=== PATIENT | female | born 1935 | race Caucasian/White ===

== ENCOUNTER → 2016-08-16 | Outpatient (CLI) | payer BC ==
[~2016-08-16] MED LIST: ACT/45 PO; ACT15 PO; ALBUAER2 INH; ALEN70TA2 PO; ASPI1TAB83 PO; CALC-354 PO; CEFD300C3 PO; CLC100X PO; CYAN100073 OR; FEXO1TAB45 PO; FLVHFA110 INH; FRRG PO; FSM70 PO; GLC5 PO; GLC500 PO; LACTCHW3 PO; LCTXP OR; METF-384 PO; MOME100A INH; MOME50SP5 NAE; PANT40TA PO; POLYSOL4 OPB; SIMV20TA5 PO; SITA100T3 PO; TELM40TA11 PO; TELM5TAB2 PO; VNTHFA/IN INH
[2016-08-16 17:29] LABS: BASO % 0.2 %; BASO ABS # 0.01 K/uL (0-0.2); COMPLETE YES; EOS % 1.4 %; HEMATOCRIT 39.4 % (37-47); IG% 0.2 %; LYMPH % 20.1 %; LYMPH ABS # 1.02 K/uL (1.2-3.4); MEAN CELL VOLUME 89.7 fL (80-100); MEAN CORPUSCULAR HGB CONC 34.5 g/dl (32-36); MEAN PLATELET VOLUME 10.2 fL (7.4-10.4); MONO % 12.2 %; NEUT % 65.9 %; PLATELET COUNT 204 K/uL (130-400); RED BLOOD COUNT 4.39 M/uL (4.2-5.4); WHITE BLOOD COUNT 5.08 K/uL (4.8-10.8)
[2016-08-16 18:10] LABS: URINE APPEARANCE CLEAR (CLEAR); URINE BILIRUBIN NEG (NEG); URINE COLOR YELLOW; URINE NITRITE POS (NEG); UROBILINOGEN NEG (NEG); ZZUR CULT IF INDIC CLEAN CATCH YES
[2016-08-16 18:15] LABS: MANUAL MICROSCOPIC REQUIRED? NO; REVIEW REQ? NO
[2016-08-16 18:42] LABS: ALT/SGPT 19 U/L (12-78); AST/SGOT 19 U/L (15-37); BLOOD UREA NITROGEN 11 mg/dl (7-18); BUN/CREATININE RATIO 10.3 (10-20); CARBON DIOXIDE 25 mmol/L (21-32); CHLORIDE 94 mmol/L (98-107); GLUCOSE 181 mg/dl (70-99); POTASSIUM 3.7 mmol/L (3.5-5.1); SODIUM 131 mmol/L (136-145)
[2016-08-16 18:56] LABS: ALB/GLOB RATIO 1.1 (0.9-2); ALKALINE PHOSPHATASE 71 U/L (45-117); THYROID STIMULATING HORMONE 0.794 uIu/ml (0.300-4.500)
[2016-08-17 06:17] LABS: ESTIMATED AVERAGE GLUCOSE 108 mg/dl; HA1C FLAG Normal (Normal)
--- NOTE | 2016-08-31 14:11 | CODING QUERY MEDICAL NECESSITY ---
SUPPORTING DIAGNOSIS NEEDED A supporting diagnosis is required for the test/procedure performed on this patient in order for us to be reimbursed by the patient's insurance. Please provide a supporting diagnosis for the following test/procedure listed below next to the test name along with your signature. *If there is no additional diagnosis for this patient that would support the following test/procedure please document that below next to the test/procedure. Test(s)/Procedure(s) that require a supporting diagnosis: * VITAMIN B-12 LEVEL DIAGNOSIS: * DOS: 08/16/16 Provider Signature: Date: Thank you Madeline Braga Health Information Management Once completed, please kindly fax back to [phone] For questions please call [phone]
== END | disposition home or self-care (01) ==
LOC: C.LABBFT 15:38
PROVIDERS: ATTEND Internal Medicine
DX: R53.83 Other fatigue (principal); E11.9 Type 2 diabetes mellitus without complications; M81.0 Age-related osteoporosis without current pathological fracture; D64.9 Anemia, unspecified

== ENCOUNTER → 2016-09-18 | Outpatient (CLI) | payer BC ==
[2016-09-18 17:49] LABS: BLOOD UREA NITROGEN 20 mg/dl (7-18); BUN/CREATININE RATIO 15.2 (10-20); CALCIUM 9.1 mg/dl (8.5-10.1); CARBON DIOXIDE 27 mmol/L (21-32); CHLORIDE 90 mmol/L (98-107); GLUCOSE 138 mg/dl (70-99); POTASSIUM 4.2 mmol/L (3.5-5.1); SODIUM 127 mmol/L (136-145)
== END | disposition home or self-care (01) ==
LOC: C.LABBFT 14:04
PROVIDERS: ATTEND Physician Assistant Medical
DX: I10 Essential (primary) hypertension (principal)

== ENCOUNTER 2016-09-20 17:48 | Inpatient (IN) | payer BC, OTHER ==
[~2016-09-20] VITALS: Ht 144.8 cm; Wt 50.2 kg
[~2016-09-20 17:48] MED LIST changes: -ACT/45 PO; -ALEN70TA2 PO; -CEFD300C3 PO; -CYAN100073 OR; -FLVHFA110 INH; -LCTXP OR; -METF-384 PO; -TELM40TA11 PO; -VNTHFA/IN INH
[2016-09-20] MEDS ORDERED: SODIUM CHLORIDE 0.9% 1000ML 500 ML IV STA (18:31)
--- NOTE | 2016-09-20 18:41 | EMERGENCY ROOM VISIT NOTE ---
History Report prepared by Joaquim: Saad Obrien Under the Supervision of: Dr. Michael Daigle M.D. First contact with patient: 18:25 Chief Complaint: ABNORMAL LABS Stated Complaint: LOW SODIUM History of Present Illness The patient is a 81 year old female who presents to the Emergency Room by EMS with complaints of an episode of abnormal labs 5 days ago. She notes she had blood work ordered by Dr. Hobbs 5 days ago, and was told to come to the ER as her sodium levels were low. She notes this has happened once before many years ago. The patient indicates that she had the blood work done because her blood pressure has been high, and that she has been weak recently. The patient has also had a productive cough, and ongoing shortness of breath. She notes she has been drinking plenty of fluids. The patient states having a history of pulmonary fibrosis. The patient recently broke her left shoulder, and still has some pain which radiates up to her neck. Source of History: patient Onset: 5 days ago Position: other (blood) Quality: other (abnormal sodium levels) Timing: other (episode) Associated Symptoms: + SOB, + cough, + neck pain, + weakness Note: The patient notes having shoulder pain. Review of Systems See HPI for pertinent positives & negatives. A total of 10 systems reviewed and were otherwise negative. Past Medical & Surgical Medical Problems: (1) Diab Karen Wo Compl, Type Ii Or Unspec Type, Not Uncntrld (2) Diverticulosis Colon (W/O Ment Of Hemorrhage) (3) Esophageal Reflux (4) Hypertension Nos (5) Postinflam Pulm Fibrosis (6) Pure Hypercholesterolem Family History No pertinent family history stated. Social History Smoking Status: Never Smoker Marital Status: single Occupation Status: retired Current/Historical Medications Scheduled Alendronate Sodium (Fosamax), 70 MG PO WK Fluticasone Propionate (Flovent Hfa), 2 PUFFS INH BID Glipizide (Glipizide), 5 MG PO BIDM Metformin Hcl (Glucophage), 1,000 MG PO BIDM Pantoprazole (Protonix), 40 MG PO DAILY Pioglitazone Hcl (Actos), 45 MG PO QAM Simvastatin (Zocor), 20 MG PO QPM Sitagliptin Phosphate (Januvia), 100 MG PO DAILY Telmisartan (Micardis), 40 MG PO HS Scheduled PRN Albuterol Hfa (Ventolin Hfa), 2-4 PUFFS INH Q6H PRN for SOB/Wheezing Allergies Coded Allergies: Risedronate (Verified Allergy, Unknown, SICK, 09/20/16) Vitamin E (Verified Allergy, Unknown, HIVES, 09/20/16) Prednisone (Verified Adverse Reaction, Unknown, Makes her feel very ill., 09/20/16) Physical Exam Vital Signs Date Time Temp Pulse Resp B/P Pulse Ox O2 Delivery O2 Flow Rate FiO2 09/20/16 20:44 88 20 164/70 93 Room Air 09/20/16 18:02 90 09/20/16 17:56 37.1 95 18 188/86 97 Room Air Physical Exam GENERAL: Patient is in no acute distress. HEENT: No acute trauma, normocephalic atraumatic, mucous membranes moist, no nasal congestion, no scleral icterus. NECK: No stridor, no adenopathy, no meningismus, trachea is midline. LUNGS: Clear to auscultation bilaterally, no wheeze, no rhonchi, breath sounds equal. HEART: Without murmurs gallops or rubs, regular rate and rhythm. ABDOMEN: Soft, nontender, bowel sounds positive, no hernias, no peritonitis. EXTREMITIES: No cyanosis or edema, full range of motion of all the joints without pain or difficulty, no signs for acute trauma. NEUROLOGIC: Oriented x 3, no acute motor or sensory deficits, no focal weakness. No cerebellar deficits. SKIN: No rash, no jaundice, no diaphoresis. Medical Decision & Procedures ER Provider Diagnostic Interpretation: Radiology results and stated below per my review and radiologist interpretation: CHEST ONE VIEW PORTABLE FINDINGS: Mild cardiomegaly. Findings of early congestive heart failure. This is superimposed upon chronic interstitial and fibrotic change. IMPRESSION: Mild congestive heart failure superimposed upon chronic interstitial change bilaterally Electronically signed by: Blas Carey M.D. 09/20/2016 7:07 PM Dictated Date/Time: 09/20/2016 7:06 PM Laboratory Results 09/20/16 18:00 Red Blood Count 4.09, Mean Corpuscular Volume 88.3, Mean Corpuscular Hemoglobin 31.3, Mean Corpuscular Hemoglobin Concent 35.5, Mean Platelet Volume 9.4, Neutrophils (%) (Auto) 64.7, Lymphocytes (%) (Auto) 18.9, Monocytes (%) (Auto) 14.4, Eosinophils (%) (Auto) 1.1, Basophils (%) (Auto) 0.5, Neutrophils # (Auto ) 3.69, Lymphocytes # (Auto) 1.08, Monocytes # (Auto) 0.82, Eosinophils # (Auto ) 0.06, Basophils # (Auto) 0.03 09/20/16 18:00 Test 09/20/16 18:00 09/20/16 18:58 White Blood Count 5.70 K/uL (4.8-10.8) Red Blood Count 4.09 M/uL (4.2-5.4) Hemoglobin 12.8 g/dL (12.0-16.0) Hematocrit 36.1 % (37-47) Mean Corpuscular Volume 88.3 fL (80-100) Mean Corpuscular Hemoglobin 31.3 pg (25-34) Mean Corpuscular Hemoglobin Concent 35.5 g/dl (32-36) Platelet Count 224 K/uL (130-400) Mean Platelet Volume 9.4 fL (7.4-10.4) Neutrophils (%) (Auto) 64.7 % Lymphocytes (%) (Auto) 18.9 % Monocytes (%) (Auto) 14.4 % Eosinophils (%) (Auto) 1.1 % Basophils (%) (Auto) 0.5 % Neutrophils # (Auto) 3.69 K/uL (1.4-6.5) Lymphocytes # (Auto) 1.08 K/uL (1.2-3.4) Monocytes # (Auto) 0.82 K/uL (0.11-0.59) Eosinophils # (Auto) 0.06 K/uL (0-0.5) Basophils # (Auto) 0.03 K/uL (0-0.2) RDW Standard Deviation 48.9 fL (36.4-46.3) RDW Coefficient of Variation 15.2 % (11.5-14.5) Immature Granulocyte % (Auto) 0.4 % Immature Granulocyte # (Auto) 0.02 K/uL (0.00-0.02) Anion Gap 12.0 mmol/L (3-11) Est Creatinine Clear Calc Drug Dose 27.5 ml/min Estimated GFR () 54.5 Estimated GFR (Non- 47.0 BUN/Creatinine Ratio 17.3 (10-20) Calcium Level 9.1 mg/dl (8.5-10.1) Magnesium Level 1.4 mg/dl (1.8-2.4) Total Bilirubin 1.0 mg/dl (0.2-1) Aspartate Amino Transf (AST/SGOT) 19 U/L (15-37) Alanine Aminotransferase (ALT/SGPT) 18 U/L (12-78) Alkaline Phosphatase 46 U/L (45-117) Troponin I < 0.015 ng/ml (0-0.045) Pro-B-Type Natriuretic Peptide 1141 pg/ml (0-1800) Total Protein 7.6 gm/dl (6.4-8.2) Albumin 4.0 gm/dl (3.4-5.0) Globulin 3.6 gm/dl (2.5-4.0) Albumin/Globulin Ratio 1.1 (0.9-2) Thyroid Stimulating Hormone (TSH) 0.715 uIu/ml (0.300-4.500) Urine Color YELLOW Urine Appearance CLEAR (CLEAR) Urine pH 5.0 (4.5-7.5) Urine Specific [place] 1.004 (1.000-1.030) Urine Protein NEG (NEG) Urine Glucose (UA) NEG (NEG) Urine Ketones NEG (NEG) Urine Occult Blood TRACE (NEG) Urine Nitrite NEG (NEG) Urine Bilirubin NEG (NEG) Urine Urobilinogen NEG (NEG) Urine Leukocyte Esterase LARGE (NEG) Urine WBC (Auto) >30 /hpf (0-5) Urine RBC (Auto) 0-4 /hpf (0-4) Urine Hyaline Casts (Auto) 0 /lpf (0-5) Urine Epithelial Cells (Auto) 5-10 /lpf (0-5) Urine Bacteria (Auto) 2+ (NEG) Laboratory results reviewed by me. Medications Administered Medications (Trade) Dose Ordered Sig/Lazara Route Start Time Stop Time Status Last Admin Dose Admin Sodium Chloride (Nss 1000ml) 500 ml @ 999 mls/hr Q31M STAT IV 09/20/16 18:31 09/20/16 19:01 DC 09/20/16 18:31 999 MLS/HR Magnesium Sulfate (Magnesium Sulfate) 2 gm NOW STAT IV 09/20/16 19:13 09/20/16 19:14 DC 09/20/16 19:13 2 GM Ceftriaxone Sodium (Rocephin Inj) 1 gm NOW STAT IV 09/20/16 19:52 09/20/16 19:53 DC 09/20/16 21:44 1 GM ECG Indication: other (abnormal labs) Rate (beats per minute): 82 Rhythm: sinus rhythm Findings: PAC, no acute ischemic change, other (no septal infarct) ED Course 1827: The patient was evaluated in room C1A. A complete history and physical exam was performed. 1830: Ordered NSS 500 ml @ 999 mls/hr IV. 1912: Ordered Magnesium Sulfate 2 gm IV. 1951: Ordered Rocephin Inj 1 gm IV. 1956: I updated the patient. 2024: Discussed the patient's case with Dr. Kevin. The patient will be evaluated for further management. Medical Decision Differentials include electrolyte imbalance, renal failure, anemia, UTI, cardiac ischemia, thyroid disorder, and low sodium. There is no leukocytosis or concerning anemia. Renal panel testing shows a low magnesium, her sodium was also slightly low. No kidney failure. There was no hepatitis. The patient appeared to be in a euthyroid state. Chest film showed some chronic change, the radiologist questioned CHF although the BNP by testing was not elevated. I think CHF is unlikely. Urinalysis is suggestive of infection. EKG shows a sinus rhythm, no acute ischemia. Cardiac enzyme testing times one is not suggestive of acute cardiac injury. The patient presents with weakness. She has a mildly low sodium, she is hypomagnesemic, she has an acute UTI. Given her findings, admission/ observation is warranted. The patient was given IV saline, IV magnesium and IV ceftriaxone. I spoke with her and case management. The on-call hospitalist was consulted. Consults Time Called: 2004 Consulting Physician: Dr. Kevin, [facility] Returned Call: 2024 Discussed the patient's case with Dr. Kevin. The patient will be evaluated for further management. Impression Primary Impression: Weakness Additional Impressions: UTI (urinary tract infection) Hypomagnesemia Hyponatremia Scribe Attestation The scribe's documentation has been prepared under my direction and personally reviewed by me in its entirety. I confirm that the note above accurately reflects all work, treatment, procedures, and medical decision making performed by me. Departure Information Dispostion Being Evaluated By Hospitalist Referrals Jay Hobbs M.D. (PCP) Patient Instructions My [facility] Problem Qualifiers
[2016-09-20 18:57] LABS: BASO % 0.5 %; BASO ABS # 0.03 K/uL (0-0.2); COMPLETE YES; EOS % 1.1 %; HEMATOCRIT 36.1 % (37-47); IG% 0.4 %; LYMPH % 18.9 %; LYMPH ABS # 1.08 K/uL (1.2-3.4); MEAN CELL VOLUME 88.3 fL (80-100); MEAN CORPUSCULAR HEMOGLOBIN 31.3 pg (25-34); MEAN CORPUSCULAR HGB CONC 35.5 g/dl (32-36); MEAN PLATELET VOLUME 9.4 fL (7.4-10.4); MONO % 14.4 %; NEUT % 64.7 %; PLATELET COUNT 224 K/uL (130-400); RED BLOOD COUNT 4.09 M/uL (4.2-5.4)
--- NOTE | 2016-09-20 19:08 | DIAGNOSTIC IMAGING REPORT ---
CHEST ONE VIEW PORTABLE CLINICAL HISTORY: sob dyspnea COMPARISON STUDY: 05/11/2016 FINDINGS: Mild cardiomegaly. Findings of early congestive heart failure. This is superimposed upon chronic interstitial and fibrotic change. IMPRESSION: Mild congestive heart failure superimposed upon chronic interstitial change bilaterally Electronically signed by: Blas Carey M.D. 09/20/2016 7:07 PM Dictated Date/Time: 09/20/2016 7:06 PM
[2016-09-20 19:11] LABS: ALT/SGPT 18 U/L (12-78); BLOOD UREA NITROGEN 19 mg/dl (7-18); BUN/CREATININE RATIO 17.3 (10-20); CALCIUM 9.1 mg/dl (8.5-10.1); CARBON DIOXIDE 26 mmol/L (21-32); CHLORIDE 90 mmol/L (98-107); GLUCOSE 138 mg/dl (70-99); MAGNESIUM 1.4 mg/dl (1.8-2.4); POTASSIUM 3.8 mmol/L (3.5-5.1); SODIUM 128 mmol/L (136-145)
[2016-09-20] MEDS ORDERED: MAGNESIUM SULFATE 1GM / D5W 1 GM BAG IV STA (19:13)
[2016-09-20] MEDS ORDERED: ACT/45 PO (19:16)
[2016-09-20] MEDS ORDERED: FLVHFA110 INH (19:16)
[2016-09-20] MEDS ORDERED: METF-384 PO (19:16)
[2016-09-20] MEDS ORDERED: VNTHFA/IN INH (19:16)
[2016-09-20] MEDS ORDERED: ALEN70TA2 PO (19:16)
[2016-09-20] MEDS ORDERED: TELM40TA11 PO (19:18)
[2016-09-20 19:21] LABS: ALB/GLOB RATIO 1.1 (0.9-2); ALKALINE PHOSPHATASE 46 U/L (45-117); AST/SGOT 19 U/L (15-37); THYROID STIMULATING HORMONE 0.715 uIu/ml (0.300-4.500)
[2016-09-20 19:34] LABS: URINE APPEARANCE CLEAR (CLEAR); URINE BILIRUBIN NEG (NEG); URINE COLOR YELLOW; URINE NITRITE NEG (NEG); URINE SPECIFIC GRAVITY 1.004 (1.000-1.030); UROBILINOGEN NEG (NEG); ZZUR CULT IF INDIC CLEAN CATCH YES
[2016-09-20 19:37] LABS: MANUAL MICROSCOPIC REQUIRED? NO; REVIEW REQ? NO
[2016-09-20] MEDS ORDERED: CEFTRIAXONE SOD INJ 1 GM ADDVIAL IV STA (19:52)
[2016-09-20] MEDS ORDERED: NITROGLYCERIN 0.4 MG SL PER TAB CHARGE SL PRN (21:45)
[2016-09-20] MEDS ORDERED: ZOLPIDEM TARTRATE 5 MG TAB PO PRN (21:45)
[2016-09-20] MEDS ORDERED: ALBUTEROL HFA 8 GM INHALER INH PRN (21:45)
[2016-09-20] MEDS ORDERED: ONDANSETRON INJ 2 MG/ML 2 ML VIAL IV PRN (21:45)
[2016-09-20] MEDS ORDERED: ACETAMINOPHEN 325 MG TAB PO PRN (21:45)
[2016-09-20] MEDS ORDERED: MAGNESIUM SULFATE 1GM / D5W 1 GM IV STA (21:56)
[2016-09-20] MEDS ORDERED: LEVALBUTEROL/IPRATROPIUM NEB INH PRN (22:00)
[2016-09-20] MEDS ORDERED: IV FLUIDS COMPLETED PRN (22:15)
--- NOTE | 2016-09-20 22:26 | History and Physical ---
History & Physical Date & Time of Service: Sep 20, 2016 at 22:27 Chief Complaint: Low Sodium Primary Care Physician: Jay Hobbs M.D. History of Present Illness Source: patient, family The patient is an 81-year-old female who presents to the emergency department via EMS after she was told by her PCP to come to the ER because her sodium levels were low on outpatient labs. She reports that her blood pressure has been high, that she has been weak recently, has had a productive cough and persistent shortness of breath. She has a known history of pulmonary fibrosis and a broken left shoulder. She's had no recent travel, and no sick exposures. Past Medical/Surgical History Medical Problems: (1) Diab Karen Wo Compl, Type Ii Or Unspec Type, Not Uncntrld Status: Chronic (2) Diverticulosis Colon (W/O Ment Of Hemorrhage) Status: Chronic (3) Esophageal Reflux Status: Chronic (4) Hypertension Nos Status: Chronic (5) Postinflam Pulm Fibrosis Status: Chronic (6) Pure Hypercholesterolem Status: Chronic Social History Smoking Status: Never Smoker Smokeless Tobacco Use: No Alcohol Use: none Drug Use: none Marital Status: single Housing status: lives alone Occupational Status: retired Immunizations History of Influenza Vaccine: N/A History of Tetanus Vaccine?: Yes History of Pneumococcal: Yes History of Hepatitis B Vaccine: No Multi-Drug Resistant Organisms History of MDRO: No Allergies Coded Allergies: Risedronate (Verified Allergy, Unknown, SICK, 09/20/16) Vitamin E (Verified Allergy, Unknown, HIVES, 09/20/16) Prednisone (Verified Adverse Reaction, Unknown, Makes her feel very ill., 09/20/16) Home Medications Scheduled Alendronate Sodium (Fosamax), 70 MG PO WK Fluticasone Propionate (Flovent Hfa), 2 PUFFS INH BID Glipizide (Glipizide), 5 MG PO BIDM Metformin Hcl (Glucophage), 1,000 MG PO BIDM Pantoprazole (Protonix), 40 MG PO DAILY Pioglitazone Hcl (Actos), 45 MG PO QAM Simvastatin (Zocor), 20 MG PO QPM Sitagliptin Phosphate (Januvia), 100 MG PO DAILY Telmisartan (Micardis), 40 MG PO HS Scheduled PRN Albuterol Hfa (Ventolin Hfa), 2-4 PUFFS INH Q6H PRN for SOB/Wheezing Review of Systems The patient denies chest pain, palpitations, lower extremity swelling, vision change, hearing change, sore throat, fevers, chills, sweats, weight change, nausea, vomiting, abdominal pain, pelvic pain, blood in urine or stool, dysuria , urinary frequency or urgency, headache, memory loss, rash, abnormal bruising or bleeding, imbalance, focal weakness, numbness or tingling in arms or legs, night sweats, or allergy symptoms. The review of systems is otherwise negative other than for that already noted above, and at least 10 systems have been reviewed. Physical Exam Vital Signs Date Time Temp Pulse Resp B/P Pulse Ox O2 Delivery O2 Flow Rate FiO2 09/20/16 20:44 88 20 164/70 93 Room Air 09/20/16 18:02 90 09/20/16 17:56 37.1 95 18 188/86 97 Room Air The patient is awake, well-developed and adequately nourished, alert and oriented 3, normocephalic and atraumatic, lying in bed and in no acute distress. HEENT--PERRL, EOMI, mucous membranes and oropharynx dry. Neck--supple, no JVD or bruits, thyroid normal, trachea midline, no adenopathy. Heart--normal S1 and S2, no extra beats, no murmurs, rubs or gallops. Lungs--clear bilaterally with good air movement, no respiratory distress, no accessory muscle use. Abdomen--normal bowel sounds and soft, nontender and nondistended, no hernias or masses, no organomegaly. Extremities--no cyanosis, clubbing or edema. There are good distal pulses b/l. Dermatologic--normal skin turgor, normal color, warm and dry, no abnormal lymph nodes, no rash. Neurologic--cranial nerves II through XII grossly intact, motor and sensory examination normal. Rheumatologic--decreased range of motion left shoulder. Psychiatric--normal affect. Diagnostics Laboratory Results Results Past 24 Hours Test 09/20/16 18:00 09/20/16 18:58 Range/Units White Blood Count 5.70 4.8-10.8 K/uL Red Blood Count 4.09 4.2-5.4 M/uL Hemoglobin 12.8 12.0-16.0 g/dL Hematocrit 36.1 37-47 % Mean Corpuscular Volume 88.3 80-100 fL Mean Corpuscular Hemoglobin 31.3 25-34 pg Mean Corpuscular Hemoglobin Concent 35.5 32-36 g/dl Platelet Count 224 130-400 K/uL Mean Platelet Volume 9.4 7.4-10.4 fL Neutrophils (%) (Auto) 64.7 % Lymphocytes (%) (Auto) 18.9 % Monocytes (%) (Auto) 14.4 % Eosinophils (%) (Auto) 1.1 % Basophils (%) (Auto) 0.5 % Neutrophils # (Auto) 3.69 1.4-6.5 K/uL Lymphocytes # (Auto) 1.08 1.2-3.4 K/uL Monocytes # (Auto) 0.82 0.11-0.59 K/uL Eosinophils # (Auto) 0.06 0-0.5 K/uL Basophils # (Auto) 0.03 0-0.2 K/uL RDW Standard Deviation 48.9 36.4-46.3 fL RDW Coefficient of Variation 15.2 11.5-14.5 % Immature Granulocyte % (Auto) 0.4 % Immature Granulocyte # (Auto) 0.02 0.00-0.02 K/uL Sodium Level 128 136-145 mmol/L Potassium Level 3.8 3.5-5.1 mmol/L Chloride Level 90 98-107 mmol/L Carbon Dioxide Level 26 21-32 mmol/L Anion Gap 12.0 3-11 mmol/L Blood Urea Nitrogen 19 7-18 mg/dl Creatinine 1.10 0.60-1.20 mg/dl Est Creatinine Clear Calc Drug Dose 27.5 ml/min Estimated GFR () 54.5 Estimated GFR (Non- 47.0 BUN/Creatinine Ratio 17.3 10-20 Random Glucose 138 70-99 mg/dl Calcium Level 9.1 8.5-10.1 mg/dl Magnesium Level 1.4 1.8-2.4 mg/dl Total Bilirubin 1.0 0.2-1 mg/dl Aspartate Amino Transf (AST/SGOT) 19 15-37 U/L Alanine Aminotransferase (ALT/SGPT) 18 12-78 U/L Alkaline Phosphatase 46 45-117 U/L Troponin I < 0.015 0-0.045 ng/ml Pro-B-Type Natriuretic Peptide 1141 0-1800 pg/ml Total Protein 7.6 6.4-8.2 gm/dl Albumin 4.0 3.4-5.0 gm/dl Globulin 3.6 2.5-4.0 gm/dl Albumin/Globulin Ratio 1.1 0.9-2 Thyroid Stimulating Hormone (TSH) 0.715 0.300-4.500 uIu/ml Urine Color YELLOW Urine Appearance CLEAR CLEAR Urine pH 5.0 4.5-7.5 Urine Specific [place] 1.004 1.000-1.030 Urine Protein NEG NEG Urine Glucose (UA) NEG NEG Urine Ketones NEG NEG Urine Occult Blood TRACE NEG Urine Nitrite NEG NEG Urine Bilirubin NEG NEG Urine Urobilinogen NEG NEG Urine Leukocyte Esterase LARGE NEG Urine WBC (Auto) >30 0-5 /hpf Urine RBC (Auto) 0-4 0-4 /hpf Urine Hyaline Casts (Auto) 0 0-5 /lpf Urine Epithelial Cells (Auto) 5-10 0-5 /lpf Urine Bacteria (Auto) 2+ NEG Microbiology Results 09/20/16 Urine Culture, Received Pending Diagnostic Radiology Patient Name: DAYTON CORADO Unit Number: [id number] Dictated: 09/20/161905 Transcribed: 09/20/161905 MS Printed Date/Time: [~ rep prt dt]/[~ rep prt tm] [~ rep ct labl] - [~ rep ct ivnm] [facility] [place] [address] Dictated: 09/20/161905 Transcribed: 09/20/161905 MS Printed Date/Time: [~ rep prt dt]/[~ rep prt tm] [~ rep ct labl] - [~ rep ct ivnm] CHEST ONE VIEW PORTABLE CLINICAL HISTORY: sob dyspnea COMPARISON STUDY: 05/11/2016 FINDINGS: Mild cardiomegaly. Findings of early congestive heart failure. This is superimposed upon chronic interstitial and fibrotic change. IMPRESSION: Mild congestive heart failure superimposed upon chronic interstitial change bilaterally Electronically signed by: Blas Carey M.D. 09/20/2016 7:07 PM Dictated Date/Time: 09/20/2016 7:06 PM The status of this report is Signed. Draft = Not yet reviewed or approved by Radiologist. Signed = Reviewed and approved by Radiologist. <AttendingPhy></AttendingPhy> <FamilyPhy>Jay Hobbs M.D.</FamilyPhy > <PrimaryPhy>Jay Hobbs M.D.</PrimaryPhy> <UnitNumber>[id number]</ UnitNumber> <VisitNumber>[id number]</VisitNumber> <PatientName>DAYTON CORADO </PatientName> <DateOfBirth>1935</DateOfBirth> <Location>[facility]</Location> <ServiceDate>09/20/16</ServiceDate> <MNE>ESINDI</MNE> <OrderingPhy>Michael Daigle M.D.</OrderingPhy> <OrderingPhyMNE>f rep ord dr salas</OrderingPhyMNE> < DictatingPhyMNE>f rep dict dr salas</DictatingPhyMNE> <CCListMNE>f rep ct mne</ CCListMNE> <AdmittingPhyMNE>f pt admit dr salas</AdmittingPhyMNE> <AttendingPhyMNE >f pt attend dr salas</AttendingPhyMNE> <ConsultingPhyMNE>f pt consult dr salas</ConsultingPhyMNE> <FamilyPhyMNE>f pt fam dr salas</FamilyPhyMNE> <OtherPhyMNE>f pt other dr salas</OtherPhyMNE> < PrimaryPhyMNE>f pt prim care dr salas</PrimaryPhyMNE> <ReferringPhyMNE>f pt referring dr salas</ReferringPhyMNE> EKG EKG shows normal sinus rhythm with sinus arrhythmia, first-degree heart block, septal RI, minimally elevated ST segment in V2. Impression Assessment and Plan Hypomagnesemia/hyponatremia/abnormal EKG--the patient will be admitted to the telemetry unit for serial cardiac enzymes, cardiac rhythm monitoring and a 2-D echocardiogram with Dopplers. She'll be given a total of 3 g of magnesium IV, and placed on IV fluids for rehydration. We'll check a BMP and magnesium level in the a.m. Urinary tract infection--continue the ceftriaxone started in the ED at 1 g IV daily. Follow urine culture and sensitivity. Pulmonary fibrosis--continue Flovent HFA 2 puffs twice a day, and have Xopenex with Atrovent nebulizer to use every 2 hours when necessary. Diabetes mellitus--hold metformin 1000 mg by mouth twice a day and pioglitazone 45 mg by mouth every morning. Continue glipizide 5 mg by mouth twice a day with meals and Januvia 100 mg by mouth daily. Place on Accu-Cheks before meals and at bedtime with NovoLog coverage. Hypertension--continue telmisartan 40 mg by mouth at bedtime. Hypercholesterolemia--continue simvastatin 20 mg by mouth every afternoon. GERD--continue pantoprazole 40 mg by mouth daily. Next Osteoporosis--we'll resume Fosamax 70 mg by mouth weekly in the outpatient setting. Level of Care Telemetry Advanced Directives Existing Advance Directive: No Existing Living Will: No Existing Power of Distribution Supervisor: No Resuscitation Status FULL RESUSCITATION VTE Prophylaxis VTE Risk Assessment Done? Y/N: Yes Risk Level: Moderate Given or contraindicated: SCD's
[2016-09-20] MEDS ORDERED: LEVALBUTEROL 1.25MG/0.5ML NEB INH PRN (23:00)
[2016-09-20] MEDS ORDERED: IPRATROPIUM BROMIDE NEB SOLN 0.02% 2.5 ML VIAL INH PRN (23:00)
[2016-09-20 23:13] VITALS: BP 179/83; PULSE 90; TEMP 36.4; Ht 144.8 cm; Wt 50.2 kg
[2016-09-21] VITALS (12 sets, daily range): BP systolic 114–183; BP diastolic 54–77; PULSE 79–89; TEMP 36.5–36.9; O2SAT 94–97
[2016-09-21] MEDS ORDERED: NSS + 20MEQ KCL 1000ML 1,000 ML IV SCH
[2016-09-21] MEDS ORDERED: GLUCOSE 40% GEL 15 GM TUBE PO PRN (04:45)
[2016-09-21] MEDS ORDERED: GLUCAGON FOR INJ 1 MG VIAL SQ PRN (04:45)
[2016-09-21] MEDS ORDERED: GLUCOSE 10 TABS/TUBE PO PRN (04:45)
[2016-09-21] MEDS ORDERED: DEXTROSE 50% 50 ML SYR IV PRN (04:45)
[2016-09-21 06:12] LABS: BASO % 0.5 %; BASO ABS # 0.02 K/uL (0-0.2); COMPLETE YES; EOS % 1.2 %; HEMATOCRIT 37.9 % (37-47); IG% 0.2 %; LYMPH % 15.1 %; LYMPH ABS # 0.62 K/uL (1.2-3.4); MEAN CORPUSCULAR HEMOGLOBIN 30.8 pg (25-34); MEAN CORPUSCULAR HGB CONC 34.6 g/dl (32-36); MEAN PLATELET VOLUME 9.6 fL (7.4-10.4); MONO % 14.8 %; NEUT % 68.2 %; PLATELET COUNT 217 K/uL (130-400); RED BLOOD COUNT 4.26 M/uL (4.2-5.4); WHITE BLOOD COUNT 4.11 K/uL (4.8-10.8)
[2016-09-21 06:43] LABS: BLOOD UREA NITROGEN 14 mg/dl (7-18); BUN/CREATININE RATIO 16.1 (10-20); CALCIUM 8.6 mg/dl (8.5-10.1); CARBON DIOXIDE 29 mmol/L (21-32); CHLORIDE 100 mmol/L (98-107); CREATININE 0.84 mg/dl (0.60-1.20); GLUCOSE 135 mg/dl (70-99); MAGNESIUM 2.4 mg/dl (1.8-2.4); POTASSIUM 4.3 mmol/L (3.5-5.1); SODIUM 136 mmol/L (136-145)
[2016-09-21 06:46] LABS: CKMB/CK RATIO 3.4 (0-3.0)
[2016-09-21] MEDS: SITAGLIPTIN 100 MG TAB PO SCH (07:25)
[2016-09-21] MEDS: PANTOprazole SOD 40 MG TAB PO SCH (07:25)
[2016-09-21] MEDS: FLUTICASONE HFA 110MCG INHALER INH SCH ×2 (07:26→21:12)
[2016-09-21] MEDS: INSULIN ASPART 100 UNITS/ML 3 ML PEN SC SCH ×2 (08:06→11:55)
[2016-09-21] MEDS ORDERED: NURSING VERBAL MED ORDER ONE ×2 (11:30→13:15)
--- NOTE | 2016-09-21 12:03 | Progress Note ---
Subjective Date of Service: Sep 21, 2016. Subjective Pt evaluation today including: conversation w/ patient, physical exam, chart review, lab review, review of inpatient medication list Problem List Medical Problems: (1) Hypomagnesemia Status: Acute (2) Hyponatremia Status: Acute (3) UTI (urinary tract infection) Status: Acute (4) Weakness Status: Acute Review of Systems Constitutional: No chills, No fatigue, No fever, No problem reported, No see HPI, No sweats, No weakness, No weight loss Eyes: No diplopia, No discharge, No eye pain, No problem reported, No redness, No see HPI, No worsening of vision ENT: No dental problems, No hearing loss, No nasal symptoms, No problem reported, No see HPI, No sore throat, No tinnitus, No trouble swallowing, No unusual epistaxis Respiratory: No cough, No dyspnea at rest, No dyspnea on exertion, No hemoptysis, No problem reported, No see HPI, No shortness of breath, No sputum, No wheezing Cardiac: No PND, No chest pain, No claudication, No edema, No orthopnea, No palpitations, No problem reported, No see HPI Breast: No breast lump, No breast pain, No change in shape, No nipple discharge , No problem reported, No see HPI Abdomen: No GI bleeding, No constipation, No diarrhea, No nausea, No pain, No problem reported, No see HPI, No vomiting Musculoskeletal: No calf pain, No joint pain, No muscle pain, No problem reported, No see HPI, No swelling Female : No abnormal vaginal bleeding, No dysuria, No hematuria, No incontinence, No problem reported, No see HPI, No urinary frequency, No vaginal discharge Neurologic: No balance problems, No memory loss, No numbness/tingling, No paralysis, No problem reported, No see HPI, No vertigo, No weakness Psychiatric: No anhedonism, No anxiety, No depression symptoms, No insomnia, No problem reported, No see HPI, No substance abuse Heme: No abnormal bleeding/bruising, No clotting problems, No night sweats, No problem reported, No see HPI, No swollen lymph nodes Endo: No excessive thirst, No excessive urination, No fatigue, No problem reported, No see HPI Skin: No bleeding, No color change, No itch, No new/changing skin lesions, No problem reported, No rash, No see HPI Medications Current Inpatient Medications Medications (Trade) Dose Ordered Sig/Lazara Route Start Time Stop Time Status Last Admin Dose Admin Acetaminophen (Tylenol Tab) 650 mg Q4H PRN PO 09/20/16 21:45 10/20/16 21:44 Zolpidem Tartrate (Ambien Tab) 5 mg HSZ PRN PO 09/20/16 21:45 10/20/16 21:44 Nitroglycerin (Nitrostat Tab) 0.4 mg UD PRN SL 09/20/16 21:45 10/20/16 21:44 Albuterol (Ventolin Hfa Inhaler) 2 puffs Q6H PRN INH 09/20/16 21:45 10/20/16 21:44 Fluticasone Propionate (Flovent Hfa 110MCG Inhaler) 2 puffs BID INH 09/21/16 09:00 10/21/16 08:59 09/21/16 07:26 2 PUFFS Glipizide (Glucotrol Tab) 5 mg BIDM PO 09/21/16 07:30 10/21/16 07:59 09/21/16 07:25 5 MG Pantoprazole Sodium (Protonix Tab) 40 mg DAILY PO 09/21/16 09:00 10/21/16 08:59 09/21/16 07:25 40 MG Simvastatin (Zocor Tab) 20 mg QPM PO 09/21/16 21:00 10/21/16 20:59 Sitagliptin Phosphate (Januvia Tab) 100 mg DAILY PO 09/21/16 09:00 10/21/16 08:59 09/21/16 07:25 100 MG Telmisartan (Micardis Tab) 40 mg HS PO 09/21/16 21:00 10/21/16 20:59 Ondansetron HCl 4 mg 4 mg Q6H PRN IV 09/20/16 21:45 10/20/16 21:44 Ceftriaxone Sodium/Dextrose (Rocephin Inj/ Dextrose Add-Meridian 50ML) 50 ml @ 100 mls/hr Q24H IV 09/21/16 22:00 09/25/16 21:59 Miscellaneous (Iv Fluids Completed) 1 ea PRN PRN N/A 09/20/16 22:15 09/20/17 22:14 Ipratropium Douglass (Atrovent 0.02% 0.5MG/2.5ML Neb) 0.5 mg Q2H PRN INH 09/20/16 23:00 10/20/16 22:59 Levalbuterol (Xopenex 1.25MG/ 0.5ML Neb) 1.25 mg Q2H PRN INH 09/20/16 23:00 10/20/16 22:59 Insulin Aspart (novoLOG ASPART) SLIDING SCALE If C... ACHS SC 09/21/16 07:00 10/21/16 06:59 09/21/16 08:06 3 UNITS Glucose (Glucose 40% Gel) UD PRN PO 09/21/16 04:45 10/21/16 04:44 Glucose (Glucose Chew Tab) 1 tabs UD PRN PO 09/21/16 04:45 10/21/16 04:44 Dextrose (Dextrose 50% 50ML Syringe) 50 ml UD PRN IV 09/21/16 04:45 10/21/16 04:44 Glucagon (Glucagon Inj) 1 mg UD PRN SQ 09/21/16 04:45 10/21/16 04:44 Objective Vital Signs Date Time Temp Pulse Resp B/P Pulse Ox O2 Delivery O2 Flow Rate FiO2 09/21/16 09:04 79 20 114/54 97 Room Air 09/21/16 08:00 Room Air 09/21/16 07:05 36.8 84 20 172/77 94 Room Air 09/21/16 05:22 94 Room Air 09/21/16 04:21 36.9 80 18 147/63 94 Room Air 09/21/16 00:50 81 09/21/16 00:14 94 Room Air 09/20/16 23:13 36.4 90 16 179/83 Room Air 09/20/16 22:33 94 20 172/83 94 09/20/16 20:44 88 20 164/70 93 Room Air 09/20/16 18:02 90 09/20/16 17:56 37.1 95 18 188/86 97 Room Air Physical Exam General Appearance: no apparent distress Eyes: normal inspection, EOMI ENT: normal ENT inspection, hearing grossly normal Neck: supple Respiratory/Chest: chest non-tender, lungs clear, normal breath sounds, no respiratory distress Cardiovascular: regular rate, rhythm, no edema, no gallop, no JVD, no murmur Abdomen: normal bowel sounds, non tender, soft, no organomegaly Extremities: normal range of motion, non-tender, normal inspection, no pedal edema Neurologic/Psychiatric: rigger third II-XII nml as tested, no motor/sensory deficits, alert, normal mood/affect, oriented x 3 Skin: normal color, warm/dry, no rash Laboratory Results Last 24 Hours Test 09/20/16 18:00 09/20/16 18:58 09/21/16 05:52 09/21/16 05:55 White Blood Count 5.70 K/uL 4.11 K/uL Red Blood Count 4.09 M/uL 4.26 M/uL Hemoglobin 12.8 g/dL 13.1 g/dL Hematocrit 36.1 % 37.9 % Mean Corpuscular Volume 88.3 fL 89.0 fL Mean Corpuscular Hemoglobin 31.3 pg 30.8 pg Mean Corpuscular Hemoglobin Concent 35.5 g/dl 34.6 g/dl Platelet Count 224 K/uL 217 K/uL Mean Platelet Volume 9.4 fL 9.6 fL Neutrophils (%) (Auto) 64.7 % 68.2 % Lymphocytes (%) (Auto) 18.9 % 15.1 % Monocytes (%) (Auto) 14.4 % 14.8 % Eosinophils (%) (Auto) 1.1 % 1.2 % Basophils (%) (Auto) 0.5 % 0.5 % Neutrophils # (Auto) 3.69 K/uL 2.80 K/uL Lymphocytes # (Auto) 1.08 K/uL 0.62 K/uL Monocytes # (Auto) 0.82 K/uL 0.61 K/uL Eosinophils # (Auto) 0.06 K/uL 0.05 K/uL Basophils # (Auto) 0.03 K/uL 0.02 K/uL RDW Standard Deviation 48.9 fL 49.7 fL RDW Coefficient of Variation 15.2 % 15.4 % Immature Granulocyte % (Auto) 0.4 % 0.2 % Immature Granulocyte # (Auto) 0.02 K/uL 0.01 K/uL Sodium Level 128 mmol/L 136 mmol/L Potassium Level 3.8 mmol/L 4.3 mmol/L Chloride Level 90 mmol/L 100 mmol/L Carbon Dioxide Level 26 mmol/L 29 mmol/L Anion Gap 12.0 mmol/L 7.0 mmol/L Blood Urea Nitrogen 19 mg/dl 14 mg/dl Creatinine 1.10 mg/dl 0.84 mg/dl Est Creatinine Clear Calc Drug Dose 27.5 ml/min 35.9 ml/min Estimated GFR () 54.5 75.5 Estimated GFR (Non- 47.0 65.2 BUN/Creatinine Ratio 17.3 16.1 Random Glucose 138 mg/dl 135 mg/dl Calcium Level 9.1 mg/dl 8.6 mg/dl Magnesium Level 1.4 mg/dl 2.4 mg/dl Total Bilirubin 1.0 mg/dl Aspartate Amino Transf (AST/SGOT) 19 U/L Alanine Aminotransferase (ALT/SGPT) 18 U/L Alkaline Phosphatase 46 U/L Troponin I < 0.015 ng/ml < 0.015 ng/ml Pro-B-Type Natriuretic Peptide 1141 pg/ml Total Protein 7.6 gm/dl Albumin 4.0 gm/dl Globulin 3.6 gm/dl Albumin/Globulin Ratio 1.1 Thyroid Stimulating Hormone (TSH) 0.715 uIu/ml Urine Color YELLOW Urine Appearance CLEAR Urine pH 5.0 Urine Specific Watkins 1.004 Urine Protein NEG Urine Glucose (UA) NEG Urine Ketones NEG Urine Occult Blood TRACE Urine Nitrite NEG Urine Bilirubin NEG Urine Urobilinogen NEG Urine Leukocyte Esterase LARGE Urine WBC (Auto) >30 /hpf Urine RBC (Auto) 0-4 /hpf Urine Hyaline Casts (Auto) 0 /lpf Urine Epithelial Cells (Auto) 5-10 /lpf Urine Bacteria (Auto) 2+ Total Creatine Kinase 32 U/L Creatine Kinase MB 1.1 ng/ml Creatine Kinase MB Ratio 3.4 Test 09/21/16 11:37 Bedside Glucose 52 mg/dl Assessment and Plan HYPONATREMIA WITH A LOW SERUM OSMOLALITY most importantly she is asymptomatic but differential diagnosis is broad; serum osmolality was 276, unfortunately urine osmolarity was not checked, can not R/O primary polydipsia but giving her pump in creatinine it appeared to be associated with hypovolemia received more that 2 Liters of IVF , no SOB, does not clinically appear to have CHF, but echo is ordered no stigmata of liver or adrenal disease TSH is 0.7 currently sodium level is 138, I stopped the IVF monitor electrolytes tomorrow UTI POA check urine Cx continue CTXN 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
[2016-09-21 14:49] LABS: CKMB/CK RATIO 4.5 (0-3.0)
[2016-09-21] MEDS ORDERED: SIMVASTATIN 20 MG TAB PO SCH (21:00)
[2016-09-21] MEDS ORDERED: TELMISARTAN 40 MG TAB PO SCH (21:00)
[2016-09-21] MEDS ORDERED: CEFTRIAXONE SOD INJ 1 GM in DEXTROSE 5% ADD-VANTAGE 50ML 50 ML IV SCH (22:00)
[2016-09-22] VITALS (7 sets, daily range): BP systolic 150–180; BP diastolic 68–74; PULSE 73–78; TEMP 36.8–36.9; O2SAT 93–96
[2016-09-22 06:10] LABS: BASO ABS # 0.04 K/uL (0-0.2); COMPLETE YES; EOS % 3.4 %; HEMATOCRIT 36.2 % (37-47); LYMPH % 13.2 %; LYMPH ABS # 0.54 K/uL (1.2-3.4); MEAN CELL VOLUME 91.6 fL (80-100); MEAN CORPUSCULAR HEMOGLOBIN 32.2 pg (25-34); MEAN CORPUSCULAR HGB CONC 35.1 g/dl (32-36); MEAN PLATELET VOLUME 9.8 fL (7.4-10.4); MONO % 19.8 %; NEUT % 62.6 %; PLATELET COUNT 197 K/uL (130-400); RED BLOOD COUNT 3.95 M/uL (4.2-5.4); WHITE BLOOD COUNT 4.09 K/uL (4.8-10.8)
[2016-09-22 06:26] LABS: ESTIMATED AVERAGE GLUCOSE 108 mg/dl; HA1C FLAG Normal (Normal)
[2016-09-22 06:45] LABS: BUN/CREATININE RATIO 17.3 (10-20); CALCIUM 8.6 mg/dl (8.5-10.1); CREATININE 0.82 mg/dl (0.60-1.20); MAGNESIUM 2.1 mg/dl (1.8-2.4); POTASSIUM 4.5 mmol/L (3.5-5.1)
[2016-09-22 06:48] LABS: ALB/GLOB RATIO 1.1 (0.9-2); PHOSPHORUS 3.5 mg/dl (2.5-4.9)
[2016-09-22] MEDS: PANTOprazole SOD 40 MG TAB PO SCH (07:53)
[2016-09-22] MEDS: FLUTICASONE HFA 110MCG INHALER INH SCH (07:53)
[2016-09-22] MEDS: SITAGLIPTIN 100 MG TAB PO SCH (07:53)
[2016-09-22] MEDS ORDERED: CEFD300C3 PO ×2 (10:05→10:06)
[2016-09-22] MEDS ORDERED: METF-384 PO (10:09)
--- NOTE | 2016-09-22 10:20 | Discharge Instructions ---
Discharge Instructions Date of Service Sep 22, 2016. Admission Reason for Admission: Hypomagnesemia, Uti Discharge Discharge Diagnosis / Problem: Hyponatremia and Hypomagnesemia with Urinary Tract Infection Discharge Goals Goal(s): Decrease discomfort, Improve function, Increase independence Activity Recommendations Activity Limitations: resume your previous activity . Instructions / Follow-Up Instructions / Follow-Up Hyponatremia (Low Salt Level): - This has improved and should be continued to be monitored with your family doctor - You report frequent urination and this may be from your urinary tract infection Urinary Tract Infection: - You will be provided a prescription for Cefdinir 300 mg twice a day for 5 more days and you can start the medication today 09/22 Diabetes: Low Blood Sugars - You HbA1c (what your average sugars are in a 3 month time frame) is 5.4 - You also had multiple hypoglycemic readings (low sugar readings) - you may actually not need continuing medication but you need to discuss this with your family doctor. - At this time STOP GLIPIZIDE AND PIOGLITAZONE as these medications are more likely to cause low blood sugars - YOUR METFORMIN WAS DECREASED TO 500 MG TWICE A DAY - You may resume your Januvia as previously prescribed. - Please discuss with your family doctor about your low sugars and these medication adjustments - your family doctor may want to make further adjustments Follow-Up: - Please see your family doctor in 7-10 days for continuing follow-up - A prescription for repeat blood work will be given to obtain in 1-2 days and forward to your family doctor - you can get this done where you normally get blood work or at this hospital Current Hospital Diet Patient's current hospital diet: AHA Diet (Heart Healthy) Discharge Diet Recommended Diet: AHA Diet (Heart Healthy) Pending Studies Studies pending at discharge: no Laboratory Results Hemoglobin A1c Test 09/22/16 05:15 Range/Units Estimated Average Glucose 108 mg/dl Hemoglobin A1c 5.4 4.5-5.6 % Medical Emergencies . Who to Call and When: Medical Emergencies: If at any time you feel your situation is an emergency, please call 911 immediately. . Non-Emergent Contact Non-Emergency issues call your: Primary Care Provider Call Non-Emergent contact if: you have any medication questions . . "Provider Documentation" section prepared by Mariam Padilla. VTE Core Measure Inpt VTE Proph given/why not?: SCD's
[2016-09-22] MEDS ORDERED: LCTXP OR (10:24)
--- NOTE | 2016-09-22 16:51 | Discharge Summary ---
Discharge Summary Date of Service Sep 22, 2016. Discharge Summary Admission Date: Sep 20, 2016 at 21:56 Discharge Date: Sep 22, 2016 Discharge Disposition: Home Principal Diagnosis: Hyponatremia Immunizations: Have You Had Influenza Vaccine: N/A History of Tetanus Vaccine?: Yes History of Pneumococcal: Yes History of Hepatitis B Vaccine: No Medication Reconciliation New Medications: Cefdinir (Cefdinir) 300 Mg Cap 300 MG PO BID for 5 Days Start today (09/22) Lactobacillus Acidophilus (Lactinex Granules) 1 Gm Pack 1 PKT OR TID for 10 Days, #30 PKT Changed Medications: Metformin Hcl (Glucophage) 1,000 Mg Tab 500 MG PO BIDM for 30 Days, TAB (Changed from: 1000 MG) Continued Medications: Albuterol Hfa (Ventolin Hfa) 200 Puffs/93896 Mcg Aers 2-4 PUFFS INH Q6H PRN for SOB/Wheezing, #1 INHALER Alendronate Sodium (Fosamax) 70 Mg Tab 70 MG PO WK, TAB TAKES ON FRIDAYS Fluticasone Propionate (Flovent Hfa) 120 Puffs/67532 Mcg Aero 2 PUFFS INH BID for 30 Days, #1 INHALER 3 Refills Pantoprazole (Protonix) 40 Mg Tab 40 MG PO DAILY, #30 TAB Simvastatin (Zocor) 20 Mg Tab 20 MG PO QPM, TAB Sitagliptin Phosphate (Januvia) 100 Mg Tab 100 MG PO DAILY, 0 Refills Telmisartan (Micardis) 40 Mg Tab 40 MG PO HS, TAB Discontinued Medications: Glipizide (Glipizide) 5 Mg Tab 5 MG PO BIDM Pioglitazone Hcl (Actos) 45 Mg Tab 45 MG PO QAM, TAB Discharge Exam Review of Systems: Constitutional: No chills, No fatigue, No fever, No problem reported, No sweats, No weakness, No weight loss Eyes: No diplopia, No discharge, No eye pain, No problem reported, No redness, No worsening of vision ENT: No dental problems, No hearing loss, No nasal symptoms, No problem reported, No sore throat, No tinnitus, No trouble swallowing, No unusual epistaxis Respiratory: No cough, No dyspnea at rest, No dyspnea on exertion, No hemoptysis, No problem reported, No shortness of breath, No sputum, No wheezing Cardiovascular: No PND, No chest pain, No claudication, No edema, No orthopnea, No palpitations, No problem reported Abdomen: No GI bleeding, No constipation, No diarrhea, No nausea, No pain, No problem reported, No vomiting Musculoskeletal: No calf pain, No joint pain, No muscle pain, No problem reported, No swelling Genitourinary - Female: No dysmenorrhea, No dysuria, No hematuria, No menorrhagia, No metrorrhagia, No , No problem reported, No rash, No urinary frequency, No urinary incontinence, No urinary retention, No urinary urgency, No vaginal bleeding, No vaginal discharge, No vaginal itching, No vulvodynia Psychiatric: No anhedonism, No anxiety, No depression symptoms, No insomnia , No problem reported, No substance abuse Endocrine: No excessive thirst, No excessive urination, No fatigue, No problem reported Hematologic / Lymphatic: No abnormal bleeding/bruising, No clotting problems , No night sweats, No problem reported, No swollen lymph nodes Integumentary: No bleeding, No color change, No itch, No new/changing skin lesions, No problem reported, No rash Hospital Course The patient is an 81-year-old female who presents to the emergency department via EMS after she was told by her PCP to come to the ER because her sodium levels were low on outpatient labs. she only admitted to fatigue and SOB, known history of pulmonary fibrosis and a broken left shoulder. she was found to have hyponatremia of 128, TSH was normal serum osmolality was 276, unfortunately urine osmolarity was not checked, can not R/O primary polydipsia but giving her pump in creatinine it appeared to be associated with hypovolemia received more that 2 Liters of IVF normal saline. , no SOB, does not clinically appear to have CHF, but echo is ordered no stigmata of liver or adrenal disease TSH is 0.7 currently sodium level is 138,off IVF she was also found to have UTI POA, started on CTXN checked urine Cx grew E coli, Abx switched to cefdinir upon discharge she had couple of episodes of hypoglycemia HgbA1C was 5.4 her antidiabetic regimen was concise to metformin 500mg bid and januvia 100mg daily glipizide and actos were stopped. Vit B12 relative deficiency (215 in 07/2016) instructed to start oral replacement stable today for discharge and follow up with labs as an out patient Total Time Spent: Greater than 30 minutes This includes examination of the patient, discharge planning, medication reconciliation, and communication with other providers. Discharge Instructions Please refer to the electronic Patient Visit Report (Discharge Instructions) for additional information.
[2016-09-22] MEDS ORDERED: CYAN100073 OR (17:09)
== END 2016-09-22 11:38 | disposition home or self-care (01) | DRG 641 ==
LOC: ENRESERVDT → ENRESERVTM → EDBD 17:48 → C.EDC 17:49 → EDBEDREQ 21:48 → C.2T 21:56 → EDBEDREQ 22:11
PROVIDERS: ADMIT Hospitalist; ATTEND Internal Medicine
DX: E87.1 Hypo-osmolality and hyponatremia (principal); N39.0 Urinary tract infection, site not specified; K21.9 Gastro-esophageal reflux disease without esophagitis; J84.10 Pulmonary fibrosis, unspecified; I50.9 Heart failure, unspecified; E83.42 Hypomagnesemia; E78.00 Pure hypercholesterolemia, unspecified; I11.0 Hypertensive heart disease with heart failure; E53.8 Deficiency of other specified B group vitamins; E11.9 Type 2 diabetes mellitus without complications; R94.31 Abnormal electrocardiogram [ECG] [EKG]; K57.90 Diverticulosis of intestine, part unspecified, without perforation or abscess without bleeding; M81.0 Age-related osteoporosis without current pathological fracture; R53.1 Weakness; Z79.899 Other long term (current) drug therapy; Z79.83 Long term (current) use of bisphosphonates; Z79.84 Long term (current) use of oral hypoglycemic drugs

== ENCOUNTER → 2016-09-25 | Outpatient (CLI) | payer BC, OTHER ==
[~2016-09-25] MED LIST changes: -ACT15 PO; -ALBUAER2 INH; +ALEN70TA2 PO; -ASPI1TAB83 PO; -CALC-354 PO; +CEFD300C3 PO; -CLC100X PO; +CYAN100073 OR; -FEXO1TAB45 PO; +FLVHFA110 INH; -FRRG PO; -FSM70 PO; -GLC5 PO; -GLC500 PO; -LACTCHW3 PO; +LCTXP OR; +METF-384 PO; -MOME100A INH; -MOME50SP5 NAE; -POLYSOL4 OPB; +TELM40TA11 PO; -TELM5TAB2 PO; +VNTHFA/IN INH
[2016-09-25 17:41] LABS: BLOOD UREA NITROGEN 20 mg/dl (7-18); BUN/CREATININE RATIO 18.4 (10-20); CALCIUM 9.4 mg/dl (8.5-10.1); CARBON DIOXIDE 27 mmol/L (21-32); CHLORIDE 94 mmol/L (98-107); GLUCOSE 234 mg/dl (70-99); MAGNESIUM 1.7 mg/dl (1.8-2.4); POTASSIUM 4.4 mmol/L (3.5-5.1); SODIUM 131 mmol/L (136-145)
== END | disposition home or self-care (01) ==
LOC: C.LABBFT 13:38
PROVIDERS: ATTEND Physician Assistant Medical
DX: E87.1 Hypo-osmolality and hyponatremia (principal)

== ENCOUNTER → 2016-10-02 | Outpatient (CLI) | payer BC ==
[2016-10-02 12:18] LABS: BLOOD UREA NITROGEN 23 mg/dl (7-18); BUN/CREATININE RATIO 20.7 (10-20); CALCIUM 8.7 mg/dl (8.5-10.1); CARBON DIOXIDE 27 mmol/L (21-32); CHLORIDE 93 mmol/L (98-107); GLUCOSE 195 mg/dl (70-99); MAGNESIUM 1.5 mg/dl (1.8-2.4); POTASSIUM 4.1 mmol/L (3.5-5.1); SODIUM 129 mmol/L (136-145)
== END | disposition home or self-care (01) ==
LOC: C.LABBFT 10:04
PROVIDERS: ATTEND Physician Assistant Medical
DX: I10 Essential (primary) hypertension (principal)

== ENCOUNTER → 2016-10-04 | Outpatient (CLI) | payer BC ==
[2016-10-04 13:38] LABS: BLOOD UREA NITROGEN 17 mg/dl (7-18); BUN/CREATININE RATIO 15.8 (10-20); CARBON DIOXIDE 25 mmol/L (21-32); CHLORIDE 93 mmol/L (98-107); GLUCOSE 188 mg/dl (70-99); POTASSIUM 4.2 mmol/L (3.5-5.1); SODIUM 129 mmol/L (136-145)
[2016-10-04 13:52] LABS: CALCIUM 9.2 mg/dl (8.5-10.1)
== END | disposition home or self-care (01) ==
LOC: C.LABBFT 08:20
PROVIDERS: ATTEND Physician Assistant Medical
DX: I10 Essential (primary) hypertension (principal)

== ENCOUNTER → 2016-10-06 | Outpatient (CLI) | payer BC ==
[2016-10-06 12:34] LABS: BLOOD UREA NITROGEN 14 mg/dl (7-18); BUN/CREATININE RATIO 13.5 (10-20); CALCIUM 9.4 mg/dl (8.5-10.1); CARBON DIOXIDE 26 mmol/L (21-32); CHLORIDE 96 mmol/L (98-107); GLUCOSE 191 mg/dl (70-99); MAGNESIUM 1.8 mg/dl (1.8-2.4); POTASSIUM 4.5 mmol/L (3.5-5.1); SODIUM 130 mmol/L (136-145)
== END | disposition home or self-care (01) ==
LOC: C.LABBFT 09:03
PROVIDERS: ATTEND Physician Assistant Medical
DX: I10 Essential (primary) hypertension (principal)

== ENCOUNTER → 2016-10-09 | Outpatient (CLI) | payer BC ==
[2016-10-09 17:56] LABS: BLOOD UREA NITROGEN 14 mg/dl (7-18); BUN/CREATININE RATIO 12.9 (10-20); CALCIUM 9.3 mg/dl (8.5-10.1); CARBON DIOXIDE 29 mmol/L (21-32); CHLORIDE 95 mmol/L (98-107); GLUCOSE 169 mg/dl (70-99); POTASSIUM 4.4 mmol/L (3.5-5.1); SODIUM 133 mmol/L (136-145)
== END | disposition home or self-care (01) ==
LOC: C.LABBFT 11:57
PROVIDERS: ATTEND Physician Assistant Medical
DX: E87.1 Hypo-osmolality and hyponatremia (principal)

== ENCOUNTER → 2016-11-08 | Outpatient (CLI) | payer BC ==
[2016-11-08 10:41] LABS: BLOOD UREA NITROGEN 8 mg/dl (7-18); BUN/CREATININE RATIO 7.7 (10-20); CARBON DIOXIDE 26 mmol/L (21-32); CHLORIDE 95 mmol/L (98-107); GLUCOSE 146 mg/dl (70-99); POTASSIUM 4.2 mmol/L (3.5-5.1); SODIUM 132 mmol/L (136-145)
== END | disposition home or self-care (01) ==
LOC: C.LAB1850 09:15
PROVIDERS: ATTEND Internal Medicine Pulmonary Disease
DX: R79.9 Abnormal finding of blood chemistry, unspecified (principal); J84.9 Interstitial pulmonary disease, unspecified

== ENCOUNTER → 2016-12-01 | Outpatient (CLI) | payer BC ==
[2016-12-01 12:31] LABS: ALT/SGPT 27 U/L (12-78); AST/SGOT 24 U/L (15-37); BLOOD UREA NITROGEN 13 mg/dl (7-18); BUN/CREATININE RATIO 12.8 (10-20); CARBON DIOXIDE 23 mmol/L (21-32); CHLORIDE 99 mmol/L (98-107); GLUCOSE 171 mg/dl (70-99); MAGNESIUM 1.9 mg/dl (1.8-2.4); POTASSIUM 4.3 mmol/L (3.5-5.1); SODIUM 136 mmol/L (136-145)
[2016-12-01 12:34] LABS: ALKALINE PHOSPHATASE 53 U/L (45-117)
== END | disposition home or self-care (01) ==
LOC: C.LABBFT 07:33
PROVIDERS: ATTEND Physician Assistant Medical
DX: E87.1 Hypo-osmolality and hyponatremia (principal)

== ENCOUNTER → 2016-12-18 | Outpatient (CLI) | payer BC ==
[2016-12-18 13:23] LABS: ESTIMATED AVERAGE GLUCOSE 146 mg/dl; HA1C FLAG Normal (Normal)
== END | disposition home or self-care (01) ==
LOC: C.LABBFT 07:34
PROVIDERS: ATTEND Internal Medicine
DX: R73.01 Impaired fasting glucose (principal)

== ENCOUNTER → 2017-05-11 | Outpatient (CLI) | payer BC ==
--- NOTE | 2017-05-11 09:30 | DIAGNOSTIC IMAGING REPORT ---
CHEST 2 VIEWS ROUTINE CLINICAL HISTORY: J84.9 Interstitial lung [id number] Chronic obstructive asthmaR COPD COMPARISON STUDY: Region and into thousand 17 FINDINGS: Baseline chronic interstitial change. No evidence for prominence of pulmonary vasculature. Diaphragms smooth but slightly flattened. Calcifications are sharp. IMPRESSION: Baseline chronic interstitial change. No acute or superimposed inflammatory process. The above report was generated using voice recognition software. It may contain grammatical, syntax or spelling errors. Electronically signed by: Blas Carey M.D. 05/11/2017 9:28 AM Dictated Date/Time: 05/11/2017 9:25 AM
== END | disposition home or self-care (01) ==
LOC: C.RAD1850 09:05
PROVIDERS: ATTEND Internal Medicine Pulmonary Disease
DX: J44.9 Chronic obstructive pulmonary disease, unspecified (principal); J84.9 Interstitial pulmonary disease, unspecified

== ENCOUNTER → 2017-05-28 | Outpatient (CLI) | payer BC ==
--- NOTE | 2017-05-28 15:20 | MAMMOGRAPHY REPORT ---
BILATERAL DIGITAL SCREENING MAMMOGRAM WITH CAD: 05/28/2017 CLINICAL HISTORY: Routine screening. Patient has no complaints. TECHNIQUE: Bilateral CC, MLO and XCCL views were obtained. Current study was also evaluated with a C [employer] Aided Detection (CAD) system. COMPARISON: Comparison is made to exams dated: 05/26/2016 mammogram, 05/24/2015 mammogram, 05/20/2014 mammogram, 04/23/2013 mammogram, 04/22/2012 mammogram, and 04/26/2011 mammogram - [facility]. BREAST COMPOSITION: The tissue of both breasts is heterogeneously dense, which may obscure small mas ses. FINDINGS: There are numerous groupings of coarse heterogeneous calcifications scattered in both breas ts. The glandular pattern is nodular but generally similar to prior mammograms. There are mild vasc ular calcifications in the breasts and a stable portillo-shaped biopsy marker clip in the left upper outer quadrant. No suspicious spiculated or irregular mass, architectural distortion or new, suspicious m icrocalcifications are seen. IMPRESSION: ACR BI-RADS CATEGORY 1: NEGATIVE There is no mammographic evidence of malignancy. A 1 year screening mammogram is recommended. The pa tient will receive written notification of the results. Approximately 10% of breast cancers are not detected with mammography. A negative mammographic report should not delay biopsy if a clinically suggestive mass is present. Farrah Honeycutt M.D. ay/:05/28/2017 13:55:43 Berry Picker Machine Operator: Fany Abdalla RT(R)(Belkys)(BD), [facility] letter sent: Normal 1/2 BI-RADS Code: ACR BI-RADS Category 1: Negative
== END | disposition home or self-care (01) ==
LOC: C.MAMM 09:49
PROVIDERS: ATTEND Internal Medicine
DX: Z12.31 Encounter for screening mammogram for malignant neoplasm of breast (principal)

== ENCOUNTER → 2017-07-10 | Outpatient (CLI) | payer BC ==
[2017-07-10 16:47] LABS: BASO % 0.3 %; BASO ABS # 0.02 K/uL (0-0.2); HEMATOCRIT 40.5 % (37-47); HEMOGLOBIN 13.7 g/dL (12.0-16.0); IG# 0.02 K/uL (0.00-0.02); LYMPH % 9.7 %; LYMPH ABS # 0.69 K/uL (1.2-3.4); MEAN CELL VOLUME 91.6 fL (80-100); MEAN CORPUSCULAR HGB CONC 33.8 g/dl (32-36); MEAN PLATELET VOLUME 10.6 fL (7.4-10.4); MONO % 9.5 %; MONO ABS # 0.67 K/uL (0.11-0.59); NEUT % 80.2 %; NEUT ABS # 5.68 K/uL (1.4-6.5); PLATELET COUNT 222 K/uL (130-400); RED CELL DISTRIBUTION WIDTH CV 15.2 % (11.5-14.5); WHITE BLOOD COUNT 7.08 K/uL (4.8-10.8)
[2017-07-10 17:12] LABS: ALBUMIN 3.9 gm/dl (3.4-5.0); ALT/SGPT 13 U/L (12-78); AST/SGOT 12 U/L (15-37); BLOOD UREA NITROGEN 11 mg/dl (7-18); CALCIUM 8.5 mg/dl (8.5-10.1); CARBON DIOXIDE 25 mmol/L (21-32); CHOLESTEROL 137 mg/dl (0-200); CREATININE 1.06 mg/dl (0.60-1.20); GLUCOSE 216 mg/dl (70-99); POTASSIUM 3.5 mmol/L (3.5-5.1); SODIUM 129 mmol/L (136-145)
[2017-07-10 17:17] LABS: CREATININE RANDOM URINE 93.6 mg/dl
[2017-07-10 17:23] LABS: ALKALINE PHOSPHATASE 53 U/L (45-117); LDL CHOLESTEROL CALCULATED 45 mg/dl; TOTAL PROTEIN 7.8 gm/dl (6.4-8.2)
[2017-07-11 05:54] LABS: HEMOGLOBIN A1C 6.2 % (4.5-5.6)
== END | disposition home or self-care (01) ==
LOC: C.LABBFT 12:22
PROVIDERS: ATTEND Internal Medicine
DX: R63.4 Abnormal weight loss (principal); E11.9 Type 2 diabetes mellitus without complications; E78.00 Pure hypercholesterolemia, unspecified; M81.0 Age-related osteoporosis without current pathological fracture

== ENCOUNTER → 2017-07-11 | Outpatient (CLI) | payer BC | END | disposition home or self-care (01) | LOC: C.LABBFT 10:32 | PROVIDERS: ATTEND Internal Medicine | DX: E87.1 Hypo-osmolality and hyponatremia (principal) ==

== ENCOUNTER → 2017-10-29 | Outpatient (CLI) | payer BC ==
[2017-10-29 12:28] LABS: BLOOD UREA NITROGEN 15 mg/dl (7-18); CALCIUM 9.3 mg/dl (8.5-10.1); CARBON DIOXIDE 29 mmol/L (21-32); CREATININE 0.83 mg/dl (0.60-1.20); GLUCOSE 127 mg/dl (70-99); SODIUM 132 mmol/L (136-145)
== END | disposition home or self-care (01) ==
LOC: C.LABBFT 09:07
PROVIDERS: ATTEND Physician Assistant Medical
DX: E87.1 Hypo-osmolality and hyponatremia (principal)

== ENCOUNTER → 2018-01-15 | Outpatient (CLI) | payer BC ==
--- NOTE | 2018-01-15 10:01 | DIAGNOSTIC IMAGING REPORT ---
L-SPINE MIN 4 VIEWS ROUTINE CLINICAL HISTORY: Pain status post trauma COMPARISON STUDY: CT scan performed February 2013 FINDINGS: There is no pathologic bowel dilatation. There are surgical clips within the right upper quadrant consistent with a prior cholecystectomy. There are vascular calcifications present. There are advanced arthritic changes within the right hip. There is a subcapital right hip fracture. There is a lumbar dextroscoliosis. There are advanced multilevel degenerative changes present within the lumbar spine. There is a superior endplate L1 compression fracture. This likely is old. IMPRESSION: 1. Subcapital right hip fracture 2. Advanced degenerative changes in the lumbar spine 3. Superior endplate L1 vertebral body compression fracture likely old Electronically signed by: Torrey Mariano M.D. 01/15/2018 10:00 AM Dictated Date/Time: 01/15/2018 9:58 AM
--- NOTE | 2018-01-15 10:04 | DIAGNOSTIC IMAGING REPORT ---
PELVIS/BILATERAL HIP 2 VIEWS CLINICAL HISTORY: Fall. COMPARISON STUDY: CT of the abdomen and pelvis February 27, 2013. FINDINGS: Sacroiliac joints and symphysis pubis are intact. No acute fracture is identified within the pelvis or the hips. Extensive vascular calcification is present. Severe right hip joint space narrowing is noted with osteophytosis. There is mild osteoarthritis of the left hip. There is no evidence for avascular necrosis. Lumbar spine radiographs will be reported separately. IMPRESSION: 1. No acute fracture within the pelvis or hips. 2. Severe osteoarthritis of the right hip. Electronically signed by: Isreal Schmitz M.D. 01/15/2018 10:03 AM Dictated Date/Time: 01/15/2018 10:00 AM
== END | disposition home or self-care (01) ==
LOC: C.RAD 09:22
PROVIDERS: ATTEND Physician Assistant Medical
DX: S72.011A Unspecified intracapsular fracture of right femur, initial encounter for closed fracture (principal); M16.0 Bilateral primary osteoarthritis of hip; M54.9 Dorsalgia, unspecified; W19.XXXA Unspecified fall, initial encounter

== ENCOUNTER → 2018-01-15 | Outpatient (CLI) | payer BC ==
--- NOTE | 2018-01-15 13:15 | DIAGNOSTIC IMAGING REPORT ---
PELVIS CT CT DOSE: 297.18 mGy.cm HISTORY: Abnormal chest x-ray. Right hip pain. W19.XXXA FallM19.90 [id number] Subcapital fracture o TECHNIQUE: Multiaxial CT images of the pelvis were performed and reformatted in the sagittal and coronal plane without the use of contrast. A dose lowering technique was utilized adhering to the principles of ALARA. COMPARISON: Pelvis 01/15/2018. Abdomen and pelvis CT 02/27/2013. FINDINGS: Severe osteoarthritis within the right hip with [id number] articulation and large osteophytes. There are also osteophytes at the femoral neck. Partially detached osteophyte at the posterior lip of the right acetabulum. These findings likely correspond to the x-ray abnormality. There is no acute fracture within the right or left hip. There is mild left hip osteoarthritis. Nondisplaced fracture within the left sacral ala at the S2 level best seen on image 285. Questionable nondisplaced fracture within the right sacral ala at the S1 level best seen on image 246. No additional fractures identified within the pelvic bones. Mild presacral edema. Questionable thickening of the rectum is likely due to underdistention. Colonic diverticulosis. The bladder is unremarkable. The uterus is surgically absent. IMPRESSION: 1. Nondisplaced left sacral ala fracture at the S2 level. 2. Possible nondisplaced right sacral fracture ala at the S1 level. 3. No fracture or dislocation within the right or left hip. Electronically signed by: Rafy Topete M.D. 01/15/2018 1:13 PM Dictated Date/Time: 01/15/2018 1:02 PM
== END | disposition home or self-care (01) ==
LOC: C.CTS 12:38
PROVIDERS: ATTEND Physician Assistant Medical
DX: S72.019A Unspecified intracapsular fracture of unspecified femur, initial encounter for closed fracture (principal); S32.10XA Unspecified fracture of sacrum, initial encounter for closed fracture; M19.90 Unspecified osteoarthritis, unspecified site; W19.XXXA Unspecified fall, initial encounter

== ENCOUNTER 2019-01-06 15:44 | Inpatient (IN) ==
[2019-01-06] MEDS ORDERED: ALBUT/IPRATROP 3MG/0.5MG NEB 3 ML VIAL NEB STA (17:22)
[2019-01-06] MEDS ORDERED: SODIUM CHLORIDE 0.9% 500 ML IV SCH (17:30)
[2019-01-06 18:02] LABS: Eosinophils # (auto) 0.02 K/uL (0-0.5); Eosinophils % (auto) 0.3 %; Hematocrit (blood only) 36.8 % (37-47); Hemoglobin 11.8 g/dL (12.0-16.0); Immature Granulocytes # (auto) 0.06 K/uL (0.00-0.02); Immature Granulocytes % (auto) 0.9 %; Lymphocytes # (auto) 0.64 K/uL (1.2-3.4); Lymphocytes % (auto) 9.6 %; Mean Corpuscular Hgb Conc 32.1 g/dL (32-36); Mean Corpuscular Volume 79.1 fL (80-100); Mean Platelet Volume 9.8 fL (7.4-10.4); Monocytes # (auto) 0.91 K/uL (0.11-0.59); Monocytes % (auto) 13.7 %; Neutrophils # (auto) 5.03 K/uL (1.4-6.5); Neutrophils % (auto) 75.5 %; Nucleated RBC # (auto) 0.22 K/uL (0-0); Nucleated RBC % (auto) 3.3 %; Platelet Count 183 K/uL (130-400); RDW Coefficient of Variation 17.3 % (11.5-14.5); RDW Standard Deviation 48.8 fL (36.4-46.3); Red Blood Count 4.65 M/uL (4.2-5.4); White Blood Count 6.66 K/uL (4.8-10.8)
[2019-01-06 18:17] LABS: INR 1.3 (0.9-1.1); Partial Thromboplastin Ratio 0.9; Partial Thromboplastin Time 24.2 Seconds (21.0-31.0)
[2019-01-06 18:33] LABS: Echinocytes 1+; Hypochromasia Present; Polychromasia 1+
[2019-01-06 18:45] LABS: Alanine Aminotransferase 287 U/L (12-78); Albumin Level 3.6 gm/dl (3.4-5.0); Alkaline Phosphatase 104 U/L (45-117); Aspartate Aminotransferase 38 U/L (15-37); Bilirubin,Total 1.2 mg/dl (0.2-1); Blood Urea Nitrogen 36 mg/dl (7-18); Calcium 8.8 mg/dl (8.5-10.1); Carbon Dioxide 21 mmol/L (21-32); Chloride 95 mmol/L (98-107); Est GFR (Non-African American) 36.2; Globulin 3.5 gm/dl (2.5-4.0); Glucose 182 mg/dl (70-99); Potassium 4.7 mmol/L (3.5-5.1); Sodium 126 mmol/L (136-145); Total Protein 7.1 gm/dl (6.4-8.2); Troponin I 0.052 ng/ml (0-0.045)
[2019-01-06 18:58] LABS: Base Excess ABG -3.9 mEq/L (-9-1.8); HCO3 ABG 20 mmol/L (19-24); Oxygen Saturation ABG 93.9 % (90-95); PCO2 ABG 32 mmHg (35-46); PO2 ABG 72 mm/Hg (80-95); pH ABG 7.42 (7.35-7.45)
--- NOTE | 2019-01-06 19:08 | XRay Report ---
XR chest 1V portable CLINICAL HISTORY: Dyspnea COMPARISON STUDY: Chest radiograph September 20, 2016. Chest radiograph May 11, 2017. FINDINGS: Note is made of mild cardiomegaly. There is bilateral lower lung interstitial thickening an d opacities. No pneumothorax or pleural effusion is noted. No evidence for pulmonary edema. IMPRESSION: Lower lung interstitial thickening and bilateral opacities. Left basilar opacity appears unchanged from prior exam and suggests interstitial lung disease. Right basilar opacity appears incre ased from prior exam. Mild superimposed consolidation cannot be excluded. Electronically signed by: Isreal Schmitz M.D. 01/06/2019 7:06 PM
[2019-01-06 19:25] LABS: Allen Test Pos (Pos)
[2019-01-06] MEDS ORDERED: ASPIRIN CHEW 324 MG PO STA (20:03)
--- NOTE | 2019-01-06 21:47 | Emergency Department Note ---
Entered by Sofya Tiwari acting as a scribe for Asim Davey MD History of Present Illness General Chief complaint: Shortness of Breath/Dyspnea Stated complaint: BREATHING, O2 LEVEL, NOT FEELING WELL Time Seen by Provider: 01/06/19 17:06 Source: patient History of Present Illness Onset (ago): day(s) (several) Location: chest Pain Consistency: + other (persistent) Maximum Pain Intensity: 0 Quality: + other (shortness of breath ) Relieved By: not by medication (inhalers) Exacerbated By: + other (exertion) Associated symptoms: + chest pain (tightness) and + cough (intermittent productive with white phlegm ); no nausea/vomiting Treatments prior to arrival: other (inhalers) The patient is a 83 year old white female w/ PMHx of hypertension, diabetes, pulmonary fibrosis, and GERD who presents to the ED w/ CC of persistent shortness of breath beginning several days prior to arrival. The patient states that she has had intermittent coughing with white phlegm. She reports having chest tightness from this cough. The patient reports that her inhalers have not been relieving her symptoms. She denies being on oxygen. The patient states that her shortness of breath is exacerbated with exertion. The patient denies vomiting. Per the patient's family, the patient saw a Nurse Practitioner today and her O2 saturation was in the high 70s at this time. Per the patient's family, the patient recently stopped taking her medication because she felt as though no one was helping her. The patient's family states that they are now making sure the patient gets all of her medication. Home Medications Home Medications Medication Instructions Recorded Confirmed Type aspirin 81 mg tablet 81 mg PO DAILY tab 11/14/18 01/06/19 History atorvastatin 20 mg tablet 20 mg PO HS #30 tab 11/14/18 01/06/19 History docusate sodium 100 mg capsule 100 mg PO BID PRN cap 11/14/18 01/06/19 History pioglitazone 45 mg tablet 45 mg PO DAILY #30 tab 11/14/18 01/06/19 History calcium carbonate 600 mg calcium 600 mg PO BID tab 11/15/18 01/06/19 History (1,500 mg) tablet pantoprazole 40 mg tablet,delayed 40 mg PO DAILY #30 tab 11/15/18 01/06/19 History release acetaminophen [Tylenol Arthritis 650 mg PO Q12H PRN 01/06/19 01/06/19 History Pain] albuterol sulfate [Ventolin HFA] 2 puff INHALATION Q6H PRN 01/06/19 01/06/19 History cyanocobalamin (vitamin B-12) 1,000 mcg PO DAILY 01/06/19 01/06/19 History metformin 1,000 mg PO BIDM 01/06/19 01/06/19 History peg 400-propylene glycol [Systane 1 drp OPHTHALMIC (EYE) BID PRN 01/06/19 01/06/19 History (propylene glycol)] sitagliptin [Januvia] 100 mg PO DAILY 01/06/19 01/06/19 History Allergies Allergy/AdvReac Type Severity Reaction Status Date / Time risedronate sodium Allergy Unknown SICK Verified 01/06/19 14:03 vitamin E (d-alpha Allergy Unknown HIVES Verified 01/06/19 14:03 tocopherol) prednisone AdvReac Unknown Makes her Verified 01/06/19 14:03 feel very ill. Past Med/Surg History Medical History Tubular adenoma of colon Subcapital fracture of hip Sciatica Osteoporosis Low back pain Interstitial lung disease Hyponatremia Hypertension Hypercholesterolemia Gastroesophageal reflux disease Diverticulosis Difficulty walking Diabetes mellitus Compression fracture of L1 lumbar vertebra Chronic obstructive asthma Carotid artery stenosis, asymptomatic Anemia Allergic rhinitis Social History Feels Safe at Home: Yes Smoking Status: Never smoker Review of Systems See HPI for pertinent positives & negatives. and A total of 10 systems reviewed and were otherwise negative Physical Exam Vital Signs Vital Signs - 24 hr 01/06/19 15:51 01/06/19 17:22 01/06/19 17:35 Temperature 36.4 C L Temperature Source Oral Sepsis Recent Fever Within 48 Hours No Sepsis Action Taken by Nursing No Action Required Oxygen Flow Rate - Titration 2 Pulse Oximetry Post Tiitration 91 Pulse Rate 96 H Pulse Rate from SpO2 Sensor Respiratory Rate 20 20 Respiratory Effort / Characteristics Non-Labored Spontaneous Blood Pressure 110/62 Blood Pressure Mean 78 Pulse Oximetry 98 88 L 94 Oxygen Delivery Method Room Air Nasal Cannula Nasal Cannula Oxygen Flow Rate 0 3 01/06/19 18:10 01/06/19 18:44 01/06/19 19:01 Temperature Temperature Source Sepsis Recent Fever Within 48 Hours Sepsis Action Taken by Nursing Oxygen Flow Rate - Titration Pulse Oximetry Post Tiitration Pulse Rate 107 H 113 H 110 H Pulse Rate from SpO2 Sensor 103 H 112 H 109 H Respiratory Rate 29 H 22 24 Respiratory Effort / Characteristics Blood Pressure 152/114 H 134/94 114/98 Blood Pressure Mean 126 107 103 Pulse Oximetry 94 94 97 Oxygen Delivery Method Nasal Cannula Nasal Cannula Oxygen Flow Rate 2 2 01/06/19 20:00 Temperature Temperature Source Sepsis Recent Fever Within 48 Hours Sepsis Action Taken by Nursing Oxygen Flow Rate - Titration Pulse Oximetry Post Tiitration Pulse Rate 124 H Pulse Rate from SpO2 Sensor 123 H Respiratory Rate 24 Respiratory Effort / Characteristics Blood Pressure Blood Pressure Mean Pulse Oximetry 95 Oxygen Delivery Method Oxygen Flow Rate 2 GENERAL: Hard of hearing. Non-toxic. EYE EXAM: Normal conjunctiva. PERRL, no anisocoria and EOM's grossly intact w/o pain. OROPHARYNX: Moist mucus membranes. Grossly normal dentition. NECK: Supple, no nuchal rigidity, no adenopathy, non-tender. no signs of meningismus. CHEST: Mild chest wall pain without overlying skin changes. LUNGS: Crackles at the bases. Mild tachypnea noted. Shallow breath sounds. HEART: NSR, no MRG. ABDOMEN: Abdomen soft, non-tender, normo-active bowel sounds, no masses, no rebound or guarding. BACK: No CVA TTP. SKIN: No rashes and no bruising. UPPER EXTREMITIES: Upper extremities are grossly normal. LOWER EXTREMITIES: No pitting edema. No calf pain. NEURO EXAM: A&O x3, cranial nerves II-XII grossly intact, normal speech, moves all 4 extremities on command w/o issue. Course 1711: Past medical records reviewed. The patient was evaluated in room A2. A complete history and physical exam was performed. 1942: I updated the patient and her family on all results. 2104: Dr. Larkin-[facility] Hospitalist service was made aware of the patient. Administered Medications Discontinued Medications Albuterol (Duoneb) 6 ml NEB NOW STA Stop: 01/06/19 17:23 Last Admin: 01/06/19 17:35 Dose: 6 ml Documented by: [id number] Aspirin (Aspirin) 324 mg PO NOW STA Stop: 01/06/19 20:04 Last Admin: 01/06/19 20:21 Dose: 324 mg Documented by: [id number] Sodium Chloride (Nss) 500 mls @ 999 mls/hr IV .Q31M SONIDO Stop: 01/06/19 18:00 Last Infusion: 01/06/19 19:05 Dose: 0 mls/hr Documented by: [id number] Admin: 01/06/19 18:37 Dose: 999 mls/hr Documented by: [id number] Medical Decision Making Medical Records Attestation: I reviewed the patient's medical records. Home Medications Current Medication List: was personally reviewed by me Laboratory Data Attestation: I reviewed the patient's lab results. Result diagrams: 01/06/19 17:45 01/06/19 17:45 Lab Results 01/06/19 01/06/19 01/06/19 Range/Units 17:45 17:45 17:45 WBC 6.66 (4.8-10.8) K/uL RBC 4.65 (4.2-5.4) M/uL Hgb 11.8 L (12.0-16.0) g/dL Hct 36.8 L (37-47) % MCV 79.1 L (80-100) fL MCH 25.4 (25-34) pg MCHC 32.1 (32-36) g/dL RDW Std Deviation 48.8 H (36.4-46.3) fL RDW Coeff of Alexa 17.3 H (11.5-14.5) % Plt Count 183 (130-400) K/uL MPV 9.8 (7.4-10.4) fL Immature Gran % (Auto) 0.9 % Neut % (Auto) 75.5 % Lymph % (Auto) 9.6 % [place] % (Auto) 13.7 % Eos % (Auto) 0.3 % Baso % (Auto) 0.0 % Immature Gran # (Auto) 0.06 H (0.00-0.02) K/uL Neut # (Auto) 5.03 (1.4-6.5) K/uL Lymph # (Auto) 0.64 L (1.2-3.4) K/uL [place] # (Auto) 0.91 H (0.11-0.59) K/uL Eos # (Auto) 0.02 (0-0.5) K/uL Baso # (Auto) 0.00 (0-0.2) K/uL Absolute Nucleated RBC 0.22 H (0-0) K/uL Nucleated RBC % (auto) 3.3 % Polychromasia 1+ Hypochromasia Present Echinocytes 1+ PT 13.0 H (9.0-12.0) Seconds INR 1.3 H (0.9-1.1) APTT 24.2 (21.0-31.0) Seconds PTT Ratio 0.9 ABG pH (7.35-7.45) ABG pCO2 (35-46) mmHg ABG pO2 (80-95) mm/Hg ABG HCO3 (19-24) mmol/L ABG O2 Saturation (90-95) % ABG Base Excess (-9-1.8) mEq/L Ward Test (Pos) Barometric Pressure mm/Hg Oxygen Given Sodium 126 L (136-145) mmol/L Potassium 4.7 (3.5-5.1) mmol/L Chloride 95 L (98-107) mmol/L Carbon Dioxide 21 (21-32) mmol/L Anion Gap 10.0 (3-11) BUN 36 H (7-18) mg/dl Creatinine 1.35 H (0.6-1.2) mg/dl Est Cr Clr Drug Dosing Not Reportable Est GFR ( Amer) 42.0 Est GFR (Non-Af Amer) 36.2 BUN/Creatinine Ratio 27.0 H (10-20) Glucose 182 H (70-99) mg/dl Calcium 8.8 (8.5-10.1) mg/dl Total Bilirubin 1.2 H (0.2-1) mg/dl AST 38 H (15-37) U/L ALT 287 H (12-78) U/L Alkaline Phosphatase 104 (45-117) U/L Troponin I 0.052 H* (0-0.045) ng/ml Total Protein 7.1 (6.4-8.2) gm/dl Albumin 3.6 (3.4-5.0) gm/dl Globulin 3.5 (2.5-4.0) gm/dl Albumin/Globulin Ratio 1.0 (0.9-2) Specimen Hemolysis 01/06/19 Range/Units 18:31 WBC (4.8-10.8) K/uL RBC (4.2-5.4) M/uL Hgb (12.0-16.0) g/dL Hct (37-47) % MCV (80-100) fL MCH (25-34) pg MCHC (32-36) g/dL RDW Std Deviation (36.4-46.3) fL RDW Coeff of Alexa (11.5-14.5) % Plt Count (130-400) K/uL MPV (7.4-10.4) fL Immature Gran % (Auto) % Neut % (Auto) % Lymph % (Auto) % [place] % (Auto) % Eos % (Auto) % Baso % (Auto) % Immature Gran # (Auto) (0.00-0.02) K/uL Neut # (Auto) (1.4-6.5) K/uL Lymph # (Auto) (1.2-3.4) K/uL [place] # (Auto) (0.11-0.59) K/uL Eos # (Auto) (0-0.5) K/uL Baso # (Auto) (0-0.2) K/uL Absolute Nucleated RBC (0-0) K/uL Nucleated RBC % (auto) % Polychromasia Hypochromasia Echinocytes PT (9.0-12.0) Seconds INR (0.9-1.1) APTT (21.0-31.0) Seconds PTT Ratio ABG pH 7.42 (7.35-7.45) ABG pCO2 32 L (35-46) mmHg ABG pO2 72 L (80-95) mm/Hg ABG HCO3 20 (19-24) mmol/L ABG O2 Saturation 93.9 (90-95) % ABG Base Excess -3.9 (-9-1.8) mEq/L Ward Test Pos (Pos) Barometric Pressure 733.4 mm/Hg Oxygen Given 3L Sodium (136-145) mmol/L Potassium (3.5-5.1) mmol/L Chloride (98-107) mmol/L Carbon Dioxide (21-32) mmol/L Anion Gap (3-11) BUN (7-18) mg/dl Creatinine (0.6-1.2) mg/dl Est Cr Clr Drug Dosing Est GFR ( Amer) Est GFR (Non-Af Amer) BUN/Creatinine Ratio (10-20) Glucose (70-99) mg/dl Calcium (8.5-10.1) mg/dl Total Bilirubin (0.2-1) mg/dl AST (15-37) U/L ALT (12-78) U/L Alkaline Phosphatase (45-117) U/L Troponin I (0-0.045) ng/ml Total Protein (6.4-8.2) gm/dl Albumin (3.4-5.0) gm/dl Globulin (2.5-4.0) gm/dl Albumin/Globulin Ratio (0.9-2) Specimen Hemolysis Imaging Data Radiologist's Impression: Radiology results as stated below per my review and the radiologist's interpretation: XR chest 1V portable CLINICAL HISTORY: Dyspnea COMPARISON STUDY: Chest radiograph September 20, 2016. Chest radiograph May 11, 2017. FINDINGS: Note is made of mild cardiomegaly. There is bilateral lower lung interstitial thickening and opacities. No pneumothorax or pleural effusion is noted. No evidence for pulmonary edema. IMPRESSION: Lower lung interstitial thickening and bilateral opacities. Left basilar opacity appears unchanged from prior exam and suggests interstitial lung disease. Right basilar opacity appears increased from prior exam. Mild superimposed consolidation cannot be excluded. Electronically signed by: Isreal Schmitz M.D. 01/06/2019 7:06 PM ECG Data Attestation: I personally reviewed and interpreted this ECG as follows: Indication: SOB/dyspnea Rate (beats per minute): 102 Rhythm: sinus tachycardia Findings: + other (normal intervals; normal axis), + Q waves (inferiorly) and + T-wave inversion (inferiorly ) Comparison ECG Date: from (09/22/16) Change: the following changes noted (TWI new) Blood Pressure Blood Pressure Findings: Normal blood pressure MDM Narrative The patient is a 83 year old white female w/ PMHx of hypertension, diabetes, pulmonary fibrosis, and GERD who presents to the ED w/ CC of persistent shortness of breath beginning several days prior to arrival. Differential diagnosis: Etiologies such as infections, reactive airway disease, pneumonia, pneumothorax, COPD, CHF, cardiac ischemia, pulmonary embolism, musculoskeletal, gastr ointestinal, as well as others were entertained. Patient was seen and evaluated the bedside. The patient was presenting with chief complaint of some worsening shortness of breath. Patient does have a known history of pulmonary fibrosis. The patient states that she has been seeing a construction management instructor has been using neb treatments but without improvement of her symptoms. The patient did have blood work completed. Patient does have some trace anemia. The patient does have some mild kidney dysfunction associated hyponatremia. Patient is not on any diuretics. The patient's LFTs are mildly elevated however the patient does take a statin. Patient has been taking approximate 3 g of Tylenol daily 1 g every 8 hours. Patient does not have abdominal pain. Troponin is slightly detectable and given EKG changes given an aspirin. I believe this is most likely related to hypoxic demand ischemia from her pulmonary fibrosis and lack of her ability to appropriately oxygenate. Patient's ABG does show a low PO2 even with oxygen supplementation. I did speak the on-call hospitalist agreed to further evaluate treat the patient. Patient was admitted to the medicine service. Impression & Plan Respiratory failure with hypoxia, Hyponatremia, Elevated troponin, Elevated liver enzymes Critical Care Time Critical Care Time: Yes Total Critical Care Time: 35 I have personally spent greater than 35 minutes of critical care time in direct management of this patient. This includes bedside care, interpretation of diagnostic studies, and testing, discussion with consultants, patient, and family members, and other require inpatient management activities. This 35 minutes is in excess of all separately billable procedures. Discharge Plan Visit Data Chief Complaint: Shortness of Breath/Dyspnea Stated Complaint: BREATHING, O2 LEVEL, NOT FEELING WELL ED Provider: Asim Davey Discharge Problem: Respiratory failure with hypoxia, Hyponatremia, Elevated troponin, Elevated liver enzymes Patient Disposition: Being Evaluated by Hospitalist Forms Stand Alone Forms: My [facility] [place] [employer] Prescriptions Prescriptions: No Action docusate sodium 100 mg capsule 100 mg PO BID PRN (Reason: Constipation) RF: 0 atorvastatin 20 mg tablet 20 mg PO HS Qty: 30 RF: 0 pioglitazone 45 mg tablet 45 mg PO DAILY Qty: 30 RF: 0 aspirin 81 mg tablet 81 mg PO DAILY RF: 0 calcium carbonate [Calcium 600] 600 mg calcium (1,500 mg) tablet 600 mg PO BID RF: 0 pantoprazole 40 mg tablet,delayed release (DR/EC) 40 mg PO DAILY Qty: 30 RF: 0 metformin 1,000 mg tablet 1,000 mg PO BIDM RF: 0 albuterol sulfate [Ventolin HFA] 90 mcg/actuation Hfa Aerosol Inhaler 2 puff INHALATION Q6H PRN (Reason: Shortness Of Breath) RF: 0 Januvia 100 mg tablet 100 mg PO DAILY RF: 0 cyanocobalamin (vitamin B-12) 1,000 mcg Tablet 1,000 mcg PO DAILY RF: 0 acetaminophen [Tylenol Arthritis Pain] 650 mg Tablet Extended Release 650 mg PO Q12H PRN (Reason: Pain) RF: 0 Systane (propylene glycol) 0.4-0.3 % Drops 1 drp OPHTHALMIC (EYE) BID PRN (Reason: Dry Eye(S)) RF: 0 Referrals Referrals: Gregory Hobbs MD [Primary Care Provider] - Discharge Problem: Respiratory failure with hypoxia Qualifiers: Chronicity: acute Qualified Code(s): J96.01 - Acute respiratory failure with hypoxia The scribe's documentation has been prepared under my direction and personally reviewed by me in its entirety. I confirm that the note above accurately reflects all work, treatment, procedures, and medical decision making performed by me.
--- NOTE | 2019-01-06 22:14 | History & Physical Report ---
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 Follows with Dr. Dobbs -lengthy discussion with delbert at bedside, apparently pt admits to being noncompliant with inhalers for 3 weeks. Delbert Ruiz insisted that she take her meds, and has done so for the past week -Differential: certainly PE could be on the differential given her pulmonary fibrosis along with tachycardia and detectable troponin. Should she clinically not continue to improve, a d-dimer or chest CT could be considered. -Recommend continue with oxygen support, pt will need a 2 step and may likely be eligible for at least temporary o2. -continue home flovent, duonebs scheuduled. Albuterol prn. -apparently pt is intolerant of prednisone (stomach upset) -did discuss palliative consult seeing as her pulm fibrosis is not curable and likely will continue to progress. Delbert enthusiastic about "any help" she can get. Order placed. Detectable troponins -EKG without ST abnormalities, no chest pain -continue to trend -- likely 2/2 pulmonary htn in setting of IPF exac -cont home ASA Hyponatremia -with h/o the same. acute on chronic -according to PCP charts, this is known issue, however appears to be asymptomatic at this time. Diffl includes SIADH, primary polydipsia although given her decreased PO intake in the last few days due to somnolence this is unlikely -recommend NSS at gentle maintenance, follow bmp Elev sheep herder -likely prerenal given decreased PO intake from somnolence -gentle fluids as above, follow bmp FEN/GI: heart healthy/t2dm diet, NSS at 80 (weight appears to be 97 lbs according to recent PCP visit) DVT ppx: lovenox 30mg q24h CODE STATUS: FULL as d/w pt DISPO: med/tele other ongoing medical problems: Anemia -microcytic -history of the same -does not appear to be hemorrhagic, not on blood thinners only ASA -cont B12, would likely benefit from iron supplementation in outpatient setting T2DM -hold home PO meds, catrina given elev sheep herder -ISS, BSG ACHS GERD -continue pantoprazole, especially in someone with IPF given aspiration risks (2) Hyponatremia: (3) Elevated troponin: (4) Elevated liver enzymes: (5) Interstitial lung disease: (6) Anemia: History of Present Illness Chief Complaint: SOB, hypoxia, noncompliance with medication Primary Care Provider: Jay Hobbs MD 83F here with sister and niece who is her POA here with dyspnea on exertion, weakness and fatigue since about 1 week ago. Pt is very hard of hearing and so most of history is obtained from pt's niece Sara Srivastava. Delbert was staying with pt in November, but then returned to her home in [place] at the beginning of November. She states at that time pt was at her baseline, which means she is not very active given her lung disease but is able to ambulate with her walker in and around her home. When delbert returned to pt's home 3 weeks later, she says she was "much worse" and not at her baseline, meaning she was very short of breath even when walking just a few feet, was sleeping most of the day everyday. 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 Since then, delbert has been making sure she was getting all her meds, but due to persistent difficulty breathing, brought her in to her PCP's office. There her sats were in the 70s, so she was sent here. Per report, 80s on room air here. She is not normally O2 dependent although delbert wonders if she shouldn't be on oxygen daily. Of note, delbert states she thinks pt is much improved since receiving oxygen and is significantly improved over all since duonebs and oxygen administered. PMH 1. IPF 2. HTN 3. anemia 4. T2DM 5. GERD PSH 1. hysterectomy 2. nasal endoscopy polypectomy 3. cholecystectomy SH lives alone, although delbert says she is coming to live with her locally. Never smoker, no etoh or drug use. Allergies Allergy/AdvReac Type Severity Reaction Status Date / Time risedronate sodium Allergy Unknown SICK Verified 01/06/19 14:03 vitamin E (d-alpha Allergy Unknown HIVES Verified 01/06/19 14:03 tocopherol) prednisone AdvReac Unknown Makes her Verified 01/06/19 14:03 feel very ill. Home Medications Home Medications Medication Instructions Recorded Confirmed Type aspirin 81 mg tablet 81 mg PO DAILY tab 11/14/18 01/06/19 History atorvastatin 20 mg tablet 20 mg PO HS #30 tab 11/14/18 01/06/19 History docusate sodium 100 mg capsule 100 mg PO BID PRN cap 11/14/18 01/06/19 History pioglitazone 45 mg tablet 45 mg PO DAILY #30 tab 11/14/18 01/06/19 History calcium carbonate 600 mg calcium 600 mg PO BID tab 11/15/18 01/06/19 History (1,500 mg) tablet pantoprazole 40 mg tablet,delayed 40 mg PO DAILY #30 tab 11/15/18 01/06/19 History release acetaminophen [Tylenol Arthritis 650 mg PO Q12H PRN 01/06/19 01/06/19 History Pain] albuterol sulfate [Ventolin HFA] 2 puff INHALATION Q6H PRN 01/06/19 01/06/19 History cyanocobalamin (vitamin B-12) 1,000 mcg PO DAILY 01/06/19 01/06/19 History metformin 1,000 mg PO BIDM 01/06/19 01/06/19 History peg 400-propylene glycol [Systane 1 drp OPHTHALMIC (EYE) BID PRN 01/06/19 01/06/19 History (propylene glycol)] sitagliptin [Januvia] 100 mg PO DAILY 01/06/19 01/06/19 History Past Med/Surg History Medical History Tubular adenoma of colon Subcapital fracture of hip Sciatica Osteoporosis Low back pain Interstitial lung disease Hyponatremia Hypertension Hypercholesterolemia Gastroesophageal reflux disease Diverticulosis Difficulty walking Diabetes mellitus Compression fracture of L1 lumbar vertebra Chronic obstructive asthma Carotid artery stenosis, asymptomatic Anemia Allergic rhinitis Social History Preferred Language: Frisian 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 Beliefs That Will Affect Care: None Current Living Situation: Alone Current Living Situation Comment: alone in apartment, family helps out when in town Other Information That Helps Us Care for You: No Feels Safe at Home: Yes Safety Concerns: Feels Safe At This Time Smoking Status: Never smoker Do You Dip or Chew Tobacco: No Second Hand Exposure: Yes Tobacco Cessation Education Requested by Patient: No Hx Alcohol Use: No Hx Substance Use: No Review of Systems Review of Systems: All systems reviewed & are unremarkable except as noted in HPI & below (denies chest pain, cough, leg swelling, abdominal pain) Physical Exam Physical Exam: Vitals noted and within normal limits with the exception of hypoxia, tachypnea, tachycardia GENERAL: Awake, alert to person, place, and time, nontoxic-appearing, in no distress. Very hard of hearing. HENT: Normocephalic, atraumatic. Nasal cannula in place. Mucus membranes appear dry. EYES: Normal conjunctiva. Sclera non-icteric. EOMI. NECK: Supple. Full range of motion. No JVD. RESPIRATORY: crackles bilaterally. Normal work of breathing. CARDIAC: Regular rate, normal rhythm. Extremities warm and well perfused, 2+ radial pulses bilaterally; 2+ posterior tibialis pulses bilaterally. ABDOMEN: Soft, non-distended. No tenderness to palpation in all four quadrants. No rebound or guarding. No masses. Bowel sounds are normal. LOWER EXTREMITIES: Inspection of calves reveal equal size bilaterally. They are non-tender. No edema. No discoloration. NEURO: No gross focal motor deficits noted. Sensation in tact. CN II-XII grossly in tact. . SKIN: Rash not present. No jaundice noted. Significant lesions not present. PSYCH: Appropriate mood and affect. Cooperative. Exam as done by Kathrine Valentine MD, Radiology Technologist. Results & Data Vital Signs (Past 12 Hours) Vital Signs Temp Pulse Resp BP Pulse Ox 01/06/19 20:00 124 H 24 95 01/06/19 19:01 110 H 24 114/98 97 01/06/19 18:44 113 H 22 134/94 94 01/06/19 18:10 107 H 29 H 152/114 H 94 01/06/19 17:35 20 94 01/06/19 17:22 88 L 01/06/19 15:51 36.4 C L 96 H 20 110/62 98 Laboratory Results 01/06/19 01/06/19 01/06/19 Range/Units 18:31 17:45 17:45 WBC (4.8-10.8) K/uL RBC (4.2-5.4) M/uL Hgb (12.0-16.0) g/dL Hct (37-47) % MCV (80-100) fL MCH (25-34) pg MCHC (32-36) g/dL RDW Std Deviation (36.4-46.3) fL RDW Coeff of Alexa (11.5-14.5) % Plt Count (130-400) K/uL MPV (7.4-10.4) fL Immature Gran % (Auto) % Neut % (Auto) % Lymph % (Auto) % Williams % (Auto) % Eos % (Auto) % Baso % (Auto) % Immature Gran # (Auto) (0.00-0.02) K/uL Neut # (Auto) (1.4-6.5) K/uL Lymph # (Auto) (1.2-3.4) K/uL Williams # (Auto) (0.11-0.59) K/uL Eos # (Auto) (0-0.5) K/uL Baso # (Auto) (0-0.2) K/uL Absolute Nucleated RBC (0-0) K/uL Nucleated RBC % (auto) % Polychromasia Hypochromasia Echinocytes PT 13.0 H (9.0-12.0) Seconds INR 1.3 H (0.9-1.1) APTT 24.2 (21.0-31.0) Seconds PTT Ratio 0.9 ABG pH 7.42 (7.35-7.45) ABG pCO2 32 L (35-46) mmHg ABG pO2 72 L (80-95) mm/Hg ABG HCO3 20 (19-24) mmol/L ABG O2 Saturation 93.9 (90-95) % ABG Base Excess -3.9 (-9-1.8) mEq/L Ward Test Pos (Pos) Barometric Pressure 733.4 mm/Hg Oxygen Given 3L Sodium 126 L (136-145) mmol/L Potassium 4.7 (3.5-5.1) mmol/L Chloride 95 L (98-107) mmol/L Carbon Dioxide 21 (21-32) mmol/L Anion Gap 10.0 (3-11) BUN 36 H (7-18) mg/dl Creatinine 1.35 H (0.6-1.2) mg/dl Est Cr Clr Drug Dosing Not Reportable Est GFR ( Amer) 42.0 Est GFR (Non-Af Amer) 36.2 BUN/Creatinine Ratio 27.0 H (10-20) Glucose 182 H (70-99) mg/dl Calcium 8.8 (8.5-10.1) mg/dl Total Bilirubin 1.2 H (0.2-1) mg/dl AST 38 H (15-37) U/L ALT 287 H (12-78) U/L Alkaline Phosphatase 104 (45-117) U/L Troponin I 0.052 H* (0-0.045) ng/ml Total Protein 7.1 (6.4-8.2) gm/dl Albumin 3.6 (3.4-5.0) gm/dl Globulin 3.5 (2.5-4.0) gm/dl Albumin/Globulin Ratio 1.0 (0.9-2) Specimen Hemolysis 01/06/19 Range/Units 17:45 WBC 6.66 (4.8-10.8) K/uL RBC 4.65 (4.2-5.4) M/uL Hgb 11.8 L (12.0-16.0) g/dL Hct 36.8 L (37-47) % MCV 79.1 L (80-100) fL MCH 25.4 (25-34) pg MCHC 32.1 (32-36) g/dL RDW Std Deviation 48.8 H (36.4-46.3) fL RDW Coeff of Alexa 17.3 H (11.5-14.5) % Plt Count 183 (130-400) K/uL MPV 9.8 (7.4-10.4) fL Immature Gran % (Auto) 0.9 % Neut % (Auto) 75.5 % Lymph % (Auto) 9.6 % Williams % (Auto) 13.7 % Eos % (Auto) 0.3 % Baso % (Auto) 0.0 % Immature Gran # (Auto) 0.06 H (0.00-0.02) K/uL Neut # (Auto) 5.03 (1.4-6.5) K/uL Lymph # (Auto) 0.64 L (1.2-3.4) K/uL Williams # (Auto) 0.91 H (0.11-0.59) K/uL Eos # (Auto) 0.02 (0-0.5) K/uL Baso # (Auto) 0.00 (0-0.2) K/uL Absolute Nucleated RBC 0.22 H (0-0) K/uL Nucleated RBC % (auto) 3.3 % Polychromasia 1+ Hypochromasia Present Echinocytes 1+ PT (9.0-12.0) Seconds INR (0.9-1.1) APTT (21.0-31.0) Seconds PTT Ratio ABG pH (7.35-7.45) ABG pCO2 (35-46) mmHg ABG pO2 (80-95) mm/Hg ABG HCO3 (19-24) mmol/L ABG O2 Saturation (90-95) % ABG Base Excess (-9-1.8) mEq/L Ward Test (Pos) Barometric Pressure mm/Hg Oxygen Given Sodium (136-145) mmol/L Potassium (3.5-5.1) mmol/L Chloride (98-107) mmol/L Carbon Dioxide (21-32) mmol/L Anion Gap (3-11) BUN (7-18) mg/dl Creatinine (0.6-1.2) mg/dl Est Cr Clr Drug Dosing Est GFR ( Amer) Est GFR (Non-Af Amer) BUN/Creatinine Ratio (10-20) Glucose (70-99) mg/dl Calcium (8.5-10.1) mg/dl Total Bilirubin (0.2-1) mg/dl AST (15-37) U/L ALT (12-78) U/L Alkaline Phosphatase (45-117) U/L Troponin I (0-0.045) ng/ml Total Protein (6.4-8.2) gm/dl Albumin (3.4-5.0) gm/dl Globulin (2.5-4.0) gm/dl Albumin/Globulin Ratio (0.9-2) Specimen Hemolysis Diagnostic Findings XR chest 1V portable CLINICAL HISTORY: Dyspnea COMPARISON STUDY: Chest radiograph September 20, 2016. Chest radiograph May 11, 2017. FINDINGS: Note is made of mild cardiomegaly. There is bilateral lower lung interstitial thickening and opacities. No pneumothorax or pleural effusion is noted. No evidence for pulmonary edema. IMPRESSION: Lower lung interstitial thickening and bilateral opacities. Left basilar opacity appears unchanged from prior exam and suggests interstitial lung disease. Right basilar opacity appears increased from prior exam. Mild superimposed consolidation cannot be excluded. Electronically signed by: Isreal Schmitz M.D. 01/06/2019 7:06 PM Medications Administered duoneb, ASA, 500 ml NSS Supervising Physician Co-Signing Physician Notes Pt seen/examined in conjunction with resident MD Sidney Valentine - orders and plan of admission formulated with resident. 83 y/o F HLD, DM II, GERD, IPF - recent noncompliance with medications. Presents with progressive SOB possibly due to medical noncompliance over the past two months. She was hypoxic on arrival to the ER. OE: AAO x 3 S1,2 R Very poor BL air movement and BL crackles NT, ND No CCE P: 1) IPF exacerbation - scheduled nebs and steroids provided - cont 02 protocol 2) DM II - placed on a SS 3) HLD - cont Lipitor PG Care Time/CCT Total # of Minutes Spent Total Time Spent with Patient: Total time spent is greater than 50% in coordination of care (as documented) at patient's floor/unit and/or counseling patient: Resident Activity Tracking Resident Involvement: Resident Care Provided Care Provided: Adult Hospital Medicine
[2019-01-07] MEDS ORDERED: MAGNESIUM HYDROXIDE SUSP 30 ML UDC PO PRN (00:05)
[2019-01-07] MEDS ORDERED: ACETAMINOPHEN 325 MG TAB PO PRN (00:05)
[2019-01-07] MEDS ORDERED: CARBOHYDRATES FOR HYPOGLYCEMIA PO PRN (00:05)
[2019-01-07] MEDS ORDERED: GLUCOSE 10 TABS/TUBE PO PRN (00:05)
[2019-01-07] MEDS ORDERED: ALUMINUM/MAGNESIUM SUSP 30 ML UDC PO PRN (00:05)
[2019-01-07] MEDS ORDERED: GLUCAGON FOR INJ 1 MG VIAL SQ PRN (00:05)
[2019-01-07] MEDS ORDERED: GLUCOSE 40% GEL 15 GM TUBE PO PRN (00:05)
[2019-01-07] MEDS ORDERED: DOCUSATE SODIUM 100 MG CAP PO PRN (00:05)
[2019-01-07] MEDS ORDERED: DEXTROSE 50% 50 ML SYRINGE IV PRN (00:05)
[2019-01-07] MEDS ORDERED: POLYETHYLENE (MIRALAX) 17 GM PACK PO PRN (00:05)
[2019-01-07] MEDS ORDERED: ALBUTEROL HFA 8 GM INHALER INH PRN (00:05)
[2019-01-07] MEDS ORDERED: ONDANSETRON INJ 2 MG/ML 2 ML VIAL IV PRN (00:05)
[2019-01-07] MEDS ORDERED: ARTIFICIAL TEARS OP PRN (00:45)
[2019-01-07] MEDS: SODIUM CHLORIDE 0.9% 1000ML 1,000 ML IV SCH ×2 (00:48→14:36)
[2019-01-07] MEDS: INSULIN ASPART 100 UNITS/ML 3 ML PEN SC SCH ×5 (01:13→20:19)
[2019-01-07] MEDS: methylPREDNISolone 40 MG in SYRINGE 0 ML IV SCH ×3 (04:23→20:14)
[2019-01-07 06:25] LABS: BUN Creatinine Ratio 25.8 (10-20); Calcium 8.1 mg/dl (8.5-10.1); Creatinine Clr Calc Pharmacy 25.7 ml/min; Est GFR (African American) 52.1; Est GFR (Non-African American) 44.9; Potassium 4.2 mmol/L (3.5-5.1)
[2019-01-07 06:48] LABS: Albumin Level 3.5 gm/dl (3.4-5.0); Bilirubin Direct 0.4 mg/dl (0-0.2); Bilirubin,Total 1.1 mg/dl (0.2-1); Total Protein 6.8 gm/dl (6.4-8.2); Troponin I 0.066 ng/ml (0-0.045)
[2019-01-07] MEDS: ALBUT/IPRATROP 3MG/0.5MG NEB 3 ML VIAL NEB SCH ×4 (07:35→19:21)
[2019-01-07] MEDS: PANTOprazole 40 MG TAB PO SCH (08:14)
[2019-01-07] MEDS: ASPIRIN 81 MG ECTAB PO SCH (08:14)
[2019-01-07] MEDS: CYANOCOBALAMIN 500 MCG TABLET (VITAMIN B-12) PO SCH (08:15)
[2019-01-07] MEDS: CALCIUM 600MG + VIT D 400 IU TAB PO SCH ×2 (08:15→20:15)
--- NOTE | 2019-01-07 08:42 | Family Medicine Progress Note ---
Date of Service January 07, 2019 Assessment & Plan (1) Acute and chronic respiratory failure ([id number]): 83F with known h/o IPF here with worsening dyspnea x 2 weeks after being off her medications Idiopathic pulmonary fibrosis, acute exacerbation h/o known pulmonary fibrosis, last PFT October 2017 showed normal spirometry with severely reduced DLCO (43% expected). Follows with Dr. Dobbs. Admitting resident had lengthy discussion with nimilagro at bedside, apparently pt admits to being noncompliant with inhalers for 3 weeks. hypoxic in PCP office [employer]ITION[facility] to 70s, 80s on room air in ED, improved with nasal cannula Niece Sara insisted that she take her meds, and has done so for the past week.did discuss palliative consult seeing as her pulm fibrosis is not curable and likely will continue to progress. Niece enthusiastic about "any help" she can get. Order placed. -Continue with oxygen support, pt will need a 2 step and may likely be eligible for at least temporary o2. -Continue home flovent, duonebs scheuduled. Albuterol prn. -Patient currently tolerating intravenous methylprednisolone 40 mg every 8 hours although she has reported allergy to this -Palliative care was consulted see associated documentation -Niece will be her power of tobacco shaker, patient wants to be full code however no prolonged intubation, patient is aware of her current prognosis Detectable troponins likely 2/2 pulmonary htn in setting of IPF exac/ demand ischemia. -Repeat troponin 0.066 and repeat EKG without ST abnormalities, no chest pain, will repeat again this evening -cont home ASA Elevated LFTs Patient's CMP is remarkable for elevated LFTs specifically ALT to 247 with AST at 25. Serology was performed to look for hepatitis C which was negative hepatitis B antigen negative hepatitis B core and hepatitis A IgM are still pending. Patient did go for a liver ultrasound today demonstrating normal in size and echotexture she is currently status post cholecystectomy some evidence of intra-and extrahepatic biliary ductal dilatation similar to that in 2013 and likely related to remote cystectomy. Otherwise the patient is asymptomatic for any symptoms of the liver pathology. -Continue to follow clinically -Follow-up lab tests -Repeat CMP -Consider outpatient GI referral Hyponatremia according to PCP charts, this is known issue, however appears to be asymptomatic at this time. Diffl includes SIADH, primary polydipsia although given her decreased PO intake in the last few days due to somnolence this is unlikely -NSS at gentle maintenance, follow bmp -with h/o the same. acute on chronic Elev cat driver -likely prerenal given decreased PO intake from somnolence -gentle fluids as above, follow bmp T2DM -hold home PO meds, catrina given elev cat driver -ISS, BSG ACHS -glycemic consult placed FEN/GI: heart healthy/t2dm diet, NSS at 80 (weight appears to be 97 lbs according to recent PCP visit) DVT ppx: lovenox 30mg q24h CODE STATUS: FULL as d/w pt DISPO: med/tele other ongoing medical problems: Anemia -microcytic -history of the same -does not appear to be hemorrhagic, not on blood thinners only ASA -cont B12, would likely benefit from iron supplementation in outpatient setting GERD -continue pantoprazole, especially in someone with IPF given aspiration risks Supervising Physician Co-Signing Physician Notes Patient seen and examined at the bedside with Dr. Bradshaw. Agree with history, exam findings, assessment and plan of care as outlined. In brief, 83 year old female with hx of idiopathic pulmonary fibrosis, DM, chronic hyponatremia admitted with hypoxia due to medication nonadherence Breathing comfortably on 2L. No accessory muscle use. Bibasilar crackles. 1. hypoxia secondary to idiopathic pulmonary fibrosis - continue supportive O2, wean as able - will likely need 2 step to determine O2 requirements at discharge - continue methylpred, consider switching to PO tomorrow if she continues to do well - continue flovent, duonebs. While xoponex does decrease tachycardia, there is really only a difference of several beats per minute difference when compared with albuterol. Not sure that this is really going to be beneficial. -palliative care consult, appreciate recommendations 2. Abnormal troponin. Trop 0.066, EKG without ischemic changes 3. Hyponatremia, chronic (Na 131) - near baseline Na. This is likely secondary to her chronic pulmonary processes. 4. Transaminitis. - AST 25, ALT 147, Alk P 97 - Checking hepatitis panel - RUQ ultrasound unremaarkable for any acute process or new texture changes. -INR 1.3 (not on AC) 5. DM2 - expect that her sugars will get quite high with the methylpred, may require insulin gtt if unable to get adequat control with slidng scale. Dispo: pending clinical improvement. Subjective Patient sitting up in bed this morning in no acute distress. We reviewed her interval history with her family, they report that her niece live with her however had to take the patient's sister to [place] for a doctor's appointment for 3 weeks. When she returned back she found that her mom had not taken any of her medication and become profoundly depressed and given up on her will to live. Prior to presenting to the hospital they were away on a camping trip during which her mother essentially did nothing besides sleep. Upon receiving oxygen the patient improved dramatically. She is continued this improvement and is now able to move around in bed and sit up. Patient reports tolerating her diet, eating, voiding, stooling with no issue. Patient definitely should qualify for oxygen as an outpt will need case management's instructional assistant and obtaining answered all questions no acute concerns. Physical Exam Physical Exam: General: Thin elderly female in no acute distress HEENT: Normocephalic atraumatic Neck: Normal to visual inspection, did not appreciate JVD Cardiac: Regular rate and rhythm no murmurs rubs or gallops, normal S1, normal S2 negative pedal edema negative calf tenderness Respiratory: Coarse breath sounds bilaterally, with associated wheezing, and other features of restrictive lung disease MSK: Moves all extremities Neuro: Alert and oriented Psych: Calm cooperative Results & Data Vital Signs (Past 12 Hours) Vital Signs Temp Pulse Pulse Resp BP BP Pulse Ox 01/07/19 07:40 76 16 98 01/07/19 07:28 36.7 C 105 H 16 180/97 H 98 01/07/19 05:06 36.2 C L 100 H 20 133/69 93 01/07/19 00:52 137/78 01/07/19 00:27 101 H 01/06/19 23:40 36.3 C L 111 H 20 151/81 H 90 01/06/19 22:35 102 H 24 125/74 98 Laboratory Results 01/07/19 01/07/19 01/07/19 Range/Units 07:45 06:29 06:29 WBC (4.8-10.8) K/uL RBC (4.2-5.4) M/uL Hgb (12.0-16.0) g/dL Hct (37-47) % MCV (80-100) fL MCH (25-34) pg MCHC (32-36) g/dL RDW Std Deviation (36.4-46.3) fL RDW Coeff of Alexa (11.5-14.5) % Plt Count (130-400) K/uL MPV (7.4-10.4) fL Immature Gran % (Auto) % Neut % (Auto) % Lymph % (Auto) % Floyd % (Auto) % Eos % (Auto) % Baso % (Auto) % Immature Gran # (Auto) (0.00-0.02) K/uL Neut # (Auto) (1.4-6.5) K/uL Lymph # (Auto) (1.2-3.4) K/uL Floyd # (Auto) (0.11-0.59) K/uL Eos # (Auto) (0-0.5) K/uL Baso # (Auto) (0-0.2) K/uL Absolute Nucleated RBC (0-0) K/uL Nucleated RBC % (auto) % Polychromasia Hypochromasia Echinocytes PT (9.0-12.0) Seconds INR (0.9-1.1) APTT (21.0-31.0) Seconds PTT Ratio ABG pH (7.35-7.45) ABG pCO2 (35-46) mmHg ABG pO2 (80-95) mm/Hg ABG HCO3 (19-24) mmol/L ABG O2 Saturation (90-95) % ABG Base Excess (-9-1.8) mEq/L Ward Test (Pos) Barometric Pressure mm/Hg Oxygen Given Sodium (136-145) mmol/L Potassium (3.5-5.1) mmol/L Chloride (98-107) mmol/L Carbon Dioxide (21-32) mmol/L Anion Gap (3-11) BUN (7-18) mg/dl Creatinine (0.6-1.2) mg/dl Est Cr Clr Drug Dosing Est GFR ( Amer) Est GFR (Non-Af Amer) BUN/Creatinine Ratio (10-20) Glucose (70-99) mg/dl POC Glucose 166 H (70-99) Calcium (8.5-10.1) mg/dl Total Bilirubin (0.2-1) mg/dl Direct Bilirubin (0-0.2) mg/dl AST (15-37) U/L ALT (12-78) U/L Alkaline Phosphatase (45-117) U/L Troponin I (0-0.045) ng/ml Total Protein (6.4-8.2) gm/dl Albumin (3.4-5.0) gm/dl Globulin (2.5-4.0) gm/dl Albumin/Globulin Ratio (0.9-2) Procalcitonin (0-0.5) ng/ml Specimen Hemolysis Acetaminophen < 2 L (10-30) ug/ml Hepatitis A IgM Ab Pending Hep Bs Antigen Hep B Core IgM Ab Pending Hepatitis C Antibody Influenza Type A Ag (Neg) Influenza Type B Ag (Neg) 01/07/19 01/07/19 01/07/19 Range/Units 06:29 05:24 05:24 WBC (4.8-10.8) K/uL RBC (4.2-5.4) M/uL Hgb (12.0-16.0) g/dL Hct (37-47) % MCV (80-100) fL MCH (25-34) pg MCHC (32-36) g/dL RDW Std Deviation (36.4-46.3) fL RDW Coeff of Alexa (11.5-14.5) % Plt Count (130-400) K/uL MPV (7.4-10.4) fL Immature Gran % (Auto) % Neut % (Auto) % Lymph % (Auto) % Floyd % (Auto) % Eos % (Auto) % Baso % (Auto) % Immature Gran # (Auto) (0.00-0.02) K/uL Neut # (Auto) (1.4-6.5) K/uL Lymph # (Auto) (1.2-3.4) K/uL Floyd # (Auto) (0.11-0.59) K/uL Eos # (Auto) (0-0.5) K/uL Baso # (Auto) (0-0.2) K/uL Absolute Nucleated RBC (0-0) K/uL Nucleated RBC % (auto) % Polychromasia Hypochromasia Echinocytes PT (9.0-12.0) Seconds INR (0.9-1.1) APTT (21.0-31.0) Seconds PTT Ratio ABG pH (7.35-7.45) ABG pCO2 (35-46) mmHg ABG pO2 (80-95) mm/Hg ABG HCO3 (19-24) mmol/L ABG O2 Saturation (90-95) % ABG Base Excess (-9-1.8) mEq/L Ward Test (Pos) Barometric Pressure mm/Hg Oxygen Given Sodium (136-145) mmol/L Potassium (3.5-5.1) mmol/L Chloride (98-107) mmol/L Carbon Dioxide (21-32) mmol/L Anion Gap (3-11) BUN (7-18) mg/dl Creatinine (0.6-1.2) mg/dl Est Cr Clr Drug Dosing Est GFR ( Amer) Est GFR (Non-Af Amer) BUN/Creatinine Ratio (10-20) Glucose (70-99) mg/dl POC Glucose (70-99) Calcium (8.5-10.1) mg/dl Total Bilirubin 1.1 H (0.2-1) mg/dl Direct Bilirubin Cancelled 0.4 H (0-0.2) mg/dl AST 25 (15-37) U/L ALT 247 H (12-78) U/L Alkaline Phosphatase 97 (45-117) U/L Troponin I 0.066 H* (0-0.045) ng/ml Total Protein 6.8 (6.4-8.2) gm/dl Albumin 3.5 (3.4-5.0) gm/dl Globulin (2.5-4.0) gm/dl Albumin/Globulin Ratio (0.9-2) Procalcitonin (0-0.5) ng/ml Specimen Hemolysis Acetaminophen (10-30) ug/ml Hepatitis A IgM Ab Hep Bs Antigen Pending Hep B Core IgM Ab Hepatitis C Antibody Pending Influenza Type A Ag (Neg) Influenza Type B Ag (Neg) 01/07/19 01/07/19 01/07/19 Range/Units 05:24 05:24 00:55 WBC (4.8-10.8) K/uL RBC (4.2-5.4) M/uL Hgb (12.0-16.0) g/dL Hct (37-47) % MCV (80-100) fL MCH (25-34) pg MCHC (32-36) g/dL RDW Std Deviation (36.4-46.3) fL RDW Coeff of Alexa (11.5-14.5) % Plt Count (130-400) K/uL MPV (7.4-10.4) fL Immature Gran % (Auto) % Neut % (Auto) % Lymph % (Auto) % Floyd % (Auto) % Eos % (Auto) % Baso % (Auto) % Immature Gran # (Auto) (0.00-0.02) K/uL Neut # (Auto) (1.4-6.5) K/uL Lymph # (Auto) (1.2-3.4) K/uL Floyd # (Auto) (0.11-0.59) K/uL Eos # (Auto) (0-0.5) K/uL Baso # (Auto) (0-0.2) K/uL Absolute Nucleated RBC (0-0) K/uL Nucleated RBC % (auto) % Polychromasia Hypochromasia Echinocytes PT (9.0-12.0) Seconds INR (0.9-1.1) APTT (21.0-31.0) Seconds PTT Ratio ABG pH (7.35-7.45) ABG pCO2 (35-46) mmHg ABG pO2 (80-95) mm/Hg ABG HCO3 (19-24) mmol/L ABG O2 Saturation (90-95) % ABG Base Excess (-9-1.8) mEq/L Ward Test (Pos) Barometric Pressure mm/Hg Oxygen Given Sodium 131 L (136-145) mmol/L Potassium 4.2 (3.5-5.1) mmol/L Chloride 99 (98-107) mmol/L Carbon Dioxide 24 (21-32) mmol/L Anion Gap 8.0 (3-11) BUN 29 H (7-18) mg/dl Creatinine 1.13 (0.6-1.2) mg/dl Est Cr Clr Drug Dosing 25.7 Est GFR ( Amer) 52.1 Est GFR (Non-Af Amer) 44.9 BUN/Creatinine Ratio 25.8 H (10-20) Glucose 163 H (70-99) mg/dl POC Glucose (70-99) Calcium 8.1 L (8.5-10.1) mg/dl Total Bilirubin (0.2-1) mg/dl Direct Bilirubin (0-0.2) mg/dl AST (15-37) U/L ALT (12-78) U/L Alkaline Phosphatase (45-117) U/L Troponin I (0-0.045) ng/ml Total Protein (6.4-8.2) gm/dl Albumin (3.4-5.0) gm/dl Globulin (2.5-4.0) gm/dl Albumin/Globulin Ratio (0.9-2) Procalcitonin 0.13 (0-0.5) ng/ml Specimen Hemolysis Acetaminophen (10-30) ug/ml Hepatitis A IgM Ab Hep Bs Antigen Hep B Core IgM Ab Hepatitis C Antibody Influenza Type A Ag Neg for Influ A (Neg) Influenza Type B Ag Neg for Influ B (Neg) 01/07/19 01/06/19 01/06/19 Range/Units 00:45 18:31 17:45 WBC (4.8-10.8) K/uL RBC (4.2-5.4) M/uL Hgb (12.0-16.0) g/dL Hct (37-47) % MCV (80-100) fL MCH (25-34) pg MCHC (32-36) g/dL RDW Std Deviation (36.4-46.3) fL RDW Coeff of Alexa (11.5-14.5) % Plt Count (130-400) K/uL MPV (7.4-10.4) fL Immature Gran % (Auto) % Neut % (Auto) % Lymph % (Auto) % Floyd % (Auto) % Eos % (Auto) % Baso % (Auto) % Immature Gran # (Auto) (0.00-0.02) K/uL Neut # (Auto) (1.4-6.5) K/uL Lymph # (Auto) (1.2-3.4) K/uL Floyd # (Auto) (0.11-0.59) K/uL Eos # (Auto) (0-0.5) K/uL Baso # (Auto) (0-0.2) K/uL Absolute Nucleated RBC (0-0) K/uL Nucleated RBC % (auto) % Polychromasia Hypochromasia Echinocytes PT (9.0-12.0) Seconds INR (0.9-1.1) APTT (21.0-31.0) Seconds PTT Ratio ABG pH 7.42 (7.35-7.45) ABG pCO2 32 L (35-46) mmHg ABG pO2 72 L (80-95) mm/Hg ABG HCO3 20 (19-24) mmol/L ABG O2 Saturation 93.9 (90-95) % ABG Base Excess -3.9 (-9-1.8) mEq/L Ward Test Pos (Pos) Barometric Pressure 733.4 mm/Hg Oxygen Given 3L Sodium 126 L (136-145) mmol/L Potassium 4.7 (3.5-5.1) mmol/L Chloride 95 L (98-107) mmol/L Carbon Dioxide 21 (21-32) mmol/L Anion Gap 10.0 (3-11) BUN 36 H (7-18) mg/dl Creatinine 1.35 H (0.6-1.2) mg/dl Est Cr Clr Drug Dosing Not Reportable Est GFR ( Amer) 42.0 Est GFR (Non-Af Amer) 36.2 BUN/Creatinine Ratio 27.0 H (10-20) Glucose 182 H (70-99) mg/dl POC Glucose 208 H (70-99) Calcium 8.8 (8.5-10.1) mg/dl Total Bilirubin 1.2 H (0.2-1) mg/dl Direct Bilirubin (0-0.2) mg/dl AST 38 H (15-37) U/L ALT 287 H (12-78) U/L Alkaline Phosphatase 104 (45-117) U/L Troponin I 0.052 H* (0-0.045) ng/ml Total Protein 7.1 (6.4-8.2) gm/dl Albumin 3.6 (3.4-5.0) gm/dl Globulin 3.5 (2.5-4.0) gm/dl Albumin/Globulin Ratio 1.0 (0.9-2) Procalcitonin (0-0.5) ng/ml Specimen Hemolysis Acetaminophen (10-30) ug/ml Hepatitis A IgM Ab Hep Bs Antigen Hep B Core IgM Ab Hepatitis C Antibody Influenza Type A Ag (Neg) Influenza Type B Ag (Neg) 01/06/19 01/06/19 Range/Units 17:45 17:45 WBC 6.66 (4.8-10.8) K/uL RBC 4.65 (4.2-5.4) M/uL Hgb 11.8 L (12.0-16.0) g/dL Hct 36.8 L (37-47) % MCV 79.1 L (80-100) fL MCH 25.4 (25-34) pg MCHC 32.1 (32-36) g/dL RDW Std Deviation 48.8 H (36.4-46.3) fL RDW Coeff of Alexa 17.3 H (11.5-14.5) % Plt Count 183 (130-400) K/uL MPV 9.8 (7.4-10.4) fL Immature Gran % (Auto) 0.9 % Neut % (Auto) 75.5 % Lymph % (Auto) 9.6 % Floyd % (Auto) 13.7 % Eos % (Auto) 0.3 % Baso % (Auto) 0.0 % Immature Gran # (Auto) 0.06 H (0.00-0.02) K/uL Neut # (Auto) 5.03 (1.4-6.5) K/uL Lymph # (Auto) 0.64 L (1.2-3.4) K/uL Floyd # (Auto) 0.91 H (0.11-0.59) K/uL Eos # (Auto) 0.02 (0-0.5) K/uL Baso # (Auto) 0.00 (0-0.2) K/uL Absolute Nucleated RBC 0.22 H (0-0) K/uL Nucleated RBC % (auto) 3.3 % Polychromasia 1+ Hypochromasia Present Echinocytes 1+ PT 13.0 H (9.0-12.0) Seconds INR 1.3 H (0.9-1.1) APTT 24.2 (21.0-31.0) Seconds PTT Ratio 0.9 ABG pH (7.35-7.45) ABG pCO2 (35-46) mmHg ABG pO2 (80-95) mm/Hg ABG HCO3 (19-24) mmol/L ABG O2 Saturation (90-95) % ABG Base Excess (-9-1.8) mEq/L Ward Test (Pos) Barometric Pressure mm/Hg Oxygen Given Sodium (136-145) mmol/L Potassium (3.5-5.1) mmol/L Chloride (98-107) mmol/L Carbon Dioxide (21-32) mmol/L Anion Gap (3-11) BUN (7-18) mg/dl Creatinine (0.6-1.2) mg/dl Est Cr Clr Drug Dosing Est GFR ( Amer) Est GFR (Non-Af Amer) BUN/Creatinine Ratio (10-20) Glucose (70-99) mg/dl POC Glucose (70-99) Calcium (8.5-10.1) mg/dl Total Bilirubin (0.2-1) mg/dl Direct Bilirubin (0-0.2) mg/dl AST (15-37) U/L ALT (12-78) U/L Alkaline Phosphatase (45-117) U/L Troponin I (0-0.045) ng/ml Total Protein (6.4-8.2) gm/dl Albumin (3.4-5.0) gm/dl Globulin (2.5-4.0) gm/dl Albumin/Globulin Ratio (0.9-2) Procalcitonin (0-0.5) ng/ml Specimen Hemolysis Acetaminophen (10-30) ug/ml Hepatitis A IgM Ab Hep Bs Antigen Hep B Core IgM Ab Hepatitis C Antibody Influenza Type A Ag (Neg) Influenza Type B Ag (Neg) Medications Administered Current Inpatient Medications Al Hydrox/Mg Hydrox/Simethicone (Maalox) 15 ml PO Q4H PRN PRN Reason: Dyspepsia Stop: 02/06/19 00:04 Albuterol (Ventolin Hfa) 2 puffs INH Q6H PRN PRN Reason: Shortness Of Breath Stop: 02/06/19 00:04 Albuterol (Duoneb) 3 ml NEB QIDR [facility] Stop: 02/06/19 07:59 Last Admin: 01/07/19 07:35 Dose: 3 ml Documented by: Artificial Tears (Artificial Tears) 1 drops OP BID PRN PRN Reason: dry eyes Stop: 02/06/19 00:44 Aspirin (Ecotrin Ectab) 81 mg PO DAILY [facility] Stop: 02/06/19 08:59 Last Admin: 07/16/19 08:14 Dose: 81 mg Documented by: Atorvastatin Calcium (Lipitor) 20 mg PO HS [facility] Stop: 02/06/19 20:59 Cyanocobalamin (Vitamin B-12) 1,000 mcg PO DAILY SONIDO Stop: 02/06/19 08:59 Last Admin: 01/07/19 08:15 Dose: 1,000 mcg Documented by: Dextrose (Dextrose 50%) 25 - 50 ml IV UD PRN; Protocol PRN Reason: Hypoglycemia Protocol Stop: 02/06/19 00:04 Docusate Sodium (Colace) 100 mg PO BID PRN PRN Reason: Constipation Stop: 02/06/19 00:04 Enoxaparin Sodium (Lovenox) 30 mg SQ Q24H SONIDO Stop: 02/06/19 07:59 Fluticasone Propionate (Flovent Hfa 110mch) 2 puffs INH BID SONIDO Stop: 02/06/19 08:59 Glucagon (Glucagen) 1 mg SQ UD PRN; Protocol PRN Reason: Hypoglycemia Protocol Stop: 02/06/19 00:04 Glucose (Dex4 Glucose) 4 - 8 tabs PO UD PRN; Protocol PRN Reason: Hypoglycemia Protocol Stop: 02/06/19 00:04 Glucose (Glucose 40%) 15 - 30 gm PO UD PRN; Protocol PRN Reason: Hypoglycemia Protocol Stop: 02/06/19 00:04 Sodium Chloride (Nss 1000ml) 1,000 mls @ 80 mls/hr IV .[id number] SONIDO Stop: 02/06/19 00:04 Last Admin: 01/07/19 00:48 Dose: 80 mls/hr Documented by: Methylprednisolone 40 mg/ (Syringe) 0.64 mls @ 1.5 mls/min IV Q8H SONIDO Stop: 02/06/19 03:59 Last Admin: 01/07/19 04:23 Dose: 1.5 mls/min Documented by: Insulin Aspart (Novolog Flexpen) 0 units SC ACHS SONIDO Stop: 02/06/19 00:29 Last Admin: 01/07/19 08:19 Dose: 2 units Documented by: Magnesium Hydroxide (Milk Of Magnesia) 30 ml PO Q12H PRN PRN Reason: Constipation Stop: 02/06/19 00:04 Miscellaneous (Carbohydrates For Hypoglycemia) 15 - 30 gm PO UD PRN PRN Reason: Hypoglycemia Treatment Stop: 02/06/19 00:04 Multivitamins/Minerals (Caltrate Plus) 1 tab PO BID SONIDO Stop: 02/06/19 08:59 Last Admin: 01/07/19 08:15 Dose: 1 tab Documented by: Ondansetron HCl (Zofran) 4 mg IV Q6H PRN PRN Reason: Nausea Stop: 02/06/19 00:04 Pantoprazole Sodium (Protonix) 40 mg PO DAILY SONIDO Stop: 02/06/19 08:59 Last Admin: 01/07/19 08:14 Dose: 40 mg Documented by: Polyethylene Glycol (Miralax Powder Packet) 17 gm PO DAILY PRN PRN Reason: Constipation Stop: 02/06/19 00:04 PG Care Time/CCT Total # of Minutes Spent Total Time Spent with Patient: Total time spent is greater than 50% in coordination of care (as documented) at patient's floor/unit and/or counseling patient: Resident Activity Tracking Resident Involvement: Resident Care Provided Care Provided: Adult Hospital Medicine
[2019-01-07 08:48] LABS: Hepatitis B Surface Antigen Neg (Neg)
[2019-01-07 09:16] LABS: Hepatitis C IgG 13Yrs+Old_Rflx Neg (Neg)
[2019-01-07] MEDS: ENOXAPARIN INJ 30 MG/0.3 ML SYR SQ SCH (10:00)
[2019-01-07] MEDS: FLUTICASONE HFA 110MCG INHALER INH SCH ×2 (10:05→20:15)
--- NOTE | 2019-01-07 14:30 | Ultrasound Report ---
ULTRASOUND RIGHT UPPER QUADRANT ABDOMEN CLINICAL HISTORY: Elevated hepatic transaminases. COMPARISON STUDY: Abdominal CT dated 02/27/2013. TECHNIQUE: Real-time, grayscale, and color flow sonography of the right upper quadrant of the abdomen was performed. Images are reviewed in the transverse and longitudinal planes. FINDINGS: Liver: The liver is normal in size and echotexture. There is central intrahepatic biliary ductal dila tation. The main portal vein is patent. Gallbladder: The gallbladder is surgically absent. The common bile duct measures up to 1.5 cm in diam eter. Pancreas: Not well visualized due to overlying bowel gas. Right kidney: Survey images of the right kidney demonstrate mild cortical atrophy. There is no hydron ephrosis. Ascites: None. IMPRESSION: 1. The liver is normal in size and echotexture. 2. Status post cholecystectomy. 3. Intra and extrahepatic biliary ductal dilatation are similar to 2013 and likely related to remote cholecystectomy. Electronically signed by: Michael Macedo M.D. 01/07/2019 2:29 PM
--- NOTE | 2019-01-07 16:17 | Palliative Care Consultation ---
Date of Consultation January 07, 2019 Assessment & Plan (1) Palliative care encounter: Patient is an 83-year-old female with a history of pulmonary fibrosis- followed by Dr. Dobbs, Hypertension, diabetes, and GERD Who presented to the emergency room on 01/06 with increased shortness of breath for several days. Patient states she had not been feeling well-she called her doctor for an appointment and was not able to be seen for a while so she stopped all her medications. Patient lives alone, was never and has no children-her sister and niece check on her every few weeks. With restarting her medications patient has nearly returned to her baseline. Patient names her niece, Sara Mack [phone] as her medical POA. In discussing CODE STATUS patient states she would want to be intubated if it was short-term and could return her to her prior level of function. Needs and sister at bedside-they are aware of patient's wishes.Patient had used inhalers at home-patient would likely benefit from nebulized treatments due to difficulty with coordination of inhalers.Patient reports That Dr. Dobbs As discussed her prognosis. Discussed with both patient and family how and when to refer patient to hospice as disease progresses. - Patient's niece, who is her POA is aware of patient's wishes And is comfortable being patient's healthcare surrogate - CODE STATUS-patient wishes to remain a full code at this time, no prolonged intubation - Pulmonary fibrosis-followed by Dr. Dobbs, Patient aware of her prognosis - Will continue to follow and assist patient family with medical decision making. Family given information on outpatient follow-up in palliative care clinic if desired. (2) Acute and chronic respiratory failure ([id number]): Improved on O2 and reinstitution of inhalers as well as Solu-Medrol - Would recommend discharging patient on nebulized Xopenex due to tachycardia as well as budesonide-patient having more difficulty coordinating inhalers (3) Interstitial lung disease: Follows with Dr. Dobbs, Aware of her prognosis Patient will require 2 step to see if she qualifies for home O2 Discussed timing regarding hospice referral (4) Diabetes mellitus: Patient had stopped all her medications including her metformin, Actos and Januvia-we will defer to attending team on restarting home meds-Patient's hemoglobin A1c goal would be less than 8 given her age History of Present Illness Reason for Consultation: Address goals of care as well as CODE STATUS Requesting Physician: Dr. Kathrine Valentine Attending Physician: Taylor Ambriz DO History of Present Illness Patient is an 83-year-old female with a history of pulmonary fibrosis-followed by Dr. Dobbs, Hypertension, diabetes, and GERD Who presented to the emergency room on 01/06 with increased shortness of breath for several days. Patient states she had not been feeling well-she called her doctor for an appointment and was not able to be seen for a while so she stopped all her medications. Patient lives alone, was never and has no children-her sister and niece check on her every few weeks. With restarting her medications patient has nearly returned to her baseline. Patient names her niece, Sara [phone] as her medical POA. In discussing CODE STATUS patient states she would want to be intubated if it was short-term and could return her to her prior level of function. Needs and sister at bedside-they are aware of patient's wishes.Patient had used inhalers at home-patient would likely benefit from nebulized treatments due to difficulty with coordination of inhalers.Patient reports That Dr. Dobbs As discussed her prognosis. Discussed with both patient and family how and when to refer patient to hospice as disease progresses. Allergies Allergy/AdvReac Type Severity Reaction Status Date / Time risedronate sodium Allergy Unknown SICK Verified 01/06/19 14:03 vitamin E (d-alpha Allergy Unknown HIVES Verified 01/06/19 14:03 tocopherol) prednisone AdvReac Unknown Makes her Verified 01/06/19 14:03 feel very ill. Home Medications Home Medications Medication Instructions Recorded Confirmed Type aspirin 81 mg tablet 81 mg PO DAILY tab 11/14/18 01/06/19 History atorvastatin 20 mg tablet 20 mg PO HS #30 tab 11/14/18 01/06/19 History docusate sodium 100 mg capsule 100 mg PO BID PRN cap 11/14/18 01/06/19 History pioglitazone 45 mg tablet 45 mg PO DAILY #30 tab 11/14/18 01/06/19 History calcium carbonate 600 mg calcium 600 mg PO BID tab 11/15/18 01/06/19 History (1,500 mg) tablet pantoprazole 40 mg tablet,delayed 40 mg PO DAILY #30 tab 11/15/18 01/06/19 History release acetaminophen [Tylenol Arthritis 650 mg PO Q12H PRN 01/06/19 01/06/19 History Pain] albuterol sulfate [Ventolin HFA] 2 puff INHALATION Q6H PRN 01/06/19 01/06/19 History cyanocobalamin (vitamin B-12) 1,000 mcg PO DAILY 01/06/19 01/06/19 History metformin 1,000 mg PO BIDM 01/06/19 01/06/19 History peg 400-propylene glycol [Systane 1 drp OPHTHALMIC (EYE) BID PRN 01/06/19 01/06/19 History (propylene glycol)] sitagliptin [Januvia] 100 mg PO DAILY 01/06/19 01/06/19 History fluticasone propionate [Flovent 2 puff BID 01/07/19 01/07/19 History HFA] Patient History Medical History Tubular adenoma of colon Subcapital fracture of hip Sciatica Osteoporosis Low back pain Interstitial lung disease Hyponatremia Hypertension Hypercholesterolemia Gastroesophageal reflux disease Diverticulosis Difficulty walking Diabetes mellitus Compression fracture of L1 lumbar vertebra Chronic obstructive asthma Carotid artery stenosis, asymptomatic Anemia Allergic rhinitis Social History Preferred Language: Hungarian 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 Ability: Effective [employer]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 Patient states her breathing is markedly improved. Physical Exam Physical Exam: PE:Patient awake alert, appears comfortable on 2 L O2 HEENT: NUL[place], EOMI Respirations: Increased shortness of breath with speech, diminished breath sounds bilaterally CV: Tachycardic, no edema Abdomen: Soft, nontender Neuro: Alert and oriented x4 Results & Data Vital Signs (Past 12 Hours) Vital Signs Temp Pulse Resp BP Pulse Ox 01/07/19 15:26 106 H 18 92 01/07/19 11:23 97.9 F 107 H 16 153/88 H 94 01/07/19 11:19 70 16 98 01/07/19 07:40 76 16 98 01/07/19 07:28 98.1 F 105 H 16 180/97 H 98 01/07/19 05:06 97.2 F L 100 H 20 133/69 93 PG Care Time/CCT Total # of Minutes Spent Total Time Spent with Patient: Total time spent is greater than 50% in coordination of care (as documented) at patient's floor/unit and/or counseling patient: Time Spent Attending Total time spent 55 minutes with greater than 50% of time spent at bedside discussing patient's current condition, prognosis, goals of care as well as CODE STATUS
[2019-01-07] MEDS ORDERED: PHARMACY GLYCEMIC MGMT CONSULT PRN (18:14)
[2019-01-07] MEDS ORDERED: INSULIN GLARGINE SOLOSTAR 100 UNITS/ML 3 ML PEN SC ONE (18:15)
--- NOTE | 2019-01-07 19:12 | Pharmacy Report ---
Glycemic Control Consultation - Date of Service January 07, 2019 - Scope Scope: Glycemic Pharmacist consulted by Dr Jimi Bradshaw on 01/07/19 for glycemic control and to write orders per [facility] inpatient glycemic control protocol - Objective Weight: 50.1 kg Accuchecks BSG (last 24hrs): 01/07/19 01/07/19 01/07/19 00:45 05:24 07:45 Glucose 163 H POC Glucose 208 H 166 H 01/07/19 01/07/19 01/07/19 11:39 14:37 16:52 Glucose POC Glucose 225 H 227 H 299 H Laboratory Data (last 24hrs): 01/07/19 05:24 Potassium 4.2 Carbon Dioxide 24 Anion Gap 8.0 Creatinine 1.13 Est Cr Clr Drug Dosing 25.7 HbA1c: Ordered for 01/08/19 AM - Recent Pertinent Medications Outpatient Anti-diabetic Regimen: * Metformin 1,000mg PO BIDM * Actos 45mg PO Daily * Januvia 100mg PO Daily The patient is currently receiving: * Basal insulin: None * Correctional Insulin: Novolog Correction per scale ACHS Goal Range: Low 100 mg/dL - High 140 mg/dL Correction Factor: 40 mg/dL/unit * Prandial insulin: Per carb ratio of 1 unit per 20 grams CHO consumed * Oral Agents: On hold for admission Risk Factors for Insulin Resistance: * Steroids * Diet - Assessment & Plan Assessment & Plan: ASSESSMENT: * 83yo T2DM female with unknown degree of outpatient control. Last A1c reported is outdated. Goal A1c likely ~8-8.5% based on age/co-morbidities. * Pt is maintained on oral antidiabetic agents as an outpatient * Oral agents are not recommended for inpatient use d/t drug interactions, changing PO intake, and difficulty titrating for acute hyper/hypoglycemia. ADA recommends re-initiating outpatient oral agents 1-2 days prior to discharge if/when appropriate if they were held on admission. * Will hold oral agents for admission and utilize SQ basal bolus insulin regimen which is the recommended regimen for inpatient glycemic control. * Will initiate weight based insulin dosing for insulin yosef patient and titrate based on BSG trends. * Pt receiving high dose RTC steroids with Solumedrol 40mg IV Q8hrs. Will utilize weight/st=2-3 dosing and titrate based on BSG trends * No basal insulin ordered- will start for severe hyperglycemia and RTC steroid dosing. Will keep regimen distributed ~40% basal to ~60% prandial which is the preferred regimen for steroid induced hyperglycemia (steroids have their most profound effect on post-prandial hyperglycemia) PLAN FOR INPATIENT GLYCEMIC CONTROL: * Continue to hold outpatient oral diabetes medications * Basal insulin * Lantus 20 units SQ now, further dosing based on BSG trends and steroid dosing * Bolus insulin * NovoLog per scale ACHS or Q6hrs while NPO * Goal Range: Low 100 mg/dL - High 140 mg/dL * Correction Factor: 30 mg/dL/unit * Nutritional / Prandial insulin per carb ratio of 1 unit per 11 grams CHO consumed * Please note that the plan above was derived based on current level of insulin resistance and hospital stress. These recommendations are appropriate for inpatient admission only. Plan of care upon discharge will need to be reassessed to avoid potential outpatient hypo/hyperglycemia. Thank you.
[2019-01-07] MEDS: ATORVASTATIN 20 MG TAB PO SCH (20:14)
[2019-01-08] MEDS: INSULIN ASPART 100 UNITS/ML 3 ML PEN SC SCH ×6 (00:19→20:49)
[2019-01-08] MEDS: SODIUM CHLORIDE 0.9% 1000ML 1,000 ML IV SCH ×3 (04:06→20:45)
[2019-01-08] MEDS: methylPREDNISolone 40 MG in SYRINGE 0 ML IV SCH (04:09)
[2019-01-08] MEDS: ALBUT/IPRATROP 3MG/0.5MG NEB 3 ML VIAL NEB SCH ×4 (06:54→19:25)
--- NOTE | 2019-01-08 07:11 | Family Medicine Progress Note ---
Date of Service January 08, 2019 Assessment & Plan (1) Acute and chronic respiratory failure ([id number]): 83F with known h/o IPF here with worsening dyspnea x 2 weeks after being off her medications Idiopathic pulmonary fibrosis, acute exacerbation h/o known pulmonary fibrosis, last PFT October 2017 showed normal spirometry with severely reduced DLCO (43% expected). Follows with Dr. Dobbs. Admitting resident had lengthy discussion with delbert at bedside, apparently pt admits to being noncompliant with inhalers for 3 weeks. hypoxic in the PCP office [employer] to 70s, 80s on room air in ED, improved with nasal cannula Niece Sara insisted that she take her meds, and has done so for the past week.did discuss palliative consult seeing as her pulm fibrosis is not curable and likely will continue to progress. Niece enthusiastic about "any help" she can get. Order placed. -Continue with oxygen support, pt will need a 2 step and may likely be eligible for at least temporary o2. -Continue home flovent, duonebs scheuduled. Albuterol prn. Patient requesting nebulizer, as she is unable to coordinate timing of inhaler administration and nebulizer. Appreciate case management's assistance -Will attempt spacer -Patient currently tolerating intravenous methylprednisolone 40 mg twice daily -Palliative care was consulted see associated documentation -Niece will be her power of attorney general, patient wants to be full code however no prolonged intubation, patient is aware of her current prognosis Detectable troponins likely 2/2 pulmonary htn in setting of IPF exac/ demand ischemia. -Troponin peaked at 0.066 and is now downtrending, last troponin 0 0.05 -cont home ASA -Started patient on verapamil 40 mg twice daily in attempt to gain better control of her heart rate and blood pressure, we suspect this may be the cause of her elevated troponins Transaminitis Patient's CMP is remarkable for elevated LFTs specifically ALT to 247 with AST at 25. Serology was performed to look for hepatitis C which was negative hepatitis B antigen negative hepatitis B core and hepatitis A IgM are still pending. Patient did go for a liver ultrasound today demonstrating normal in size and echotexture she is currently status post cholecystectomy some evidence of intra-and extrahepatic biliary ductal dilatation similar to that in 2013 and likely related to remote cystectomy. Otherwise the patient is asymptomatic for any symptoms of the liver pathology. -Continue to follow clinically nothing on clinical examination -Follow-up lab tests ALT still elevated today 203 -Trend CMP -Consider outpatient GI referral Hyponatremia according to PCP charts, this is known issue, however appears to be asymptomatic at this time. Diffl includes SIADH, primary polydipsia although given her decreased PO intake in the last few days due to somnolence this is unlikely -NSS at gentle maintenance, follow bmp -with h/o the same. acute on chronic Elev cue selector Resolved likely was prerenal given decreased PO intake from somnolence T2DM -hold home PO meds, catrina given elev cue selector -ISS, BSG ACHS -glycemic consult placed FEN/GI: heart healthy/t2dm diet, NSS at 80 (weight appears to be 97 lbs according to recent PCP visit) DVT ppx: lovenox 30mg q24h CODE STATUS: FULL however does not want prolonged intubation DISPO: med/tele other ongoing medical problems: Anemia -microcytic -history of the same -does not appear to be hemorrhagic, not on blood thinners only ASA -cont B12, would likely benefit from iron supplementation in outpatient setting GERD -continue pantoprazole, especially in someone with IPF given aspiration risks Supervising Physician Co-Signing Physician Notes Patient seen and examined at the bedside with Dr. Bradshaw. Agree with history, exam findings, assessment and plan of care as outlined. In brief, 83 year old female with hx of idiopathic pulmonary fibrosis, DM, chronic hyponatremia admitted with hypoxia due to recent medication non- adherence Breathing comfortably on 2L. No accessory muscle use. Bibasilar crackles. 1. hypoxia secondary to idiopathic pulmonary fibrosis - continue supportive O2, wean as able - will likely need 2 step to determine O2 requirements at discharge - de-escalate methylpred - continue flovent, duonebs. Consider spacer hereif she has difficulty with that, we can do Rx for neb machine for home. While xoponex does decrease tachycardia, there is really only a difference of several beats per minute difference when compared with albuterol. Not sure that this is really going to be beneficial. -palliative care consult, appreciate recommendations 2. Hyponatremia, chronic (Na 131) - near baseline Na. This is likely secondary to her chronic pulmonary processes. 3. Transaminitis. - AST 25, ALT 147, Alk P 97 - Hepatitis panel non-reactive - RUQ ultrasound unremarkable for any acute process or new texture changes. -INR 1.3 (not on AC) - can be further worked up by her PCP 4. Tachycardia - ?secondary to beta-agonists vs respiratory compensation 5. Steroid induced hyperglycemia in the setting of DM2. - sliding scale coverage Dispo: pending clinical improvement. Subjective Patient sitting up in bed this morning in no acute distress, reports doing well overnight no significant interval history, symptoms improving. Patient is tolerating her diet, voiding, stooling, and sleeping. No acute concerns, all questions answered. Physical Exam Physical Exam: General: Thin elderly female in no acute distress HEENT: Normocephalic atraumatic Neck: Normal to visual inspection, did not appreciate JVD Cardiac: Regular rate and rhythm no murmurs rubs or gallops, normal S1, normal S2 negative pedal edema negative calf tenderness Respiratory: Coarse breath sounds bilaterally, with associated wheezing, and other features of restrictive lung disease MSK: Moves all extremities Neuro: Alert and oriented Psych: Calm cooperative Results & Data Vital Signs (Past 12 Hours) Vital Signs Temp Pulse Resp BP Pulse Ox 01/08/19 06:56 110 H 18 90 01/08/19 04:00 36.4 C L 96 H 18 148/79 H 95 01/08/19 00:00 36.6 C 108 H 18 138/78 94 01/07/19 20:06 36.8 C 109 H 18 157/88 H 100 01/07/19 19:21 108 H 16 96 Laboratory Results 01/08/19 01/08/19 01/08/19 Range/Units 16:48 11:39 07:29 PT (9.0-12.0) Seconds INR (0.9-1.1) Sodium (136-145) mmol/L Potassium (3.5-5.1) mmol/L Chloride (98-107) mmol/L Carbon Dioxide (21-32) mmol/L Anion Gap (3-11) BUN (7-18) mg/dl Creatinine (0.6-1.2) mg/dl Est Cr Clr Drug Dosing ml/min Est GFR ( Amer) Est GFR (Non-Af Amer) BUN/Creatinine Ratio (10-20) Glucose (70-99) mg/dl POC Glucose 204 H 229 H 134 H (70-99) Estimat Average Glucose mg/dl Hemoglobin A1c (4.5-5.6) % Calcium (8.5-10.1) mg/dl Magnesium (1.8-2.4) mg/dl Total Bilirubin (0.2-1) mg/dl Direct Bilirubin (0-0.2) mg/dl AST (15-37) U/L ALT (12-78) U/L Alkaline Phosphatase (45-117) U/L Troponin I (0-0.045) ng/ml Total Protein (6.4-8.2) gm/dl Albumin (3.4-5.0) gm/dl Hepatitis A IgM Ab (NON-REACTIVE) Hep B Core IgM Ab (NON-REACTIVE) 01/08/19 01/08/19 01/08/19 Range/Units 06:42 06:42 06:42 PT (9.0-12.0) Seconds INR (0.9-1.1) Sodium (136-145) mmol/L Potassium (3.5-5.1) mmol/L Chloride (98-107) mmol/L Carbon Dioxide (21-32) mmol/L Anion Gap (3-11) BUN (7-18) mg/dl Creatinine (0.6-1.2) mg/dl Est Cr Clr Drug Dosing ml/min Est GFR ( Amer) Est GFR (Non-Af Amer) BUN/Creatinine Ratio (10-20) Glucose (70-99) mg/dl POC Glucose (70-99) Estimat Average Glucose 186 mg/dl Hemoglobin A1c 8.1 H (4.5-5.6) % Calcium (8.5-10.1) mg/dl Magnesium 1.5 L (1.8-2.4) mg/dl Total Bilirubin 1.0 (0.2-1) mg/dl Direct Bilirubin 0.4 H (0-0.2) mg/dl AST 16 (15-37) U/L ALT 203 H (12-78) U/L Alkaline Phosphatase 88 (45-117) U/L Troponin I (0-0.045) ng/ml Total Protein 6.8 (6.4-8.2) gm/dl Albumin 3.5 (3.4-5.0) gm/dl Hepatitis A IgM Ab (NON-REACTIVE) Hep B Core IgM Ab (NON-REACTIVE) 01/08/19 01/08/19 01/08/19 Range/Units 06:42 06:42 04:08 PT 13.0 H (9.0-12.0) Seconds INR 1.3 H (0.9-1.1) Sodium 136 (136-145) mmol/L Potassium 4.8 (3.5-5.1) mmol/L Chloride 104 (98-107) mmol/L Carbon Dioxide 25 (21-32) mmol/L Anion Gap 7.0 (3-11) BUN 22 H (7-18) mg/dl Creatinine 1.02 (0.6-1.2) mg/dl Est Cr Clr Drug Dosing 28.5 ml/min Est GFR ( Amer) 58.9 Est GFR (Non-Af Amer) 50.8 BUN/Creatinine Ratio 21.8 H (10-20) Glucose 119 H (70-99) mg/dl POC Glucose 123 H (70-99) Estimat Average Glucose mg/dl Hemoglobin A1c (4.5-5.6) % Calcium 8.7 (8.5-10.1) mg/dl Magnesium (1.8-2.4) mg/dl Total Bilirubin (0.2-1) mg/dl Direct Bilirubin (0-0.2) mg/dl AST (15-37) U/L ALT (12-78) U/L Alkaline Phosphatase (45-117) U/L Troponin I (0-0.045) ng/ml Total Protein (6.4-8.2) gm/dl Albumin (3.4-5.0) gm/dl Hepatitis A IgM Ab (NON-REACTIVE) Hep B Core IgM Ab (NON-REACTIVE) 01/08/19 01/07/19 01/07/19 Range/Units 00:15 20:13 18:44 PT (9.0-12.0) Seconds INR (0.9-1.1) Sodium (136-145) mmol/L Potassium (3.5-5.1) mmol/L Chloride (98-107) mmol/L Carbon Dioxide (21-32) mmol/L Anion Gap (3-11) BUN (7-18) mg/dl Creatinine (0.6-1.2) mg/dl Est Cr Clr Drug Dosing ml/min Est GFR ( Amer) Est GFR (Non-Af Amer) BUN/Creatinine Ratio (10-20) Glucose (70-99) mg/dl POC Glucose 217 H 396 H* (70-99) Estimat Average Glucose mg/dl Hemoglobin A1c (4.5-5.6) % Calcium (8.5-10.1) mg/dl Magnesium (1.8-2.4) mg/dl Total Bilirubin (0.2-1) mg/dl Direct Bilirubin (0-0.2) mg/dl AST (15-37) U/L ALT (12-78) U/L Alkaline Phosphatase (45-117) U/L Troponin I 0.053 H* (0-0.045) ng/ml Total Protein (6.4-8.2) gm/dl Albumin (3.4-5.0) gm/dl Hepatitis A IgM Ab (NON-REACTIVE) Hep B Core IgM Ab (NON-REACTIVE) 01/07/19 Range/Units 06:29 PT (9.0-12.0) Seconds INR (0.9-1.1) Sodium (136-145) mmol/L Potassium (3.5-5.1) mmol/L Chloride (98-107) mmol/L Carbon Dioxide (21-32) mmol/L Anion Gap (3-11) BUN (7-18) mg/dl Creatinine (0.6-1.2) mg/dl Est Cr Clr Drug Dosing ml/min Est GFR ( Amer) Est GFR (Non-Af Amer) BUN/Creatinine Ratio (10-20) Glucose (70-99) mg/dl POC Glucose (70-99) Estimat Average Glucose mg/dl Hemoglobin A1c (4.5-5.6) % Calcium (8.5-10.1) mg/dl Magnesium (1.8-2.4) mg/dl Total Bilirubin (0.2-1) mg/dl Direct Bilirubin (0-0.2) mg/dl AST (15-37) U/L ALT (12-78) U/L Alkaline Phosphatase (45-117) U/L Troponin I (0-0.045) ng/ml Total Protein (6.4-8.2) gm/dl Albumin (3.4-5.0) gm/dl Hepatitis A IgM Ab NON-REACTIVE (NON-REACTIVE) Hep B Core IgM Ab NON-REACTIVE (NON-REACTIVE) Medications Administered Current Inpatient Medications Al Hydrox/Mg Hydrox/Simethicone (Maalox) 15 ml PO Q4H PRN PRN Reason: Dyspepsia Stop: 02/06/19 00:04 Albuterol (Ventolin Hfa) 2 puffs INH Q6H PRN PRN Reason: Shortness Of Breath Stop: 02/06/19 00:04 Albuterol (Duoneb) 3 ml NEB QIDR SONIDO Stop: 02/06/19 07:59 Last Admin: 01/08/19 15:02 Dose: 3 ml Documented by: Artificial Tears (Artificial Tears) 1 drops OP BID PRN PRN Reason: dry eyes Stop: 02/06/19 00:44 Aspirin (Ecotrin Ectab) 81 mg PO DAILY SONIDO Stop: 02/06/19 08:59 Last Admin: 01/08/19 07:55 Dose: 81 mg Documented by: Atorvastatin Calcium (Lipitor) 20 mg PO HS SONIDO Stop: 02/06/19 20:59 Last Admin: 01/07/19 20:14 Dose: 20 mg Documented by: Cyanocobalamin (Vitamin B-12) 1,000 mcg PO DAILY SONIDO Stop: 02/06/19 08:59 Last Admin: 01/08/19 07:55 Dose: 1,000 mcg Documented by: Dextrose (Dextrose 50%) 25 - 50 ml IV UD PRN; Protocol PRN Reason: Hypoglycemia Protocol Stop: 02/06/19 00:04 Docusate Sodium (Colace) 100 mg PO BID PRN PRN Reason: Constipation Stop: 02/06/19 00:04 Enoxaparin Sodium (Lovenox) 30 mg SQ Q24H SONIDO Stop: 02/06/19 07:59 Last Admin: 01/08/19 07:55 Dose: Not Given Documented by: Fluticasone Propionate (Flovent Hfa 110mch) 2 puffs INH BID SONIDO Stop: 02/06/19 08:59 Last Admin: 01/08/19 07:56 Dose: 2 puffs Documented by: Glucagon (Glucagen) 1 mg SQ UD PRN; Protocol PRN Reason: Hypoglycemia Protocol Stop: 02/06/19 00:04 Glucose (Dex4 Glucose) 4 - 8 tabs PO UD PRN; Protocol PRN Reason: Hypoglycemia Protocol Stop: 02/06/19 00:04 Glucose (Glucose 40%) 15 - 30 gm PO UD PRN; Protocol PRN Reason: Hypoglycemia Protocol Stop: 02/06/19 00:04 Sodium Chloride (Nss 1000ml) 1,000 mls @ 80 mls/hr IV .[id number] SONIDO Stop: 02/06/19 00:04 Last Admin: 01/08/19 14:47 Dose: 80 mls/hr Documented by: Methylprednisolone 40 mg/ (Syringe) 0.64 mls @ 1.5 mls/min IV Q8H [facility] Stop: 02/07/19 11:59 Last Admin: 01/08/19 12:41 Dose: 1.5 mls/min Documented by: Insulin Aspart (Novolog Flexpen) 0 units SC ACHS [facility] Stop: 02/06/19 00:29 Last Admin: 01/08/19 17:39 Dose: 7 units Documented by: Insulin Glargine (Lantus Solostar Pen) 0 units SC BID [facility]; Protocol Stop: 02/07/19 08:59 Magnesium Hydroxide (Milk Of Magnesia) 30 ml PO Q12H PRN PRN Reason: Constipation Stop: 02/06/19 00:04 Miscellaneous (Carbohydrates For Hypoglycemia) 15 - 30 gm PO UD PRN PRN Reason: Hypoglycemia Treatment Stop: 02/06/19 00:04 Miscellaneous Information (Consult Glycemic Management Pharmacy) 1 ea N/A UD PRN PRN Reason: Consult Stop: 02/06/19 18:13 Multivitamins/Minerals (Caltrate Plus) 1 tab PO BID [facility] Stop: 02/06/19 08:59 Last Admin: 01/08/19 07:55 Dose: 1 tab Documented by: Ondansetron HCl (Zofran) 4 mg IV Q6H PRN PRN Reason: Nausea Stop: 02/06/19 00:04 Pantoprazole Sodium (Protonix) 40 mg PO DAILY [facility] Stop: 02/06/19 08:59 Last Admin: 01/08/19 07:55 Dose: 40 mg Documented by: Polyethylene Glycol (Miralax Powder Packet) 17 gm PO DAILY PRN PRN Reason: Constipation Stop: 02/06/19 00:04 Verapamil HCl (Calan) 40 mg PO BID [facility] Stop: 02/07/19 11:44 Last Admin: 01/08/19 13:22 Dose: 40 mg Documented by: PG Care Time/CCT Total # of Minutes Spent Total Time Spent with Patient: Total time spent is greater than 50% in coordination of care (as documented) at patient's floor/unit and/or counseling patient: Resident Activity Tracking Resident Involvement: Resident Care Provided Care Provided: Adult Hospital Medicine
[2019-01-08 07:21] LABS: INR 1.3 (0.9-1.1)
[2019-01-08 07:44] LABS: BUN Creatinine Ratio 21.8 (10-20); Calcium 8.7 mg/dl (8.5-10.1); Creatinine Clr Calc Pharmacy 28.5 ml/min; Est GFR (African American) 58.9; Est GFR (Non-African American) 50.8; Potassium 4.8 mmol/L (3.5-5.1)
[2019-01-08] MEDS: CALCIUM 600MG + VIT D 400 IU TAB PO SCH ×2 (07:55→20:46)
[2019-01-08] MEDS: PANTOprazole 40 MG TAB PO SCH (07:55)
[2019-01-08] MEDS: CYANOCOBALAMIN 500 MCG TABLET (VITAMIN B-12) PO SCH (07:55)
[2019-01-08] MEDS: ASPIRIN 81 MG ECTAB PO SCH (07:55)
[2019-01-08] MEDS: ENOXAPARIN INJ 30 MG/0.3 ML SYR SQ SCH (07:55)
[2019-01-08] MEDS: FLUTICASONE HFA 110MCG INHALER INH SCH ×2 (07:56→20:47)
[2019-01-08 08:04] LABS: Albumin Level 3.5 gm/dl (3.4-5.0); Bilirubin Direct 0.4 mg/dl (0-0.2); Total Protein 6.8 gm/dl (6.4-8.2)
[2019-01-08 08:43] LABS: Estimated Average Glucose 186 mg/dl; Hemoglobin A1C 8.1 % (4.5-5.6)
[2019-01-08] MEDS ORDERED: INSULIN GLARGINE SOLOSTAR 100 UNITS/ML 3 ML PEN SC SCH (09:00)
[2019-01-08] MEDS: MAGNESIUM SULFATE / D5W 1 GM/100 ML BAG IV SCH ×2 (10:25→11:52)
[2019-01-08] MEDS ORDERED: methylPREDNISolone 40 MG in SYRINGE 0 ML IV SCH ×2 (12:00→21:00)
[2019-01-08] MEDS: VERAPAMIL HCL 40 MG TAB PO SCH ×2 (13:22→20:47)
--- NOTE | 2019-01-08 14:47 | Pharmacy Report ---
Pharmacy Glycemic Short Note 2 - Date of Service January 08, 2019 - Glycemic Short BSG Results (Last 24 hours): 01/07/19 01/07/19 01/07/19 11:39 14:37 16:52 Glucose POC Glucose 225 H 227 H 299 H 01/07/19 01/08/19 01/08/19 20:13 00:15 04:08 Glucose POC Glucose 396 H* 217 H 123 H 01/08/19 01/08/19 01/08/19 06:42 07:29 11:39 Glucose 119 H POC Glucose 134 H 229 H OUTPATIENT ANTIDIABETIC REGIMEN: * Metformin 1g BIDM * Actos 46 mg QD ASSESSMENT: * T2 diabetic admitted for hypoxia, likely experiencing steroid induced hyperglycemia. BSGs improved greatly after 20 units lantus dose last evening (in between a weight based stress of 2-3). I continued with ~stress of 2-3 dosing for basal insulin today. Lunchtime BSG was elevated and I tightened carb ratio accordingly. PLAN FOR INPATIENT GLYCEMIC CONTROL: * patient receiving solumedro 140mg IV q8 * T2DM ordered * Basal insulin * Lantus 10 units SQ this morning * Lantus scale for this evening (5, 9, or 12 units based on BSG-see MAR for details) * Bolus insulin * NovoLog per scale ACHS or Q6hrs while NPO * Goal Range: Low 100 mg/dL - High 140 mg/dL * Correction Factor: 30 mg/dL/unit * Nutritional / Prandial insulin per carb ratio of 1 unit per 10 grams CHO consumed
[2019-01-08] MEDS: ATORVASTATIN 20 MG TAB PO SCH (20:46)
[2019-01-08] MEDS: INSULIN GLARGINE SOLOSTAR 100 UNITS/ML 3 ML PEN SC SCH (20:49)
--- NOTE | 2019-01-09 07:10 | Family Medicine Progress Note ---
Date of Service January 09, 2019 Assessment & Plan (1) Acute and chronic respiratory failure ([id number]-[id number]): 83F with known h/o IPF here with worsening dyspnea x 2 weeks after being off her medications Idiopathic pulmonary fibrosis, acute exacerbation h/o known pulmonary fibrosis, last PFT October 2017 showed normal spirometry with severely reduced DLCO (43% expected). Follows with Dr. Dobbs. Admitting resident had lengthy discussion with delbert at bedside, apparently pt admits to being noncompliant with inhalers for 3 weeks. hypoxic in the PCP office [employer] to 70s, 80s on room air in ED, improved with nasal cannula Niece Sara insisted that she take her meds, and has done so for the past week.did discuss palliative consult seeing as her pulm fibrosis is not curable and likely will continue to progress. Niece enthusiastic about "any help" she can get. Order placed. -Continue with oxygen support -Failed to step will require oxygen at home -Continue home flovent, Albuterol prn. -DC'd duo nebs in favor of Combivent this inhaler is designed for patients who have trouble coordinating traditional inhalers -Transitioned to oral prednisone 40 mg twice daily -Palliative care was consulted see associated documentation -Niece will be her power of director of psychiatry, patient wants to be full code however no prolonged intubation, patient is aware of her current prognosis #Multifocal atrial tachycardia EKG demonstrating multifocal atrial tachycardia, this consistent with her clinical picture especially given her pulmonary status. I suspect this is also the cause of her detectable troponins, elevated heart rate and blood pressure. Beta-blockers and verapamil recommended for treatment and prophylaxis. Given her pulmonary fibrosis we elected to avoid beta-blockers to avoid of pulmonary side effects. Patient was started on verapamil 40 mg twice daily and tolerated it well. However she did not demonstrate an adequate response with blood pressure pulse. -Increase verapamil to 40 mg 4 times daily -Blood pressures are more normal most recent at 12 noon 111/70 with a heart rate of 85 -Monitor the patient's for signs and symptoms of hypertension -Patient has not had an echo since 2011 and given her response to two-step, I think would be prudent to assess her cardiac function -F/u echo #Detectable troponins likely 2/2 pulmonary htn in setting of IPF exac/ demand ischemia. Troponin peaked at 0.066 and is now downtrending, last troponin 0.05. I suspect this is secondary to demand ischemia from multifocal atrial tachycardia. -cont home ASA Transaminitis Patient's CMP on admission is remarkable for elevated LFTs specifically ALT to 247 with AST at 25. Hepatitis serologies were performed and are all negative. Patient did go for a liver ultrasound 01/07 demonstrating normal in size and echotexture she is currently status post cholecystectomy some evidence of intra-and extrahepatic biliary ductal dilatation similar to that in 2013 and likely related to remote cystectomy. Otherwise the patient is asymptomatic for any symptoms of the liver pathology. -Continue to follow clinically nothing on clinical examination -Elevation ALT appears to be resolving a.m. labs today demonstrated 155 -Trend CMP -Consider outpatient GI referral Hyponatremia according to PCP charts, this is acute on chronic exacerbation of a known issue, however appears to be asymptomatic at this time. Diffl includes SIADH, primary polydipsia although given her decreased PO intake in the last few days due to somnolence this is unlikely. Patient was maintained on maintenance IV fluids, upon resuming adequate p.o. intake, maintenance fluids were discontinued. -Patient having adequate p.o. intake, DC normal saline maintenance fluids Elev bird trapper Resolved likely was prerenal given decreased PO intake from somnolence T2DM (hyperglycemia secondary to steroids) -hold home PO meds, catrina given elev bird trapper -ISS, BSG ACHS -glycemic consult placed FEN/GI: heart healthy/t2dm diet, DVT ppx: lovenox 30mg q24h CODE STATUS: FULL however does not want prolonged intubation DISPO: med/tele other ongoing medical problems: Anemia -microcytic -history of the same -does not appear to be hemorrhagic, not on blood thinners only ASA -cont B12, would likely benefit from iron supplementation in outpatient setting GERD -continue pantoprazole, especially in someone with IPF given aspiration risks Supervising Physician Co-Signing Physician Notes Patient seen and examined independently of Dr. Bradshaw. Agree with history, exam findings, assessment and plan of care as outlined. In brief, 83 year old female with hx of idiopathic pulmonary fibrosis, DM, chronic hyponatremia admitted with hypoxia due to recent medication non- adherence Today, while attempting the 2-step to qualify for home O2, required an increase in 2L requirement just moving from supine to standing position, then another 2 L for a total of 6L with just a few steps of walking. Breathing comfortably on 2L. No accessory muscle use. Bibasilar crackles. 1. hypoxia secondary to idiopathic pulmonary fibrosis - continue supportive O2, methylpred taper, continue flovent, duonebs. May need neb machine for home if it is too difficult for her to do inhaler with spacer. - TTE today with mild pulmonary HTN -palliative care consult, appreciate recommendations 2. Hyponatremia, chronic (Na 131) - near baseline Na. This is likely secondary to her chronic pulmonary processes. 3. Transaminitis. - Hepatitis panel non-reactive, RUQ US unremarkable for acute process or texture change. - Can be further worked up by PCP 4. Tachycardia - likely secondary to pulmonary process - trial of low dose verapamil to decreased cardiac work. 5. Steroid induced hyperglycemia in the setting of DM2. - sliding scale coverage Dispo: pending clinical improvement. Will need SNF at dischargepatient willing. Subjective Patient doing well this morning lying in bed in no acute distress. Patient just completed her two-step prior to me examining her. Per conversation with the respiratory therapist on room air the patient satting 97%, upon standing desatted to 80s required 2 L of oxygen, when attempting to walk was only able to take a few steps before further desaturation increase oxygen to 4 L, patient was unable to tolerate in the two-step presented. Otherwise patient is tolerating her diet, voiding, no bowel movement in a few days will start MiraLAX, sleeping well. Patient reports no significant interval history overnight, tolerating verapamil well. Patient's family requesting PT OT evaluation for rehab on discharge. overall continued to improve all questions answered no acute concerns. Physical Exam Physical Exam: eneral: Thin elderly female in no acute distress HEENT: Normocephalic atraumatic Neck: Normal to visual inspection, did not appreciate JVD Cardiac: Regular rate and rhythm no murmurs rubs or gallops, normal S1, normal S2 negative pedal edema negative calf tenderness Respiratory: Coarse breath sounds bilaterally, with associated wheezing, and other features of restrictive lung disease MSK: Moves all extremities Neuro: Alert and oriented Psych: Calm cooperative Results & Data Vital Signs (Past 12 Hours) Vital Signs Temp Pulse Resp BP Pulse Ox 01/09/19 04:18 36.3 C L 93 H 20 150/81 H 94 01/09/19 04:16 36.3 C L 86 20 95/64 L 95 01/08/19 23:07 36.6 C 99 H 18 146/83 H 92 01/08/19 20:53 98 H 01/08/19 19:25 97 H 16 98 01/08/19 19:15 36.5 C 97 H 17 133/79 95 Laboratory Results 01/08/19 01/08/19 01/08/19 Range/Units 20:43 16:48 11:39 PT (9.0-12.0) Seconds INR (0.9-1.1) Sodium (136-145) mmol/L Potassium (3.5-5.1) mmol/L Chloride (98-107) mmol/L Carbon Dioxide (21-32) mmol/L Anion Gap (3-11) BUN (7-18) mg/dl Creatinine (0.6-1.2) mg/dl Est Cr Clr Drug Dosing ml/min Est GFR ( Amer) Est GFR (Non-Af Amer) BUN/Creatinine Ratio (10-20) Glucose (70-99) mg/dl POC Glucose 183 H 204 H 229 H (70-99) Estimat Average Glucose mg/dl Hemoglobin A1c (4.5-5.6) % Calcium (8.5-10.1) mg/dl Magnesium (1.8-2.4) mg/dl Total Bilirubin (0.2-1) mg/dl Direct Bilirubin (0-0.2) mg/dl AST (15-37) U/L ALT (12-78) U/L Alkaline Phosphatase (45-117) U/L Total Protein (6.4-8.2) gm/dl Albumin (3.4-5.0) gm/dl 01/08/19 01/08/19 01/08/19 Range/Units 07:29 06:42 06:42 PT (9.0-12.0) Seconds INR (0.9-1.1) Sodium (136-145) mmol/L Potassium (3.5-5.1) mmol/L Chloride (98-107) mmol/L Carbon Dioxide (21-32) mmol/L Anion Gap (3-11) BUN (7-18) mg/dl Creatinine (0.6-1.2) mg/dl Est Cr Clr Drug Dosing ml/min Est GFR ( Amer) Est GFR (Non-Af Amer) BUN/Creatinine Ratio (10-20) Glucose (70-99) mg/dl POC Glucose 134 H (70-99) Estimat Average Glucose mg/dl Hemoglobin A1c (4.5-5.6) % Calcium (8.5-10.1) mg/dl Magnesium 1.5 L (1.8-2.4) mg/dl Total Bilirubin 1.0 (0.2-1) mg/dl Direct Bilirubin 0.4 H (0-0.2) mg/dl AST 16 (15-37) U/L ALT 203 H (12-78) U/L Alkaline Phosphatase 88 (45-117) U/L Total Protein 6.8 (6.4-8.2) gm/dl Albumin 3.5 (3.4-5.0) gm/dl 01/08/19 01/08/19 01/08/19 Range/Units 06:42 06:42 06:42 PT 13.0 H (9.0-12.0) Seconds INR 1.3 H (0.9-1.1) Sodium 136 (136-145) mmol/L Potassium 4.8 (3.5-5.1) mmol/L Chloride 104 (98-107) mmol/L Carbon Dioxide 25 (21-32) mmol/L Anion Gap 7.0 (3-11) BUN 22 H (7-18) mg/dl Creatinine 1.02 (0.6-1.2) mg/dl Est Cr Clr Drug Dosing 28.5 ml/min Est GFR ( Amer) 58.9 Est GFR (Non-Af Amer) 50.8 BUN/Creatinine Ratio 21.8 H (10-20) Glucose 119 H (70-99) mg/dl POC Glucose (70-99) Estimat Average Glucose 186 mg/dl Hemoglobin A1c 8.1 H (4.5-5.6) % Calcium 8.7 (8.5-10.1) mg/dl Magnesium (1.8-2.4) mg/dl Total Bilirubin (0.2-1) mg/dl Direct Bilirubin (0-0.2) mg/dl AST (15-37) U/L ALT (12-78) U/L Alkaline Phosphatase (45-117) U/L Total Protein (6.4-8.2) gm/dl Albumin (3.4-5.0) gm/dl Medications Administered Current Inpatient Medications Al Hydrox/Mg Hydrox/Simethicone (Maalox) 15 ml PO Q4H PRN PRN Reason: Dyspepsia Stop: 02/06/19 00:04 Albuterol (Ventolin Hfa) 2 puffs INH Q6H PRN PRN Reason: Shortness Of Breath Stop: 02/06/19 00:04 Albuterol (Duoneb) 3 ml NEB QIDR SONIDO Stop: 02/06/19 07:59 Last Admin: 01/08/19 19:25 Dose: 3 ml Documented by: Artificial Tears (Artificial Tears) 1 drops OP BID PRN PRN Reason: dry eyes Stop: 02/06/19 00:44 Aspirin (Ecotrin Ectab) 81 mg PO DAILY SONIDO Stop: 02/06/19 08:59 Last Admin: 01/08/19 07:55 Dose: 81 mg Documented by: Atorvastatin Calcium (Lipitor) 20 mg PO HS SONIDO Stop: 02/06/19 20:59 Last Admin: 01/08/19 20:46 Dose: 20 mg Documented by: Cyanocobalamin (Vitamin B-12) 1,000 mcg PO DAILY SONIDO Stop: 02/06/19 08:59 Last Admin: 01/08/19 07:55 Dose: 1,000 mcg Documented by: Dextrose (Dextrose 50%) 25 - 50 ml IV UD PRN; Protocol PRN Reason: Hypoglycemia Protocol Stop: 02/06/19 00:04 Docusate Sodium (Colace) 100 mg PO BID PRN PRN Reason: Constipation Stop: 02/06/19 00:04 Enoxaparin Sodium (Lovenox) 30 mg SQ Q24H SONIDO Stop: 02/06/19 07:59 Last Admin: 01/08/19 07:55 Dose: Not Given Documented by: Fluticasone Propionate (Flovent Hfa 110mch) 2 puffs INH BID SONIDO Stop: 02/06/19 08:59 Last Admin: 01/08/19 20:47 Dose: 2 puffs Documented by: Glucagon (Glucagen) 1 mg SQ UD PRN; Protocol PRN Reason: Hypoglycemia Protocol Stop: 02/06/19 00:04 Glucose (Dex4 Glucose) 4 - 8 tabs PO UD PRN; Protocol PRN Reason: Hypoglycemia Protocol Stop: 02/06/19 00:04 Glucose (Glucose 40%) 15 - 30 gm PO UD PRN; Protocol PRN Reason: Hypoglycemia Protocol Stop: 02/06/19 00:04 Sodium Chloride (Nss 1000ml) 1,000 mls @ 80 mls/hr IV .[id number] [facility] Stop: 02/06/19 00:04 Last Admin: 01/08/19 20:45 Dose: 80 mls/hr Documented by: Methylprednisolone 40 mg/ (Syringe) 0.64 mls @ 1.5 mls/min IV BID [facility] Stop: 02/07/19 20:59 Last Admin: 01/08/19 21:14 Dose: 1.5 mls/min Documented by: Insulin Aspart (Novolog Flexpen) 0 units SC ACHS [facility] Stop: 02/06/19 00:29 Last Admin: 01/08/19 20:49 Dose: 2 units Documented by: Insulin Glargine (Lantus Solostar Pen) 0 units SC BID [facility]; Protocol Stop: 02/07/19 08:59 Last Admin: 01/08/19 20:49 Dose: 12 units Documented by: Magnesium Hydroxide (Milk Of Magnesia) 30 ml PO Q12H PRN PRN Reason: Constipation Stop: 02/06/19 00:04 Miscellaneous (Carbohydrates For Hypoglycemia) 15 - 30 gm PO UD PRN PRN Reason: Hypoglycemia Treatment Stop: 02/06/19 00:04 Miscellaneous Information (Consult Glycemic Management Pharmacy) 1 ea N/A UD PRN PRN Reason: Consult Stop: 02/06/19 18:13 Multivitamins/Minerals (Caltrate Plus) 1 tab PO BID [facility] Stop: 02/06/19 08:59 Last Admin: 01/08/19 20:46 Dose: 1 tab Documented by: Ondansetron HCl (Zofran) 4 mg IV Q6H PRN PRN Reason: Nausea Stop: 02/06/19 00:04 Pantoprazole Sodium (Protonix) 40 mg PO DAILY [facility] Stop: 02/06/19 08:59 Last Admin: 01/08/19 07:55 Dose: 40 mg Documented by: Polyethylene Glycol (Miralax Powder Packet) 17 gm PO DAILY PRN PRN Reason: Constipation Stop: 02/06/19 00:04 Verapamil HCl (Calan) 40 mg PO BID [facility] Stop: 02/07/19 11:44 Last Admin: 01/08/19 20:47 Dose: 40 mg Documented by: PG Care Time/CCT Total # of Minutes Spent Total Time Spent with Patient: Total time spent is greater than 50% in coordination of care (as documented) at patient's floor/unit and/or counseling patient: Resident Activity Tracking Resident Involvement: Resident Care Provided Care Provided: Adult Hospital Medicine
[2019-01-09] MEDS: ALBUT/IPRATROP 3MG/0.5MG NEB 3 ML VIAL NEB SCH ×2 (07:12→11:10)
[2019-01-09 08:06] LABS: Hematocrit (blood only) 35.9 % (37-47); Hemoglobin 11.1 g/dL (12.0-16.0); Immature Granulocytes # (auto) 0.05 K/uL (0.00-0.02); Immature Granulocytes % (auto) 0.6 %; Lymphocytes # (auto) 0.18 K/uL (1.2-3.4); Lymphocytes % (auto) 2.2 %; Mean Corpuscular Hgb Conc 30.9 g/dL (32-36); Mean Platelet Volume 9.2 fL (7.4-10.4); Monocytes # (auto) 0.49 K/uL (0.11-0.59); Monocytes % (auto) 5.9 %; Neutrophils # (auto) 7.61 K/uL (1.4-6.5); Neutrophils % (auto) 91.3 %; Nucleated RBC # (auto) 0.08 K/uL (0-0); Nucleated RBC % (auto) 0.9 %; Platelet Count 204 K/uL (130-400); RDW Coefficient of Variation 17.6 % (11.5-14.5); RDW Standard Deviation 51.4 fL (36.4-46.3); Red Blood Count 4.43 M/uL (4.2-5.4); White Blood Count 8.33 K/uL (4.8-10.8)
[2019-01-09 08:14] LABS: INR 1.3 (0.9-1.1)
[2019-01-09] MEDS: predniSONE 20 MG TAB PO SCH ×2 (08:34→20:49)
[2019-01-09] MEDS: CYANOCOBALAMIN 500 MCG TABLET (VITAMIN B-12) PO SCH (08:35)
[2019-01-09] MEDS: ASPIRIN 81 MG ECTAB PO SCH (08:35)
[2019-01-09] MEDS: VERAPAMIL HCL 40 MG TAB PO SCH ×4 (08:35→20:48)
[2019-01-09] MEDS: PANTOprazole 40 MG TAB PO SCH (08:35)
[2019-01-09] MEDS: FLUTICASONE HFA 110MCG INHALER INH SCH ×2 (08:36→20:49)
[2019-01-09] MEDS: CALCIUM 600MG + VIT D 400 IU TAB PO SCH ×2 (08:36→20:48)
[2019-01-09] MEDS: ENOXAPARIN INJ 30 MG/0.3 ML SYR SQ SCH (08:36)
[2019-01-09] MEDS: INSULIN GLARGINE SOLOSTAR 100 UNITS/ML 3 ML PEN SC SCH ×2 (08:37→22:00)
[2019-01-09] MEDS: INSULIN ASPART 100 UNITS/ML 3 ML PEN SC SCH ×4 (08:40→21:29)
[2019-01-09 09:09] LABS: Albumin Level 3.6 gm/dl (3.4-5.0); BUN Creatinine Ratio 22.4 (10-20); Calcium 8.4 mg/dl (8.5-10.1); Creatinine Clr Calc Pharmacy 37.4 ml/min; Est GFR (African American) 56.9; Est GFR (Non-African American) 49.1; Potassium 5.3 mmol/L (3.5-5.1)
[2019-01-09 09:12] LABS: Albumin Globulin Ratio 1.1 (0.9-2); Bilirubin,Total 0.9 mg/dl (0.2-1); Globulin 3.2 gm/dl (2.5-4.0); Total Protein 6.8 gm/dl (6.4-8.2)
[2019-01-09] MEDS: POLYETHYLENE (MIRALAX) 17 GM PACK PO SCH (13:28)
--- NOTE | 2019-01-09 15:42 | Palliative Care Progress Note ---
Date of Service January 09, 2019 Assessment & Plan (1) Palliative care encounter: Patient is an 83-year-old female with a history of pulmonary fibrosis- followed by Dr. Dobbs, Hypertension, diabetes, and GERD Who presented to the emergency room on 01/06 with increased shortness of breath for several days. Patient states she had not been feeling well-she called her doctor for an appointment and was not able to be seen for a while so she stopped all her medications. Patient lives alone, was never and has no children-her sister and niece check on her every few weeks. With restarting her medications patient has nearly returned to her baseline. Patient names her niece, Sara [phone] as her medical POA. In discussing CODE STATUS patient states she would want to be intubated if it was short-term and could return her to her prior level of function. Niece and sister at bedside-they are aware of patient's wishes. PPatient reports That Dr. Dobbs As discussed her prognosis. Discussed with both patient and family how and when to refer patient to hospice as disease progresses. - Patient's niece, who is her POA is aware of patient's wishes And is comfortable being patient's healthcare surrogate - CODE STATUS-patient wishes to remain a full code at this time, no prolonged intubation - Pulmonary fibrosis-followed by Dr. Dobbs, Patient aware of her prognosis - Family given information on outpatient follow-up in palliative care clinic if desired. Will sign off for now, please reconsult if condition changes (2) Acute and chronic respiratory failure (eyogl-ax-nhoiyex): Improved on O2 and reinstitution of inhalers , transition to p.o. prednisone (3) Interstitial lung disease: Follows with Dr. Dobbs, Aware of her general prognosis Failed 2 step- qualifies for home O2 Discussed timing regarding hospice referral (4) Diabetes mellitus: Patient had stopped all her medications including her metformin, Actos and Januvia-we will defer to attending team on restarting home meds-Patient's hemoglobin A1c goal would be less than 8 given her age Subjective Patient seen and examined-patient's sister and niece at bedside. On exam patient had just returned from using the bathroom-patient ambulating independently with rolling walker, however does not pace herself. Review of Systems Review of Systems: Patient denies fever, chills, chest pain, worsening shortness of breath, or abdominal pain Physical Exam Physical Exam: PE: Increased shortness of breath with rapid ambulation HEENT: EOMI, hearing within normal limits Respirations: Increased work of breathing after ambulating 15 feet, good air movement CV: Tachycardic after ambulation, no edema Abdomen: Soft, nontender Neuro: Alert and oriented x4 Results & Data Vital Signs (Past 12 Hours) Vital Signs Temp Pulse Pulse Pulse Pulse Pulse Pulse 01/09/19 15:13 97.5 F L 01/09/19 12:00 97.5 F L 01/09/19 11:13 01/09/19 10:19 97 H 115 H 114 H 112 H 97 H 95 H 01/09/19 07:57 98.1 F 01/09/19 07:14 01/09/19 04:18 97.3 F L 01/09/19 04:16 97.3 F L Pulse Resp Resp Resp Resp Resp Resp 01/09/19 15:13 76 20 01/09/19 12:00 85 21 01/09/19 11:13 83 24 01/09/19 10:19 18 30 H 28 H 24 20 01/09/19 07:57 93 H 21 01/09/19 07:14 91 H 16 01/09/19 04:18 93 H 20 01/09/19 04:16 86 20 Resp BP Pulse Ox Pulse Ox Pulse Ox Pulse Ox Pulse Ox 01/09/19 15:13 124/78 94 01/09/19 12:00 111/70 94 01/09/19 11:13 98 01/09/19 10:19 18 93 84 L 90 83 L 01/09/19 07:57 161/82 H 91 01/09/19 07:14 97 01/09/19 04:18 150/81 H 94 01/09/19 04:16 95/64 L 95 Pulse Ox Pulse Ox 01/09/19 15:13 01/09/19 12:00 01/09/19 11:13 01/09/19 10:19 91 80 L 01/09/19 07:57 01/09/19 07:14 01/09/19 04:18 01/09/19 04:16 PG Care Time/CCT Total # of Minutes Spent Total Time Spent: 25 Total Time Spent with Patient: Total time spent is greater than 50% in coordination of care (as documented) at patient's floor/unit and/or counseling patient:
[2019-01-09] MEDS: IPRATROPIUM BROMIDE/ALBUTEROL respimat INH INH SCH ×2 (18:36→20:49)
[2019-01-09] MEDS: ATORVASTATIN 20 MG TAB PO SCH (20:48)
[2019-01-10 07:17] LABS: Hematocrit (blood only) 35.8 % (37-47); Hemoglobin 11.2 g/dL (12.0-16.0); Immature Granulocytes # (auto) 0.03 K/uL (0.00-0.02); Immature Granulocytes % (auto) 0.4 %; Lymphocytes # (auto) 0.17 K/uL (1.2-3.4); Mean Corpuscular Hgb Conc 31.3 g/dL (32-36); Mean Corpuscular Volume 80.1 fL (80-100); Mean Platelet Volume 9.2 fL (7.4-10.4); Monocytes # (auto) 0.42 K/uL (0.11-0.59); Neutrophils # (auto) 7.72 K/uL (1.4-6.5); Neutrophils % (auto) 92.6 %; Nucleated RBC % (auto) 1.2 %; Platelet Count 205 K/uL (130-400); RDW Coefficient of Variation 17.5 % (11.5-14.5); RDW Standard Deviation 50.6 fL (36.4-46.3); Red Blood Count 4.47 M/uL (4.2-5.4); White Blood Count 8.34 K/uL (4.8-10.8)
--- NOTE | 2019-01-10 07:25 | Family Medicine Progress Note ---
Date of Service January 10, 2019 Assessment & Plan (1) Acute and chronic respiratory failure ([id number]): 83F with known h/o IPF here with worsening dyspnea x 2 weeks after being off her medications Idiopathic pulmonary fibrosis, acute exacerbation h/o known pulmonary fibrosis, last PFT October 2017 showed normal spirometry with severely reduced DLCO (43% expected). Follows with Dr. Dobbs. Admitting resident had lengthy discussion with delbert at bedside, apparently pt admits to being noncompliant with inhalers for 3 weeks. 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 Magiece enthusiastic about "any help" she can get. Order placed. -Continue with oxygen support -Failed to step will require oxygen at home -Continue home flovent, Albuterol prn. -DC'd duo nebs in favor of Combivent this inhaler is designed for patients who have trouble coordinating traditional inhalers -Encourage PRN albuterol usage -Previously transition to oral prednisone 40 mg twice daily, however the patient did not tolerate this secondary to gastric pain. In efforts to continue her taper will provide 20 mg twice daily IV tomorrow -Palliative care was consulted see associated documentation -Niece will be her power of criminal attorney, patient wants to be full code however no prolonged intubation, patient is aware of her current prognosis #Multifocal atrial tachycardia EKG demonstrating multifocal atrial tachycardia, this consistent with her clinical picture especially given her pulmonary status. I suspect this is also the cause of her detectable troponins, elevated heart rate and blood pressure. Beta-blockers and verapamil recommended for treatment and prophylaxis. Given her pulmonary fibrosis we elected to avoid beta-blockers to avoid of pulmonary side effects. Patient was started on verapamil 40 mg twice daily and tolerated it well. However she did not demonstrate an adequate response with blood pressure pulse. -Patient continues to tolerate verapamil, has had no episodes of hypotension or bradycardia. Will transition to long-acting verapamil -Transition to verapamil sustained release 180 mg every morning -Patient has not had an echo since 2011 and given her response to two-step, I think would be prudent to assess her cardiac function -Echo demonstrates mild concentric LVH, normal LV systolic function, flattened septum consistent with RV pressure overload, RV moderate dilation, RA moderate dilation, aortic valve sclerosis without significant stenosis, annular calcification, tricuspid regurg, RV systolic pressure 30 to 40 mm mercury #RUQ pain Today patient is endorsing right upper quadrant pain that the only significant change in her medications was transition from IV prednisone to p.o. prednisone. We suspect that this is related to previous GI ulcer exacerbation. We began the patient on sucralfate, pantoprazole twice daily, and Maalox. Throughout the day patient did report interval improvement in her pain. We then to give the patient a one-time dose of 2 mg morphine in efforts to calm her anxiety, help her pain, and help with air hunger. The family is firmly against this as they recently had a family member was given morphine and became unresponsive. Patient was instead given 500 mg Tylenol. Patient is reporting an incidental mass in her right quadrant, appreciable on physical exam. Ultrasound of mass demonstrated hematoma versus seroma - US -> Findings most consistent with and intramuscular hematoma or evolving seroma -At the site of clinical concern along the right rectus abdominis, and intramuscular collection measuring 3.4 x 1.7 x 2.8 cm is present. -Continue sucralfate 1 g AC at bedtime, pantoprazole 40 mg twice daily, Maalox -Patient would likely benefit from intermittent 2 mg morphine, however the patient's family is refusing instead provided 500 mg p.o. Tylenol #Detectable troponins likely 2/2 pulmonary htn in setting of IPF exac/ demand ischemia. Troponin peaked at 0.066 and is now downtrending, last troponin 0.05. I suspect this is secondary to demand ischemia from multifocal atrial tachycardia. -cont home ASA Transaminitis Patient's CMP on admission is remarkable for elevated LFTs specifically ALT to 247 with AST at 25. Hepatitis serologies were performed and are all negative. Patient did go for a liver ultrasound 01/07 demonstrating normal in size and echotexture she is currently status post cholecystectomy some evidence of intra- and extrahepatic biliary ductal dilatation similar to that in 2013 and likely related to remote cystectomy. Otherwise the patient is asymptomatic for any symptoms of the liver pathology. -Continue to follow clinically nothing on clinical examination -Elevation ALT appears to be resolving a.m. labs today demonstrated 155 -Trend CMP -Consider outpatient GI referral Hyponatremia according to PCP charts, this is acute on chronic exacerbation of a known issue, however appears to be asymptomatic at this time. Diffl includes SIADH, primary polydipsia although given her decreased PO intake in the last few days due to somnolence this is unlikely. Patient was maintained on maintenance IV fluids, upon resuming adequate p.o. intake, maintenance fluids were discontinued. -Patient having adequate p.o. 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 Bradshaw. In agreement with the documented findings as noted in the resident documentation with any exceptions or additions as noted here. New complaint of RUQ pain with palpable mass and history of GI upset with prednisone w/ new start of PO pred for IPF. RUQ abdominal pain - concerning for gastritis from pred initially, now with seroma/hematoma on US with no apparent traumatic cause. Continue GI regimen for support, pain mgmt, changes to hypoxic management as noted. IPF w/ acute hypoxic respiratory failure - consult pulmonology 2/2 possible difficulties with PO prednisone and update on care. Chronic hyponatremia - trend BMP in hospital Else see resident documentation as noted. Subjective Patient sitting up in bed this morning in no acute distress. Appears on examination of significantly improved from a respiratory standpoint. Today the patient is endorsing abdominal pain in the right upper quadrant/epigastric region. After further discussion with the patient we feel that this is likely secondary to p.o. steroid usage and potentially aggravating underlying ulcer. She reports the pain changes with position is worse with coughing and sitting upright. Patient also endorsing mass in the right upper quadrant. Masses appreciable on physical exam. Ultrasound obtained demonstrating hematoma versus seroma. Patient is voiding, tolerating her diet, sleeping, has not had a bowel movement in several days has been given MiraLAX hopefully tomorrow she will have a bowel movement. No acute concerns all questions answered. In the afternoon there tended to provide the patient with a single dose of morphine 2 mg in hopes to assist with her air hunger, calm her anxiety, and alleviate her pain. The nurse attempted to give the medication the patient however the family became very upset. apparently there is a family member who recently was given morphine and became unresponsive. Patient and family refusing morphine. Tylenol 500 mg every 6 hours was provided Physical Exam Physical Exam: General: Thin elderly female in no acute distress HEENT: Normocephalic atraumatic Neck: Normal to visual inspection, did not appreciate JVD Cardiac: Regular rate and rhythm no murmurs rubs or gallops, normal S1, normal S2 negative pedal edema negative calf tenderness Respiratory: Coarse breath sounds bilaterally, with associated wheezing, and other features of restrictive lung disease ABD: Appreciable mass in the right upper quadrant small, firm, mobile, tender. Patient endorsing right upper quadrant epigastric pain worse with movement. Normal bowel sounds, otherwise soft, nontender, nondistended MSK: Moves all extremities Neuro: Alert and oriented Psych: Calm cooperative Results & Data Vital Signs (Past 12 Hours) Vital Signs Temp Pulse Resp BP Pulse Ox 01/10/19 07:05 36.6 C 83 21 163/80 H 98 01/10/19 04:55 36.4 C L 75 20 160/54 H 93 01/09/19 23:50 36.4 C L 77 19 112/69 89 L 01/09/19 20:23 36.4 C L 78 122/72 Laboratory Results 01/10/19 01/10/19 01/10/19 Range/Units 16:16 11:55 07:34 WBC (4.8-10.8) K/uL RBC (4.2-5.4) M/uL Hgb (12.0-16.0) g/dL Hct (37-47) % MCV (80-100) fL MCH (25-34) pg MCHC (32-36) g/dL RDW Std Deviation (36.4-46.3) fL RDW Coeff of Alexa (11.5-14.5) % Plt Count (130-400) K/uL MPV (7.4-10.4) fL Immature Gran % (Auto) % Neut % (Auto) % Lymph % (Auto) % [place] % (Auto) % Eos % (Auto) % Baso % (Auto) % Immature Gran # (Auto) (0.00-0.02) K/uL Neut # (Auto) (1.4-6.5) K/uL Lymph # (Auto) (1.2-3.4) K/uL [place] # (Auto) (0.11-0.59) K/uL Eos # (Auto) (0-0.5) K/uL Baso # (Auto) (0-0.2) K/uL Absolute Nucleated RBC (0-0) K/uL Nucleated RBC % (auto) % PT (9.0-12.0) Seconds INR (0.9-1.1) Sodium (136-145) mmol/L Potassium (3.5-5.1) mmol/L Chloride (98-107) mmol/L Carbon Dioxide (21-32) mmol/L Anion Gap (3-11) BUN (7-18) mg/dl Creatinine (0.6-1.2) mg/dl Est Cr Clr Drug Dosing ml/min Est GFR ( Amer) Est GFR (Non-Af Amer) BUN/Creatinine Ratio (10-20) Glucose (70-99) mg/dl POC Glucose 152 H 184 H 90 (70-99) Calcium (8.5-10.1) mg/dl 01/10/19 01/10/19 01/10/19 Range/Units 06:39 06:39 06:39 WBC 8.34 (4.8-10.8) K/uL RBC 4.47 (4.2-5.4) M/uL Hgb 11.2 L (12.0-16.0) g/dL Hct 35.8 L (37-47) % MCV 80.1 (80-100) fL MCH 25.1 (25-34) pg MCHC 31.3 L (32-36) g/dL RDW Std Deviation 50.6 H (36.4-46.3) fL RDW Coeff of Alexa 17.5 H (11.5-14.5) % Plt Count 205 (130-400) K/uL MPV 9.2 (7.4-10.4) fL Immature Gran % (Auto) 0.4 % Neut % (Auto) 92.6 % Lymph % (Auto) 2.0 % Penning[place] % (Auto) 5.0 % Eos % (Auto) 0.0 % Baso % (Auto) 0.0 % Immature Gran # (Auto) 0.03 H (0.00-0.02) K/uL Neut # (Auto) 7.72 H (1.4-6.5) K/uL Lymph # (Auto) 0.17 L (1.2-3.4) K/uL Pen[place] # (Auto) 0.42 (0.11-0.59) K/uL Eos # (Auto) 0.00 (0-0.5) K/uL Baso # (Auto) 0.00 (0-0.2) K/uL Absolute Nucleated RBC 0.10 H (0-0) K/uL Nucleated RBC % (auto) 1.2 % PT 13.3 H (9.0-12.0) Seconds INR 1.3 H (0.9-1.1) Sodium 127 L (136-145) mmol/L Potassium 5.4 H (3.5-5.1) mmol/L Chloride 96 L (98-107) mmol/L Carbon Dioxide 24 (21-32) mmol/L Anion Gap 7.0 (3-11) BUN 32 H (7-18) mg/dl Creatinine 1.01 (0.6-1.2) mg/dl Est Cr Clr Drug Dosing 38.9 ml/min Est GFR ( Amer) 59.6 Est GFR (Non-Af Amer) 51.4 BUN/Creatinine Ratio 31.8 H (10-20) Glucose 88 (70-99) mg/dl POC Glucose (70-99) Calcium 8.3 L (8.5-10.1) mg/dl 01/09/19 01/09/19 01/09/19 Range/Units 21:08 21:07 21:05 WBC (4.8-10.8) K/uL RBC (4.2-5.4) M/uL Hgb (12.0-16.0) g/dL Hct (37-47) % MCV (80-100) fL MCH (25-34) pg MCHC (32-36) g/dL RDW Std Deviation (36.4-46.3) fL RDW Coeff of Alexa (11.5-14.5) % Plt Count (130-400) K/uL MPV (7.4-10.4) fL Immature Gran % (Auto) % Neut % (Auto) % Lymph % (Auto) % [place] % (Auto) % Eos % (Auto) % Baso % (Auto) % Immature Gran # (Auto) (0.00-0.02) K/uL Neut # (Auto) (1.4-6.5) K/uL Lymph # (Auto) (1.2-3.4) K/uL Pen[place] # (Auto) (0.11-0.59) K/uL Eos # (Auto) (0-0.5) K/uL Baso # (Auto) (0-0.2) K/uL Absolute Nucleated RBC (0-0) K/uL Nucleated RBC % (auto) % PT (9.0-12.0) Seconds INR (0.9-1.1) Sodium (136-145) mmol/L Potassium (3.5-5.1) mmol/L Chloride (98-107) mmol/L Carbon Dioxide (21-32) mmol/L Anion Gap (3-11) BUN (7-18) mg/dl Creatinine (0.6-1.2) mg/dl Est Cr Clr Drug Dosing ml/min Est GFR ( Amer) Est GFR (Non-Af Amer) BUN/Creatinine Ratio (10-20) Glucose (70-99) mg/dl POC Glucose 109 H 105 H 38 L* (70-99) Calcium (8.5-10.1) mg/dl Medications Administered Current Inpatient Medications Acetaminophen (Tylenol) 500 mg PO Q4H PRN PRN Reason: Pain Stop: 02/09/19 18:10 Last Admin: 01/10/19 18:57 Dose: 500 mg Documented by: Al Hydrox/Mg Hydrox/Simethicone (Maalox) 15 ml PO QID SONIDO Stop: 02/09/19 12:59 Last Admin: 01/10/19 17:36 Dose: 15 ml Documented by: Albuterol (Ventolin Hfa) 2 puffs INH Q6H PRN PRN Reason: Shortness Of Breath Stop: 02/06/19 00:04 Last Admin: 01/10/19 11:03 Dose: 2 puffs Documented by: Albuterol (Combivent Respimat) 1 puffs INH QID SONIDO Stop: 02/08/19 16:59 Last Admin: 01/10/19 17:37 Dose: 1 puffs Documented by: Artificial Tears (Artificial Tears) 1 drops OP BID PRN PRN Reason: dry eyes Stop: 02/06/19 00:44 Aspirin (Ecotrin Ectab) 81 mg PO DAILY SONIDO Stop: 02/06/19 08:59 Last Admin: 01/10/19 08:04 Dose: 81 mg Documented by: Atorvastatin Calcium (Lipitor) 20 mg PO HS [facility] Stop: 02/06/19 20:59 Last Admin: 01/09/19 20:48 Dose: 20 mg Documented by: Cyanocobalamin (Vitamin B-12) 1,000 mcg PO DAILY SONIDO Stop: 02/06/19 08:59 Last Admin: 01/10/19 08:02 Dose: 1,000 mcg Documented by: Dextrose (Dextrose 50%) 25 - 50 ml IV UD PRN; Protocol PRN Reason: Hypoglycemia Protocol Stop: 02/06/19 00:04 Docusate Sodium (Colace) 100 mg PO BID PRN PRN Reason: Constipation Stop: 02/06/19 00:04 Enoxaparin Sodium (Lovenox) 30 mg SQ Q24H SONIDO Stop: 02/06/19 07:59 Last Admin: 01/10/19 08:03 Dose: 30 mg Documented by: Fluticasone Propionate (Flovent Hfa 110mch) 2 puffs INH BID SONIDO Stop: 02/06/19 08:59 Last Admin: 01/10/19 08:03 Dose: 2 puffs Documented by: Glucagon (Glucagen) 1 mg SQ UD PRN; Protocol PRN Reason: Hypoglycemia Protocol Stop: 02/06/19 00:04 Glucose (Dex4 Glucose) 4 - 8 tabs PO UD PRN; Protocol PRN Reason: Hypoglycemia Protocol Stop: 02/06/19 00:04 Glucose (Glucose 40%) 15 - 30 gm PO UD PRN; Protocol PRN Reason: Hypoglycemia Protocol Stop: 02/06/19 00:04 Insulin Aspart (Novolog Flexpen) 0 units SC ACHS SONIDO Stop: 01/10/19 23:59 Last Admin: 01/10/19 17:31 Dose: 5 units Documented by: Insulin Aspart (Novolog Flexpen) 0 units SC ACHS [facility] Stop: 02/10/19 07:29 Insulin Glargine (Lantus Solostar Pen) 5 units SC BID [facility]; Protocol Stop: 02/09/19 20:59 Magnesium Hydroxide (Milk Of Magnesia) 30 ml PO Q12H PRN PRN Reason: Constipation Stop: 02/06/19 00:04 Miscellaneous (Carbohydrates For Hypoglycemia) 15 - 30 gm PO UD PRN PRN Reason: Hypoglycemia Treatment Stop: 02/06/19 00:04 Miscellaneous Information (Consult Glycemic Management Pharmacy) 1 ea N/A UD PRN PRN Reason: Consult Stop: 02/06/19 18:13 Multivitamins/Minerals (Caltrate Plus) 1 tab PO BID [facility] Stop: 02/06/19 08:59 Last Admin: 01/10/19 08:02 Dose: 1 tab Documented by: Ondansetron HCl (Zofran) 4 mg IV Q6H PRN PRN Reason: Nausea Stop: 02/06/19 00:04 Pantoprazole Sodium (Protonix) 40 mg PO BID@0700,1900 [facility] Stop: 02/09/19 12:14 Last Admin: 01/10/19 19:04 Dose: 40 mg Documented by: Polyethylene Glycol (Miralax Powder Packet) 17 gm PO DAILY PRN PRN Reason: Constipation Stop: 02/06/19 00:04 Polyethylene Glycol (Miralax Powder Packet) 17 gm PO DAILY [facility] Stop: 02/08/19 11:29 Last Admin: 01/10/19 08:05 Dose: 17 gm Documented by: Sucralfate (Carafate) 1 gm PO ACHS [facility] Stop: 02/09/19 16:29 Last Admin: 01/10/19 17:27 Dose: 1 gm Documented by: Verapamil HCl (Calan) 40 mg PO QID [facility] Stop: 02/08/19 08:59 Last Admin: 01/10/19 17:37 Dose: 40 mg Documented by: PG Care Time/CCT Total # of Minutes Spent Total Time Spent with Patient: Total time spent is greater than 50% in coordination of care (as documented) at patient's floor/unit and/or counseling patient: Resident Activity Tracking Resident Involvement: Resident Care Provided Care Provided: Adult [facility] Medicine
[2019-01-10 07:27] LABS: INR 1.3 (0.9-1.1); Prothrombin Time 13.3 Seconds (9.0-12.0)
[2019-01-10 07:47] LABS: BUN Creatinine Ratio 31.8 (10-20); Calcium 8.3 mg/dl (8.5-10.1); Creatinine Clr Calc Pharmacy 38.9 ml/min; Est GFR (African American) 59.6; Est GFR (Non-African American) 51.4; Potassium 5.4 mmol/L (3.5-5.1)
[2019-01-10] MEDS: predniSONE 20 MG TAB PO SCH (08:01)
[2019-01-10] MEDS: CYANOCOBALAMIN 500 MCG TABLET (VITAMIN B-12) PO SCH (08:02)
[2019-01-10] MEDS: IPRATROPIUM BROMIDE/ALBUTEROL respimat INH INH SCH ×4 (08:02→21:13)
[2019-01-10] MEDS: PANTOprazole 40 MG TAB PO SCH ×3 (08:02→19:04)
[2019-01-10] MEDS: VERAPAMIL HCL 40 MG TAB PO SCH ×4 (08:02→21:12)
[2019-01-10] MEDS: CALCIUM 600MG + VIT D 400 IU TAB PO SCH ×2 (08:02→21:12)
[2019-01-10] MEDS: FLUTICASONE HFA 110MCG INHALER INH SCH ×2 (08:03→21:13)
[2019-01-10] MEDS: ENOXAPARIN INJ 30 MG/0.3 ML SYR SQ SCH (08:03)
[2019-01-10] MEDS: ASPIRIN 81 MG ECTAB PO SCH (08:04)
[2019-01-10] MEDS: POLYETHYLENE (MIRALAX) 17 GM PACK PO SCH (08:05)
[2019-01-10] MEDS: INSULIN GLARGINE SOLOSTAR 100 UNITS/ML 3 ML PEN SC SCH ×2 (09:21→21:23)
[2019-01-10] MEDS: INSULIN ASPART 100 UNITS/ML 3 ML PEN SC SCH ×4 (09:22→21:24)
[2019-01-10] MEDS: ALUMINUM/MAGNESIUM SUSP 30 ML UDC PO SCH ×3 (13:07→21:13)
--- NOTE | 2019-01-10 13:47 | Pharmacy Report ---
Pharmacy Glycemic Short Note 2 - Date of Service January 10, 2019 - Glycemic Short BSG Results (Last 24 hours): 01/09/19 01/09/19 01/09/19 16:37 21:05 21:07 Glucose POC Glucose 110 H 38 L* 105 H 01/09/19 01/10/19 01/10/19 21:08 06:39 07:34 Glucose 88 POC Glucose 109 H 90 01/10/19 11:55 Glucose POC Glucose 184 H OUTPATIENT ANTIDIABETIC REGIMEN: * Metformin 1g BIDM * Actos 45 mg QD * Januvia 100 mg daily * A1c 8.1% on 01/08/19 ASSESSMENT: * Ms. Ackerman rec'd 37 units of insulin yesterday (18 of this being basal) * Her POC BSG of 38 mg/dL was INACCURATE, as rechecks a few minutes later were 105 and 107. I confirmed this with the nurse today. I initially loosened the CR this AM due to the low BSG. Will continue to keep this loosened since BSG was running on the lower side and now steroids are stopped. Last dose of prednisone was this AM. PLAN FOR INPATIENT GLYCEMIC CONTROL: * Basal insulin * Decrease Lantus to 5 units BID * Bolus insulin * NovoLog per scale ACHS or Q6hrs while NPO * Goal Range: Low 110 mg/dL - High 150 mg/dL * Correction Factor: 30 mg/dL/unit (loosen to 40 mg/dL/unit starting 7/20 AM) * Nutritional / Prandial insulin per carb ratio of 1 unit per 12 grams CHO consumed (loosen to 15 gm starting 7/20 AM) Discharge Recommendations: * A1c of 8.1% at/near goal for patient * Recommend to continue oral agents as an outpatient
[2019-01-10] MEDS ORDERED: SUCRALFATE 1 GM/10 ML UDC PO STA (14:22)
[2019-01-10] MEDS ORDERED: MoRPHine SULFATE 2 MG/ML CARP IV STA (14:22)
--- NOTE | 2019-01-10 14:37 | Ultrasound Report ---
US abdomen ltd hernia CLINICAL HISTORY: 83 years-old Female presenting with hx cholecystectomy, concern hernia port site. TECHNIQUE: Real-time grayscale ultrasound imaging of the right rectus abdominis was performed for a f ocused evaluation at the site of clinical concern. Color Doppler ultrasound imaging was also performe d. COMPARISON: Correlation made to CT of the abdomen and pelvis from 02/27/2013. FINDINGS: At the site of clinical concern along the right rectus abdominis, and intramuscular collection measur ing 3.4 x 1.7 x 2.8 cm is present. This is avascular on color Doppler. This is multilobular and irreg ular in morphology. No sonographic evidence of hernia. IMPRESSION: 1. Findings most consistent with and intramuscular hematoma or evolving seroma. No sonographic evide nce of hernia. Electronically signed by: Dominick Kent M.D. 01/10/2019 2:35 PM
[2019-01-10] MEDS: SUCRALFATE 1 GM/10 ML UDC PO SCH ×2 (17:27→21:13)
[2019-01-10] MEDS: ACETAMINOPHEN 500 MG TAB PO PRN (18:57)
[2019-01-10] MEDS: ATORVASTATIN 20 MG TAB PO SCH (21:12)
[2019-01-10] MEDS: methylPREDNISolone 20 MG in SYRINGE 0 ML IV SCH (21:23)
[2019-01-11] MEDS: ACETAMINOPHEN 500 MG TAB PO PRN (04:32)
[2019-01-11 05:55] LABS: Hematocrit (blood only) 34.3 % (37-47); Hemoglobin 10.9 g/dL (12.0-16.0); Immature Granulocytes # (auto) 0.03 K/uL (0.00-0.02); Immature Granulocytes % (auto) 0.4 %; Lymphocytes % (auto) 2.5 %; Mean Corpuscular Hgb Conc 31.8 g/dL (32-36); Mean Corpuscular Volume 79.4 fL (80-100); Mean Platelet Volume 9.1 fL (7.4-10.4); Monocytes # (auto) 0.27 K/uL (0.11-0.59); Monocytes % (auto) 3.4 %; Neutrophils # (auto) 7.47 K/uL (1.4-6.5); Neutrophils % (auto) 93.7 %; Nucleated RBC # (auto) 0.15 K/uL (0-0); Nucleated RBC % (auto) 1.9 %; Platelet Count 209 K/uL (130-400); RDW Coefficient of Variation 17.2 % (11.5-14.5); RDW Standard Deviation 49.3 fL (36.4-46.3); Red Blood Count 4.32 M/uL (4.2-5.4); White Blood Count 7.97 K/uL (4.8-10.8)
[2019-01-11] MEDS: PANTOprazole 40 MG TAB PO SCH ×2 (06:10→19:25)
[2019-01-11 06:23] LABS: Calcium 8.1 mg/dl (8.5-10.1); Creatinine Clr Calc Pharmacy 34.7 ml/min; Est GFR (African American) 52.1; Est GFR (Non-African American) 44.9; Potassium 5.6 mmol/L (3.5-5.1)
[2019-01-11] MEDS ORDERED: INSULIN ASPART 100 UNITS/ML 3 ML PEN SC SCH (07:30)
[2019-01-11] MEDS: POLYETHYLENE (MIRALAX) 17 GM PACK PO SCH (08:39)
[2019-01-11] MEDS: VERAPAMIL HCL 180 MG TABCR PO SCH (08:39)
[2019-01-11] MEDS: CYANOCOBALAMIN 500 MCG TABLET (VITAMIN B-12) PO SCH (08:40)
[2019-01-11] MEDS: methylPREDNISolone 20 MG in SYRINGE 0 ML IV SCH ×2 (08:40→20:46)
[2019-01-11] MEDS: ASPIRIN 81 MG ECTAB PO SCH (08:41)
[2019-01-11] MEDS: SUCRALFATE 1 GM/10 ML UDC PO SCH ×4 (08:41→20:45)
[2019-01-11] MEDS: CALCIUM 600MG + VIT D 400 IU TAB PO SCH ×2 (08:41→20:44)
[2019-01-11] MEDS: ENOXAPARIN INJ 30 MG/0.3 ML SYR SQ SCH (08:42)
[2019-01-11] MEDS: IPRATROPIUM BROMIDE/ALBUTEROL respimat INH INH SCH (08:43)
[2019-01-11] MEDS: FLUTICASONE HFA 110MCG INHALER INH SCH (08:44)
[2019-01-11] MEDS: INSULIN GLARGINE SOLOSTAR 100 UNITS/ML 3 ML PEN SC SCH ×2 (08:45→20:45)
[2019-01-11] MEDS: INSULIN ASPART 100 UNITS/ML 3 ML PEN SC SCH ×4 (08:45→20:46)
[2019-01-11] MEDS: ALUMINUM/MAGNESIUM SUSP 30 ML UDC PO SCH ×4 (08:47→20:44)
--- NOTE | 2019-01-11 10:05 | Pulmonary Consultation ---
Date of Consultation January 11, 2019 Assessment & Plan (1) Acute on chronic respiratory failure with hypoxia: The patient remains quite tight. Reportedly she does not do well with inhalers. Suggest discontinuing fluticasone. Would also discontinue Combivent Respimat. Would prefer giving the patient nebulizer treatments. Would advise levalbuterol 0.63 in light of the multifocal atrial tachycardia noted on EKG. would add ipratropium to the levalbuterol. Would give these treatment either 3 times daily or 4 times daily. The patient has candidiasis on exam. Would start nystatin 5 mL's 4 times daily swish and swallow. After she has been treated for the candidiasis would start budesonide 0.5 mg once daily by nebulizer. She likely is going to need oxygen upon discharge. I suspect she may need to go for rehab elsewhere before going home based upon her clinical status at present. This would be very important considering her history of multiple falls. Prednisone cannot be given as she is had side effects many times in the past based upon review of office records. For now would continue the IV methylprednisolone. (2) Asthma exacerbation: (3) Interstitial lung disease: Advise doing CT of the chest without contrast to evaluate the status of her lung mitchell. It does not appear that she has had a CT of the chest done previously. (4) Oral candidiasis: Suggest nystatin as noted above. (5) Abnormal diffusion capacity determined by pulmonary function test: History of Present Illness Reason for Consultation: Pulmonary consultation is requested regarding shortness of breath. Attending Physician: Gregory Genao MD History of Present Illness The patient is an 83-year-old female who carries a past history of asthma and interstitial lung disease. She has had these problems at least going back to 2009 based upon reviewing outpatient records. She has been following up with Dr. Dobbs. She had last seen him in October 2017 but she was a no-show for an appointment in April 2018. The patient lives alone. For the past few weeks she has had progressive shortness of breath. This would be with very minimal exertion. She has had a worsening cough. At times she brings up mucus which is white and other times yellow. She states she always feels cold but has not had chills fevers or sweats. She describes having chest pains at times. This would be on the left anterior chest. She could not tell me if this was with exertion or not. The patient has had dizziness and she admits to having several falls. She lives alone in a small apartment. Reportedly she stopped her medications at some point in time prior to this admission. It is not exactly clear why she did that. She has inhalers at home that appear to be albuterol and Flovent. Historically she would take the Flovent but not the albuterol as per reviewing the outpatient records. She denies ever having coughed up blood. The patient denies ever being admitted to the hospital before for breathing troubles. She did admit having to go to [facility] for rehab once. The patient has never smoked. 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 She has not had any significant dust fumes or chemical exposure from work. Allergies Allergy/AdvReac Type Severity Reaction Status Date / Time risedronate sodium Allergy Unknown SICK Verified 01/06/19 14:03 vitamin E (d-alpha Allergy Unknown HIVES Verified 01/06/19 14:03 tocopherol) prednisone AdvReac Unknown Makes her Verified 01/06/19 14:03 feel very ill. Home Medications Home Medications Medication Instructions Recorded Confirmed Type aspirin 81 mg tablet 81 mg PO DAILY tab 11/14/18 01/06/19 History atorvastatin 20 mg tablet 20 mg PO HS #30 tab 11/14/18 01/06/19 History docusate sodium 100 mg capsule 100 mg PO BID PRN cap 11/14/18 01/06/19 History pioglitazone 45 mg tablet 45 mg PO DAILY #30 tab 11/14/18 01/06/19 History calcium carbonate 600 mg calcium 600 mg PO BID tab 11/15/18 01/06/19 History (1,500 mg) tablet pantoprazole 40 mg tablet,delayed 40 mg PO DAILY #30 tab 11/15/18 01/06/19 History release acetaminophen [Tylenol Arthritis 650 mg PO Q12H PRN 01/06/19 01/06/19 History Pain] albuterol sulfate [Ventolin HFA] 2 puff INHALATION Q6H PRN 01/06/19 01/06/19 History cyanocobalamin (vitamin B-12) 1,000 mcg PO DAILY 01/06/19 01/06/19 History metformin 1,000 mg PO BIDM 01/06/19 01/06/19 History peg 400-propylene glycol [Systane 1 drp OPHTHALMIC (EYE) BID PRN 01/06/19 01/06/19 History (propylene glycol)] sitagliptin [Januvia] 100 mg PO DAILY 01/06/19 01/06/19 History fluticasone propionate [Flovent 2 puff BID 01/07/19 01/07/19 History HFA] Patient History Medical History Tubular adenoma of colon Subcapital fracture of hip Sciatica Osteoporosis Low back pain Interstitial lung disease Hyponatremia Hypertension Hypercholesterolemia Gastroesophageal reflux disease Diverticulosis Difficulty walking Diabetes mellitus Compression fracture of L1 lumbar vertebra Chronic obstructive asthma Carotid artery stenosis, asymptomatic Anemia Allergic rhinitis Social History Preferred Language: Frisian 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 Ability: Effective Shredded Filler Machine Wrapper Layer Required: No Beliefs That Will Affect Care: None Current Living Situation: Alone Current Living Situation Comment: alone in apartment, family helps out when in town Other Information That Helps Us Care for You: No Feels Safe at Home: Yes Safety Concerns: Feels Safe At This Time Smoking Status: Never smoker Do You Dip or Chew Tobacco: No Second Hand Exposure: Yes Tobacco Cessation Education Requested by Patient: No Hx Alcohol Use: No Hx Substance Use: No Review of Systems Review of Systems: General: Energy level poor. No chills fever sweats. Neurologic: The patient has had recurring falls but denies syncope. Denies headaches. Ophthalmic: Has had cataract surgeries but otherwise no visual complaints. ENT: Has some history of chronic rhinitis but not complaining presently. Cardiac: Patient describes chest pains "at times "but is nonspecific. Denies palpitations. Pulmonary: As noted in history of present illness. GI: The patient describes having heartburn. She is having abdominal pain in the epigastrium. She also had pain in the lower abdomen where she was found to have an intramuscular hematoma. She has intermittent diarrhea and constipation. I do not know if these issues were addressed with her primary physicians. : Denies complaints Musculoskeletal: Complains of diffuse arthritic pains especially knees, back, shoulders. Dermatologic: She has had a lot of ecchymosis on the right arm from IV and blood sticks. Endocrine: No lymphadenopathy Physical Exam Physical Exam: The patient is an 83-year-old female who was cooperative alert and oriented. She seems quite debilitated. She is weak. Temperature 36.4. Weight is 50.7 kg. Eye exam suggests implants from prior surgery. Her eyes appear a bit puffy. Pupils react. Nares clear. She has a small mouth. Dentures are on top. Pharynx is a Mallampati grade 3. She has oral candidiasis. No lymph nodes palpable. Cardiac rate 82/min. Rhythm regular. Blood pressure elevated at 182/85. The chest shows diminished excursions. The patient is quite tight. She has wheezes on expiration which are more pronounced with forced expiration. There is definitely diminished airflow. Mild rales were heard. She did not have the typical loud Velcro rales one hears with certain forms of interstitial lung disease. Respiratory rate 20. Saturation 99% on 2 L. Abdomen was tender particularly in the epigastrium. She was unable to locate for me where the hematoma is. She was somewhat tender throughout the right abdomen as well. Left side was less so. Bowel sounds were present. Right arm is edematous and has ecchymosis. The left arm is not being utilized for blood sticks because she has been told she has poor circulation in that arm. She states typically her blood pressure cannot be obtained on the left side. There is +1 edema both lower extremities. No cyanosis or clubbing noted. Results & Data Vital Signs (Past 12 Hours) Vital Signs Temp Pulse Pulse Resp BP Pulse Ox 01/11/19 08:13 36.4 C L 82 20 182/85 H 99 01/11/19 07:36 83 01/11/19 04:00 36.4 C L 78 18 156/74 H 93 01/10/19 23:39 36.4 C L 72 19 114/73 95 Laboratory Results White blood cell count today was 7.97. Hemoglobin 10.9. Platelets 209,000. Admission hemoglobin was 11.8. Differential showed 93.7 neutrophils with only 2.5 lymphs and 3.4 monos. INR on admission and throughout has been 1.3. PTT was normal. Arterial blood gas on admission showed pH 7.42 with PCO2 32 and PO2 72 on 3 L of oxygen nasal cannula. Electrolytes today show sodium 124 potassium 5.6 chloride 91 bicarb 25. BUN is 34 with creatinine 1.13. Admission ALT was significantly elevated at 287 but AST was borderline normal at 38. Bilirubin was 1.2. There has been gradual improvement in the ALT levels down to 155 as of the . Patient last had pulmonary function testing on 11/08/2016. Spirometry and lung volumes were normal but diffusion was severely reduced to 53%. Several other studies were reviewed with similar findings. Urinalysis on admission showed 4+ bacteria with greater than 30 WBCs and large leukocyte esterase. 2+ blood was noted. Diagnostic Findings Chest x-ray on admission showed lower lung field interstitial thickening and bilateral opacities. Cannot exclude an acute process particularly at the right base.
--- NOTE | 2019-01-11 10:08 | Pharmacy Report ---
Pharmacy Glycemic Short Note 2 - Date of Service January 11, 2019 - Glycemic Short BSG Results (Last 24 hours): 01/10/19 01/10/19 01/10/19 11:55 16:16 19:56 Glucose POC Glucose 184 H 152 H 206 H 01/11/19 01/11/19 05:31 07:30 Glucose 163 H POC Glucose 157 H OUTPATIENT ANTIDIABETIC REGIMEN: * Metformin 1g BIDM * Actos 45 mg QD * Januvia 100 mg daily * A1c 8.1% on 01/08/19 ASSESSMENT: 01/11/19 * Solu-medrol restarted last evening - 20mg IV Q12 H - tighten CF and CR, will continue Lantus dose unless BSGs trend up. 01/10/19 * Ms. Ackerman rec'd 37 units of insulin yesterday (18 of this being basal) * Her POC BSG of 38 mg/dL was INACCURATE, as rechecks a few minutes later were 105 and 107. I confirmed this with the nurse today. I initially loosened the CR this AM due to the low BSG. Will continue to keep this loosened since BSG was running on the lower side and now steroids are stopped. Last dose of prednisone was this AM. PLAN FOR INPATIENT GLYCEMIC CONTROL: * Basal insulin * Lantus to 5 units BID * Bolus insulin * NovoLog per scale ACHS or Q6hrs while NPO * Goal Range: Low 110 mg/dL - High 150 mg/dL * TIGHTEN: Correction Factor: 20 mg/dL/unit * TIGHTEN: Nutritional / Prandial insulin per carb ratio of 1 unit per 7 grams CHO consumed Discharge Recommendations: * A1c of 8.1% at/near goal for patient * Recommend to continue oral agents as an outpatient
--- NOTE | 2019-01-11 10:59 | Family Medicine Progress Note ---
Date of Service January 11, 2019 Assessment & Plan (1) Acute and chronic respiratory failure ([id number]): 83F with known h/o IPF here with worsening dyspnea x 2 weeks after being off her medications Idiopathic pulmonary fibrosis, acute exacerbation h/o known pulmonary fibrosis, last PFT October 2017 showed normal spirometry with severely reduced DLCO (43% expected). Follows with Dr. Dobbs. Admitting resident had lengthy discussion with delbert at bedside, apparently pt admits to being noncompliant with inhalers for 3 weeks. 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 Niece enthusiastic about "any help" she can get. -Continue with oxygen support -Failed to step will require oxygen at home -has denied home oxygen in the past Pulmonology consulted -DC home Flovent and albuterol inhalers as patient noncompliant -Started on levalbuterol 0.63/ipratropium nebs 4 times daily -Once candidiasis improves will start on budesonide 0.5 mg daily nebs as well -Continue methyl Pred 20 mg IV twice daily for now, no prednisone as patient did not tolerate this secondary to gastric pain -Chest CT recommended IMPRESSION: 1. Moderately extensive coronary artery calcifications 2. Bilateral pleural effusions. An element of congestive failure/fluid overload is likely present 3. Bilateral lower lung zone airspace opacities atelectasis versus pneumonia 4. Ascites 5. Generalized body wall edema 6. Elevation right hemidiaphragm -Recommended outpatient rehab given frequent falls and deconditioning -Palliative care was consulted see associated documentation -Niece will be her power of litigation attorney, patient wants to be full code however no prolonged intubation, patient is aware of her current prognosis #Multifocal atrial tachycardia EKG demonstratied multifocal atrial tachycardia, which likely also caused detectable troponins, elevated heart rate and blood pressure. Beta-blockers and verapamil recommended for treatment and prophylaxis. Given her pulmonary fibrosis we elected to avoid beta-blockers to avoid of pulmonary side effects. Patient was started on verapamil 40 mg twice daily and tolerated it well. However she did not demonstrate an adequate response with blood pressure pulse. -Transitioned to Verapamil 180mg long-acting daily -Echo demonstrates mild concentric LVH, normal LV systolic function, flattened septum consistent with RV pressure overload, RV moderate dilation, RA moderate dilation, aortic valve sclerosis without significant stenosis, annular calcification, tricuspid regurg, RV systolic pressure 30 to 40 mm mercury -Troponin peaked at 0.066 and downtrending, to 0.05 likely demand ischemia from multifocal atrial tachycardia -cont home ASA #RUQ pain Previous GI ulcer history. - US -> Findings most consistent with and intramuscular hematoma or evolving seroma -At the site of clinical concern along the right rectus abdominis, and intramuscular collection measuring 3.4 x 1.7 x 2.8 cm is present -On sucralfate, pantoprazole twice daily, and Maalox. -On 500 mg Tylenol PRN, and morphine 2mg Q6H PRN - patient's family agreed to try morphine despite initial hesitance given patient pain level #Hyponatremia according to PCP charts, this is acute on chronic exacerbation. Possible hypovolemic hyponatremia vs. SIADH -Started on LR at 80cc/hr -Serum osm 275 -Urine Osm and Na pending -Continue to monitor BMP #Transaminitis Patient's CMP on admission is remarkable for elevated LFTs specifically ALT to 247 with AST at 25. Hepatitis serologies were performed and are all negative. Patient did go for a liver ultrasound 01/07 demonstrating normal in size and echotexture she is currently status post cholecystectomy some evidence of intra- and extrahepatic biliary ductal dilatation similar to that in 2012 and likely related to remote cystectomy. Otherwise the patient is asymptomatic for any symptoms of the liver pathology. -Continue to follow clinically nothing on clinical examination -Elevation ALT appears to be resolving and improved to 155 on 01/10 -Consider outpatient GI referral #Elev orthodontist assistant Resolved likely was prerenal given decreased PO intake from somnolence T2DM (hyperglycemia secondary to steroids) -hold home PO meds, catrina given elev orthodontist assistant -ISS, BSG ACHS -glycemic consult placed FEN/GI: heart healthy/t2dm diet DVT ppx: lovenox 30mg q24h CODE STATUS: FULL however does not want prolonged intubation DISPO: med/tele other ongoing medical problems: Anemia -microcytic -history of the same -does not appear to be hemorrhagic, not on blood thinners only ASA -cont B12, would likely benefit from iron supplementation in outpatient setting GERD -continue pantoprazole, especially in someone with IPF given aspiration risks Supervising Physician Co-Signing Physician Notes Attending attestation Pt seen and examined in concert with Dr. Russell. In agreement with the documented findings as noted in the resident documentation with any exceptions or additions as noted here. Pt reports new onset neck pain and headache which is chronic and intermittent, usually from sleeping position and relieved by APAP. RUQ abdominal pain at site of muscular hematoma/seroma persists. Discussed with POA at bedside - patient frequently falls without telling anyone and was noted a few days prior to a dmission to be ambulating in a more hunched posture over walker than normal, though she denied any injury at the time. No apparent causative event while admitted reported by patient or nursing. On examination, S1/S2 nl. Decreased breathsounds throughout. Abdominal pain of RUQ with palpable mass stable from previous with mild overlying ecchymosis appreciated today. Idiopathic lung disease in the setting of asthma - pulmonology consultation appreciated - duonebs and IV methylprednisolone with O2 wean as tolerated. CT chest per pulmonology recommendation. RUQ hematoma/seroma - reviewed pain mgmt goals with family at bedside. APAP --> tramadol --> morphine 2mg IV with close monitoring. Recent family loss 2/2 morphine overdose in hospital setting. Reviewed case with family - PT recommendation was 24 hour care v. inpatient rehabilitation. Based on frailty and propensity to fall and not seek help, recommended rehabilitation. Family is in agreement and would like to d/w case mgmt. Patient was previously cared for at [facility]. Else see resident documentation as noted. Subjective Patient reports abdominal pain this morning. Shortness of breath persistent. Also complaining of lightheadedness. Denied any chest pain, headache, nausea, vomiting, dysuria Review of Systems Review of Systems: As per HPI Physical Exam Physical Exam: General: In mild distress due to abdominal pain this AM Neuro: A&O x 4 Pulm: CTAB diminished breath sounds CV: RRR, no m/r/g Abdomen:+BS, TTP over epigastric and right upper quadrant regions, non-distended LE: 1+ right LE edema, no calf TTP Results & Data Vital Signs (Past 12 Hours) Vital Signs Temp Pulse Pulse Resp BP Pulse Ox 01/11/19 08:13 36.4 C L 82 20 182/85 H 99 01/11/19 07:36 83 01/11/19 04:00 36.4 C L 78 18 156/74 H 93 01/10/19 23:39 36.4 C L 72 19 114/73 95 Laboratory Results Abnormal lab results 01/10/19 01/11/19 01/11/19 Range/Units 19:56 05:31 05:31 Hgb 10.9 L (12.0-16.0) g/dL Hct 34.3 L (37-47) % MCV 79.4 L (80-100) fL MCHC 31.8 L (32-36) g/dL RDW Std Deviation 49.3 H (36.4-46.3) fL RDW Coeff of Alexa 17.2 H (11.5-14.5) % Immature Gran # (Auto) 0.03 H (0.00-0.02) K/uL Neut # (Auto) 7.47 H (1.4-6.5) K/uL Lymph # (Auto) 0.20 L (1.2-3.4) K/uL Absolute Nucleated RBC 0.15 H (0-0) K/uL Sodium 124 L (136-145) mmol/L Potassium 5.6 H (3.5-5.1) mmol/L Chloride 91 L (98-107) mmol/L BUN 34 H (7-18) mg/dl BUN/Creatinine Ratio 30.0 H (10-20) Glucose 163 H (70-99) mg/dl POC Glucose 206 H (70-99) Osmolality (280-300) mOsm/kg Calcium 8.1 L (8.5-10.1) mg/dl 01/11/19 01/11/19 01/11/19 Range/Units 07:30 08:33 11:51 Hgb (12.0-16.0) g/dL Hct (37-47) % MCV (80-100) fL MCHC (32-36) g/dL RDW Std Deviation (36.4-46.3) fL RDW Coeff of Alexa (11.5-14.5) % Immature Gran # (Auto) (0.00-0.02) K/uL Neut # (Auto) (1.4-6.5) K/uL Lymph # (Auto) (1.2-3.4) K/uL Absolute Nucleated RBC (0-0) K/uL Sodium (136-145) mmol/L Potassium (3.5-5.1) mmol/L Chloride (98-107) mmol/L BUN (7-18) mg/dl BUN/Creatinine Ratio (10-20) Glucose (70-99) mg/dl POC Glucose 157 H 222 H (70-99) Osmolality 275 L (280-300) mOsm/kg Calcium (8.5-10.1) mg/dl 01/11/19 Range/Units 14:11 Hgb (12.0-16.0) g/dL Hct (37-47) % MCV (80-100) fL MCHC (32-36) g/dL RDW Std Deviation (36.4-46.3) fL RDW Coeff of Alexa (11.5-14.5) % Immature Gran # (Auto) (0.00-0.02) K/uL Neut # (Auto) (1.4-6.5) K/uL Lymph # (Auto) (1.2-3.4) K/uL Absolute Nucleated RBC (0-0) K/uL Sodium 125 L (136-145) mmol/L Potassium 5.3 H (3.5-5.1) mmol/L Chloride 92 L (98-107) mmol/L BUN 33 H (7-18) mg/dl BUN/Creatinine Ratio 28.1 H (10-20) Glucose 104 H (70-99) mg/dl POC Glucose (70-99) Osmolality (280-300) mOsm/kg Calcium 7.9 L (8.5-10.1) mg/dl Diagnostic Findings CT chest wo con CLINICAL HISTORY: pulmonary fibrosis COMPARISON STUDY: Chest x-ray performed April [address] DOSE: 254.37 mGy.cm TECHNIQUE: CT of the thorax was performed from the thoracic inlet to the lung bases. Images are reviewed in the axial, sagittal, and coronal planes. IV contrast was not administered for this examination. A dose lowering technique was utilized adhering to the principles of ALARA. FINDINGS: Thyroid: There is a 9 mm left lobe thyroid nodule. Thoracic aorta: The thoracic aorta is normal in course and caliber, noting standard 3 vessel arch anatomy. Heart: The heart is mildly enlarged. There are prominent coronary artery kassidy cifications. There is dilatation of the main pulmonary artery suggesting pulmonary arterial hypertension Lungs and pleural spaces: There are small bilateral pleural effusions right greater than left. There are bilateral lower lobe airspace opacities, pneumonia versus atelectasis. Examination is compromised due to respiratory motion artifact Mediastinum: There is no mediastinal lymphadenopathy. Shayna: There is no evidence of pathologic hilar adenopathy given the limitations of a noncontrast study Axilla: There is no evidence of pathologic axillary lymphadenopathy There is elevation right hemidiaphragm Upper abdomen: There is perihepatic ascites. Skeletal structures: There is diffuse body wall edema. IMPRESSION: 1. Moderately extensive coronary artery calcifications 2. Bilateral pleural effusions. An element of congestive failure/fluid overload is likely present 3. Bilateral lower lung zone airspace opacities atelectasis versus pneumonia 4. Ascites 5. Generalized body wall edema 6. Elevation right hemidiaphragm Medications Administered Current Inpatient Medications Acetaminophen (Tylenol) 500 mg PO Q4H PRN PRN Reason: Pain Stop: 02/09/19 18:10 Last Admin: 01/11/19 04:32 Dose: 500 mg Documented by: Al Hydrox/Mg Hydrox/Simethicone (Maalox) 15 ml PO QID SONIDO Stop: 02/09/19 12:59 Last Admin: 01/11/19 16:14 Dose: 15 ml Documented by: Artificial Tears (Artificial Tears) 1 drops OP BID PRN PRN Reason: dry eyes Stop: 02/06/19 00:44 Aspirin (Ecotrin Ectab) 81 mg PO DAILY SONIDO Stop: 02/06/19 08:59 Last Admin: 01/11/19 08:41 Dose: 81 mg Documented by: Atorvastatin Calcium (Lipitor) 20 mg PO HS SONIDO Stop: 02/06/19 20:59 Last Admin: 01/10/19 21:12 Dose: 20 mg Documented by: Cyanocobalamin (Vitamin B-12) 1,000 mcg PO DAILY SONIDO Stop: 02/06/19 08:59 Last Admin: 01/11/19 08:40 Dose: 1,000 mcg Documented by: Dextrose (Dextrose 50%) 25 - 50 ml IV UD PRN; Protocol PRN Reason: Hypoglycemia Protocol Stop: 02/06/19 00:04 Docusate Sodium (Colace) 100 mg PO BID PRN PRN Reason: Constipation Stop: 02/06/19 00:04 Enoxaparin Sodium (Lovenox) 30 mg SQ Q24H SONIDO Stop: 02/06/19 07:59 Last Admin: 01/11/19 08:42 Dose: 30 mg Documented by: Glucagon (Glucagen) 1 mg SQ UD PRN; Protocol PRN Reason: Hypoglycemia Protocol Stop: 02/06/19 00:04 Glucose (Dex4 Glucose) 4 - 8 tabs PO UD PRN; Protocol PRN Reason: Hypoglycemia Protocol Stop: 02/06/19 00:04 Glucose (Glucose 40%) 15 - 30 gm PO UD PRN; Protocol PRN Reason: Hypoglycemia Protocol Stop: 02/06/19 00:04 Methylprednisolone 20 mg/ (Syringe) 0.32 mls @ 1.5 mls/min IV BID SONIDO Stop: 02/09/19 20:59 Last Admin: 01/11/19 08:40 Dose: 1.5 mls/min Documented by: Lactated Ringer's (Lr) 1,000 mls @ 80 mls/hr IV .[id number] SONIDO Stop: 02/10/19 13:59 Last Admin: 01/11/19 15:18 Dose: 80 mls/hr Documented by: Insulin Aspart (Novolog Flexpen) 0 units SC ACHS SONIDO Stop: 02/09/19 00:29 Last Admin: 01/11/19 12:12 Dose: 10 units Documented by: Insulin Glargine (Lantus Solostar Pen) 8 units SC BID SONIDO; Protocol Stop: 02/10/19 20:59 Ipratropium [place] (Atrovent 0.02% 0.5mg/2.5ml) 0.5 mg INH Q6R SONIDO Stop: 02/10/19 11:14 Last Admin: 01/11/19 14:23 Dose: Not Given Documented by: Levalbuterol HCl (Xopenex 0.63 Mg/3 Ml Neb) 0.63 mg NEB Q6R SONIDO Stop: 02/10/19 11:14 Last Admin: 01/11/19 14:23 Dose: Not Given Documented by: Magnesium Hydroxide (Milk Of Magnesia) 30 ml PO Q12H PRN PRN Reason: Constipation Stop: 02/06/19 00:04 Miscellaneous (Carbohydrates For Hypoglycemia) 15 - 30 gm PO UD PRN PRN Reason: Hypoglycemia Treatment Stop: 02/06/19 00:04 Miscellaneous Information (Consult Glycemic Management Pharmacy) 1 ea N/A UD PRN PRN Reason: Consult Stop: 02/06/19 18:13 Morphine Sulfate (Morphine Sulfate) 2 mg IV Q6H PRN PRN Reason: Pain Stop: 01/25/19 13:40 Multivitamins/Minerals (Caltrate Plus) 1 tab PO BID [facility] Stop: 02/06/19 08:59 Last Admin: 01/11/19 08:41 Dose: 1 tab Documented by: Nystatin (Mycostatin) 5 ml PO QID [facility] Stop: 01/21/19 12:59 Last Admin: 01/11/19 16:14 Dose: 5 ml Documented by: Ondansetron HCl (Zofran) 4 mg IV Q6H PRN PRN Reason: Nausea Stop: 02/06/19 00:04 Pantoprazole Sodium (Protonix) 40 mg PO BID@0700,1900 [facility] Stop: 02/09/19 12:14 Last Admin: 01/11/19 06:10 Dose: 40 mg Documented by: Polyethylene Glycol (Miralax Powder Packet) 17 gm PO DAILY PRN PRN Reason: Constipation Stop: 02/06/19 00:04 Polyethylene Glycol (Miralax Powder Packet) 17 gm PO DAILY [facility] Stop: 02/08/19 11:29 Last Admin: 01/11/19 08:39 Dose: 17 gm Documented by: Sucralfate (Carafate) 1 gm PO ACHS [facility] Stop: 02/09/19 16:29 Last Admin: 01/11/19 16:13 Dose: 1 gm Documented by: Verapamil HCl (Calan Sr) 180 mg PO QAM [facility] Stop: 02/10/19 08:59 Last Admin: 01/11/19 08:39 Dose: 180 mg Documented by: PG Care Time/CCT Total # of Minutes Spent Total Time Spent with Patient: Total time spent is greater than 50% in coordination of care (as documented) at patient's floor/unit and/or counseling patient: Resident Activity Tracking Resident Involvement: Resident Care Provided Care Provided: Adult Hospital Medicine
--- NOTE | 2019-01-11 11:34 | CT Scan Report ---
CT chest wo con CLINICAL HISTORY: pulmonary fibrosis COMPARISON STUDY: Chest x-ray performed April 2017 CT DOSE: 254.37 mGy.cm TECHNIQUE: CT of the thorax was performed from the thoracic inlet to the lung bases. Images are revi ewed in the axial, sagittal, and coronal planes. IV contrast was not administered for this examinatio n. A dose lowering technique was utilized adhering to the principles of ALARA. FINDINGS: Thyroid: There is a 9 mm left lobe thyroid nodule. Thoracic aorta: The thoracic aorta is normal in course and caliber, noting standard 3 vessel arch stuart claire. Heart: The heart is mildly enlarged. There are prominent coronary artery calcifications. There is dil atation of the main pulmonary artery suggesting pulmonary arterial hypertension Lungs and pleural spaces: There are small bilateral pleural effusions right greater than left. There are bilateral lower lobe airspace opacities, pneumonia versus atelectasis. Examination is compromised due to respiratory motion artifact Mediastinum: There is no mediastinal lymphadenopathy. Shayna: There is no evidence of pathologic hilar adenopathy given the limitations of a noncontrast stud y Axilla: There is no evidence of pathologic axillary lymphadenopathy There is elevation right hemidiaphragm Upper abdomen: There is perihepatic ascites. Skeletal structures: There is diffuse body wall edema. IMPRESSION: 1. Moderately extensive coronary artery calcifications 2. Bilateral pleural effusions. An element of congestive failure/fluid overload is likely present 3. Bilateral lower lung zone airspace opacities atelectasis versus pneumonia 4. Ascites 5. Generalized body wall edema 6. Elevation right hemidiaphragm Electronically signed by: Torrey Mariano M.D. 01/11/2019 11:32 AM
[2019-01-11] MEDS: NYSTATIN SUSP 500,000 U/5 ML UDC PO SCH ×3 (13:00→20:44)
[2019-01-11] MEDS ORDERED: MoRPHine SULFATE 2 MG/ML CARP IV PRN (13:41)
[2019-01-11] MEDS ORDERED: XOPENEX/ATROVENT 0.63mg/0.5MG NEB COMBO NEB SCH (14:00)
[2019-01-11] MEDS: LEVALBUTEROL HCL 0.63 MG/3 ML NEB NEB SCH ×2 (14:17→14:23)
[2019-01-11] MEDS: IPRATROPIUM BROMIDE NEB SOLN 0.02% 2.5 ML VIAL INH SCH ×3 (14:18→19:56)
[2019-01-11 14:47] LABS: BUN Creatinine Ratio 28.1 (10-20); Calcium 7.9 mg/dl (8.5-10.1); Creatinine Clr Calc Pharmacy 24.8 ml/min; Est GFR (African American) 49.4; Est GFR (Non-African American) 42.6; Potassium 5.3 mmol/L (3.5-5.1)
[2019-01-11] MEDS: LACTATED RINGER'S 1,000 ML IV SCH (15:18)
[2019-01-11] MEDS: ATORVASTATIN 20 MG TAB PO SCH (20:44)
[2019-01-12] MEDS: IPRATROPIUM BROMIDE NEB SOLN 0.02% 2.5 ML VIAL INH SCH ×4 (01:44→19:39)
[2019-01-12] MEDS: LEVALBUTEROL HCL 0.63 MG/3 ML NEB NEB SCH ×5 (01:44→19:39)
[2019-01-12] MEDS: LACTATED RINGER'S 1,000 ML IV SCH (02:59)
[2019-01-12] MEDS: PANTOprazole 40 MG TAB PO SCH ×2 (05:52→20:01)
[2019-01-12 07:51] LABS: Albumin Level 3.3 gm/dl (3.4-5.0); BUN Creatinine Ratio 33.3 (10-20); Calcium 8.2 mg/dl (8.5-10.1); Creatinine Clr Calc Pharmacy 30.5 ml/min; Est GFR (African American) 63.4; Est GFR (Non-African American) 54.7; Potassium 5.5 mmol/L (3.5-5.1)
[2019-01-12 07:54] LABS: Albumin Globulin Ratio 1.3 (0.9-2); Bilirubin,Total 1.9 mg/dl (0.2-1); Globulin 2.6 gm/dl (2.5-4.0); Total Protein 5.9 gm/dl (6.4-8.2)
[2019-01-12] MEDS: CYANOCOBALAMIN 500 MCG TABLET (VITAMIN B-12) PO SCH (08:50)
[2019-01-12] MEDS: VERAPAMIL HCL 180 MG TABCR PO SCH (08:50)
[2019-01-12] MEDS: ASPIRIN 81 MG ECTAB PO SCH (08:50)
[2019-01-12] MEDS: NYSTATIN SUSP 500,000 U/5 ML UDC PO SCH ×4 (08:51→21:44)
[2019-01-12] MEDS: SUCRALFATE 1 GM/10 ML UDC PO SCH ×4 (08:52→21:43)
[2019-01-12] MEDS: ENOXAPARIN INJ 30 MG/0.3 ML SYR SQ SCH (08:52)
[2019-01-12] MEDS: CALCIUM 600MG + VIT D 400 IU TAB PO SCH ×2 (08:52→21:43)
[2019-01-12] MEDS: ALUMINUM/MAGNESIUM SUSP 30 ML UDC PO SCH ×4 (08:53→21:44)
[2019-01-12] MEDS: POLYETHYLENE (MIRALAX) 17 GM PACK PO SCH (08:54)
[2019-01-12] MEDS: methylPREDNISolone 20 MG in SYRINGE 0 ML IV SCH ×2 (08:54→21:45)
[2019-01-12] MEDS: INSULIN GLARGINE SOLOSTAR 100 UNITS/ML 3 ML PEN SC SCH ×2 (08:55→21:43)
[2019-01-12] MEDS: INSULIN ASPART 100 UNITS/ML 3 ML PEN SC SCH ×4 (08:56→21:44)
--- NOTE | 2019-01-12 10:38 | Progress Note ---
DATE: 01/12/2019 PULMONARY PROGRESS NOTE TIME: 8:05 a.m. SUBJECTIVE: The patient states she is still having shortness of breath at times. She thinks she may be a little better than yesterday. She states that she is passing her urine easier than before. She is not the best historian. She is still complaining of pain in the abdomen. It seems to be upper abdomen center and slightly towards the right. She is not coughing up any phlegm. OBJECTIVE: GENERAL: The patient appears comfortable at rest. VITAL SIGNS: Temperature 36.5. Weight today is 50.9 kilograms. ENT: Unchanged. HEART: Heart rate 89 per minute. Rhythm was slightly irregular. Blood pressure elevated at 178/85. Yesterday, her blood pressures had been low, as low as 89/51. The last 3 blood pressures have been substantially elevated. LUNGS: Respiratory rate 20. No wheezing is heard today. However, she has crackles throughout the right lower lung field posteriorly and left lower lung field posteriorly. It is difficult on exam to determine if these are chronic dry rales. She is moving her air better than yesterday and it may be we are hearing them better as a result of that. Saturation 93% on 2 liters. EXTREMITIES: Reveal +1 to +2 edema of both lower extremities. LABORATORY DATA: Blood sugar this morning was 98. CAT scan of the chest was done yesterday. This showed evidence of small bilateral pleural effusions greater on the right. The radiologist felt congestive heart failure was likely to be present. There were also bibasilar airspace opacities. I suspect this is chronic. It did not have a typical appearance of pulmonary fibrosis that one would expect with her history given from the past. There is some elevation of the right hemidiaphragm. There was generalized body wall edema and ascites. The patient had had an echocardiogram on 01/09/2019, which showed a normal ejection fraction of 60-65%. There was a suggestion of right ventricular pressure overload likely secondary to lung disease. IMPRESSION: 1. Respiratory failure - acute on chronic with hypoxia. 2. Asthma exacerbation. 3. Pulmonary fibrosis by history. 4. Oral candidiasis. 5. Bilateral pleural effusions. COMMENTS AND RECOMMENDATIONS: The patient seems mildly improved. It is not clear to me why her blood pressures dropped significantly yesterday. She was hydrated with IV lactated Ringer's. We may need to be cautious with hydration, however, in light of the pleural effusions and generalized edema. We will check a ProBNP to try and evaluate if indeed there might be underlying congestive heart failure.
[2019-01-12] MEDS ORDERED: FUROSEMIDE 20 MG in SYRINGE 0 ML IV ONE (12:15)
--- NOTE | 2019-01-12 12:17 | Family Medicine Progress Note ---
Date of Service January 12, 2019 Assessment & Plan (1) Acute and chronic respiratory failure ([id number]): 83F with known h/o IPF here with worsening dyspnea x 2 weeks after being off her medications. Respiratory symptoms likely from progressive IPF vs. diastolic HF. Na remains low at 125 based on work up concern for SIADH. Also having RUQ and found to have hematoma/seroma likely from previous fall given hx of multiple falls at home. Dyspnea Likely Idiopathic pulmonary fibrosis, acute exacerbation vs. diastolic HF h/o known pulmonary fibrosis, last PFT October 2017 showed normal spirometry with severely reduced DLCO (43% expected). Follows with Dr. Dobbs. Admitting resident had lengthy discussion with delbert at bedside, apparently pt admits to being noncompliant with inhalers for 3 weeks. hypoxic in the PCP office [employer] to 70s, 80s on room air in ED, improved with nasal cannula Delbert Ruiz insisted that she take her meds, and has done so for the past week.did discuss palliative consult seeing as her pulm fibrosis is not curable and likely will continue to progress. [place] enthusiastic about "any help" she can get. -Continue with oxygen support -Failed to step will require oxygen at home -has denied home oxygen in the past Pulmonology consulted -DC home Flovent and albuterol inhalers as patient noncompliant with inhalers -Started on levalbuterol 0.63/ipratropium nebs 4 times daily (discharge on as well) -Once candidiasis improves will start on budesonide 0.5 mg daily nebs as well (discharge on as well) -Continue methyl Pred 20 mg IV twice daily for now, no prednisone as patient did not tolerate this secondary to gastric pain -Chest CT recommended IMPRESSION: 1. Moderately extensive coronary artery calcifications 2. Bilateral pleural effusions. An element of congestive failure/fluid overload is likely present 3. Bilateral lower lung zone airspace opacities atelectasis versus pneumonia 4. Ascites 5. Generalized body wall edema 6. Elevation right hemidiaphragm -Recommended outpatient rehab given frequent falls and deconditioning -worsening dyspnea over night s/p some IVFs -BNP this AM 5614 with worseing LE edema, crackles on exam (which could also be from IPF) and bilateral pleural effusions noted on CT chest on 01/11 -Given a dose of Lasix 20mg IV x 1 --Echo 01/09/19: demonstrates mild concentric LVH, normal LV systolic function, flattened septum consistent with RV pressure overload, RV moderate dilation, RA moderate dilation, aortic valve sclerosis without significant stenosis, annular calcification, tricuspid regurg, RV systolic pressure 30 to 40 mm mercury -Palliative care was consulted see associated documentation -Niece will be her power of employment law attorney, patient wants to be full code however no prolonged intubation, patient is aware of her current prognosis #Multifocal atrial tachycardia - resolved EKG demonstratied multifocal atrial tachycardia, which likely also caused detectable troponins, elevated heart rate and blood pressure. Beta-blockers and verapamil recommended for treatment and prophylaxis. Given her pulmonary fibrosis we elected to avoid beta-blockers to avoid of pulmonary side effects. Patient was started on verapamil 40 mg twice daily and tolerated it well. However she did not demonstrate an adequate response with blood pressure pulse. -Transitioned to Verapamil 180mg long-acting daily -Echo demonstrates mild concentric LVH, normal LV systolic function, flattened septum consistent with RV pressure overload, RV moderate dilation, RA moderate dilation, aortic valve sclerosis without significant stenosis, annular calcification, tricuspid regurg, RV systolic pressure 30 to 40 mm mercury -Troponin peaked at 0.066 and downtrending, to 0.05 likely demand ischemia from multifocal atrial tachycardia -cont home ASA #RUQ pain Previous GI ulcer history. - US -> Findings most consistent with and intramuscular hematoma or evolving seroma -At the site of clinical concern along the right rectus abdominis, and intramuscular collection measuring 3.4 x 1.7 x 2.8 cm is present -On sucralfate, pantoprazole twice daily, and Maalox. -On 500 mg Tylenol PRN, and morphine 2mg Q6H PRN - patient's family agreed to tr y morphine despite initial hesitance given patient pain level #Hyponatremia according to PCP charts, this is acute on chronic exacerbation. Likely SIADH -Serum osm 275 -Urine Osm 610 and Na 96 -Given a dose of Lasix 20mg IV x 1 for increased dyspea and hypervolemia as discussed above -if no improvement - fluid restrict and consider salt tabs -Continue to monitor BMP #constipation -bowel regimen ordered: colace 100mg BID and miralax 17g daily #Transaminitis Patient's CMP on admission is remarkable for elevated LFTs specifically ALT to 247 with AST at 25. Hepatitis serologies were performed and are all negative. Patient did go for a liver ultrasound 01/07 demonstrating normal in size and echotexture she is currently status post cholecystectomy some evidence of intra- and extrahepatic biliary ductal dilatation similar to that in 2013 and likely related to remote cystectomy. Otherwise the patient is asymptomatic for any symptoms of the liver pathology. -Continue to follow clinically nothing on clinical examination -Elevation ALT appears to be resolving improved from 155 on 01/10 to 95 today, TB elevated at 1.9 today -Consider outpatient GI referral #Elev facility administrator Resolved likely was prerenal given decreased PO intake from somnolence T2DM (hyperglycemia secondary to steroids) -hold home PO meds, catrina given elev facility administrator -ISS, BSG ACHS -glycemic consult placed FEN/GI: heart healthy/t2dm diet DVT ppx: lovenox 30mg q24h CODE STATUS: FULL however does not want prolonged intubation DISPO: pending clinical improvement and rehab placement other ongoing medical problems: Anemia - stable -microcytic -history of the same -does not appear to be hemorrhagic, not on blood thinners only ASA -cont B12, would likely benefit from iron supplementation in outpatient setting GERD -continue pantoprazole, especially in someone with IPF given aspiration risks Supervising Physician Co-Signing Physician Notes Attending attestation Pt seen and examined in concert with Dr. Russell. In agreement with the documented findings as noted in the resident documentation with any exceptions or additions as noted here. Pt states improved RUQ pain well controlled w/ tylenol. Resolution of CHRIS/neck pain as well. On examination, S1/S2 nl. Decreased breathsounds but improved from previous. Abdominal pain of RUQ with palpable mass stable from previous. Idiopathic lung disease in the setting of asthma - pulmonology consultation appreciated - duonebs and IV methylprednisolone with O2 wean as tolerated. CT chest per pulmonology recommendation. RUQ hematoma/seroma - reviewed pain mgmt goals with family at bedside. APAP --> tramadol --> morphine 2mg IV with close monitoring. Recent family loss 2/2 morphine overdose in hospital setting. Reviewed case with family - PT recommendation was 24 hour care v. inpatient rehabilitation. Based on frailty and propensity to fall and not seek help, recommended rehabilitation. Family is in agreement and would like to d/w case mgmt. Patient was previously cared for at [facility]. Else see resident documentation as noted. Subjective Patient reports occasional abdominal pain this morning. Some shortness of breath reported as well. Denied any chest pain, dizziness, headache, nausea, vomiting, dysuria, hematuria Review of Systems Review of Systems: As per HPI Physical Exam Physical Exam: General: In NAD, seated in chair when evaluated this AM and enjoying breakfast Neuro: A&O x 4 Pulm: Crackles appreciated over bibasilar and mid posterior R and L lung mitchell, improved aeration CV: RRR, no m/r/g Abdomen:+BS, TTP over right upper quadrant, non-distended LE: 1-2+ bilateral LE edema Results & Data Vital Signs (Past 12 Hours) Vital Signs Temp Pulse Pulse Resp BP Pulse Ox 01/12/19 11:18 36.7 C 89 20 165/90 H 93 01/12/19 08:00 72 01/12/19 07:35 36.5 C 89 20 178/85 H 93 01/12/19 07:05 71 18 94 01/12/19 04:59 87 168/78 H 01/12/19 04:00 36.4 C L 80 22 175/79 H 92 01/12/19 01:44 74 20 93 Laboratory Results Abnormal lab results 01/11/19 01/11/19 01/12/19 Range/Units 14:11 20:31 06:57 Sodium 125 L 125 L (136-145) mmol/L Potassium 5.3 H 5.5 H (3.5-5.1) mmol/L Chloride 92 L 91 L (98-107) mmol/L BUN 33 H 32 H (7-18) mg/dl BUN/Creatinine Ratio 28.1 H 33.3 H (10-20) Glucose 104 H (70-99) mg/dl POC Glucose 108 H (70-99) Calcium 7.9 L 8.2 L (8.5-10.1) mg/dl Total Bilirubin 1.9 H (0.2-1) mg/dl ALT 95 H (12-78) U/L NT-Pro-B Natriuret Pep (0-1800) pg/ml Total Protein 5.9 L (6.4-8.2) gm/dl Albumin 3.3 L (3.4-5.0) gm/dl 01/12/19 01/12/19 Range/Units 06:57 11:44 Sodium (136-145) mmol/L Potassium (3.5-5.1) mmol/L Chloride (98-107) mmol/L BUN (7-18) mg/dl BUN/Creatinine Ratio (10-20) Glucose (70-99) mg/dl POC Glucose 141 H (70-99) Calcium (8.5-10.1) mg/dl Total Bilirubin (0.2-1) mg/dl ALT (12-78) U/L NT-Pro-B Natriuret Pep 5614 H (0-1800) pg/ml Total Protein (6.4-8.2) gm/dl Albumin (3.4-5.0) gm/dl Medications Administered Current Inpatient Medications Acetaminophen (Tylenol) 500 mg PO Q4H PRN PRN Reason: Pain Stop: 02/09/19 18:10 Last Admin: 01/11/19 04:32 Dose: 500 mg Documented by: Al Hydrox/Mg Hydrox/Simethicone (Maalox) 15 ml PO QID SONIDO Stop: 02/09/19 12:59 Last Admin: 01/12/19 12:28 Dose: 15 ml Documented by: Artificial Tears (Artificial Tears) 1 drops OP BID PRN PRN Reason: dry eyes Stop: 02/06/19 00:44 Aspirin (Ecotrin Ectab) 81 mg PO DAILY SONIDO Stop: 02/06/19 08:59 Last Admin: 01/12/19 08:50 Dose: 81 mg Documented by: Atorvastatin Calcium (Lipitor) 20 mg PO HS SONIDO Stop: 02/06/19 20:59 Last Admin: 01/11/19 20:44 Dose: 20 mg Documented by: Cyanocobalamin (Vitamin B-12) 1,000 mcg PO DAILY SONIDO Stop: 02/06/19 08:59 Last Admin: 01/12/19 08:50 Dose: 1,000 mcg Documented by: Dextrose (Dextrose 50%) 25 - 50 ml IV UD PRN; Protocol PRN Reason: Hypoglycemia Protocol Stop: 02/06/19 00:04 Docusate Sodium (Colace) 100 mg PO BID SONIDO Stop: 02/11/19 11:59 Enoxaparin Sodium (Lovenox) 30 mg SQ Q24H SONIDO Stop: 02/06/19 07:59 Last Admin: 01/12/19 08:52 Dose: 30 mg Documented by: Glucagon (Glucagen) 1 mg SQ UD PRN; Protocol PRN Reason: Hypoglycemia Protocol Stop: 02/06/19 00:04 Glucose (Dex4 Glucose) 4 - 8 tabs PO UD PRN; Protocol PRN Reason: Hypoglycemia Protocol Stop: 02/06/19 00:04 Glucose (Glucose 40%) 15 - 30 gm PO UD PRN; Protocol PRN Reason: Hypoglycemia Protocol Stop: 02/06/19 00:04 Methylprednisolone 20 mg/ (Syringe) 0.32 mls @ 1.5 mls/min IV BID [facility] Stop: 02/09/19 20:59 Last Admin: 01/12/19 08:54 Dose: 1.5 mls/min Documented by: Insulin Aspart (Novolog Flexpen) 0 units SC ACHS [facility] Stop: 02/09/19 00:29 Last Admin: 01/12/19 12:27 Dose: 2 units Documented by: Insulin Glargine (Lantus Solostar Pen) 8 units SC BID [facility]; Protocol Stop: 02/10/19 20:59 Last Admin: 01/12/19 08:55 Dose: 8 units Documented by: Ipratropium O[place]ood (Atrovent 0.02% 0.5mg/2.5ml) 0.5 mg INH Q6R [facility] Stop: 02/10/19 11:14 Last Admin: 01/12/19 07:03 Dose: 0.5 mg Documented by: Levalbuterol HCl (Xopenex 0.63 Mg/3 Ml Neb) 0.63 mg NEB Q6R SONIDO Stop: 02/10/19 11:14 Last Admin: 01/12/19 07:03 Dose: 0.63 mg Documented by: Magnesium Hydroxide (Milk Of Magnesia) 30 ml PO Q12H PRN PRN Reason: Constipation Stop: 02/06/19 00:04 Last Admin: 01/12/19 10:54 Dose: 30 ml Documented by: Miscellaneous (Carbohydrates For Hypoglycemia) 15 - 30 gm PO UD PRN PRN Reason: Hypoglycemia Treatment Stop: 02/06/19 00:04 Miscellaneous Information (Consult Glycemic Management Pharmacy) 1 ea N/A UD PRN PRN Reason: Consult Stop: 02/06/19 18:13 Morphine Sulfate (Morphine Sulfate) 2 mg IV Q6H PRN PRN Reason: Pain Stop: 08/03/19 13:40 Multivitamins/Minerals (Caltrate Plus) 1 tab PO BID [facility] Stop: 02/06/19 08:59 Last Admin: 01/12/19 08:52 Dose: 1 tab Documented by: Nystatin (Mycostatin) 5 ml PO QID [facility] Stop: 01/21/19 12:59 Last Admin: 01/12/19 12:29 Dose: 5 ml Documented by: Ondansetron HCl (Zofran) 4 mg IV Q6H PRN PRN Reason: Nausea Stop: 02/06/19 00:04 Pantoprazole Sodium (Protonix) 40 mg PO BID@0700,1900 [facility] Stop: 02/09/19 12:14 Last Admin: 01/12/19 05:52 Dose: 40 mg Documented by: Polyethylene Glycol (Miralax Powder Packet) 17 gm PO DAILY PRN PRN Reason: Constipation Stop: 02/06/19 00:04 Polyethylene Glycol (Miralax Powder Packet) 17 gm PO DAILY [facility] Stop: 02/08/19 11:29 Last Admin: 01/12/19 08:54 Dose: 17 gm Documented by: Sucralfate (Carafate) 1 gm PO ACHS [facility] Stop: 02/09/19 16:29 Last Admin: 01/12/19 11:51 Dose: 1 gm Documented by: Verapamil HCl (Calan Sr) 180 mg PO QAM [facility] Stop: 02/10/19 08:59 Last Admin: 01/12/19 08:50 Dose: 180 mg Documented by: PG Care Time/CCT Total # of Minutes Spent Total Time Spent with Patient: Total time spent is greater than 50% in coordination of care (as documented) at patient's floor/unit and/or counseling patient: Resident Activity Tracking Resident Involvement: Resident Care Provided Care Provided: Adult Hospital Medicine
[2019-01-12] MEDS: DOCUSATE SODIUM 100 MG CAP PO SCH ×2 (13:44→21:43)
[2019-01-12] MEDS: ATORVASTATIN 20 MG TAB PO SCH (21:44)
--- NOTE | 2019-01-13 01:05 | Progress Note ---
Date of Service January 13, 2019 Subjective Alerted by nursing that pt's abdomen appeared to have increased bruising when compared to yesterday. Concern for increased bruising. I went and assessed patient. She was somnolent but arousable. AFVSS PE GEN: somnolent but arousable HENT: symmetric facial movements, no JVD RESP: CTAB CV: RRR, +systolic murmur 3/6 ABD: with patchy dependent ecchymosis on bilateral trunk with edema in abdomen 2+ down to mid thigh. LE: no palpable edema A/P: Concern for worsening ecchymosis of the abdomen, transaminitis (improving). Brief chart review: -Stable hemoglobin. No known h/o abdominal trauma (pt is here due to respiratory distress) -not clinically consistent with pancreatitis (celia sign) but will add lipase to am labs for completeness sake -known hematoma visualized on US imaging of abdomen. Pancreas not visualized due to overlying fat. Plan: -am labs as above -nonurgent CT Abd/pelv with con ordered -Day team to consider holding DVT ppx in light of worsening hematoma / follow clinically for cellulitic changes Nick Valentine MD PGY3 F[facility] Resident Results & Data Vital Signs (Past 12 Hours) Vital Signs Temp Pulse Pulse Resp BP Pulse Ox 01/13/19 00:27 80 01/13/19 00:00 37.1 C 82 18 146/61 H 93 01/12/19 20:00 36.4 C L 78 20 131/63 91 01/12/19 19:39 81 16 97 01/12/19 19:33 77 01/12/19 15:31 36.4 C L 63 18 101/69 94 01/12/19 14:20 76 18 92 01/12/19 14:17 73 26 H 90/54 L 80 L Resident Activity Tracking Resident Involvement: Resident Care Provided Care Provided: Adult Hospital Medicine
[2019-01-13] MEDS: IPRATROPIUM BROMIDE NEB SOLN 0.02% 2.5 ML VIAL INH SCH ×5 (01:42→19:23)
[2019-01-13] MEDS: LEVALBUTEROL HCL 0.63 MG/3 ML NEB NEB SCH ×5 (01:42→19:23)
[2019-01-13] MEDS: PANTOprazole 40 MG TAB PO SCH ×2 (06:10→19:32)
[2019-01-13 06:55] LABS: Basophils # (auto) 0.01 K/uL (0-0.2); Basophils % (auto) 0.1 %; Hematocrit (blood only) 31.2 % (37-47); Immature Granulocytes # (auto) 0.05 K/uL (0.00-0.02); Immature Granulocytes % (auto) 0.5 %; Lymphocytes # (auto) 0.41 K/uL (1.2-3.4); Lymphocytes % (auto) 3.9 %; Mean Corpuscular Hgb Conc 32.1 g/dL (32-36); Mean Platelet Volume 9.2 fL (7.4-10.4); Monocytes # (auto) 0.46 K/uL (0.11-0.59); Monocytes % (auto) 4.3 %; Neutrophils # (auto) 9.66 K/uL (1.4-6.5); Neutrophils % (auto) 91.2 %; Nucleated RBC # (auto) 0.05 K/uL (0-0); Nucleated RBC % (auto) 0.5 %; Platelet Count 235 K/uL (130-400); RDW Coefficient of Variation 17.1 % (11.5-14.5); RDW Standard Deviation 49.2 fL (36.4-46.3); Red Blood Count 3.95 M/uL (4.2-5.4); White Blood Count 10.59 K/uL (4.8-10.8)
--- NOTE | 2019-01-13 07:12 | Family Medicine Progress Note ---
Date of Service January 13, 2019 Assessment & Plan (1) Acute and chronic respiratory failure ([id number]): 83F with known h/o IPF here with worsening dyspnea x 2 weeks after being off her medications. Respiratory symptoms likely from progressive IPF vs. diastolic HF. Na remains low at 125 based on work up concern for SIADH. Also having RUQ and found to have hematoma/seroma likely from previous fall given hx of multiple falls at home. Dyspnea Likely Idiopathic pulmonary fibrosis, acute exacerbation vs. diastolic HF h/o known pulmonary fibrosis, last PFT October 2017 showed normal spirometry with severely reduced DLCO (43% expected). Follows with Dr. Dobbs. Admitting resident had lengthy discussion with delbert at bedside, apparently pt admits to being noncompliant with inhalers for 3 weeks. hypoxic in the PCP office [employer] to 70s, 80s on room air in ED, improved with nasal cannula Delbert Ruiz insisted that she take her meds, and has done so for the past week.did discuss palliative consult seeing as her pulm fibrosis is not curable and likely will continue to progress. Niece enthusiastic about "any help" she can get. Palliative care was consulted see associated documentation. Niece will be her power of visual associate, patient wants to be full code however no prolonged intubation, patient is aware of her current prognosis -Continue with oxygen support -Failed to step will require oxygen at home -has denied home oxygen in the past Pulmonology consulted -DC home Flovent and albuterol inhalers as patient noncompliant with inhalers -Started on levalbuterol 0.63/ipratropium nebs 4 times daily (discharge on as well) -Once candidiasis improves will start on budesonide 0.5 mg daily nebs as well (discharge on as well) -Continue methyl Pred 20 mg IV twice daily for now, no prednisone as patient did not tolerate this secondary to gastric pain -Chest CT recommended IMPRESSION: 1. Moderately extensive coronary artery calcifications, Bilateral pleural effusions. An element of congestive failure/fluid overload is likely present, Bilateral lower lung zone airspace opacities atelectasis versus pneumonia, Ascites, Generalized body wall edema, Elevation right hemidiaphragm -Recommended outpatient rehab given frequent falls and deconditioning -Patient reports symptomatic improvement. -Would refrain from Lasix secondary to hyponatremia -CT concerning for pulmonary edema. However does not correlate with clinical exam findings, I am concerned the damage from pulmonary fibrosis is being read as edema #Multifocal atrial tachycardia - resolved EKG demonstratied multifocal atrial tachycardia, which likely also caused detectable troponins, elevated heart rate and blood pressure. Beta-blockers and verapamil recommended for treatment and prophylaxis. Given her pulmonary fibrosis we elected to avoid beta-blockers to avoid of pulmonary side effects. Patient was started on verapamil 40 mg twice daily and tolerated it well. However she did not demonstrate an adequate response with blood pressure pulse. Troponin peaked at 0.066 and downtrending, to 0.05 likely demand ischemia from multifocal atrial tachycardia. 01/09 Echo demonstrates mild concentric LVH, normal LV systolic function, flattened septum consistent with RV pressure overload, RV moderate dilation, RA moderate dilation, aortic valve sclerosis without significant stenosis, annular calcification, tricuspid regurg, RV systolic pressure 30 to 40 mm mercury -Transitioned to Verapamil 180mg long-acting daily -Patient still intermittently becoming tachycardic and hypertensive, this mainly occurs at night and I think is related to the half-life of the medication. -Change dose to 90 mg long-acting verapamil twice daily -cont home ASA #RUQ pain Previous GI ulcer history. Patient also complaining of a mass in the right upper quadrant and ultrasound was performed Findings most consistent with and intramuscular hematoma or evolving seroma, "intramuscular collection measuring 3.4 x 1.7 x 2.8 cm is present". In the early hours of 01/13 nighttime resident was paged the patient's room to assess bilateral flank ecchymosis. CT abdomen pelvis was ordered the following morning. CT demonstrated no evidence of bowel obstruction stable intra-and extrahepatic biliary ductal dilatation in a patient status post cholecystectomy, fecal retention, extensive diverticulosis with ryder-diverticular muscular hypertrophy, no evidence of acute diverticulitis, cardiomegaly, bilateral pleural effusions right greater than left, bilateral lower lung zone airspace opacities, moderately extensive generalized body wall edema, bilateral sacral insufficiency fractures. - on sucralfate, pantoprazole twice daily, and Maalox. - On 500 mg Tylenol PRN, and morphine 2mg Q6H PRN - patient's family agreed to try morphine despite initial hesitance given patient pain level -Given her most recent CT scan I think the majority of the patient's issues stem from constipation -MiraLAX and Colace twice daily -Consider Fleet enema #Hyponatremia according to PCP charts, this is acute on chronic exacerbation. Likely SIADH -Serum osm 275, Urine Osm 610 and Na 96 -Given a dose of Lasix 20mg IV x 1 for increased dyspea and hypervolemia as discussed above -Continue to monitor BMP -Given this is chronic in nature, and appears to be stable will not aggressively treat a number #Constipation Patient CT scan from 01/13 demonstrate significant stool burden, I am concerned that the majority of the patient's lingering symptoms are related to her bowels. -bowel regimen ordered: colace 100mg BID and miralax 17g BID -102 g of miralax provided, if no BM by tomorrow will consider milk/molassass enema #Transaminitis Patient's CMP on admission is remarkable for elevated LFTs specifically ALT to 247 with AST at 25. Hepatitis serologies were performed and are all negative. Patient did go for a liver ultrasound 01/07 demonstrating normal in size and echotexture she is currently status post cholecystectomy some evidence of intra- and extrahepatic biliary ductal dilatation similar to that in 2012 and likely related to remote cystectomy. Otherwise the patient is asymptomatic for any sym ptoms of the liver pathology. 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) -hold home PO meds, catrina given elev floor clerk -ISS, BSG ACHS -glycemic consult placed FEN/GI: heart healthy/t2dm diet DVT ppx: lovenox 30mg q24h CODE STATUS: FULL however does not want prolonged intubation DISPO: pending clinical improvement and rehab placement other ongoing medical problems: Anemia - stable -microcytic -history of the same -does not appear to be hemorrhagic, not on blood thinners only ASA -cont B12, would likely benefit from iron supplementation in outpatient setting GERD -continue pantoprazole, especially in someone with IPF given aspiration risks Supervising Physician Co-Signing Physician Notes I personally examined the patient and verified all kincaid points of history and exam, discussed case, and agree with decision making with Dr Bradshaw. Feeling about the same, ongoing shortness of breath unchanged ongoing abdominal pain diffusely. Vitals noted, in general she is awake and alert pleasant fatigued appearing but no distress. HEENT normocephalic atraumatic mucous membranes moist. Breathing unlabored no accessory muscle use good effort. Pulmonary fibrosiscontinue oxygen and supportive care. Outlined progressive nature of disease for patient and family Abdominal painsevere constipationbowel regimen. Diabetessee above DVT prophylaxisLovenox Subjective Patient seen and evaluated this morning lying in bed in no acute distress of the pain members at the bedside. Patient does not report any significant interval history overnight. Reports her lung function is slowly but surely improving, she still endorses diffuse, right upper quadrant abdominal pain. Patient goes through waxing and waning periods of somnolence usually exacerbated by exercise. I think this is due to profound deconditioning from months potentially years of essentially no movement. Per discussion with patient's family they would like acute rehab on discharge. Patient is voiding, tolerating her diet, sleeping. Patient has not had a bowel movement in approximately 1 week. All questions answered no acute concerns. The nighttime resident was contacted is significant bilateral flank ecchymosis were present on the patient. I examined the patient this morning and noticed the bilateral ecchymosis as well, patient is any fevers, chills, or other associated symptoms. Does not remember any injuries to the area. I will check with nursing to see where they are injecting the Lovenox and correlate with her presentation clinically. Physical Exam Physical Exam: General: No acute distress HEENT: Normocephalic atraumatic Neck: Trachea midline, did not appreciate significant JVD Cardiac: Regular rate and rhythm, I did not appreciate any murmurs rubs or gallops, normal S1, calf tenderness Respiratory: Coarse breath sounds bilaterally, intermittent wheezes present, rhonchi present clear with coughing GI: Right upper quadrant tenderness, nondistended, soft, normal bowel sounds MSK: Moves all extremities Skin: Bilateral ecchymosis on her flank, diffuse ecchymosis throughout her body likely secondary to aging Neuro: Alert and oriented Psych: Cooperative Results & Data Vital Signs (Past 12 Hours) Vital Signs Temp Pulse Pulse Resp BP Pulse Ox 01/13/19 04:00 36.4 C L 88 18 171/79 H 100 01/13/19 00:27 80 01/13/19 00:00 37.1 C 82 18 146/61 H 93 01/12/19 20:00 36.4 C L 78 20 131/63 91 01/12/19 19:39 81 16 97 01/12/19 19:33 77 Laboratory Results 01/13/19 01/13/19 01/13/19 Range/Units 11:28 11:02 08:04 WBC (4.8-10.8) K/uL RBC (4.2-5.4) M/uL Hgb (12.0-16.0) g/dL Hct (37-47) % MCV (80-100) fL MCH (25-34) pg MCHC (32-36) g/dL RDW Std Deviation (36.4-46.3) fL RDW Coeff of Alexa (11.5-14.5) % Plt Count (130-400) K/uL MPV (7.4-10.4) fL Immature Gran % (Auto) % Neut % (Auto) % Lymph % (Auto) % [place] % (Auto) % Eos % (Auto) % Baso % (Auto) % Immature Gran # (Auto) (0.00-0.02) K/uL Neut # (Auto) (1.4-6.5) K/uL Lymph # (Auto) (1.2-3.4) K/uL [place] # (Auto) (0.11-0.59) K/uL Eos # (Auto) (0-0.5) K/uL Baso # (Auto) (0-0.2) K/uL Absolute Nucleated RBC (0-0) K/uL Nucleated RBC % (auto) % Sodium (136-145) mmol/L Potassium (3.5-5.1) mmol/L Chloride (98-107) mmol/L Carbon Dioxide (21-32) mmol/L Anion Gap (3-11) BUN (7-18) mg/dl Creatinine (0.6-1.2) mg/dl Est Cr Clr Drug Dosing ml/min Est GFR ( Amer) Est GFR (Non-Af Amer) BUN/Creatinine Ratio (10-20) Glucose (70-99) mg/dl POC Glucose 131 H 72 (70-99) Calcium (8.5-10.1) mg/dl Total Bilirubin (0.2-1) mg/dl AST (15-37) U/L ALT (12-78) U/L Alkaline Phosphatase (45-117) U/L Total Protein (6.4-8.2) gm/dl Albumin (3.4-5.0) gm/dl Globulin (2.5-4.0) gm/dl Albumin/Globulin Ratio (0.9-2) Lipase (73-393) U/L Procalcitonin 0.12 (0-0.5) ng/ml 01/13/19 01/13/19 01/13/19 Range/Units 07:40 07:38 06:26 WBC (4.8-10.8) K/uL RBC (4.2-5.4) M/uL Hgb (12.0-16.0) g/dL Hct (37-47) % MCV (80-100) fL MCH (25-34) pg MCHC (32-36) g/dL RDW Std Deviation (36.4-46.3) fL RDW Coeff of Alexa (11.5-14.5) % Plt Count (130-400) K/uL MPV (7.4-10.4) fL Immature Gran % (Auto) % Neut % (Auto) % Lymph % (Auto) % [place] % (Auto) % Eos % (Auto) % Baso % (Auto) % Immature Gran # (Auto) (0.00-0.02) K/uL Neut # (Auto) (1.4-6.5) K/uL Lymph # (Auto) (1.2-3.4) K/uL [place] # (Auto) (0.11-0.59) K/uL Eos # (Auto) (0-0.5) K/uL Baso # (Auto) (0-0.2) K/uL Absolute Nucleated RBC (0-0) K/uL Nucleated RBC % (auto) % Sodium 127 L (136-145) mmol/L Potassium 4.7 (3.5-5.1) mmol/L Chloride 87 L (98-107) mmol/L Carbon Dioxide 33 H (21-32) mmol/L Anion Gap 7.0 (3-11) BUN 28 H (7-18) mg/dl Creatinine 0.91 (0.6-1.2) mg/dl Est Cr Clr Drug Dosing 32.1 ml/min Est GFR ( Amer) 67.6 Est GFR (Non-Af Amer) 58.3 BUN/Creatinine Ratio 31.4 H (10-20) Glucose 57 L (70-99) mg/dl POC Glucose 61 L* 60 L* (70-99) Calcium 7.8 L (8.5-10.1) mg/dl Total Bilirubin 1.8 H (0.2-1) mg/dl AST 20 (15-37) U/L ALT 83 H (12-78) U/L Alkaline Phosphatase 67 (45-117) U/L Total Protein 6.0 L (6.4-8.2) gm/dl Albumin 3.3 L (3.4-5.0) gm/dl Globulin 2.7 (2.5-4.0) gm/dl Albumin/Globulin Ratio 1.2 (0.9-2) Lipase 126 (73-393) U/L Procalcitonin (0-0.5) ng/ml 01/13/19 01/12/19 01/12/19 Range/Units 06:26 20:38 16:28 WBC 10.59 (4.8-10.8) K/uL RBC 3.95 L (4.2-5.4) M/uL Hgb 10.0 L (12.0-16.0) g/dL Hct 31.2 L (37-47) % MCV 79.0 L (80-100) fL MCH 25.3 (25-34) pg MCHC 32.1 (32-36) g/dL RDW Std Deviation 49.2 H (36.4-46.3) fL RDW Coeff of Alexa 17.1 H (11.5-14.5) % Plt Count 235 (130-400) K/uL MPV 9.2 (7.4-10.4) fL Immature Gran % (Auto) 0.5 % Neut % (Auto) 91.2 % Lymph % (Auto) 3.9 % [place] % (Auto) 4.3 % Eos % (Auto) 0.0 % Baso % (Auto) 0.1 % Immature Gran # (Auto) 0.05 H (0.00-0.02) K/uL Neut # (Auto) 9.66 H (1.4-6.5) K/uL Lymph # (Auto) 0.41 L (1.2-3.4) K/uL [place] # (Auto) 0.46 (0.11-0.59) K/uL Eos # (Auto) 0.00 (0-0.5) K/uL Baso # (Auto) 0.01 (0-0.2) K/uL Absolute Nucleated RBC 0.05 H (0-0) K/uL Nucleated RBC % (auto) 0.5 % Sodium (136-145) mmol/L Potassium (3.5-5.1) mmol/L Chloride (98-107) mmol/L Carbon Dioxide (21-32) mmol/L Anion Gap (3-11) BUN (7-18) mg/dl Creatinine (0.6-1.2) mg/dl Est Cr Clr Drug Dosing ml/min Est GFR ( Amer) Est GFR (Non-Af Amer) BUN/Creatinine Ratio (10-20) Glucose (70-99) mg/dl POC Glucose 197 H 232 H (70-99) Calcium (8.5-10.1) mg/dl Total Bilirubin (0.2-1) mg/dl AST (15-37) U/L ALT (12-78) U/L Alkaline Phosphatase (45-117) U/L Total Protein (6.4-8.2) gm/dl Albumin (3.4-5.0) gm/dl Globulin (2.5-4.0) gm/dl Albumin/Globulin Ratio (0.9-2) Lipase (73-393) U/L Procalcitonin (0-0.5) ng/ml 01/12/19 Range/Units 14:13 WBC (4.8-10.8) K/uL RBC (4.2-5.4) M/uL Hgb (12.0-16.0) g/dL Hct (37-47) % MCV (80-100) fL MCH (25-34) pg MCHC (32-36) g/dL RDW Std Deviation (36.4-46.3) fL RDW Coeff of Alexa (11.5-14.5) % Plt Count (130-400) K/uL MPV (7.4-10.4) fL Immature Gran % (Auto) % Neut % (Auto) % Lymph % (Auto) % [place] % (Auto) % Eos % (Auto) % Baso % (Auto) % Immature Gran # (Auto) (0.00-0.02) K/uL Neut # (Auto) (1.4-6.5) K/uL Lymph # (Auto) (1.2-3.4) K/uL [place] # (Auto) (0.11-0.59) K/uL Eos # (Auto) (0-0.5) K/uL Baso # (Auto) (0-0.2) K/uL Absolute Nucleated RBC (0-0) K/uL Nucleated RBC % (auto) % Sodium (136-145) mmol/L Potassium (3.5-5.1) mmol/L Chloride (98-107) mmol/L Carbon Dioxide (21-32) mmol/L Anion Gap (3-11) BUN (7-18) mg/dl Creatinine (0.6-1.2) mg/dl Est Cr Clr Drug Dosing ml/min Est GFR ( Amer) Est GFR (Non-Af Amer) BUN/Creatinine Ratio (10-20) Glucose (70-99) mg/dl POC Glucose 286 H (70-99) Calcium (8.5-10.1) mg/dl Total Bilirubin (0.2-1) mg/dl AST (15-37) U/L ALT (12-78) U/L Alkaline Phosphatase (45-117) U/L Total Protein (6.4-8.2) gm/dl Albumin (3.4-5.0) gm/dl Globulin (2.5-4.0) gm/dl Albumin/Globulin Ratio (0.9-2) Lipase (73-393) U/L Procalcitonin (0-0.5) ng/ml Medications Administered Current Inpatient Medications Acetaminophen (Tylenol) 500 mg PO Q4H PRN PRN Reason: Pain Stop: 02/09/19 18:10 Last Admin: 01/11/19 04:32 Dose: 500 mg Documented by: Al Hydrox/Mg Hydrox/Simethicone (Maalox) 15 ml PO QID SONIDO Stop: 02/09/19 12:59 Last Admin: 01/13/19 12:17 Dose: 15 ml Documented by: Artificial Tears (Artificial Tears) 1 drops OP BID PRN PRN Reason: dry eyes Stop: 02/06/19 00:44 Aspirin (Ecotrin Ectab) 81 mg PO DAILY SONIDO Stop: 02/06/19 08:59 Last Admin: 01/13/19 08:07 Dose: 81 mg Documented by: Atorvastatin Calcium (Lipitor) 20 mg PO HS SONIDO Stop: 02/06/19 20:59 Last Admin: 01/12/19 21:44 Dose: 20 mg Documented by: Cyanocobalamin (Vitamin B-12) 1,000 mcg PO DAILY SONIDO Stop: 02/06/19 08:59 Last Admin: 01/13/19 08:06 Dose: 1,000 mcg Documented by: Dextrose (Dextrose 50%) 25 - 50 ml IV UD PRN; Protocol PRN Reason: Hypoglycemia Protocol Stop: 02/06/19 00:04 Docusate Sodium (Colace) 100 mg PO BID SONIDO Stop: 02/11/19 11:59 Last Admin: 01/13/19 08:07 Dose: 100 mg Documented by: Enoxaparin Sodium (Lovenox) 30 mg SQ Q24H SONIDO Stop: 02/06/19 07:59 Last Admin: 01/13/19 08:08 Dose: Not Given Documented by: Glucagon (Glucagen) 1 mg SQ UD PRN; Protocol PRN Reason: Hypoglycemia Protocol Stop: 02/06/19 00:04 Glucose (Dex4 Glucose) 4 - 8 tabs PO UD PRN; Protocol PRN Reason: Hypoglycemia Protocol Stop: 02/06/19 00:04 Glucose (Glucose 40%) 15 - 30 gm PO UD PRN; Protocol PRN Reason: Hypoglycemia Protocol Stop: 02/06/19 00:04 Methylprednisolone 20 mg/ (Syringe) 0.32 mls @ 1.5 mls/min IV BID SONIDO Stop: 02/09/19 20:59 Last Admin: 01/13/19 08:05 Dose: 1.5 mls/min Documented by: Insulin Aspart (Novolog Flexpen) 0 units SC ACHS SONIDO Stop: 02/09/19 00:29 Last Admin: 01/13/19 12:16 Dose: 6 units Documented by: Insulin Glargine (Lantus Solostar Pen) 0 units SC BID SONIDO; Protocol Stop: 02/10/19 20:59 Ioversol (Optiray 320 100ml) 94 ml IV ONCE PRN PRN Reason: Interaction Checking Stop: 01/17/19 10:08 Last Admin: 01/13/19 10:09 Dose: 94 ml Documented by: Ipratropium [place] (Atrovent 0.02% 0.5mg/2.5ml) 0.5 mg INH Q6R [facility] Stop: 02/10/19 11:14 Last Admin: 01/13/19 07:11 Dose: 0.5 mg Documented by: Levalbuterol HCl (Xopenex 0.63 Mg/3 Ml Neb) 0.63 mg NEB Q6R SONIDO Stop: 02/10/19 11:14 Last Admin: 01/13/19 07:11 Dose: 0.63 mg Documented by: Magnesium Hydroxide (Milk Of Magnesia) 30 ml PO Q12H PRN PRN Reason: Constipation Stop: 02/06/19 00:04 Last Admin: 01/12/19 10:54 Dose: 30 ml Documented by: Miscellaneous (Carbohydrates For Hypoglycemia) 15 - 30 gm PO UD PRN PRN Reason: Hypoglycemia Treatment Stop: 02/06/19 00:04 Last Admin: 01/13/19 07:50 Dose: 15 gm Documented by: Miscellaneous Information (Consult Glycemic Management Pharmacy) 1 ea N/A UD PRN PRN Reason: Consult Stop: 02/06/19 18:13 Morphine Sulfate (Morphine Sulfate) 2 mg IV Q6H PRN PRN Reason: Pain Stop: 01/25/19 13:40 Multivitamins/Minerals (Caltrate Plus) 1 tab PO BID [facility] Stop: 02/06/19 08:59 Last Admin: 01/13/19 08:07 Dose: 1 tab Documented by: Nystatin (Mycostatin) 5 ml PO QID [facility] Stop: 01/21/19 12:59 Last Admin: 01/13/19 12:17 Dose: 5 ml Documented by: Ondansetron HCl (Zofran) 4 mg IV Q6H PRN PRN Reason: Nausea Stop: 02/06/19 00:04 Pantoprazole Sodium (Protonix) 40 mg PO BID@0700,1900 [facility] Stop: 02/09/19 12:14 Last Admin: 01/13/19 06:10 Dose: 40 mg Documented by: Polyethylene Glycol (Miralax Powder Packet) 17 gm PO DAILY PRN PRN Reason: Constipation Stop: 02/06/19 00:04 Polyethylene Glycol (Miralax Powder Packet) 17 gm PO DAILY SONIDO Stop: 02/08/19 11:29 Last Admin: 01/13/19 08:10 Dose: 17 gm Documented by: Sucralfate (Carafate) 1 gm PO ACHS SONIDO Stop: 02/09/19 16:29 Last Admin: 01/13/19 11:28 Dose: Not Given Documented by: Verapamil HCl (Calan Sr) 90 mg PO BID SONIDO Stop: 02/12/19 08:59 Last Admin: 01/13/19 08:27 Dose: 90 mg Documented by: PG Care Time/CCT Total # of Minutes Spent Total Time Spent with Patient: Total time spent is greater than 50% in coordination of care (as documented) at patient's floor/unit and/or counseling patient: Resident Activity Tracking Resident Involvement: Resident Care Provided Care Provided: Adult Hospital Medicine
[2019-01-13 07:37] LABS: Albumin Level 3.3 gm/dl (3.4-5.0); BUN Creatinine Ratio 31.4 (10-20); Calcium 7.8 mg/dl (8.5-10.1); Creatinine Clr Calc Pharmacy 32.1 ml/min; Est GFR (African American) 67.6; Est GFR (Non-African American) 58.3; Potassium 4.7 mmol/L (3.5-5.1)
[2019-01-13 07:39] LABS: Albumin Globulin Ratio 1.2 (0.9-2); Bilirubin,Total 1.8 mg/dl (0.2-1); Globulin 2.7 gm/dl (2.5-4.0)
[2019-01-13] MEDS: SUCRALFATE 1 GM/10 ML UDC PO SCH ×4 (08:05→20:46)
[2019-01-13] MEDS: methylPREDNISolone 20 MG in SYRINGE 0 ML IV SCH ×2 (08:05→20:47)
[2019-01-13] MEDS: CYANOCOBALAMIN 500 MCG TABLET (VITAMIN B-12) PO SCH (08:06)
[2019-01-13] MEDS: ASPIRIN 81 MG ECTAB PO SCH (08:07)
[2019-01-13] MEDS: CALCIUM 600MG + VIT D 400 IU TAB PO SCH ×2 (08:07→20:45)
[2019-01-13] MEDS: DOCUSATE SODIUM 100 MG CAP PO SCH ×2 (08:07→20:47)
[2019-01-13] MEDS: ENOXAPARIN INJ 30 MG/0.3 ML SYR SQ SCH (08:08)
[2019-01-13] MEDS: ALUMINUM/MAGNESIUM SUSP 30 ML UDC PO SCH ×4 (08:09→20:46)
[2019-01-13] MEDS: NYSTATIN SUSP 500,000 U/5 ML UDC PO SCH ×4 (08:09→20:47)
[2019-01-13] MEDS: INSULIN GLARGINE SOLOSTAR 100 UNITS/ML 3 ML PEN SC SCH ×2 (08:10→20:45)
[2019-01-13] MEDS: POLYETHYLENE (MIRALAX) 17 GM PACK PO SCH (08:10)
[2019-01-13] MEDS: INSULIN ASPART 100 UNITS/ML 3 ML PEN SC SCH ×4 (08:12→20:45)
[2019-01-13] MEDS: VERAPAMIL HCL 180 MG TABCR PO SCH ×2 (08:27→20:48)
[2019-01-13] MEDS ORDERED: IOVERSOL 100ml IV PRN (10:09)
--- NOTE | 2019-01-13 10:32 | CT Scan Report ---
CT abd pelvis IV con only CLINICAL HISTORY: abdominal pain COMPARISON STUDY: 02/27/2013 TECHNIQUE: The patient was scanned in a dynamic helical fashion during intravenous administration of 94 cc of Optiray 320 A dose lowering technique was utilized adhering to the principles of ALARA. CT DOSE: 329.30 mGy.cm FINDINGS: Lower chest: The heart is enlarged. There are coronary artery calcifications. There is a moderate rig ht pleural effusion and trace left pleural effusion. There are bilateral lower lung airspace opacitie s, pneumonia versus edema versus atelectasis. Liver: No focal hepatic masses are visualized. There is mild intra and extrahepatic biliary ductal di latation similar to the prior study and likely related to a prior cholecystectomy. Gallbladder: Surgically absent Spleen: There is a relatively stable 13 mm hypodense splenic lesion Pancreas: Unremarkable. Adrenal glands: There is stable adrenal thickening, likely secondary to adenomatous hyperplasia Kidneys: There are no solid renal masses. There is no hydronephrosis. There is a 4 mm left renal cyst . Bowel: There are no transition zone to indicate bowel obstruction. There is extensive colonic diverti culosis. There is no evidence of acute diverticulitis. There is evidence for peridiverticular muscula r hypertrophy. There is moderate fecal retention with scattered colonic air-fluid levels. The appendi x is not visualized with certainty. There are no findings to indicate acute appendicitis. The cecum i s located within the midline. Peritoneum: There is no free air. There is trace perihepatic fluid Vasculature: There are diffuse atheromatous changes present. There is no evidence of abdominal aortic aneurysm. Adenopathy: None. Pelvic viscera: The uterus appears surgically absent. There is mild distention of the bladder. Skeletal structures: There is diffuse body wall edema. There is a thoracolumbar scoliosis. There is a n old superior endplate L1 compression fracture. There are moderate multilevel degenerative changes. There are bilateral sacral insufficiency fractures IMPRESSION: 1. No evidence of bowel obstruction. No evidence of free air 2. Stable intra and extrahepatic biliary ductal dilatation in a patient status post cholecystectomy 3. Fecal retention 4. Extensive diverticulosis with peridiverticular muscular hypertrophy. No convincing evidence of acu te diverticulitis 5. Cardiomegaly, coronary artery calcifications, and bilateral pleural effusions right greater than l eft. Bilateral low lung zone airspace opacities, pneumonia versus edema versus atelectasis 6. Moderately extensive generalized body wall edema 7. Bilateral sacral insufficiency fractures Electronically signed by: Torrey Mariano M.D. 01/13/2019 10:29 AM
--- NOTE | 2019-01-13 11:22 | Pharmacy Report ---
Pharmacy Glycemic Short Note 2 - Date of Service January 13, 2019 - Glycemic Short BSG Results (Last 24 hours): 01/12/19 01/12/19 01/12/19 11:44 14:13 16:28 Glucose POC Glucose 141 H 286 H 232 H 01/12/19 01/13/19 01/13/19 20:38 06:26 07:38 Glucose 57 L POC Glucose 197 H 60 L* 01/13/19 01/13/19 01/13/19 07:40 08:04 11:02 Glucose POC Glucose 61 L* 72 131 H OUTPATIENT ANTIDIABETIC REGIMEN: * Metformin 1g BIDM * Actos 45 mg QD * Januvia 100 mg daily * A1c 8.1% on 01/08/19 ASSESSMENT: Pt had low FBS this AM, likely attributable to HS lantus. She required 29 units of insulin yesterday. BSGs over the previous 24h: [id number]/dL. Solumedrol 20mg Q12 continues. PLAN FOR INPATIENT GLYCEMIC CONTROL: * Basal insulin - loosen * Lantus: hold lantus for BSGs <200, >/=200 give 8 units * Bolus insulin * NovoLog per scale ACHS or Q6hrs while NPO * Goal Range: Low 110 mg/dL - High 150 mg/dL * Correction Factor: 18 mg/dL/unit * Nutritional / Prandial insulin per carb ratio of 1 unit per 6 grams CHO consumed Discharge Recommendations: * A1c of 8.1% at/near goal for patient * D/w resident about potentially d/c'ing actos, given its BBW for HF. Will d/w attending.
[2019-01-13 14:16] LABS: Hematocrit (blood only) 29.1 % (37-47); Hemoglobin 9.4 g/dL (12.0-16.0)
[2019-01-13] MEDS ORDERED: POLYETHYLENE (MIRALAX) 17 GM PACK PO ONE (15:45)
[2019-01-13] MEDS: ACETAMINOPHEN 500 MG TAB PO PRN (16:22)
[2019-01-13 16:43] LABS: Appearance Urine Clear (Clear); Bacteria Urine Automated Negative (Negative); Bilirubin Urine Negative (Negative); Blood Urine Negative (Negative); Cast Urine Automated 0 /lpf (0-5); Color Urine Yellow; Epithelial Cell Urine Auto 20-30 /lpf (0-5); Glucose Urine UA Negative (Negative); Ketones Urine Negative (Negative); Leukocyte Esterase Urine Trace (Negative); Nitrite Urine Negative (Negative); Protein Urine Negative (Negative); RBC Urine Automated 0-4 /hpf (0-4); Specific Gravity Urine 1.019 (1.000-1.030); Urobilinogen Urine Negative (Negative); pH Urine 5.5 (4.5-7.5)
[2019-01-13] MEDS: ATORVASTATIN 20 MG TAB PO SCH (20:47)
[2019-01-14] MEDS: LEVALBUTEROL HCL 0.63 MG/3 ML NEB NEB SCH ×4 (02:00→20:03)
[2019-01-14] MEDS: IPRATROPIUM BROMIDE NEB SOLN 0.02% 2.5 ML VIAL INH SCH ×4 (02:01→20:03)
[2019-01-14] MEDS: PANTOprazole 40 MG TAB PO SCH ×2 (06:03→18:21)
[2019-01-14] MEDS: methylPREDNISolone 20 MG in SYRINGE 0 ML IV SCH ×2 (08:04→21:23)
[2019-01-14] MEDS: CALCIUM 600MG + VIT D 400 IU TAB PO SCH ×2 (08:05→21:23)
[2019-01-14] MEDS: VERAPAMIL HCL 180 MG TABCR PO SCH ×2 (08:05→21:36)
[2019-01-14] MEDS: ENOXAPARIN INJ 30 MG/0.3 ML SYR SQ SCH (08:06)
[2019-01-14] MEDS: CYANOCOBALAMIN 500 MCG TABLET (VITAMIN B-12) PO SCH (08:06)
[2019-01-14] MEDS: ASPIRIN 81 MG ECTAB PO SCH (08:07)
[2019-01-14] MEDS: DOCUSATE SODIUM 100 MG CAP PO SCH ×2 (08:07→21:24)
[2019-01-14] MEDS: SUCRALFATE 1 GM/10 ML UDC PO SCH ×4 (08:07→21:24)
[2019-01-14] MEDS: NYSTATIN SUSP 500,000 U/5 ML UDC PO SCH ×4 (08:08→21:36)
[2019-01-14] MEDS: ALUMINUM/MAGNESIUM SUSP 30 ML UDC PO SCH ×4 (08:08→21:24)
[2019-01-14] MEDS: POLYETHYLENE (MIRALAX) 17 GM PACK PO SCH (08:13)
[2019-01-14] MEDS: INSULIN ASPART 100 UNITS/ML 3 ML PEN SC SCH ×4 (08:13→21:23)
[2019-01-14] MEDS: INSULIN GLARGINE SOLOSTAR 100 UNITS/ML 3 ML PEN SC SCH ×2 (08:13→21:25)
--- NOTE | 2019-01-14 08:28 | Family Medicine Progress Note ---
Date of Service January 14, 2019 Assessment & Plan (1) Acute and chronic respiratory failure ([id number]): 83F with known h/o IPF here with worsening dyspnea x 2 weeks after being off her medications. Respiratory symptoms likely from progressive IPF vs. diastolic HF. Na remains low at 125 based on work up concern for SIADH. Also having RUQ and found to have hematoma/seroma likely from previous fall given hx of multiple falls at home. Dyspnea Likely Idiopathic pulmonary fibrosis, acute exacerbation vs. diastolic HF h/o known pulmonary fibrosis, last PFT October 2017 showed normal spirometry with severely reduced DLCO (43% expected). Follows with Dr. Dobbs. Admitting resident had lengthy discussion with delbert at bedside, apparently pt admits to being noncompliant with inhalers for 3 weeks. 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 Niece enthusiastic about "any help" she can get. Palliative care was consulted see associated documentation. Niece will be her power of retail solar advisor, patient wants to be full code however no prolonged intubation, patient is aware of her current prognosis -Continue with oxygen support -Failed to step will require oxygen at home -has denied home oxygen in the past Pulmonology consulted -DC home Flovent and albuterol inhalers as patient noncompliant with inhalers -Started on levalbuterol 0.63/ipratropium nebs 4 times daily (discharge on as well) -Once candidiasis improves will start on budesonide 0.5 mg daily nebs as well (discharge on as well) -Continue methyl Pred 20 mg IV twice daily for now, no prednisone as patient did not tolerate this secondary to gastric pain -Chest CT recommended IMPRESSION: 1. Moderately extensive coronary artery calcifications, Bilateral pleural effusions. An element of congestive failure/fluid overload is likely present, Bilateral lower lung zone airspace opacities atelectasis versus pneumonia, Ascites, Generalized body wall edema, Elevation right hemidiaphragm -Recommended outpatient rehab given frequent falls and deconditioning -Patient reports symptomatic improvement. -Would refrain from Lasix secondary to hyponatremia -CT concerning for pulmonary edema. However does not correlate with clinical exam findings, I am concerned the damage from pulmonary fibrosis is being read as edema #Multifocal atrial tachycardia - resolved EKG demonstratied multifocal atrial tachycardia, which likely also caused detectable troponins, elevated heart rate and blood pressure. Beta-blockers and verapamil recommended for treatment and prophylaxis. Given her pulmonary fibrosis we elected to avoid beta-blockers to avoid of pulmonary side effects. Patient was started on verapamil 40 mg twice daily and tolerated it well. However she did not demonstrate an adequate response with blood pressure pulse. Troponin peaked at 0.066 and downtrending, to 0.05 likely demand ischemia from multifocal atrial tachycardia. 01/09 Echo demonstrates mild concentric LVH, normal LV systolic function, flattened septum consistent with RV pressure overload, RV moderate dilation, RA moderate dilation, aortic valve sclerosis without significant stenosis, annular calcification, tricuspid regurg, RV systolic pressure 30 to 40 mm mercury -Transitioned to Verapamil 180mg long-acting daily -Patient still intermittently becoming tachycardic and hypertensive, this mainly occurs at night and I think is related to the half-life of the medication.will monitor blood pressure status post bowel movement to ensure hypertension is not constipation related, and titrate medication -Change dose to 90 mg long-acting verapamil twice daily -cont home ASA -morphine prn air hunger #RUQ pain Previous GI ulcer history. Patient also complaining of a mass in the right upper quadrant and ultrasound was performed Findings most consistent with and intramuscular hematoma or evolving seroma, "intramuscular collection measuring 3.4 x 1.7 x 2.8 cm is present". In the early hours of 01/13 nighttime resident was paged the patient's room to assess bilateral flank ecchymosis. CT abdomen pelvis was ordered the following morning. CT demonstrated no evidence of bowel obstruction stable intra-and extrahepatic biliary ductal dilatation in a patient status post cholecystectomy, fecal retention, extensive diverticulosis with ryder-diverticular muscular hypertrophy, no evidence of acute diverticulitis, cardiomegaly, bilateral pleural effusions right greater than left, bilateral lower lung zone airspace opacities, moderately extensive generalized body wall edema, bilateral sacral insufficiency fractures. - on sucralfate, pantoprazole twice daily, and Maalox. - On 500 mg Tylenol PRN, and morphine 2mg Q6H PRN - patient's family agreed to try morphine despite initial hesitance given patient pain level -Given her most recent CT scan I think the majority of the patient's issues stem from constipation #Constipation Patient CT scan from 01/13 demonstrate significant stool burden, I am concerned that the majority of the patient's lingering symptoms are related to her bowels. -bowel regimen ordered: colace 100mg BID and miralax 17g BID -S/p 102 g of miralax 01/13 -Status post milk/molasses enema on 01/14 #Hyponatremia according to PCP charts, this is acute on chronic exacerbation. Likely SIADH -Serum osm 275, Urine Osm 610 and Na 96 -Given a dose of Lasix 20mg IV x 1 for increased dyspea and hypervolemia as discussed above -Continue to monitor BMP -Given this is chronic in nature, and appears to be stable will not aggressively treat a number -Fluid restrictions 1500 mL -Salt tabs 1 g 3 times daily #Transaminitis Patient's CMP on admission is remarkable for elevated LFTs specifically ALT to 247 with AST at 25. Hepatitis serologies were performed and are all negative. Patient did go for a liver ultrasound 01/07 demonstrating normal in size and echotexture she is currently status post cholecystectomy some evidence of intra- and extrahepatic biliary ductal dilatation similar to that in 2012 and likely related to remote cystectomy. Otherwise the patient is asymptomatic for any symptoms of the liver pathology. Will defer to outpatient gastroenterology -Continue to follow clinically nothing on clinical examination -Elevation ALT continues to improve today 83 down from 155 on admit #T2DM (hyperglycemia secondary to steroids) -hold home PO meds, catrina given elev inker machine -ISS, BSG ACHS -glycemic consult placed #Elev inker machine Resolved likely was prerenal given decreased PO intake from somnolence FEN/GI: heart healthy/t2dm diet DVT ppx: lovenox 30mg q24h CODE STATUS: FULL however does not want prolonged intubation DISPO: pending clinical improvement and rehab placement other ongoing medical problems: Anemia - stable -microcytic -history of the same -does not appear to be hemorrhagic, not on blood thinners only ASA -cont B12, would likely benefit from iron supplementation in outpatient setting GERD -continue pantoprazole, especially in someone with IPF given aspiration risks Supervising Physician Co-Signing Physician Notes I personally examined the patient and verified all kincaid points of history and exam, discussed case, and agree with decision making with Dr Bradshaw. seen after BM and enema, sleeping comfortably Vitals noted, in general she is in no distress. HEENT normocephalic atraumatic mucous membranes moist. Breathing unlabored no accessory muscle use good effort. Pulmonary fibrosiscontinue oxygen and supportive care. await SNF Abdominal painsevere constipationbowel regimen - enema seems to have helped Diabetescontinue current care and follow DVT prophylaxisLovenox Dispo - SNF once available Subjective Patient sitting up in bed this morning in no acute distress. Patient reports respiratory symptoms alternate better at times worse at others. Current complaints are mainly related to abdominal previously she has not had a bowel movement. Currently she is status post 102 g of MiraLAX given at one time yesterday, I am hopeful that she will have a bowel movement today. If there is no bowel movement will consider milk and molasses enema this afternoon.once patient has a bowel she is considered medically stable and cleared for discharge to rehab Physical Exam Physical Exam: General: No acute distress HEENT: Normocephalic atraumatic Neck: Trachea midline, did not appreciate significant JVD Cardiac: Regular rate and rhythm, I did not appreciate any murmurs rubs or gallops, normal S1, calf tenderness Respiratory: Coarse breath sounds bilaterally, intermittent wheezes present, rhonchi present clear with coughing GI: Right upper quadrant tenderness, distended, soft, normal bowel sounds MSK: Moves all extremities Skin: Bilateral ecchymosis on her flank improving, diffuse ecchymosis throughout her body likely secondary to aging Neuro: Alert and oriented Psych: Cooperative Results & Data Vital Signs (Past 12 Hours) Vital Signs Temp Pulse Pulse Resp BP Pulse Ox 01/14/19 07:30 36.3 C L 70 18 154/69 H 92 01/14/19 07:13 77 16 92 01/14/19 03:30 36.5 C 76 18 132/72 97 01/14/19 02:01 94 H 20 88 L 01/13/19 23:47 36.8 C 83 21 126/63 92 01/13/19 23:20 84 Laboratory Results 01/14/19 01/14/19 01/13/19 Range/Units 10:00 07:40 20:35 Hgb (12.0-16.0) g/dL Hct (37-47) % Sodium 123 L (136-145) mmol/L Potassium 4.5 (3.5-5.1) mmol/L Chloride 82 L (98-107) mmol/L Carbon Dioxide 34 H (21-32) mmol/L Anion Gap 7.0 (3-11) BUN 23 H (7-18) mg/dl Creatinine 0.90 (0.6-1.2) mg/dl Est Cr Clr Drug Dosing 33.7 ml/min Est GFR ( Amer) 68.5 Est GFR (Non-Af Amer) 59.1 BUN/Creatinine Ratio 25.3 H (10-20) Glucose 163 H (70-99) mg/dl POC Glucose 133 H 124 H (70-99) Calcium 7.4 L (8.5-10.1) mg/dl Procalcitonin (0-0.5) ng/ml Urine Color Urine Appearance (Clear) Urine pH (4.5-7.5) Ur Specific Ming[place] (1.000-1.030) Urine Protein (Negative) Urine Glucose (UA) (Negative) Urine Ketones (Negative) Urine Blood (Negative) Urine Nitrite (Negative) Urine Bilirubin (Negative) Urine Urobilinogen (Negative) Ur Leukocyte Esterase (Negative) Urine WBC (Auto) (0-5) /hpf Urine RBC (Auto) (0-4) /hpf U Hyaline Cast (Auto) (0-5) /lpf U Epithel Cells (Auto) (0-5) /lpf Urine Bacteria (Auto) (Negative) 01/13/19 01/13/19 01/13/19 Range/Units 16:40 16:10 14:04 Hgb 9.4 L (12.0-16.0) g/dL Hct 29.1 L (37-47) % Sodium (136-145) mmol/L Potassium (3.5-5.1) mmol/L Chloride (98-107) mmol/L Carbon Dioxide (21-32) mmol/L Anion Gap (3-11) BUN (7-18) mg/dl Creatinine (0.6-1.2) mg/dl Est Cr Clr Drug Dosing ml/min Est GFR ( Amer) Est GFR (Non-Af Amer) BUN/Creatinine Ratio (10-20) Glucose (70-99) mg/dl POC Glucose 124 H (70-99) Calcium (8.5-10.1) mg/dl Procalcitonin (0-0.5) ng/ml Urine Color Yellow Urine Appearance Clear (Clear) Urine pH 5.5 (4.5-7.5) Ur Specific Ming[place] 1.019 (1.000-1.030) Urine Protein Negative (Negative) Urine Glucose (UA) Negative (Negative) Urine Ketones Negative (Negative) Urine Blood Negative (Negative) Urine Nitrite Negative (Negative) Urine Bilirubin Negative (Negative) Urine Urobilinogen Negative (Negative) Ur Leukocyte Esterase Trace H (Negative) Urine WBC (Auto) 1-5 (0-5) /hpf Urine RBC (Auto) 0-4 (0-4) /hpf U Hyaline Cast (Auto) 0 (0-5) /lpf U Epithel Cells (Auto) 20-30 H (0-5) /lpf Urine Bacteria (Auto) Negative (Negative) 01/13/19 01/13/19 Range/Units 11:28 11:02 Hgb (12.0-16.0) g/dL Hct (37-47) % Sodium (136-145) mmol/L Potassium (3.5-5.1) mmol/L Chloride (98-107) mmol/L Carbon Dioxide (21-32) mmol/L Anion Gap (3-11) BUN (7-18) mg/dl Creatinine (0.6-1.2) mg/dl Est Cr Clr Drug Dosing ml/min Est GFR ( Amer) Est GFR (Non-Af Amer) BUN/Creatinine Ratio (10-20) Glucose (70-99) mg/dl POC Glucose 131 H (70-99) Calcium (8.5-10.1) mg/dl Procalcitonin 0.12 (0-0.5) ng/ml Urine Color Urine Appearance (Clear) Urine pH (4.5-7.5) Ur Specific Mingus (1.000-1.030) Urine Protein (Negative) Urine Glucose (UA) (Negative) Urine Ketones (Negative) Urine Blood (Negative) Urine Nitrite (Negative) Urine Bilirubin (Negative) Urine Urobilinogen (Negative) Ur Leukocyte Esterase (Negative) Urine WBC (Auto) (0-5) /hpf Urine RBC (Auto) (0-4) /hpf U Hyaline Cast (Auto) (0-5) /lpf U Epithel Cells (Auto) (0-5) /lpf Urine Bacteria (Auto) (Negative) Medications Administered Current Inpatient Medications Acetaminophen (Tylenol) 500 mg PO Q4H PRN PRN Reason: Pain Stop: 02/09/19 18:10 Last Admin: 01/13/19 16:22 Dose: 500 mg Documented by: Al Hydrox/Mg Hydrox/Simethicone (Maalox) 15 ml PO QID SONIDO Stop: 02/09/19 12:59 Last Admin: 01/14/19 08:08 Dose: 15 ml Documented by: Artificial Tears (Artificial Tears) 1 drops OP BID PRN PRN Reason: dry eyes Stop: 02/06/19 00:44 Aspirin (Ecotrin Ectab) 81 mg PO DAILY SONIDO Stop: 02/06/19 08:59 Last Admin: 01/14/19 08:07 Dose: 81 mg Documented by: Atorvastatin Calcium (Lipitor) 20 mg PO HS SONIDO Stop: 02/06/19 20:59 Last Admin: 01/13/19 20:47 Dose: 20 mg Documented by: Cyanocobalamin (Vitamin B-12) 1,000 mcg PO DAILY SONIDO Stop: 02/06/19 08:59 Last Admin: 01/14/19 08:06 Dose: 1,000 mcg Documented by: Dextrose (Dextrose 50%) 25 - 50 ml IV UD PRN; Protocol PRN Reason: Hypoglycemia Protocol Stop: 02/06/19 00:04 Docusate Sodium (Colace) 100 mg PO BID [facility] Stop: 02/11/19 11:59 Last Admin: 01/14/19 08:07 Dose: 100 mg Documented by: Enoxaparin Sodium (Lovenox) 30 mg SQ Q24H SONIDO Stop: 02/06/19 07:59 Last Admin: 01/14/19 08:06 Dose: 30 mg Documented by: Glucagon (Glucagen) 1 mg SQ UD PRN; Protocol PRN Reason: Hypoglycemia Protocol Stop: 02/06/19 00:04 Glucose (Dex4 Glucose) 4 - 8 tabs PO UD PRN; Protocol PRN Reason: Hypoglycemia Protocol Stop: 02/06/19 00:04 Glucose (Glucose 40%) 15 - 30 gm PO UD PRN; Protocol PRN Reason: Hypoglycemia Protocol Stop: 02/06/19 00:04 Methylprednisolone 20 mg/ (Syringe) 0.32 mls @ 1.5 mls/min IV BID SONIDO Stop: 02/09/19 20:59 Last Admin: 01/14/19 08:04 Dose: 1.5 mls/min Documented by: Insulin Aspart (Novolog Flexpen) 0 units SC ACHS [facility] Stop: 02/09/19 00:29 Last Admin: 01/14/19 08:13 Dose: 3 units Documented by: Insulin Glargine (Lantus Solostar Pen) 0 units SC BID [facility]; Protocol Stop: 02/10/19 20:59 Last Admin: 01/14/19 08:13 Dose: Not Given Documented by: Ioversol (Optiray 320 100ml) 94 ml IV ONCE PRN PRN Reason: Interaction Checking Stop: 01/17/19 10:08 Last Admin: 01/13/19 10:09 Dose: 94 ml Documented by: Ipratropium [place] (Atrovent 0.02% 0.5mg/2.5ml) 0.5 mg INH Q6R [facility] Stop: 02/10/19 11:14 Last Admin: 01/14/19 07:12 Dose: 0.5 mg Documented by: Levalbuterol HCl (Xopenex 0.63 Mg/3 Ml Neb) 0.63 mg NEB Q6R [facility] Stop: 02/10/19 11:14 Last Admin: 01/14/19 07:12 Dose: 0.63 mg Documented by: Magnesium Hydroxide (Milk Of Magnesia) 30 ml PO Q12H PRN PRN Reason: Constipation Stop: 02/06/19 00:04 Last Admin: 01/12/19 10:54 Dose: 30 ml Documented by: Miscellaneous (Carbohydrates For Hypoglycemia) 15 - 30 gm PO UD PRN PRN Reason: Hypoglycemia Treatment Stop: 02/06/19 00:04 Last Admin: 01/13/19 07:50 Dose: 15 gm Documented by: Miscellaneous Information (Consult Glycemic Management Pharmacy) 1 ea N/A UD PRN PRN Reason: Consult Stop: 02/06/19 18:13 Morphine Sulfate (Morphine Sulfate) 2 mg IV Q6H PRN PRN Reason: Pain Stop: 01/25/19 13:40 Multivitamins/Minerals (Caltrate Plus) 1 tab PO BID [facility] Stop: 02/06/19 08:59 Last Admin: 01/14/19 08:05 Dose: 1 tab Documented by: Nystatin (Mycostatin) 5 ml PO QID [facility] Stop: 01/21/19 12:59 Last Admin: 01/14/19 08:08 Dose: 5 ml Documented by: Ondansetron HCl (Zofran) 4 mg IV Q6H PRN PRN Reason: Nausea Stop: 02/06/19 00:04 Pantoprazole Sodium (Protonix) 40 mg PO BID@0700,1900 [facility] Stop: 02/09/19 12:14 Last Admin: 01/14/19 06:03 Dose: 40 mg Documented by: Polyethylene Glycol (Miralax Powder Packet) 17 gm PO DAILY PRN PRN Reason: Constipation Stop: 02/06/19 00:04 Polyethylene Glycol (Miralax Powder Packet) 17 gm PO DAILY [facility] Stop: 02/08/19 11:29 Last Admin: 01/14/19 08:13 Dose: 17 gm Documented by: Sucralfate (Carafate) 1 gm PO ACHS [facility] Stop: 02/09/19 16:29 Last Admin: 01/14/19 08:07 Dose: 1 gm Documented by: Verapamil HCl (Calan Sr) 90 mg PO BID [facility] Stop: 02/12/19 08:59 Last Admin: 01/14/19 08:05 Dose: 90 mg Documented by: PG Care Time/CCT Total # of Minutes Spent Total Time Spent with Patient: Total time spent is greater than 50% in coordination of care (as documented) at patient's floor/unit and/or counseling patient: Resident Activity Tracking Resident Involvement: Resident Care Provided Care Provided: Adult Hospital Medicine
[2019-01-14 10:31] LABS: BUN Creatinine Ratio 25.3 (10-20); Calcium 7.4 mg/dl (8.5-10.1); Creatinine Clr Calc Pharmacy 33.7 ml/min; Est GFR (African American) 68.5; Est GFR (Non-African American) 59.1; Potassium 4.5 mmol/L (3.5-5.1)
[2019-01-14] MEDS: BUDESONIDE 0.5 MG/2 ML VIAL (PULMICORT) NEB SCH ×2 (11:48→20:03)
[2019-01-14] MEDS: SODIUM CHLORIDE 1 GM TABLET PO SCH ×2 (13:52→21:36)
[2019-01-14] MEDS: ATORVASTATIN 20 MG TAB PO SCH (21:23)
[2019-01-15] MEDS: IPRATROPIUM BROMIDE NEB SOLN 0.02% 2.5 ML VIAL INH SCH ×4 (02:07→19:29)
[2019-01-15] MEDS: LEVALBUTEROL HCL 0.63 MG/3 ML NEB NEB SCH ×4 (02:07→19:29)
[2019-01-15 06:28] LABS: Hematocrit (blood only) 33.2 % (37-47); Hemoglobin 10.3 g/dL (12.0-16.0); Immature Granulocytes # (auto) 0.06 K/uL (0.00-0.02); Immature Granulocytes % (auto) 0.4 %; Lymphocytes # (auto) 0.38 K/uL (1.2-3.4); Lymphocytes % (auto) 2.6 %; Mean Corpuscular Volume 80.6 fL (80-100); Mean Platelet Volume 9.1 fL (7.4-10.4); Monocytes # (auto) 0.48 K/uL (0.11-0.59); Monocytes % (auto) 3.3 %; Neutrophils % (auto) 93.7 %; Platelet Count 246 K/uL (130-400); RDW Coefficient of Variation 17.4 % (11.5-14.5); RDW Standard Deviation 51.1 fL (36.4-46.3); Red Blood Count 4.12 M/uL (4.2-5.4); White Blood Count 14.62 K/uL (4.8-10.8)
[2019-01-15 07:01] LABS: BUN Creatinine Ratio 26.5 (10-20); Calcium 7.7 mg/dl (8.5-10.1); Creatinine Clr Calc Pharmacy 41.8 ml/min; Est GFR (African American) 88.3; Est GFR (Non-African American) 76.2; Potassium 4.4 mmol/L (3.5-5.1)
[2019-01-15] MEDS: BUDESONIDE 0.5 MG/2 ML VIAL (PULMICORT) NEB SCH ×2 (07:14→19:29)
--- NOTE | 2019-01-15 07:30 | Family Medicine Progress Note ---
Date of Service January 15, 2019 Assessment & Plan (1) Acute and chronic respiratory failure ([id number]): 83F with known h/o IPF here with worsening dyspnea x 2 weeks after being off her medications. Respiratory symptoms likely from progressive IPF vs. diastolic HF. Na remains low at 125 based on work up concern for SIADH. Also having RUQ and found to have hematoma/seroma likely from previous fall given hx of multiple falls at home. #Leukocytosis Trending daily CBC white blood cell count has slowly been increasing, today 14.62 with a neutrophil predominance. Pro-Klever from 2 days ago was not impressive. -Physical exam findings concerning for pannus candidiasis versus vulvovaginitis candidiasis versus bacterial vaginitis -Given single dose of fluconazole -Nursing will be placing antifungal powder on her pannus #Dyspnea Likely Idiopathic pulmonary fibrosis, acute exacerbation vs. diastolic HF h/o known pulmonary fibrosis, last PFT October 2017 showed normal spirometry with severely reduced DLCO (43% expected). Follows with Dr. Dobbs. Admitting resident had lengthy discussion with delbert at bedside, apparently pt admits to being noncompliant with inhalers for 3 weeks. hypoxic in the PCP office [employer] to 70s, 80s on room air in ED, improved with nasal cannula Delbert Ruiz insisted that she take her meds, and has done so for the past week.did discuss palliative consult seeing as her pulm fibrosis is not curable and likely will continue to progress. Magiece enthusiastic about "any help" she can get. Palliative care was consulted see associated documentation. Niece will be her power of claims attorney, patient wants to be full code however no prolonged intubation, patient is aware of her current prognosis -Continue with oxygen support -Failed to step will require oxygen at home -has denied home oxygen in the past Pulmonology consulted -DC home Flovent and albuterol inhalers as patient noncompliant with inhalers -Started on levalbuterol 0.63/ipratropium nebs 4 times daily (discharge on as well) -Once candidiasis improves will start on budesonide 0.5 mg daily nebs as well (discharge on as well) -Continue methyl Pred 20 mg IV twice daily for now, no prednisone as patient did not tolerate this secondary to gastric pain -Chest CT recommended IMPRESSION: 1. Moderately extensive coronary artery calcifications, Bilateral pleural effusions. An element of congestive failure/fluid overload is likely present, B ilateral lower lung zone airspace opacities atelectasis versus pneumonia, Ascites, Generalized body wall edema, Elevation right hemidiaphragm -Recommended outpatient rehab given frequent falls and deconditioning -Patient reports symptomatic improvement. -Would refrain from Lasix secondary to hyponatremia -CT concerning for pulmonary edema. However does not correlate with clinical exam findings, I am concerned the damage from pulmonary fibrosis is being read as edema #Multifocal atrial tachycardia - resolved EKG demonstratied multifocal atrial tachycardia, which likely also caused detectable troponins, elevated heart rate and blood pressure. Beta-blockers and verapamil recommended for treatment and prophylaxis. Given her pulmonary fibrosis we elected to avoid beta-blockers to avoid of pulmonary side effects. Patient was started on verapamil 40 mg twice daily and tolerated it well. However she did not demonstrate an adequate response with blood pressure pulse. Troponin peaked at 0.066 and downtrending, to 0.05 likely demand ischemia from multifocal atrial tachycardia. 01/09 Echo demonstrates mild concentric LVH, normal LV systolic function, flattened septum consistent with RV pressure overload, RV moderate dilation, RA moderate dilation, aortic valve sclerosis without significant stenosis, annular calcification, tricuspid regurg, RV systolic pressure 30 to 40 mm mercury -Transitioned to Verapamil 180mg long-acting daily -Patient still intermittently becoming tachycardic and hypertensive, this mainly occurs at night and I think is related to the half-life of the medication.will monitor blood pressure status post bowel movement to ensure hypertension is not constipation related, and titrate medication -Change dose to 120 mg long-acting verapamil twice daily -cont home ASA -morphine prn air hunger #RUQ pain Previous GI ulcer history. Patient also complaining of a mass in the right upper quadrant and ultrasound was performed Findings most consistent with and intramuscular hematoma or evolving seroma, "intramuscular collection measuring 3.4 x 1.7 x 2.8 cm is present". In the early hours of 01/13 nighttime resident was paged the patient's room to assess bilateral flank ecchymosis. CT abdomen pelvis was ordered the following morning. CT demonstrated no evidence of bowel obstruction stable intra-and extrahepatic biliary ductal dilatation in a patient status post cholecystectomy, fecal retention, extensive diverticulosis with ryder-diverticular muscular hypertrophy, no evidence of acute diverticulitis, cardiomegaly, bilateral pleural effusions right greater than left, bilateral lower lung zone airspace opacities, moderately extensive generalized body wall edema, bilateral sacral insufficiency fractures. - on sucralfate, pantoprazole twice daily, and Maalox. - On 500 mg Tylenol PRN, and morphine 2mg Q6H PRN - patient's family agreed to try morphine despite initial hesitance given patient pain level -Given her most recent CT scan I think the majority of the patient's issues stem from constipation #Constipation Patient CT scan from 01/13 demonstrate significant stool burden, I am concerned that the majority of the patient's lingering symptoms are related to her bowels. -bowel regimen ordered: colace 100mg BID and miralax 17g BID -S/p 102 g of miralax 01/13 -Status post milk/molasses enema on 01/14 -Excellent response -Patient requesting additional enema today #Candidiasis Patient has elevated white count, and is complaining of skin tenderness to lower abdomen, vulvovaginal irritation. Physical exam is consistent with candidiasis. -Nursing will place powder on patient's pannus -150 mg of fluconazole once #Hyponatremia according to PCP charts, this is acute on chronic exacerbation. Likely SIADH. Patient improving with 1500 mL restriction and salt tabs 3 times daily sodium 129 today -Serum osm 275, Urine Osm 610 and Na 96 -Continue to monitor BMP -Given this is chronic in nature, and appears to be stable will not aggressively treat a number -Fluid restrictions 1500 mL -Salt tabs 1 g 3 times daily #Transaminitis Patient's CMP on admission is remarkable for elevated LFTs specifically ALT to 247 with AST at 25. Hepatitis serologies were performed and are all negative. Patient did go for a liver ultrasound 01/07 demonstrating normal in size and echotexture she is currently status post cholecystectomy some evidence of intra- and extrahepatic biliary ductal dilatation similar to that in 2013 and likely related to remote cystectomy. Otherwise the patient is asymptomatic for any symptoms of the liver pathology. Will defer to outpatient gastroenterology -Continue to follow clinically nothing on clinical examination -Elevation ALT continues to improve today 83 down from 155 on admit #T2DM (hyperglycemia secondary to steroids) -hold home PO meds, catrina given elev decorating machine tender -ISS, BSG ACHS -glycemic consult placed #Elev decorating machine tender Resolved likely was prerenal given decreased PO intake from somnolence FEN/GI: heart healthy/t2dm diet DVT ppx: lovenox 30mg q24h CODE STATUS: FULL however does not want prolonged intubation DISPO: pending clinical improvement and rehab placement other ongoing medical problems: Anemia - stable -microcytic -history of the same -does not appear to be hemorrhagic, not on blood thinners only ASA -cont B12, would likely benefit from iron supplementation in outpatient setting GERD -continue pantoprazole, especially in someone with IPF given aspiration risks Supervising Physician Co-Signing Physician Notes I personally examined the patient and verified all kincaid points of history and exam, discussed case, and agree with decision making with Dr Bradshaw. feeling good eating OK for SNF tomorrow. Vitals noted, in general she is in no distress. HEENT normocephalic atraumatic mucous membranes moist. Breathing unlabored no accessory muscle use good effort. Pulmonary fibrosiscontinue current care. Anticipate SNF placement tomorrow. Abdominal painsevere constipationimproved after enema, continue bowel regimen. Diabetescontinue current care and follow DVT prophylaxisLovenox Dispo - SNF hopefully tomorrow Subjective Patient sitting up in bed this morning in no acute distress. Patient reports an interval history of 2 bowel movements yesterday, she felt that there was sizable patient still endorsing abdominal pain in the right lower quadrant in the left lower quadrant, correlating with physical exam findings I believe she still has a significant stool burden. She is requesting to have another enema today. Nursing alerted related to concerns of ecchymosis on the flank, they look better than previously in the family. They were also concerned about her vagina, red irritated and with some ecchymosis. On further examination her pannus appeared to have some candidiasis, there is concern for bacterial vaginitis versus vulvovaginal candidiasis. We will continue to monitor for now, Patient has been afebrile, not tachycardic, however has had an elevated count. No acute concerns at present, all questions answered Physical Exam Physical Exam: General: No acute distress HEENT: Normocephalic atraumatic Neck: Trachea midline, did not appreciate significant JVD Cardiac: Regular rate and rhythm, I did not appreciate any murmurs rubs or gall ops, normal S1, calf tenderness Respiratory: Coarse breath sounds bilaterally, intermittent wheezes present, rhonchi present clear with coughing GI: Bilateral lower quadrant tenderness quadrant tenderness, distended, soft, normal bowel sounds MSK: Moves all extremities Skin: Bilateral ecchymosis on her flank improving, diffuse ecchymosis throughout her body likely secondary to aging, vulvovaginal irritation, redness, ecchymosis. Pannus containing Negar Neuro: Alert and oriented Psych: Cooperative Results & Data Vital Signs (Past 12 Hours) Vital Signs Temp Pulse Resp BP Pulse Ox 01/15/19 07:16 88 16 98 01/15/19 04:58 36.4 C L 71 19 111/55 L 91 01/15/19 00:04 36.7 C 78 19 119/58 L 96 01/14/19 20:05 84 18 95 01/14/19 19:37 36.8 C 83 20 153/70 H 91 Laboratory Results 01/15/19 01/15/19 01/15/19 Range/Units 07:46 06:00 06:00 WBC 14.62 H (4.8-10.8) K/uL RBC 4.12 L (4.2-5.4) M/uL Hgb 10.3 L (12.0-16.0) g/dL Hct 33.2 L (37-47) % MCV 80.6 (80-100) fL MCH 25.0 (25-34) pg MCHC 31.0 L (32-36) g/dL RDW Std Deviation 51.1 H (36.4-46.3) fL RDW Coeff of Alexa 17.4 H (11.5-14.5) % Plt Count 246 (130-400) K/uL MPV 9.1 (7.4-10.4) fL Immature Gran % (Auto) 0.4 % Neut % (Auto) 93.7 % Lymph % (Auto) 2.6 % [place] % (Auto) 3.3 % Eos % (Auto) 0.0 % Baso % (Auto) 0.0 % Immature Gran # (Auto) 0.06 H (0.00-0.02) K/uL Neut # (Auto) 13.70 H (1.4-6.5) K/uL Lymph # (Auto) 0.38 L (1.2-3.4) K/uL [place] # (Auto) 0.48 (0.11-0.59) K/uL Eos # (Auto) 0.00 (0-0.5) K/uL Baso # (Auto) 0.00 (0-0.2) K/uL Sodium 129 L (136-145) mmol/L Potassium 4.4 (3.5-5.1) mmol/L Chloride 86 L (98-107) mmol/L Carbon Dioxide 36 H (21-32) mmol/L Anion Gap 7.0 (3-11) BUN 19 H (7-18) mg/dl Creatinine 0.73 (0.6-1.2) mg/dl Est Cr Clr Drug Dosing 41.8 ml/min Est GFR ( Amer) 88.3 Est GFR (Non-Af Amer) 76.2 BUN/Creatinine Ratio 26.5 H (10-20) Glucose 76 (70-99) mg/dl POC Glucose 96 (70-99) Calcium 7.7 L (8.5-10.1) mg/dl 01/14/19 01/14/19 01/14/19 Range/Units 20:06 16:38 11:25 WBC (4.8-10.8) K/uL RBC (4.2-5.4) M/uL Hgb (12.0-16.0) g/dL Hct (37-47) % MCV (80-100) fL MCH (25-34) pg MCHC (32-36) g/dL RDW Std Deviation (36.4-46.3) fL RDW Coeff of Alexa (11.5-14.5) % Plt Count (130-400) K/uL MPV (7.4-10.4) fL Immature Gran % (Auto) % Neut % (Auto) % Lymph % (Auto) % [place] % (Auto) % Eos % (Auto) % Baso % (Auto) % Immature Gran # (Auto) (0.00-0.02) K/uL Neut # (Auto) (1.4-6.5) K/uL Lymph # (Auto) (1.2-3.4) K/uL [place] # (Auto) (0.11-0.59) K/uL Eos # (Auto) (0-0.5) K/uL Baso # (Auto) (0-0.2) K/uL Sodium (136-145) mmol/L Potassium (3.5-5.1) mmol/L Chloride (98-107) mmol/L Carbon Dioxide (21-32) mmol/L Anion Gap (3-11) BUN (7-18) mg/dl Creatinine (0.6-1.2) mg/dl Est Cr Clr Drug Dosing ml/min Est GFR ( Amer) Est GFR (Non-Af Amer) BUN/Creatinine Ratio (10-20) Glucose (70-99) mg/dl POC Glucose 119 H 88 237 H (70-99) Calcium (8.5-10.1) mg/dl 01/14/19 Range/Units 10:00 WBC (4.8-10.8) K/uL RBC (4.2-5.4) M/uL Hgb (12.0-16.0) g/dL Hct (37-47) % MCV (80-100) fL MCH (25-34) pg MCHC (32-36) g/dL RDW Std Deviation (36.4-46.3) fL RDW Coeff of Alexa (11.5-14.5) % Plt Count (130-400) K/uL MPV (7.4-10.4) fL Immature Gran % (Auto) % Neut % (Auto) % Lymph % (Auto) % [place] % (Auto) % Eos % (Auto) % Baso % (Auto) % Immature Gran # (Auto) (0.00-0.02) K/uL Neut # (Auto) (1.4-6.5) K/uL Lymph # (Auto) (1.2-3.4) K/uL [place] # (Auto) (0.11-0.59) K/uL Eos # (Auto) (0-0.5) K/uL Baso # (Auto) (0-0.2) K/uL Sodium 123 L (136-145) mmol/L Potassium 4.5 (3.5-5.1) mmol/L Chloride 82 L (98-107) mmol/L Carbon Dioxide 34 H (21-32) mmol/L Anion Gap 7.0 (3-11) BUN 23 H (7-18) mg/dl Creatinine 0.90 (0.6-1.2) mg/dl Est Cr Clr Drug Dosing 33.7 ml/min Est GFR ( Amer) 68.5 Est GFR (Non-Af Amer) 59.1 BUN/Creatinine Ratio 25.3 H (10-20) Glucose 163 H (70-99) mg/dl POC Glucose (70-99) Calcium 7.4 L (8.5-10.1) mg/dl Medications Administered Current Inpatient Medications Acetaminophen (Tylenol) 500 mg PO Q4H PRN PRN Reason: Pain Stop: 02/09/19 18:10 Last Admin: 01/13/19 16:22 Dose: 500 mg Documented by: Al Hydrox/Mg Hydrox/Simethicone (Maalox) 15 ml PO QID SONIDO Stop: 02/09/19 12:59 Last Admin: 01/15/19 08:41 Dose: 15 ml Documented by: Artificial Tears (Artificial Tears) 1 drops OP BID PRN PRN Reason: dry eyes Stop: 02/06/19 00:44 Aspirin (Ecotrin Ectab) 81 mg PO DAILY SONIDO Stop: 02/06/19 08:59 Last Admin: 01/15/19 08:45 Dose: 81 mg Documented by: Atorvastatin Calcium (Lipitor) 20 mg PO HS SONIDO Stop: 02/06/19 20:59 Last Admin: 01/14/19 21:23 Dose: 20 mg Documented by: Budesonide (Pulmicort Respules) 0.5 mg NEB BIDR SONIDO Stop: 02/13/19 11:29 Last Admin: 01/15/19 07:14 Dose: 0.5 mg Documented by: Cyanocobalamin (Vitamin B-12) 1,000 mcg PO DAILY SONIDO Stop: 02/06/19 08:59 Last Admin: 01/15/19 08:45 Dose: 1,000 mcg Documented by: Dextrose (Dextrose 50%) 25 - 50 ml IV UD PRN; Protocol PRN Reason: Hypoglycemia Protocol Stop: 02/06/19 00:04 Docusate Sodium (Colace) 100 mg PO BID SONIDO Stop: 02/11/19 11:59 Last Admin: 01/15/19 08:45 Dose: 100 mg Documented by: Enoxaparin Sodium (Lovenox) 30 mg SQ Q24H SONIDO Stop: 02/06/19 07:59 Last Admin: 01/15/19 08:47 Dose: 30 mg Documented by: Glucagon (Glucagen) 1 mg SQ UD PRN; Protocol PRN Reason: Hypoglycemia Protocol Stop: 02/06/19 00:04 Glucose (Dex4 Glucose) 4 - 8 tabs PO UD PRN; Protocol PRN Reason: Hypoglycemia Protocol Stop: 02/06/19 00:04 Glucose (Glucose 40%) 15 - 30 gm PO UD PRN; Protocol PRN Reason: Hypoglycemia Protocol Stop: 02/06/19 00:04 Methylprednisolone 20 mg/ (Syringe) 0.32 mls @ 1.5 mls/min IV BID [facility] Stop: 02/09/19 20:59 Last Admin: 01/15/19 08:41 Dose: 1.5 mls/min Documented by: Insulin Aspart (Novolog Flexpen) 0 units SC ACHS [facility] Stop: 02/09/19 00:29 Last Admin: 01/15/19 08:46 Dose: 3 units Documented by: Insulin Glargine (Lantus Solostar Pen) 0 units SC BID [facility]; Protocol Stop: 02/10/19 20:59 Last Admin: 01/15/19 08:42 Dose: Not Given Documented by: Ioversol (Optiray 320 100ml) 94 ml IV ONCE PRN PRN Reason: Interaction Checking Stop: 01/17/19 10:08 Last Admin: 01/13/19 10:09 Dose: 94 ml Documented by: Ipratropium [place] (Atrovent 0.02% 0.5mg/2.5ml) 0.5 mg INH Q6R [facility] Stop: 02/10/19 11:14 Last Admin: 01/15/19 07:14 Dose: 0.5 mg Documented by: Levalbuterol HCl (Xopenex 0.63 Mg/3 Ml Neb) 0.63 mg NEB Q6R [facility] Stop: 02/10/19 11:14 Last Admin: 01/15/19 07:14 Dose: 0.63 mg Documented by: Magnesium Hydroxide (Milk Of Magnesia) 30 ml PO Q12H PRN PRN Reason: Constipation Stop: 02/06/19 00:04 Last Admin: 01/12/19 10:54 Dose: 30 ml Documented by: Miconazole Nitrate (Desenex) 1 appln EXT PRN PRN PRN Reason: Affected Skin Folds Stop: 02/14/19 09:48 Miscellaneous (Carbohydrates For Hypoglycemia) 15 - 30 gm PO UD PRN PRN Reason: Hypoglycemia Treatment Stop: 02/06/19 00:04 Last Admin: 01/13/19 07:50 Dose: 15 gm Documented by: Miscellaneous Information (Consult Glycemic Management Pharmacy) 1 ea N/A UD PRN PRN Reason: Consult Stop: 02/06/19 18:13 Morphine Sulfate (Morphine Sulfate) 2 mg IV Q6H PRN PRN Reason: Pain Stop: 01/25/19 13:40 Multivitamins/Minerals (Caltrate Plus) 1 tab PO BID [facility] Stop: 02/06/19 08:59 Last Admin: 01/15/19 08:45 Dose: 1 tab Documented by: Nystatin (Mycostatin) 5 ml PO QID [facility] Stop: 01/21/19 12:59 Last Admin: 01/15/19 08:40 Dose: 5 ml Documented by: Ondansetron HCl (Zofran) 4 mg IV Q6H PRN PRN Reason: Nausea Stop: 02/06/19 00:04 Pantoprazole Sodium (Protonix) 40 mg PO BID@0700,1900 [facility] Stop: 02/09/19 12:14 Last Admin: 01/15/19 08:45 Dose: 40 mg Documented by: Polyethylene Glycol (Miralax Powder Packet) 17 gm PO DAILY PRN PRN Reason: Constipation Stop: 02/06/19 00:04 Polyethylene Glycol (Miralax Powder Packet) 17 gm PO DAILY [facility] Stop: 02/08/19 11:29 Last Admin: 01/15/19 08:41 Dose: 17 gm Documented by: Sodium Chloride (Sodium Chloride) 1 gm PO TID [facility] Stop: 02/13/19 13:59 Last Admin: 01/15/19 08:45 Dose: 1 gm Documented by: Sucralfate (Carafate) 1 gm PO ACHS [facility] Stop: 02/09/19 16:29 Last Admin: 01/15/19 08:41 Dose: 1 gm Documented by: Verapamil HCl (Calan Sr) 120 mg PO BID [facility] Stop: 02/14/19 08:59 Last Admin: 01/15/19 08:55 Dose: 120 mg Documented by: PG Care Time/CCT Total # of Minutes Spent Total Time Spent with Patient: Total time spent is greater than 50% in coordination of care (as documented) at patient's floor/unit and/or counseling patient: Resident Activity Tracking Resident Involvement: Resident Care Provided Care Provided: Adult [facility] Medicine
[2019-01-15] MEDS: NYSTATIN SUSP 500,000 U/5 ML UDC PO SCH ×4 (08:40→20:50)
[2019-01-15] MEDS: SUCRALFATE 1 GM/10 ML UDC PO SCH ×4 (08:41→20:46)
[2019-01-15] MEDS: ALUMINUM/MAGNESIUM SUSP 30 ML UDC PO SCH ×4 (08:41→20:47)
[2019-01-15] MEDS: methylPREDNISolone 20 MG in SYRINGE 0 ML IV SCH ×2 (08:41→20:46)
[2019-01-15] MEDS: POLYETHYLENE (MIRALAX) 17 GM PACK PO SCH (08:41)
[2019-01-15] MEDS: INSULIN GLARGINE SOLOSTAR 100 UNITS/ML 3 ML PEN SC SCH ×2 (08:42→20:48)
[2019-01-15] MEDS: ASPIRIN 81 MG ECTAB PO SCH (08:45)
[2019-01-15] MEDS: PANTOprazole 40 MG TAB PO SCH ×2 (08:45→20:47)
[2019-01-15] MEDS: SODIUM CHLORIDE 1 GM TABLET PO SCH ×3 (08:45→20:48)
[2019-01-15] MEDS: CYANOCOBALAMIN 500 MCG TABLET (VITAMIN B-12) PO SCH (08:45)
[2019-01-15] MEDS: DOCUSATE SODIUM 100 MG CAP PO SCH ×2 (08:45→20:47)
[2019-01-15] MEDS: CALCIUM 600MG + VIT D 400 IU TAB PO SCH ×2 (08:45→20:47)
[2019-01-15] MEDS: INSULIN ASPART 100 UNITS/ML 3 ML PEN SC SCH ×4 (08:46→20:49)
[2019-01-15] MEDS: ENOXAPARIN INJ 30 MG/0.3 ML SYR SQ SCH (08:47)
[2019-01-15] MEDS: VERAPAMIL HCL 240 MG TABCR PO SCH ×2 (08:55→20:48)
[2019-01-15] MEDS ORDERED: FLUCONAZOLE 50 MG TAB PO ONE (10:00)
[2019-01-15] MEDS: MICONAZOLE NITRATE POWDER 43 GM EXT PRN (12:10)
[2019-01-15] MEDS: ATORVASTATIN 20 MG TAB PO SCH (20:47)
[2019-01-16] MEDS: LEVALBUTEROL HCL 0.63 MG/3 ML NEB NEB SCH ×3 (01:40→14:37)
[2019-01-16] MEDS: IPRATROPIUM BROMIDE NEB SOLN 0.02% 2.5 ML VIAL INH SCH ×3 (01:40→14:37)
[2019-01-16] MEDS: PANTOprazole 40 MG TAB PO SCH (06:20)
[2019-01-16 06:32] LABS: Hematocrit (blood only) 30.9 % (37-47); Hemoglobin 9.5 g/dL (12.0-16.0); Immature Granulocytes # (auto) 0.02 K/uL (0.00-0.02); Immature Granulocytes % (auto) 0.2 %; Lymphocytes # (auto) 0.41 K/uL (1.2-3.4); Lymphocytes % (auto) 5.1 %; Mean Corpuscular Hgb Conc 30.7 g/dL (32-36); Mean Platelet Volume 8.5 fL (7.4-10.4); Monocytes # (auto) 0.48 K/uL (0.11-0.59); Monocytes % (auto) 5.9 %; Neutrophils # (auto) 7.17 K/uL (1.4-6.5); Neutrophils % (auto) 88.8 %; Nucleated RBC # (auto) 0.02 K/uL (0-0); Nucleated RBC % (auto) 0.3 %; Platelet Count 210 K/uL (130-400); RDW Coefficient of Variation 17.6 % (11.5-14.5); RDW Standard Deviation 52.8 fL (36.4-46.3); Red Blood Count 3.77 M/uL (4.2-5.4); White Blood Count 8.08 K/uL (4.8-10.8)
[2019-01-16] MEDS: BUDESONIDE 0.5 MG/2 ML VIAL (PULMICORT) NEB SCH (07:06)
[2019-01-16 07:07] LABS: Albumin Level 2.9 gm/dl (3.4-5.0); BUN Creatinine Ratio 22.7 (10-20); Calcium 7.7 mg/dl (8.5-10.1); Creatinine Clr Calc Pharmacy 40.5 ml/min; Est GFR (African American) 82.8; Est GFR (Non-African American) 71.4
[2019-01-16 07:10] LABS: Albumin Globulin Ratio 1.3 (0.9-2); Bilirubin,Total 1.6 mg/dl (0.2-1); Globulin 2.3 gm/dl (2.5-4.0); Total Protein 5.2 gm/dl (6.4-8.2)
--- NOTE | 2019-01-16 07:53 | Discharge Summary ---
Date of Service January 16, 2019 Admission HPI Per Admitting Provider 83F here with sister and niece who is her POA here with dyspnea on exertion, weakness and fatigue since about 1 week ago. Pt is very hard of hearing and so most of history is obtained from pt's niece Sara Srivastava. Magiece was staying with pt in November, but then returned to her home in [place] at the beginning of November. She states at that time pt was at her baseline, which means she is not very active given her lung disease but is able to ambulate with her walker in and around her home. When niece returned to pt's home 3 weeks later, she says she was "much worse" and not at her baseline, meaning she was very short of breath even when walking just a few feet, was sleeping most of the day everyday. Eventually pt told her that she'd "forgotten to [employer]" her medication refills and so had not been taking any meds for the last 3 weeks including her inhalers. Since then, delbert has been making sure she was getting all her meds, but due to persistent difficulty breathing, brought her in to her PCP's office. There her s ats were in the 70s, so she was sent here. Per report, 80s on room air here. She is not normally O2 dependent although delbert wonders if she shouldn't be on oxygen daily. Of note, delbert states she thinks pt is much improved since receiving oxygen and is significantly improved over all since duonebs and oxygen administered. PMH 1. IPF 2. HTN 3. anemia 4. T2DM 5. GERD PSH 1. hysterectomy 2. nasal endoscopy polypectomy 3. cholecystectomy SH lives alone, although delbert says she is coming to live with her locally. Never smoker, no etoh or drug use. Admission Exam Per Admitting Provider Vitals noted and within normal limits with the exception of hypoxia, tachypnea, tachycardia GENERAL: Awake, alert to person, place, and time, nontoxic-appearing, in no distress. Very hard of hearing. HENT: Normocephalic, atraumatic. Nasal cannula in place. Mucus membranes appear dry. EYES: Normal conjunctiva. Sclera non-icteric. EOMI. NECK: Supple. Full range of motion. No JVD. RESPIRATORY: crackles bilaterally. Normal work of breathing. CARDIAC: Regular rate, normal rhythm. Extremities warm and well perfused, 2+ radial pulses bilaterally; 2+ posterior tibialis pulses bilaterally. ABDOMEN: Soft, non-distended. No tenderness to palpation in all four quadrants. No rebound or guarding. No masses. Bowel sounds are normal. LOWER EXTREMITIES: Inspection of calves reveal equal size bilaterally. They are non-tender. No edema. No discoloration. NEURO: No gross focal motor deficits noted. Sensation in tact. CN II-XII g rossly in tact. . SKIN: Rash not present. No jaundice noted. Significant lesions not present. PSYCH: Appropriate mood and affect. Cooperative. Principal Diagnosis IPF exacerbation, Constipation, MAT, Transaminitis, Candidiasis, DMII, Diastolic HF Discharge Exam General: No acute distress HEENT: Normocephalic atraumatic Neck: Trachea midline, did not appreciate significant JVD Cardiac: Regular rate and rhythm, I did not appreciate any murmurs rubs or gallops, normal S1, calf tenderness Respiratory: Coarse breath sounds bilaterally, intermittent wheezes present, rhonchi present clear with coughing GI: Bilateral lower quadrant tenderness quadrant tenderness, distended, soft, normal bowel sounds MSK: Moves all extremities Skin: Bilateral ecchymosis on her flank improving, diffuse ecchymosis throughout her body likely secondary to aging, vulvovaginal irritation improving, redness, ecchymosis. Pannus containing Negar improving Neuro: Alert and oriented Psych: Cooperative Discharge Data Allergies Allergy/AdvReac Type Severity Reaction Status Date / Time risedronate sodium Allergy Unknown SICK Verified 01/06/19 14:03 vitamin E (d-alpha Allergy Unknown HIVES Verified 01/06/19 14:03 tocopherol) prednisone AdvReac Unknown Makes her Verified 01/06/19 14:03 feel very ill. Consultations 01/06/19 20:03 ED Decision to Admit Stat 01/07/19 00:05 Consult Case Management - Discharge Planning Routine Consult Palliative Care Routine 01/11/19 07:29 Consult Pulmonology Routine Ordered Studies 01/07/19 06:15 US liver Routine 01/10/19 12:17 US abdomen ltd hernia Routine 01/11/19 10:56 CT chest wo con Routine 01/12/19 23:51 CT abd pelvis IV con only Routine Hospital Course (1) Acute and chronic respiratory failure ([id number]): 83F with known h/o IPF here with worsening dyspnea x 2 weeks after being off her medications. Respiratory symptoms likely from progressive IPF vs. diastolic HF. Na remains low at 125 based on work up concern for SIADH. Also having RUQ and found to have hematoma/seroma likely from previous fall given hx of multiple falls at home. #Dyspnea Likely Idiopathic pulmonary fibrosis, acute exacerbation h/o known pulmonary fibrosis, last PFT October 2017 showed normal spirometry with severely reduced DLCO (43% expected). Follows with Dr. Dobbs. Admitting resident had lengthy discussion with delbert at bedside, apparently pt admits to being noncompliant with inhalers for 3 weeks. hypoxic in the PCP office [employer] to 70s, 80s on room air in ED, improved with nasal cannula Delbert Ruiz insisted that she take her meds, and has done so for the past week.did discuss palliative consult seeing as her pulm fibrosis is not curable and likely will continue to progress. Magiece enthusiastic about "any help" she can get. Palliative care was consulted see associated documentation. Nimilagro will be her power of attorney recruiter, patient wants to be full code however no prolonged intubation, patient is aware of her current prognosis. Pulmonology was consulted they discontinued her home Flovent and albuterol inhalers as the patient was noncompliant with them, started her on levo albuterol and ipratropium 4 times daily, budesonide 0.5 mg twice daily, avoid oral prednisone as patient does not tolerate. They also recommended rehab given frequent falls and deconditioning. Patient failed 2 step, will require home oxygen 2 L at baseline, 4 L with activity. #Multifocal atrial tachycardia EKG demonstratied multifocal atrial tachycardia, which likely also caused detectable troponins, elevated heart rate and blood pressure. Beta-blockers and verapamil recommended for treatment and prophylaxis. Given her pulmonary fibrosis we elected to avoid beta-blockers to avoid of pulmonary side effects. Patient was started on verapamil 40 mg twice daily and tolerated it well. However she did not demonstrate an adequate response with blood pressure pulse. Troponin peaked at 0.066 and downtrending, to 0.05 likely demand ischemia from multifocal atrial tachycardia. 01/09 Echo demonstrates mild concentric LVH, normal LV systolic function, flattened septum consistent with RV pressure overload, RV moderate dilation, RA moderate dilation, aortic valve sclerosis without significant stenosis, annular calcification, tricuspid regurg, RV systolic pressure 30 to 40 mm mercury. Verapamil was titrated up to achieve desired effect, final dose was 120 mg long-acting verapamil twice daily. She is to continue her home aspirin, and was provided intermittent morphine as needed for air hunger DC'd on discharge. #RUQ pain Previous GI ulcer history. Patient also complaining of a mass in the right upper quadrant and ultrasound was performed Findings most consistent with and intramuscular hematoma or evolving seroma, "intramuscular collection measuring 3.4 x 1.7 x 2.8 cm is present". In the early hours of 01/13 nighttime resident was paged the patient's room to assess bilateral flank ecchymosis. CT abdomen pelvis was ordered the following morning. CT demonstrated no evidence of bowel obstruction stable intra-and extrahepatic biliary ductal dilatation in a patient status post cholecystectomy, fecal retention, extensive diverticulosis with ryder-diverticular muscular hypertrophy, no evidence of acute diverticulitis, cardiomegaly, bilateral pleural effusions right greater than left, bilateral lower lung zone airspace opacities, moderately extensive generalized body wall edema, bilateral sacral insufficiency fractures. It is thought that the patient does not tolerate oral prednisone secondary to history of GI ulcers, we started on sucralfate, pantoprazole twice daily, and Maalox. To be narrowed to sucralfate, pantoprazole daily, and Maalox on discharge. Patient is was provided analgesia with 500 mg of Tylenol as needed, morphine every 6 hours as needed. #Constipation Patient CT scan from 01/13 demonstrated significant stool burden. Taking with her clinical presentation and abdominal complaints, I believe the vast majority this patient's symptoms are related to a massive stool burden. While hospitalized she was maintained on a bowel regimen of Colace 100 mg 17 g twice daily. On 01/13 she was given a massive dose of MiraLAX consistent 102 g without adequate response. On 01/14 she was given a milk of molasses enema, with an exc ellent response, patient had 2 bowel movements a day, on 01/15 she was given an additional milk of molasses enema having another 2 bowel movements. She is no longer reporting significant abdominal pain. Recommend PRN milk/molasses enemas as needed as an outpatient for severe constipation otherwise would maintain Colace 100 mg twice daily and MiraLAX 17 g twice daily as tolerated. #Candidiasis Patient has elevated white count, and is complaining of skin tenderness to lower abdomen, vulvovaginal irritation. Physical exam is consistent with candidiasis. Patient was given 150 mg of fluconazole once with excellent response. Nursing as placed antifungal powder under the patient's pannus, this should be continued as an outpatient. #Hyponatremia according to PCP charts, this is acute on chronic exacerbation. Likely SIADH. Patient improving with 1500 mL restriction and salt tabs 3 times daily sodium.Given this is chronic in nature, and appears to be stable will not aggressively treat a number #Transaminitis Patient's CMP on admission is remarkable for elevated LFTs specifically ALT to 247 with AST at 25. Hepatitis serologies were performed and are all negative. Patient did go for a liver ultrasound 01/07 demonstrating normal in size and echotexture she is currently status post cholecystectomy some evidence of intra- and extrahepatic biliary ductal dilatation similar to that in 2012 and likely related to remote cystectomy. Otherwise the patient is asymptomatic for any symptoms of the liver pathology. Transaminitis appeared to resolve with IV hydration, no clear indication as to what caused it, ALT normalized on 01/16. 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) -hold home PO meds, catrina given elev parts runner -ISS, BSG ACHS -Blood sugars were managed by pharmacy throughout the admission, resume home meds on discharge, DC pioglitazone as it is contraindicated in heart failure #Elev parts runner Resolved likely was prerenal given decreased PO intake from somnolence FEN/GI: heart healthy/t2dm diet DVT ppx: lovenox 30mg q24h CODE STATUS: FULL however does not want prolonged intubation DISPO: pending clinical improvement and rehab placement other ongoing medical problems: Anemia - stable -microcytic -history of the same -does not appear to be hemorrhagic, not on blood thinners only ASA -cont B12, would likely benefit from iron supplementation in outpatient setting GERD -continue pantoprazole, especially in someone with IPF given aspiration risks Total Time Total Time Spent Total Time Spent (In Minutes): <30 Discharge Plan Discharge Items Patient Disposition: Transfer Intermediate Fac Reason For Visit: HYPOXIA Discharge Diagnosis: IPF exacerbation, Constipation, MAT, Transaminitis, Candidiasis, DMII, Diastolic HF Discharge Goals: Decrease discomfort, Improve disease control and Therapeutic intervention Activity: Resume your previous activity Activity Comment: as tolerated Non-emergency contact: Primary Care Provider Call non-emergency contact if: you have any medication questions, your symptoms worsen, your pain is not controlled and your temperature is above 100.5 Follow-up/Referrals: Gregory Hobbs MD [Primary Care Provider] - Diet: Carb Consistent or DM2 Addtl Provider Instructions: Care instructions: You were admitted to [facility] for treatment of idiopathic pulmonary fibrosis exacerbation, Constipation, multifocal atrial tachycardia, Transaminitis, Candidiasis, diabetes mellitus type 2, Diastolic HF. A discharge summary will be sent to your primary care physician to ensure continuity of care. Please bring this discharge summary with you to your next office appointment so that your provider can review it at that time. 83F with known h/o IPF here with worsening dyspnea x 2 weeks after being off her medications. Respiratory symptoms likely from progressive IPF vs. diastolic HF. Na remains low at 125 based on work up concern for SIADH. Also having RUQ and found to have hematoma/seroma likely from previous fall given hx of multiple falls at home. #Dyspnea Likely Idiopathic pulmonary fibrosis, acute exacerbation h/o known pulmonary fibrosis, last PFT October 2017 showed normal spirometry with severely reduced DLCO (43% expected). Follows with Dr. Dobbs. Admitting resident had lengthy discussion with delbert at bedside, apparently pt admits to being noncompliant with inhalers for 3 weeks. hypoxic in the PCP office [employer] to 70s, 80s on room air in ED, improved with nasal cannula Delbert Ruiz insisted that she take her meds, and has done so for the past week.did discuss palliative consult seeing as her pulm fibrosis is not curable and likely will continue to progress. Niece enthusiastic about "any help" she can get. Palliative care was consulted see associated documentation. Nimilagro will be her power of attorney recruiter, patient wants to be full code however no prolonged intubation, patient is aware of her current prognosis. Pulmonology was consulted they discontinued her home Flovent and albuterol inhalers as the patient was noncompliant with them, started her on levo albuterol and ipratropium 4 times daily, budesonide 0.5 mg twice daily, avoid oral prednisone as patient does not tolerate. They also recommended rehab given frequent falls and deconditioning. Patient failed 2 s tep, will require home oxygen 2 L at baseline, 4 L with activity. #Multifocal atrial tachycardia EKG demonstratied multifocal atrial tachycardia, which likely also caused de tectable troponins, elevated heart rate and blood pressure. Beta-blockers and verapamil recommended for treatment and prophylaxis. Given her pulmonary fibrosis we elected to avoid beta-blockers to avoid of pulmonary side effects. Patient was started on verapamil 40 mg twice daily and tolerated it well. However she did not demonstrate an adequate response with blood pressure pulse. Troponin peaked at 0.066 and downtrending, to 0.05 likely demand ischemia from multifocal atrial tachycardia. 01/09 Echo demonstrates mild concentric LVH, normal LV systolic function, flattened septum consistent with RV pressure overload, RV moderate dilation, RA moderate dilation, aortic valve sclerosis without significant stenosis, annular calcification, tricuspid regurg, RV systolic pressure 30 to 40 mm mercury. Verapamil was titrated up to achieve desired effect, final dose was 120 mg long-acting verapamil twice daily. She is to continue her home aspirin, and was provided intermittent morphine as needed for air hunger DC'd on discharge. #RUQ pain Previous GI ulcer history. Patient also complaining of a mass in the right upper quadrant and ultrasound was performed Findings most consistent with and intramuscular hematoma or evolving seroma, "intramuscular collection measuring 3.4 x 1.7 x 2.8 cm is present". In the early hours of 01/13 nighttime resident was paged the patient's room to assess bilateral flank ecchymosis. CT abdomen pelvis was ordered the following morning. CT demonstrated no evidence of bowel obstruction stable intra-and extrahepatic biliary ductal dilatation in a patient status post cholecystectomy, fecal retention, extensive diverticulosis with ryder-diverticular muscular hypertrophy, no evidence of acute diverticulitis, cardiomegaly, bilateral pleural effusions right greater than left, bilateral lower lung zone airspace opacities, moderately extensive generalized body wall edema, bilateral sacral insufficiency fractures. It is thought that the patient does not tolerate oral prednisone secondary to history of GI ulcers, we started on sucralfate, pantoprazole twice daily, and Maalox. To be narrowed to sucralfate, pantoprazole daily, and Maalox on discharge. Patient is was provided analgesia with 500 mg of Tylenol as needed, morphine every 6 hours as needed. #Constipation Patient CT scan from 01/13 demonstrated significant stool burden. Taking with her clinical presentation and abdominal complaints, I believe the vast majority this patient's symptoms are related to a massive stool burden. While ho spitalized she was maintained on a bowel regimen of Colace 100 mg 17 g twice daily. On 01/13 she was given a massive dose of MiraLAX consistent 102 g without adequate response. On 01/14 she was given a milk of molasses enema, with an excellent response, patient had 2 bowel movements a day, on 01/15 she was given an additional milk of molasses enema having another 2 bowel movements. She is no longer reporting significant abdominal pain. Recommend PRN milk/molasses enemas as needed as an outpatient for severe constipation otherwise would maintain Colace 100 mg twice daily and MiraLAX 17 g twice daily as tolerated. #Candidiasis Patient has elevated white count, and is complaining of skin tenderness to lower abdomen, vulvovaginal irritation. Physical exam is consistent with candidiasis. Patient was given 150 mg of fluconazole once with excellent response. Nursing as placed antifungal powder under the patient's pannus, this should be continued as an outpatient. #Hyponatremia according to PCP charts, this is acute on chronic exacerbation. Likely SIADH. Patient improving with 1500 mL restriction and salt tabs 3 times daily sodium.G iven this is chronic in nature, and appears to be stable will not aggressively treat a number #Transaminitis Patient's CMP on admission is remarkable for elevated LFTs specifically ALT to 247 with AST at 25. Hepatitis serologies were performed and are all negative. Patient did go for a liver ultrasound 01/07 demonstrating normal in size and echotexture she is currently status post cholecystectomy some evidence of intra- and extrahepatic biliary ductal dilatation similar to that in 2012 and likely related to remote cystectomy. Otherwise the patient is asymptomatic for any symptoms of the liver pathology. Transaminitis appeared to resolve with IV hydration, no clear indication as to what caused it, ALT normalized on 01/16. 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) -hold home PO meds, catrina given elev parts runner -ISS, BSG ACHS -Blood sugars were managed by pharmacy throughout the admission, resume home meds on discharge, DC pioglitazone as it is contraindicated in heart failure #Elev parts runner Resolved likely was prerenal given decreased PO intake from somnolence FEN/GI: heart healthy/t2dm diet DVT ppx: lovenox 30mg q24h CODE STATUS: FULL however does not want prolonged intubation DISPO: pending clinical improvement and rehab placement other ongoing medical problems: Anemia - stable -microcytic -history of the same -does not appear to be hemorrhagic, not on blood thinners only ASA -cont B12, would likely benefit from iron supplementation in outpatient setting GERD -continue pantoprazole, especially in someone with IPF given aspiration risks Follow-up appointments: - Keep all your follow-up appointments as already scheduled. If you cannot make an appointment, notify your provider. - Please call to request a follow-up appointment with your primary care physician within one week of discharge. Please let us know if you are unable to obtain an appointment Follow-up labs: - Please go to a lab nearest you and obtain the requested lab work. Please have this completed at least 3 hours before your doctor's appointment (or the day before your appointment if possible). Medications: - Your medication list has been reviewed and reconciled upon discharge to ensure accuracy and continuity of care. - You are provided with a list of all your current medications at this time. Please review this list closely and make note of any changes. - Please take all of your medications exactly as prescribed. - Tell your primary care provider if you cannot afford your medications. - Call your primary care provider if you are having any side effects or any other problems. - Call your primary care provider before taking any over the counter medications or supplements, including herbals and vitamins, because some of these may interact with your current medications and/or make your symptoms worse. Symptoms: Please call your primary care provider for symptoms including, but not limited to: fevers (temperatures greater than 100.4), chills, intractable nausea or vomiting, diarrhea, rash, shortness of breath, bleeding, pain, or if you experience any worsening of the symptoms that brought you to the hospital. For EMERGENCY and VERY SERIOUS health-related issues, such as chest pain, shortness of breath, or sudden onset of the symptoms that brought you to the hospital, you may need to call 911 or go directly to the Emergency Room It has been our privilege to take care of you during your hospital stay. And Above All Else Feel Better! Best Wishes, Danny Bradshaw MD PGY1 Resident, Family & Community Medicine [facility] Residency at [facility] [address] [facility], [address] : [address] [place] [address], [place] [address] Prescriptions: New levalbuterol HCl 0.63 mg/3 mL Solution For Nebulization 0.63 mg NEB Q6R Qty: 90 RF: 0 sodium chloride 1 gram Tablet 1 g PO TID Qty: 90 RF: 0 verapamil 240 mg Tablet Extended Release 120 mg PO BID 30 Days Qty: 30 RF: 0 ipratropium bromide 0.02 % Solution 0.5 mg inhalation Q6R 30 Days Qty: 300 RF: 0 MAG-AL 200-200 mg/5 mL Suspension 15 ml PO QID Qty: 3000 RF: 0 magnesium hydroxide [Milk of Magnesia] 400 mg/5 mL Suspension 30 ml PO Q12H PRN (Reason: constipation) Qty: 3000 RF: 0 polyethylene glycol 3350 [Miralax] 17 gram Powder In Packet 17 g PO BID Qty: 30 RF: 0 sucralfate 100 mg/mL Suspension 10 ml PO ACHS Qty: 420 RF: 0 budesonide 0.5 mg/2 mL Suspension For Nebulization 0.5 mg NEB BIDR 30 Days Qty: 120 RF: 0 Continued docusate sodium 100 mg capsule 100 mg PO BID PRN (Reason: Constipation) RF: 0 atorvastatin 20 mg tablet 20 mg PO HS Qty: 30 RF: 0 aspirin 81 mg tablet 81 mg PO DAILY RF: 0 calcium carbonate [Calcium 600] 600 mg calcium (1,500 mg) tablet 600 mg PO BID RF: 0 pantoprazole 40 mg tablet,delayed release (DR/EC) 40 mg PO DAILY Qty: 30 RF: 0 metformin 1,000 mg tablet 1,000 mg PO BIDM RF: 0 albuterol sulfate [Ventolin HFA] 90 mcg/actuation Hfa Aerosol Inhaler 2 puff INHALATION Q6H PRN (Reason: Shortness Of Breath) RF: 0 Januvia 100 mg tablet 100 mg PO DAILY RF: 0 cyanocobalamin (vitamin B-12) 1,000 mcg Tablet 1,000 mcg PO DAILY RF: 0 acetaminophen [Tylenol Arthritis Pain] 650 mg Tablet Extended Release 650 mg PO Q12H PRN (Reason: Pain) RF: 0 Systane (propylene glycol) 0.4-0.3 % Drops 1 drp OPHTHALMIC (EYE) BID PRN (Reason: Dry Eye(S)) RF: 0 Flovent HFA 110 mcg/actuation HFA aerosol inhaler 2 puff BID RF: 0 Discontinued pioglitazone 45 mg tablet 45 mg PO DAILY Qty: 30 RF: 0 Stand-Alone Forms: [facility] Discharge Orders: Discharge Order (Routine); Ordered 01/16/19 Ordered By: Danny Bradshaw Skilled Items Patient informed of condition?: Yes DNR: No Discharge Level of Care: Acute rehab Communicable Disease: No Discharge Prognosis: Improving Admission Data Admit Date/Time: 01/06/19 22:32 Attending Provider: Michael Hallman Admit Provider: Kathrine Valentine Primary Care Provider: Gergory Hobbs Other Providers: Isai Larkin ; Kishore Montejo ; Gregory Genao Service: Telemetry Medical Other Interventions: Discharge Summary Assessment (RN) Last Done: 01/16/19 14:14 DC Date/Time DO NOT enter until pt leaves facility: 01/16/19 14:45 Supervising Physician Co-Signing Physician Notes I personally examined the patient and verified all kincaid points of history and exam, discussed case, and agree with decision making with Dr Bradshaw. feeling good overall ready to go to SNF Vitals noted, in general she is in no distress. HEENT normocephalic atraumatic mucous membranes moist. Breathing unlabored no accessory muscle use good effort. Pulmonary fibrosiscontinue current care. ongoing follow up at SNF Abdominal painsevere constipationimproved after enema, continue bowel regimen at SNF, follow, low threshold to escalate as her constipation caused significant discomfort and even impinged on breathing a little. 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
[2019-01-16] MEDS: INSULIN ASPART 100 UNITS/ML 3 ML PEN SC SCH ×2 (08:07→12:05)
[2019-01-16] MEDS: DOCUSATE SODIUM 100 MG CAP PO SCH (08:08)
[2019-01-16] MEDS: CYANOCOBALAMIN 500 MCG TABLET (VITAMIN B-12) PO SCH (08:08)
[2019-01-16] MEDS: CALCIUM 600MG + VIT D 400 IU TAB PO SCH (08:08)
[2019-01-16] MEDS: SODIUM CHLORIDE 1 GM TABLET PO SCH (08:08)
[2019-01-16] MEDS: POLYETHYLENE (MIRALAX) 17 GM PACK PO SCH (08:09)
[2019-01-16] MEDS: ASPIRIN 81 MG ECTAB PO SCH (08:10)
[2019-01-16] MEDS: NYSTATIN SUSP 500,000 U/5 ML UDC PO SCH ×2 (08:10→12:06)
[2019-01-16] MEDS: ALUMINUM/MAGNESIUM SUSP 30 ML UDC PO SCH ×2 (08:11→12:06)
[2019-01-16] MEDS: SUCRALFATE 1 GM/10 ML UDC PO SCH ×2 (08:11→12:06)
[2019-01-16] MEDS: INSULIN GLARGINE SOLOSTAR 100 UNITS/ML 3 ML PEN SC SCH (08:12)
[2019-01-16] MEDS: ENOXAPARIN INJ 30 MG/0.3 ML SYR SQ SCH (08:12)
[2019-01-16] MEDS: methylPREDNISolone 20 MG in SYRINGE 0 ML IV SCH (08:12)
[2019-01-16] MEDS: MICONAZOLE NITRATE POWDER 43 GM EXT PRN (08:16)
[2019-01-16] MEDS: VERAPAMIL HCL 240 MG TABCR PO SCH (08:18)
[2019-01-16] MEDS ORDERED: FUROSEMIDE 10 MG in SYRINGE 0 ML IV ONE (12:00)
--- NOTE | 2019-01-16 12:44 | Family Medicine Progress Note ---
Date of Service January 16, 2019 Assessment & Plan (1) Acute on chronic respiratory failure with hypoxia: 83F with known h/o IPF here with worsening dyspnea x 2 weeks after being off her medications. Respiratory symptoms likely from progressive IPF vs. diastolic HF. Na remains low at 125 based on work up concern for SIADH. Also having RUQ and found to have hematoma/seroma likely from previous fall given hx of multiple falls at home. #Leukocytosis Resolved Trending daily CBC white blood cell count has slowly been increasing, today 14.62 with a neutrophil predominance. Pro-Klever from 2 days ago was not impressive. -Physical exam findings concerning for pannus candidiasis versus vulvovaginitis candidiasis versus bacterial vaginitis -Given single dose of fluconazole -Nursing will be placing antifungal powder on her pannus -Improved on physical exam from yesterday #Dyspnea h/o known pulmonary fibrosis, last PFT October 2017 showed normal spirometry with severely reduced DLCO (43% expected). Follows with Dr. Dobbs. Admitting resident had lengthy discussion with delbert at bedside, apparently pt admits to being noncompliant with inhalers for 3 weeks. 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 Niece enthusiastic about "any help" she can get. Palliative care was consulted see associated documentation. Niece will be her power of patent attorney, patient wants to be full code however no prolonged intubation, patient is aware of her current prognosis. Pulmonology was consulted they discontinued her home Flovent and albuterol inhalers as the patient was noncompliant with them, started her on levo albuterol and ipratropium 4 times daily, budesonide 0.5 mg twice daily, avoid oral prednisone as patient does not tolerate. They also recommended rehab given frequent falls and deconditioning. Patient failed 2 step, will require home oxygen 2 L at baseline, 4 L with activity. -given 1 dose of 10 mg lasix IV 2/2 to crackles on PE #Multifocal atrial tachycardia - resolved EKG demonstratied multifocal atrial tachycardia, which likely also caused detectable troponins, elevated heart rate and blood pressure. Beta-blockers and verapamil recommended for treatment and prophylaxis. Given her pulmonary fibrosis we elected to avoid beta-blockers to avoid of pulmonary side effects. Patient was started on verapamil 40 mg twice daily and tolerated it well. However she did not demonstrate an adequate response with blood pressure pulse. Troponin peaked at 0.066 and downtrending, to 0.05 likely demand ischemia from multifocal atrial tachycardia. 01/09 Echo demonstrates mild concentric LVH, normal LV systolic function, flattened septum consistent with RV pressure overload, RV moderate dilation, RA moderate dilation, aortic valve sclerosis without significant stenosis, annular calcification, tricuspid regurg, RV systolic pressure 30 to 40 mm mercury. Verapamil was titrated up to achieve desired effect, final dose was 120 mg long-acting verapamil twice daily. She is to continue her home aspirin, and was provided intermittent morphine as needed for air hunger DC'd on discharge #RUQ pain Previous GI ulcer history. Patient also complaining of a mass in the right upper quadrant and ultrasound was performed Findings most consistent with and intramuscular hematoma or evolving seroma, "intramuscular collection measuring 3.4 x 1.7 x 2.8 cm is present". In the early hours of 01/13 nighttime resident was paged the patient's room to assess bilateral flank ecchymosis. CT abdomen pelvis was ordered the following morning. CT demonstrated no evidence of bowel obstruction stable intra-and extrahepatic biliary ductal dilatation in a patient status post cholecystectomy, fecal retention, extensive diverticulosis with ryder-diverticular muscular hypertrophy, no evidence of acute diverticulitis, cardiomegaly, bilateral pleural effusions right greater than left, bilateral lower lung zone airspace opacities, moderately extensive generalized body wall edema, bilateral sacral insufficiency fractures. It is thought that the patient does not tolerate oral prednisone secondary to history of GI ulcers, we started on sucralfate, pantoprazole twice daily, and Maalox. To be narrowed to sucralfate, pantoprazole daily, and Maalox on discharge. Patient is was provided analgesia with 500 mg of Tylenol as needed, morphine every 6 hours as needed. #Constipation Patient CT scan from 01/13 demonstrated significant stool burden. Taking with her clinical presentation and abdominal complaints, I believe the vast majority this patient's symptoms are related to a massive stool burden. While hospitalized she was maintained on a bowel regimen of Colace 100 mg 17 g twice daily. On 01/13 she was given a massive dose of MiraLAX consistent 102 g without adequate response. On 01/14 she was given a milk of molasses enema, with an excellent response, patient had 2 bowel movements a day, on 01/15 she was given an additional milk of molasses enema having another 2 bowel movements. She is no longer reporting significant abdominal pain. Recommend PRN milk/molasses enemas as needed as an outpatient for severe constipation otherwise would maintain Colace 100 mg twice daily and MiraLAX 17 g twice daily as tolerated. #Candidiasis Patient has elevated white count, and is complaining of skin tenderness to lower abdomen, vulvovaginal irritation. Physical exam is consistent with candidiasis. Patient was given 150 mg of fluconazole once with excellent response. Nursing as placed antifungal powder under the patient's pannus, this should be continued as an outpatient. #Hyponatremia according to PCP charts, this is acute on chronic exacerbation. Likely SIADH. Patient improving with 1500 mL restriction and salt tabs 3 times daily sodium.Given this is chronic in nature, and appears to be stable will not aggressively treat a number #Transaminitis Patient's CMP on admission is remarkable for elevated LFTs specifically ALT to 247 with AST at 25. Hepatitis serologies were performed and are all negative. Patient did go for a liver ultrasound 01/07 demonstrating normal in size and echotexture she is currently status post cholecystectomy some evidence of intra- and extrahepatic biliary ductal dilatation similar to that in 2012 and likely related to remote cystectomy. Otherwise the patient is asymptomatic for any symptoms of the liver pathology. Transaminitis appeared to resolve with IV hydration, no clear indication as to what caused it, ALT normalized on 01/16. 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) -hold home PO meds, catrina given elev checking clerk -ISS, BSG ACHS -Blood sugars were managed by pharmacy throughout the admission, resume home meds on discharge, DC pioglitazone as it is contraindicated in heart failure #Elev checking clerk Resolved likely was prerenal given decreased PO intake from somnolence FEN/GI: heart healthy/t2dm diet DVT ppx: lovenox 30mg q24h CODE STATUS: FULL however does not want prolonged intubation DISPO: pending clinical improvement and rehab placement other ongoing medical problems: Anemia - stable -microcytic -history of the same -does not appear to be hemorrhagic, not on blood thinners only ASA -cont B12, would likely benefit from iron supplementation in outpatient setting GERD -continue pantoprazole, especially in someone with IPF given aspiration risks Supervising Physician Co-Signing Physician Notes I personally examined the patient and verified all kincaid points of history and exam, discussed case, and agree with decision making with Dr Bradshaw Subjective Patient sitting up in bed this morning in no acute distress. Patient reports that she is "bored "and ready to be discharged. Patient reports significant i mprovement in her breathing, and abdominal pain. Yesterday she had another milk/molasses enema which was effective leading to 2 bowel movements and resolution of patient's pain. Patient still endorsing pain under her pannus, however appears less irritated on physical exam. Otherwise patient tolerating her diet, voiding, stooling, sleeping, has no acute complaints, all questions answered. Physical Exam Physical Exam: General: No acute distress HEENT: Normocephalic atraumatic Neck: Trachea midline, did not appreciate significant JVD Cardiac: Regular rate and rhythm, I did not appreciate any murmurs rubs or gallops, normal S1, no calf tenderness Respiratory: Coarse breath sounds bilaterally, intermittent wheezes present, rhonchi present clear with coughing, intermittent crackles GI: Bilateral lower quadrant tenderness quadrant tenderness, distended, soft, normal bowel sounds, MSK: Moves all extremities, Pitting edema 1+ in upper thigh Skin: Bilateral ecchymosis on her flank improving, diffuse ecchymosis throughout her body likely secondary to aging, vulvovaginal irritation improving, redness, ecchymosis. Pannus containing Negar improving Neuro: Alert and oriented Psych: Cooperative Results & Data Vital Signs (Past 12 Hours) Vital Signs Temp Pulse Pulse Resp BP Pulse Ox 01/16/19 11:59 36.9 C 71 16 130/54 L 94 01/16/19 08:09 36.7 C 77 16 159/71 H 92 01/16/19 08:00 81 01/16/19 07:06 77 16 92 01/16/19 04:00 36.7 C 82 18 139/71 95 01/16/19 03:05 77 01/16/19 01:41 83 16 98 Laboratory Results 01/16/19 01/16/19 01/16/19 Range/Units 11:37 07:36 06:15 WBC (4.8-10.8) K/uL RBC (4.2-5.4) M/uL Hgb (12.0-16.0) g/dL Hct (37-47) % MCV (80-100) fL MCH (25-34) pg MCHC (32-36) g/dL RDW Std Deviation (36.4-46.3) fL RDW Coeff of Alexa (11.5-14.5) % Plt Count (130-400) K/uL MPV (7.4-10.4) fL Immature Gran % (Auto) % Neut % (Auto) % Lymph % (Auto) % [place] % (Auto) % Eos % (Auto) % Baso % (Auto) % Immature Gran # (Auto) (0.00-0.02) K/uL Neut # (Auto) (1.4-6.5) K/uL Lymph # (Auto) (1.2-3.4) K/uL [place] # (Auto) (0.11-0.59) K/uL Eos # (Auto) (0-0.5) K/uL Baso # (Auto) (0-0.2) K/uL Absolute Nucleated RBC (0-0) K/uL Nucleated RBC % (auto) % Sodium 131 L (136-145) mmol/L Potassium 4.0 (3.5-5.1) mmol/L Chloride 90 L (98-107) mmol/L Carbon Dioxide 37 H (21-32) mmol/L Anion Gap 4.0 (3-11) BUN 18 (7-18) mg/dl Creatinine 0.77 (0.6-1.2) mg/dl Est Cr Clr Drug Dosing 40.5 ml/min Est GFR ( Amer) 82.8 Est GFR (Non-Af Amer) 71.4 BUN/Creatinine Ratio 22.7 H (10-20) Glucose 71 (70-99) mg/dl POC Glucose 130 H 71 (70-99) Calcium 7.7 L (8.5-10.1) mg/dl Total Bilirubin 1.6 H (0.2-1) mg/dl AST 19 (15-37) U/L ALT 57 (12-78) U/L Alkaline Phosphatase 63 (45-117) U/L Total Protein 5.2 L (6.4-8.2) gm/dl Albumin 2.9 L (3.4-5.0) gm/dl Globulin 2.3 L (2.5-4.0) gm/dl Albumin/Globulin Ratio 1.3 (0.9-2) 01/16/19 01/15/19 01/15/19 Range/Units 06:15 20:36 16:36 WBC 8.08 (4.8-10.8) K/uL RBC 3.77 L (4.2-5.4) M/uL Hgb 9.5 L (12.0-16.0) g/dL Hct 30.9 L (37-47) % MCV 82.0 (80-100) fL MCH 25.2 (25-34) pg MCHC 30.7 L (32-36) g/dL RDW Std Deviation 52.8 H (36.4-46.3) fL RDW Coeff of Alexa 17.6 H (11.5-14.5) % Plt Count 210 (130-400) K/uL MPV 8.5 (7.4-10.4) fL Immature Gran % (Auto) 0.2 % Neut % (Auto) 88.8 % Lymph % (Auto) 5.1 % [place] % (Auto) 5.9 % Eos % (Auto) 0.0 % Baso % (Auto) 0.0 % Immature Gran # (Auto) 0.02 (0.00-0.02) K/uL Neut # (Auto) 7.17 H (1.4-6.5) K/uL Lymph # (Auto) 0.41 L (1.2-3.4) K/uL [place] # (Auto) 0.48 (0.11-0.59) K/uL Eos # (Auto) 0.00 (0-0.5) K/uL Baso # (Auto) 0.00 (0-0.2) K/uL Absolute Nucleated RBC 0.02 H (0-0) K/uL Nucleated RBC % (auto) 0.3 % Sodium (136-145) mmol/L Potassium (3.5-5.1) mmol/L Chloride (98-107) mmol/L Carbon Dioxide (21-32) mmol/L Anion Gap (3-11) BUN (7-18) mg/dl Creatinine (0.6-1.2) mg/dl Est Cr Clr Drug Dosing ml/min Est GFR ( Amer) Est GFR (Non-Af Amer) BUN/Creatinine Ratio (10-20) Glucose (70-99) mg/dl POC Glucose 237 H 129 H (70-99) Calcium (8.5-10.1) mg/dl Total Bilirubin (0.2-1) mg/dl AST (15-37) U/L ALT (12-78) U/L Alkaline Phosphatase (45-117) U/L Total Protein (6.4-8.2) gm/dl Albumin (3.4-5.0) gm/dl Globulin (2.5-4.0) gm/dl Albumin/Globulin Ratio (0.9-2) Medications Administered Current Inpatient Medications Acetaminophen (Tylenol) 500 mg PO Q4H PRN PRN Reason: Pain Stop: 02/09/19 18:10 Last Admin: 01/13/19 16:22 Dose: 500 mg Documented by: Al Hydrox/Mg Hydrox/Simethicone (Maalox) 15 ml PO QID SONIDO Stop: 02/09/19 12:59 Last Admin: 01/16/19 12:06 Dose: 15 ml Documented by: Artificial Tears (Artificial Tears) 1 drops OP BID PRN PRN Reason: dry eyes Stop: 02/06/19 00:44 Aspirin (Ecotrin Ectab) 81 mg PO DAILY SONIDO Stop: 02/06/19 08:59 Last Admin: 01/16/19 08:10 Dose: 81 mg Documented by: Atorvastatin Calcium (Lipitor) 20 mg PO HS SONIDO Stop: 02/06/19 20:59 Last Admin: 01/15/19 20:47 Dose: 20 mg Documented by: Budesonide (Pulmicort Respules) 0.5 mg NEB BIDR SONIDO Stop: 02/13/19 11:29 Last Admin: 01/16/19 07:06 Dose: 0.5 mg Documented by: Cyanocobalamin (Vitamin B-12) 1,000 mcg PO DAILY SONIDO Stop: 02/06/19 08:59 Last Admin: 01/16/19 08:08 Dose: 1,000 mcg Documented by: Dextrose (Dextrose 50%) 25 - 50 ml IV UD PRN; Protocol PRN Reason: Hypoglycemia Protocol Stop: 02/06/19 00:04 Docusate Sodium (Colace) 100 mg PO BID SONIDO Stop: 02/11/19 11:59 Last Admin: 01/16/19 08:08 Dose: 100 mg Documented by: Enoxaparin Sodium (Lovenox) 30 mg SQ Q24H SONIDO Stop: 02/06/19 07:59 Last Admin: 01/16/19 08:12 Dose: 30 mg Documented by: Glucagon (Glucagen) 1 mg SQ UD PRN; Protocol PRN Reason: Hypoglycemia Protocol Stop: 02/06/19 00:04 Glucose (Dex4 Glucose) 4 - 8 tabs PO UD PRN; Protocol PRN Reason: Hypoglycemia Protocol Stop: 02/06/19 00:04 Glucose (Glucose 40%) 15 - 30 gm PO UD PRN; Protocol PRN Reason: Hypoglycemia Protocol Stop: 02/06/19 00:04 Methylprednisolone 20 mg/ (Syringe) 0.32 mls @ 1.5 mls/min IV BID [facility] Stop: 02/09/19 20:59 Last Admin: 01/16/19 08:12 Dose: 1.5 mls/min Documented by: Insulin Aspart (Novolog Flexpen) 0 units SC ACHS [facility] Stop: 02/09/19 00:29 Last Admin: 01/16/19 12:05 Dose: 9 units Documented by: Insulin Glargine (Lantus Solostar Pen) 0 units SC BID [facility]; Protocol Stop: 02/10/19 20:59 Last Admin: 01/16/19 08:12 Dose: Not Given Documented by: Ioversol (Optiray 320 100ml) 94 ml IV ONCE PRN PRN Reason: Interaction Checking Stop: 01/17/19 10:08 Last Admin: 01/13/19 10:09 Dose: 94 ml Documented by: Ipratropium [place] (Atrovent 0.02% 0.5mg/2.5ml) 0.5 mg INH Q6R [facility] Stop: 02/10/19 11:14 Last Admin: 01/16/19 07:06 Dose: 0.5 mg Documented by: Levalbuterol HCl (Xopenex 0.63 Mg/3 Ml Neb) 0.63 mg NEB Q6R [facility] Stop: 02/10/19 11:14 Last Admin: 01/16/19 07:06 Dose: 0.63 mg Documented by: Magnesium Hydroxide (Milk Of Magnesia) 30 ml PO Q12H PRN PRN Reason: Constipation Stop: 02/06/19 00:04 Last Admin: 01/12/19 10:54 Dose: 30 ml Documented by: Miconazole Nitrate (Desenex) 1 appln EXT PRN PRN PRN Reason: Affected Skin Folds Stop: 02/14/19 09:48 Last Admin: 01/16/19 08:16 Dose: 1 appln Documented by: Miscellaneous (Carbohydrates For Hypoglycemia) 15 - 30 gm PO UD PRN PRN Reason: Hypoglycemia Treatment Stop: 02/06/19 00:04 Last Admin: 01/13/19 07:50 Dose: 15 gm Documented by: Miscellaneous Information (Consult Glycemic Management Pharmacy) 1 ea N/A UD PRN PRN Reason: Consult Stop: 02/06/19 18:13 Morphine Sulfate (Morphine Sulfate) 2 mg IV Q6H PRN PRN Reason: Pain Stop: 01/25/19 13:40 Multivitamins/Minerals (Caltrate Plus) 1 tab PO BID [facility] Stop: 02/06/19 08:59 Last Admin: 01/16/19 08:08 Dose: 1 tab Documented by: Nystatin (Mycostatin) 5 ml PO QID [facility] Stop: 01/21/19 12:59 Last Admin: 01/16/19 12:06 Dose: 5 ml Documented by: Ondansetron HCl (Zofran) 4 mg IV Q6H PRN PRN Reason: Nausea Stop: 02/06/19 00:04 Pantoprazole Sodium (Protonix) 40 mg PO BID@0700,1900 [facility] Stop: 02/09/19 12:14 Last Admin: 01/16/19 06:20 Dose: 40 mg Documented by: Polyethylene Glycol (Miralax Powder Packet) 17 gm PO DAILY PRN PRN Reason: Constipation Stop: 02/06/19 00:04 Polyethylene Glycol (Miralax Powder Packet) 17 gm PO DAILY [facility] Stop: 02/08/19 11:29 Last Admin: 01/16/19 08:09 Dose: 17 gm Documented by: Sodium Chloride (Sodium Chloride) 1 gm PO TID [facility] Stop: 02/13/19 13:59 Last Admin: 01/16/19 08:08 Dose: 1 gm Documented by: Sucralfate (Carafate) 1 gm PO ACHS [facility] Stop: 02/09/19 16:29 Last Admin: 01/16/19 12:06 Dose: 1 gm Documented by: Verapamil HCl (Calan Sr) 120 mg PO BID [facility] Stop: 02/14/19 08:59 Last Admin: 01/16/19 08:18 Dose: 120 mg Documented by: PG Care Time/CCT Total # of Minutes Spent Total Time Spent with Patient: Total time spent is greater than 50% in coordination of care (as documented) at patient's floor/unit and/or counseling patient: Resident Activity Tracking Resident Involvement: Resident Care Provided Care Provided: Adult Hospital Medicine
== END 2019-01-16 14:45 | DRG 196 ==
LOC: ED 15:44 → 2N 22:32 → SUATTDRO 22:32 → 2N 22:59

== ENCOUNTER 2019-01-22 18:09 | Inpatient (IN) ==
[2019-01-22] MEDS ORDERED: RAPID SEQUENCE INDUCTION BAG ONE (18:14)
[2019-01-22] MEDS ORDERED: DOPamine 400MG / 250ML D5W IV ONE (18:14)
[2019-01-22] MEDS ORDERED: PIPERACILLIN/TAZOBACTAM 4.5 GM/120 ML BAG IV STA (18:17)
[2019-01-22] MEDS ORDERED: SODIUM CHLORIDE 0.9% 250 ML IV PRN (18:22)
[2019-01-22] MEDS ORDERED: SODIUM CHLORIDE 0.9% 500 ML IV SCH ×2 (18:30→23:55)
[2019-01-22 18:40] LABS: iSTAT Hemoglobin 10.2 g/dl (12.0-16.0); iSTAT Potassium 5.3 mEq/L (3.3-5.0)
[2019-01-22] MEDS ORDERED: IOVERSOL 100ml IV PRN (18:46)
--- NOTE | 2019-01-22 18:51 | CT Scan Report ---
CT SCAN OF THE BRAIN WITHOUT IV CONTRAST CLINICAL HISTORY: Change in mental status. COMPARISON STUDY: CT of the brain dated 02/27/2013. TECHNIQUE: Unenhanced axial CT scan of the brain is performed from the vertex to the skull base. A do se lowering technique was utilized adhering to the principles of ALARA. CT DOSE: 537.48 mGy.cm FINDINGS: Brain parenchyma: There are age-related involutional changes noting [id number] patchy subcorti kassidy and periventricular microangiopathic change. 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 There is no hemorrhage, mass effect, or evidence of acute territorial ischemia by CT criteria. Gr ay-white matter differentiation is preserved. No extra-axial fluid collection is seen. Ventricles, sulci, cisterns: Prominent secondary to involutional change. Intracranial vasculature: There is atherosclerotic calcification of the cavernous carotid and vertebr al arteries. Calvarium: Unremarkable. Sinuses and mastoids: The visualized paranasal sinuses are clear. The mastoid air cells are well pneu matized. Orbits: The bony orbits are grossly intact. There are bilateral ocular lens implants. IMPRESSION: There is no hemorrhage, mass effect, or evidence of acute territorial ischemia by CT verna hightower. Electronically signed by: Michael Macedo M.D. 01/22/2019 6:49 PM
[2019-01-22] MEDS ORDERED: HYDROCORTISONE SOD SUCCINATE 100 MG/2 ML VIAL IV STA (18:58)
[2019-01-22] MEDS ORDERED: HYDROCORTISONE SOD SUCCINATE 100 MG/2 ML VIAL ONE (18:59)
[2019-01-22] MEDS: DOPamine 400MG / 250ML D5W IV ONE ×2 (19:00→20:02)
--- NOTE | 2019-01-22 19:11 | CT Scan Report ---
CT SCAN OF THE ABDOMEN AND PELVIS WITH IV CONTRAST CLINICAL HISTORY: Generalized abdominal pain. COMPARISON STUDY: Abdominal CT dated 01/13/2019. TECHNIQUE: Following the IV administration of 93 cc of Optiray 320, CT scan of the abdomen and pelvi s is performed from the lung bases to the proximal femora. Images are reviewed in the axial, sagittal , and coronal planes. IV contrast was administered without complication. A dose lowering technique wa s utilized adhering to the principles of ALARA. The examination is degraded by motion artifact, and b y streak artifact from the arms which cannot elevated above the abdomen. CT DOSE: 477.45 mGy.cm FINDINGS: Lung bases: The heart is enlarged and without pericardial effusion. The coronary arteries and mitral annulus are densely calcified. Small foci of intracardiac gas are likely related to IV placement. The pulmonary trunk is dilated, measuring 3.5 cm in diameter. This suggests pulmonary artery hypertensio n. There are small to moderate right and trace left pleural effusions with bibasilar consolidation. Liver: The contrast-enhanced liver is normal in size, contour, and attenuation. There is moderate int rahepatic biliary ductal dilatation. The hepatic veins and portal veins are patent. Gallbladder: Surgically absent noting clips in the gallbladder fossa. There is mild wall thickening a nd hyperemia of the common bile duct. The common bile duct is dilated, measuring up to 2 cm in diamet er. Intraluminal debris is suggested. Head of the pancreas on image #[id number]. Spleen: Normal in size and attenuation. Pancreas: The pancreas is moderately atrophic and grossly unremarkable. The pancreatic duct is normal in caliber. Adrenal glands: Nodularity adrenal glands is similar to previous.. Kidneys: The contrast enhanced kidneys are atrophic and without hydronephrosis. The kidneys enhance s ymmetrically. A subcentimeter cortical hypodensity in the left upper pole likely represents a cyst bu t is too small for definitive characterization. Abdominal vasculature: The abdominal aorta is normal in course and caliber noting advanced atheroscle rotic calcification. Bowel: There is rectosigmoid fecal impaction and moderate constipation. No bowel obstruction is seen. There is moderate colonic diverticulosis without CT evidence of acute diverticulitis. There is diffu se wall thickening end edema with associated full thickening involving the colon and small bowel. Thi s may also involve the stomach, and there is associated mucosal hyperemia seen throughout. The appen gwyn is well-visualized and normal. Peritoneum: There is trace abdominopelvic ascites. Mesenteric edema is observed. No intraperitoneal f ree air is seen. Lymphadenopathy: None. Pelvic viscera: The bladder is partially decompressed and a Kuo catheter and not well evaluated. Th e uterus is surgically absent. No adnexal lesion is seen. Skeletal structures: The skeletal structures are osteopenic. There is a moderate compression deformit y of L1 with retropulsed fragments. Moderate lumbosacral spondylosis and scoliosis are observed. No l ytic or blastic lesions are seen. There are bilateral sacral insufficiency fractures. Soft tissues: There is body wall edema. IMPRESSION: 1. Streak and motion compromised examination. 2. Right larger than left pleural effusions with bibasilar consolidation. The appearance is typical f or pneumonia/aspiration pneumonitis. Clinical correlation will be required. 3. Cardiomegaly. 4. There is evidence of fluid overload, with body wall edema, a small volume of abdominopelvic ascite s, and mesenteric edema. 5. There is intra and extrahepatic biliary ductal dilatation. This is similar to previous and may be related to a history of cholecystectomy. 6. Question intraluminal debris within the distal common bile duct. Choledocholithiasis is not exclud ed. 7. There is mild wall thickening and hyperemia of the common bile duct. Correlate clinically for evid ence of infection/cholangitis. 8. There is diffuse mucosal edema of the small bowel and colon with associated fold thickening. This may also involve the stomach, and there is mucosal hyperemia throughout. This could be related to vol ume status/fluid overload. Different considerations include a nonspecific infectious/inflammatory ent erocolitis or less likely etiologies such as angioedema. Clinical correlation will be essential. 9. Bilateral sacral insufficiency fractures are again noted. 10. There is rectosigmoid fecal impaction and moderate constipation. No bowel obstruction is seen. 11. Additional findings as above. Electronically signed by: Michael Macedo M.D. 01/22/2019 7:09 PM
[2019-01-22 19:36] LABS: Appearance Urine Clear (Clear); Bacteria Urine Automated Negative (Negative); Bilirubin Urine Negative (Negative); Blood Urine Negative (Negative); Color Urine Dark Yellow; Epithelial Cell Urine Auto 20-30 /lpf (0-5); Glucose Urine UA Negative (Negative); Ketones Urine Negative (Negative); Leukocyte Esterase Urine Trace (Negative); Nitrite Urine Negative (Negative); RBC Urine Automated 0-4 /hpf (0-4); Specific Gravity Urine 1.019 (1.000-1.030); Urobilinogen Urine Negative (Negative); pH Urine 8.5 (4.5-7.5)
[2019-01-22 19:37] LABS: Protein Urine Trace (Negative)
--- NOTE | 2019-01-22 19:48 | XRay Report ---
SINGLE VIEW CHEST CLINICAL HISTORY: Hypotension. FINDINGS: An AP, portable, semierect chest radiograph is compared to study dated 01/06/2019 and correl ated with chest CT dated 01/11/2019. The examination is degraded by portable technique and patient rot ation. The heart is enlarged and there is atherosclerotic calcification of the thoracic aorta. There is pulmonary vessel congestion. There are small pleural effusions with bibasilar consolidation. No pn eumothorax is seen. The skeletal structures are osteopenic. Degenerative change is seen throughout th e thoracic spine. There is chronic posttraumatic deformity of the left proximal humerus. Cholecystect kolby clips are seen in the right upper quadrant. An IV catheter is seen in the right neck. IMPRESSION: 1. Cardiomegaly with evidence of congestive failure. 2. Small pleural effusions with bibasilar consolidation. Electronically signed by: Michael Macedo M.D. 01/22/2019 7:47 PM
[2019-01-22 19:53] LABS: Eosinophils # (auto) 0.14 K/uL (0-0.5); Eosinophils % (auto) 1.1 %; Hematocrit (blood only) 29.1 % (37-47); Hemoglobin 8.8 g/dL (12.0-16.0); Immature Granulocytes # (auto) 0.23 K/uL (0.00-0.02); Immature Granulocytes % (auto) 1.8 %; Lymphocytes # (auto) 0.79 K/uL (1.2-3.4); Lymphocytes % (auto) 6.2 %; Mean Corpuscular Hgb Conc 30.2 g/dL (32-36); Mean Corpuscular Volume 86.6 fL (80-100); Monocytes # (auto) 0.88 K/uL (0.11-0.59); Monocytes % (auto) 6.9 %; Neutrophils # (auto) 10.67 K/uL (1.4-6.5); Platelet Count 162 K/uL (130-400); RDW Coefficient of Variation 20.5 % (11.5-14.5); RDW Standard Deviation 63.3 fL (36.4-46.3); Red Blood Count 3.36 M/uL (4.2-5.4); White Blood Count 12.71 K/uL (4.8-10.8)
[2019-01-22] MEDS ORDERED: DOPAMINE / D5W 400 MG/250 ML BAG IV STA (20:01)
[2019-01-22] MEDS ORDERED: NOREPINEPHRINE BIT INJ 8 MG in DEXTROSE 5% 500 ML IV STA (20:01)
[2019-01-22 20:03] LABS: INR 1.2 (0.9-1.1); Partial Thromboplastin Ratio 0.8; Partial Thromboplastin Time 21.5 Seconds (21.0-31.0); Prothrombin Time 12.4 Seconds (9.0-12.0)
[2019-01-22 20:17] LABS: Alanine Aminotransferase 85 U/L (12-78); Albumin Level 2.4 gm/dl (3.4-5.0); Aspartate Aminotransferase 171 U/L (15-37); BUN Creatinine Ratio 22.3 (10-20); Blood Urea Nitrogen 23 mg/dl (7-18); Calcium 6.9 mg/dl (8.5-10.1); Carbon Dioxide 27 mmol/L (21-32); Chloride 104 mmol/L (98-107); Est GFR (African American) 58.9; Est GFR (Non-African American) 50.8; Glucose 215 mg/dl (70-99); Potassium 4.8 mmol/L (3.5-5.1); Sodium 138 mmol/L (136-145)
[2019-01-22 20:18] LABS: Anisocytosis Present; Echinocytes 1+; Hypochromasia Present; Ovalocytes 1+; Schistocytes 1+
[2019-01-22 20:20] LABS: Alkaline Phosphatase 132 U/L (45-117); Bilirubin,Total 1.6 mg/dl (0.2-1); Globulin 2.3 gm/dl (2.5-4.0); Total Protein 4.7 gm/dl (6.4-8.2)
[2019-01-22 20:22] LABS: iSTAT Arterial Blood Gas HCO3 27 meg/L (19-24); iSTAT Arterial Blood Gas pCO2 70 mmHg (35-46); iSTAT Arterial Blood Gas pH 7.19 (7.35-7.45); iSTAT Carbon Dioxide 29 mEq/l (24-31)
[2019-01-22] MEDS ORDERED: dilTIAZem HCl 5 MG/ML 5 ML VIAL IV STA (20:38)
[2019-01-22] MEDS ORDERED: dilTIAZem HCl 125 MG in DEXTROSE 5% 100 ML IV SCH (20:45)
[2019-01-22] MEDS ORDERED: OXYCODONE/ACETAMINOPHEN 10-325 TAB PO PRN (21:02)
--- NOTE | 2019-01-22 21:54 | Critical Care Consultation ---
Date of Consultation January 22, 2019 Assessment & Plan (1) Admitted to intensive care unit: Reason Critically Ill: 83-year-old female presenting with profound hypotension and acute respiratory failure requiring noninvasive ventilatory support in the setting of respiratory failure with hypoxia and hypercapnia. NEURO - * CAM ICU: Positive * Frequent neurological assessments in the setting of hypotension and undifferentiated slight confusion. * Symptoms improved with resolved hypotension. * No focal neurological deficits on exam. * CT the head unremarkable. CARDIAC/VASCULAR - * Profound hypotension: * In the setting of likely sepsis w/ septic shock. * Aggressively resuscitated with IV fluids. * Currently requiring levo fed. * Will titrate down as tolerated. * Will add a.m. echocardiogram. * Hold home hypertensive medications. * Monitor on telemetry. RESPIRATORY - * Acute respiratory failure with hypoxia and hypercapnia: * Worsened by underlying idiopathic pulmonary fibrosis. * Previously had stopped her home steroids. * Responding to BiPAP. * Recurrent ABGs. * Patient currently a DNI. * Will add steroids. * Vanc Zosyn. * Concerns for pleural effusion in the RIGHT lower lobe area. * Bedside ultrasound demonstrates no significant effusion for diagnostic thoracentesis. * Will treat with aggressive antibiotics with concerns for possible intrathoracic infection, i.e. empyema. GI/NUTRITION - * Elevated liver enzymes. * Question if worsening in the setting of hypotension. * Will trend. * Prophylaxis: Protonix RENAL/LYTES - * No significant electrolyte derangements. * Will trend. * Received IV fluids in the emergency department for a total of 3.5 L. Will hold at this time. - * No concerns for infectious sources at this time. * Kou in place - Strict I&Os. ENDO - * Diabetes * BSGs per unit protocol. ISS --> gtt per unit policy. HEME - * Concerns for possible risk of blood loss anemia with exam findings consistent with flank hematomas. * Will trend. Transfuse as needed. ID - * Severe sepsis with septic shock. * Possible pulmonary source. * Vancomycin and Zosyn with recent hospital admission. * Trend lactate. * Check pro-Klever. LINES/IV ACCESS - * PIVs x2 * RIGHT femoral CVL * Kuo DVT PROPHYLAXIS - * Hold with concerns for possible bleeding. * SCDs I have personally spent 45 minutes of critical care time in the direct management of this patient. This is a life/limb threatening event. This includes time spent evaluating patient, direct bedside care, chart review, placing orders, interpretation of diagnostic studies, discussion with consultants, patient, and family members, as well as other required patient management activities. This time is exclusive of all separately billable procedures, and teaching time and separate from and in addition to any other critical care service time. Thank you for allowing us to participate in the care of this patient. Please refer to my attending physician's documentation for any further recommendations. (2) Septic shock: (3) Acute hypotension: (4) Hematoma of left flank: (5) Hematoma of right flank: (6) Hypercapnia: (7) Hypotension: (8) Acute on chronic respiratory failure with hypoxia: (9) Elevated liver enzymes: (10) Pleural effusion: (11) Fecal impaction: Supervising Physician Co-Signing Physician Notes I have personally evaluated and examined this patient. I agree with assessment and plan of Ama Portillo PA-C. I consented the patient for central venous access, thoracentesis, arterial line. I had a extensive discussion with the patient's power of claims attorney as the patient has acute encephalopathy and is unable to give informed consent. In discussing the patient's long-term care goals she would not want heroic measures undertaken in event of cardiac arrest. Similarly she has end-stage idiopathic pulmonary fibrosis and was recently off her medications for several weeks. The patient would not want intubation in event of respiratory insufficiency. At this time we have reached maximum intervention with a noninvasive ventilator for respiratory insufficiency. Reviewing the CT imaging she has a pleural effusion in the right lung base. There is also persistent significant edema in the abdomen. On a bedside ultra sound while we cannot obtain a thoracentesis secondary to lack of a safe margin and placing a needle there does appear to be evidence concerning for loculation and I am concerned this may represent an empyema. After my evaluation care was transitioned to Ama Portillo. I have personally spent 35 minutes of critical care time in the direct management of this patient. This is a life/limb threatening event. This includes time spent evaluating patient, direct bedside care, chart review, placing orders, interpretation of diagnostic studies, discussion with consultants, patient, and/or family members regarding treatment decisions, as well as other required patient management activities. This time is exclusive of all separately billable procedures, and teaching time and separate from and in addition to any other critical care service time. 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 She was discharged to rehabilitation facility and had been reportedly doing well up until today. Her niece, who provides history, is at bedside and reports that she was having conversation with her when she became confused and s lumped over. EMS was contacted and she was found to be hypotensive. She was placed on dopamine after receiving 1.5 L of IV fluids. She received an additional 1.5 L in the emergency department. Her blood pressures remained soft in the 50s to 60s. Central line was placed in the RIGHT femoral vein. Patient was started on levo fed. During recent visit, she was noted to have spontaneous flank hemorrhages. She was typed and crossed for blood. No significant drop in H&H noted. She received IV Zosyn. Pressures responded nicely to IV levo fed. She was placed on BiPAP for poor oxygenation and concerns for volume overload. Upon evaluation in the emergency department, the patient is awake and alert, but somnolent. She denies any pain at this time. Her history is limited secondary to current state of active extremis. Allergies Allergy/AdvReac Type Severity Reaction Status Date / Time vitamin E (d-alpha Allergy Intermediate HIVES Verified 01/22/19 18:53 tocopherol) risedronate sodium Allergy Mild SICK Verified 01/22/19 18:53 prednisone AdvReac Intermediate Makes her Verified 01/22/19 18:53 feel very ill. Home Medications Home Medications Medication Instructions Recorded Confirmed Type atorvastatin 20 mg tablet 20 mg PO HS #30 tab 11/14/18 01/22/19 History calcium carbonate 600 mg calcium 600 mg PO BID tab 11/15/18 01/22/19 History (1,500 mg) tablet pantoprazole 40 mg tablet,delayed 40 mg PO DAILY #30 tab 11/15/18 01/22/19 History release Januvia 100 mg PO DAILY 01/06/19 01/22/19 History Systane (propylene glycol) 1 drp OPB BID PRN 01/06/19 01/22/19 History cyanocobalamin (vitamin B-12) 1,000 mcg PO DAILY 01/06/19 01/22/19 History metformin 1,000 mg PO BIDM 01/06/19 01/22/19 History sodium chloride 1 g PO TID #90 tab 01/16/19 01/22/19 Rx verapamil 120 mg PO BID 30 Days #30 tab 01/16/19 01/22/19 Rx acetaminophen [Tylenol] 650 mg PO Q12H PRN 01/22/19 01/22/19 History aspirin [Aspir-81] 81 mg PO DAILY 01/22/19 01/22/19 History budesonide 0.5 mg NEB BID 01/22/19 01/22/19 History ipratropium bromide 0.5 mg INHALATION Q6H 01/22/19 01/22/19 History levalbuterol HCl 0.63 mg NEB Q6H 01/22/19 01/22/19 History polyethylene glycol 3350 [Miralax] 17 g PO QAM 01/22/19 01/22/19 History sucralfate 10 ml PO AC 01/22/19 01/22/19 History Patient History Medical History Tubular adenoma of colon Subcapital fracture of hip Sciatica Osteoporosis Low back pain Interstitial lung disease Hyponatremia Hypertension Hypercholesterolemia Gastroesophageal reflux disease Diverticulosis Difficulty walking Diabetes mellitus Compression fracture of L1 lumbar vertebra Chronic obstructive asthma Carotid artery stenosis, asymptomatic Anemia Allergic rhinitis Social History Preferred Language: Afghan 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 Ability: Effective 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 GENERAL - 83-year-old female appearing her stated age who is in moderate distress. SKIN -multiple areas of ecchymosis noted throughout the patient's abdomen and flank region in multiple stages. HEAD - NC/AT. EYES - PERRL with EOMI bilaterally. Sclera anicteric. EARS - No deformities of external structures noted on gross examination bilaterally. NOSE - Midline and without cyanosis. No epistaxis or purulent drainage noted. MOUTH/OROPHARYNX - Without perioral cyanosis. Buccal mucosa pink and moist and without leukoplakia. NECK - Neck with FROM. Supple to palpation. No lymphadenopathy noted. No nuchal rigidity. LUNGS - Tachypnea. Chest wall symmetric without accessory muscle use, intercostals retractions, or central cyanosis. Coarse breath sounds noted throughout. CARDIAC - RRR with S1/S2. No murmur, rubs, or gallops appreciated. ABDOMEN - Abdominal contour obese without pulsations or visible masses. BS normoactive all four quadrants. No tenderness, palpable masses, hepatosplenomegaly, or ascites noted. EXTREMITIES - No clubbing or peripheral cyanosis. No pretibial edema present. +2/5 radial and dorsalis pedis pulses palpated throughout. NEUROLOGIC - Cranial nerves II through XII grossly intact. PSYCH - Somnolent. Results & Data Vital Signs (Past 12 Hours) Vital Signs Temp Pulse Pulse Resp BP BP Pulse Ox 01/22/19 21:25 70 25 H 121/83 94 01/22/19 21:20 74 29 H 126/58 L 95 01/22/19 21:15 71 25 H 137/51 L 96 01/22/19 21:10 71 28 H 96 01/22/19 21:05 72 23 123/62 86 L 01/22/19 21:02 72 26 H 95 01/22/19 21:01 70 26 H 106/60 96 01/22/19 21:00 72 24 01/22/19 20:57 72 23 01/22/19 20:56 69 27 H 126/53 L 01/22/19 20:55 71 25 H 01/22/19 20:50 72 25 H 125/59 L 01/22/19 20:45 73 26 H 136/50 L 01/22/19 20:40 72 22 133/64 01/22/19 20:35 71 23 136/57 L 01/22/19 20:30 72 22 135/60 01/22/19 20:25 71 28 H 136/57 L 91 01/22/19 20:24 36.6 C 70 22 135/60 97 01/22/19 20:20 71 26 H 135/47 L 01/22/19 20:16 74 23 128/62 87 L 01/22/19 20:15 74 25 H 01/22/19 20:10 73 22 135/68 01/22/19 20:05 71 22 139/53 L 94 01/22/19 20:00 69 25 H 128/53 L 85 L 01/22/19 19:58 70 23 91 01/22/19 19:55 74 24 122/50 L 88 L 01/22/19 19:53 66 27 H 117/49 L 87 L 01/22/19 19:50 60 24 01/22/19 19:49 57 L 30 H 57/41 L 01/22/19 19:45 57 L 26 H 157/124 H 01/22/19 19:40 60 27 H 01/22/19 19:35 58 L 17 01/22/19 19:30 53 L 25 H 01/22/19 19:25 57 L 22 01/22/19 19:21 58 L 30 H 01/22/19 19:20 58 L 28 H 01/22/19 19:16 58 L 28 H 01/22/19 19:14 58 L 28 H 67/35 L 01/22/19 19:10 58 L 25 H 01/22/19 19:00 59 L 26 H 57 L 01/22/19 18:54 65 25 H 01/22/19 18:33 36.6 C 80 L 01/22/19 18:30 63 37 H 87 L 01/22/19 18:29 63 29 H 71/32 L 86 L 01/22/19 18:27 90 01/22/19 18:24 63 40 H 90 01/22/19 18:17 36.6 C 63 30 H 73/48 L 98 PG Care Time/CCT Total # of Minutes Spent Total Time Spent with Patient: Total time spent is greater than 50% in coordination of care (as documented) at patient's floor/unit and/or counseling patient: Critical Care Time: Yes Total Critical Care Time: 35 Dr. Padron: 35 minutes of initial critical care time then transition care to Ama Portillo. Jagjit Portillo PA-C: 35 minutes of additional CCT. (1) Hematoma of left flank Encounter type: initial encounter Qualified Code(s): S30.1XXA - Contusion of abdominal wall, initial encounter (2) Hematoma of right flank Encounter type: initial encounter Qualified Code(s): S30.1XXA - Contusion of abdominal wall, initial encounter
[2019-01-22] MEDS ORDERED: DOPAMINE / D5W 400 MG/250 ML BAG IV SCH (22:15)
[2019-01-22] MEDS ORDERED: NOREPINEPHRINE BIT INJ 8 MG in DEXTROSE 5% 500 ML IV SCH (22:15)
--- NOTE | 2019-01-22 23:39 | Emergency Department Note ---
Entered by Tamia Ham acting as a scribe for History of Present Illness General Chief complaint: Hypotension Stated complaint: NEAR SYNCOPE, HYPOTENSION, Source: EMS Mode of arrival: EMS Limitations: other (syncopal episode) History of Present Illness Provider complaint: Syncopal Episode Onset (ago): hour(s) 1 Location: head Radiation: non-radiation Relieved By: + none Exacerbated By: + none Associated symptoms: + syncope and + other (-hematochezia, +diarrhea) Treatments prior to arrival: aspirin and other (Dopamine) The patient is a 83 year old female who presents to the Emergency Department via EMS from [facility] after having a syncopal episode about an hour ago. Per EMS, the patient has a history of respiratory failure and was discharged from [facility] three days ago. The patient was speaking to EMS earlier but is speaking very faintly right now. He also states she has bruising on sides but the nursing staff states they are not new. The patient takes aspirin daily, but denies bloos thinners. The patient has had about 1.5 liters of IV fluid thus far and dopamine was initiated en route. The patient is on beta blockers by report. The patient states she has been sick for a couple of weeks. The patient has been experiencing increased BMs since being discharged. Home Medications Home Medications Medication Instructions Recorded Confirmed Type atorvastatin 20 mg tablet 20 mg PO HS #30 tab 11/14/18 01/22/19 History calcium carbonate 600 mg calcium 600 mg PO BID tab 11/15/18 01/22/19 History (1,500 mg) tablet pantoprazole 40 mg tablet,delayed 40 mg PO DAILY #30 tab 11/15/18 01/22/19 History release Januvia 100 mg PO DAILY 01/06/19 01/22/19 History Systane (propylene glycol) 1 drp OPB BID PRN 01/06/19 01/22/19 History cyanocobalamin (vitamin B-12) 1,000 mcg PO DAILY 01/06/19 01/22/19 History metformin 1,000 mg PO BIDM 01/06/19 01/22/19 History sodium chloride 1 g PO TID #90 tab 01/16/19 01/22/19 Rx verapamil 120 mg PO BID 30 Days #30 tab 01/16/19 01/22/19 Rx acetaminophen [Tylenol] 650 mg PO Q12H PRN 01/22/19 01/22/19 History aspirin [Aspir-81] 81 mg PO DAILY 01/22/19 01/22/19 History budesonide 0.5 mg NEB BID 01/22/19 01/22/19 History ipratropium bromide 0.5 mg INHALATION Q6H 01/22/19 01/22/19 History levalbuterol HCl 0.63 mg NEB Q6H 01/22/19 01/22/19 History polyethylene glycol 3350 [Miralax] 17 g PO QAM 01/22/19 01/22/19 History sucralfate 10 ml PO AC 01/22/19 01/22/19 History Allergies Allergy/AdvReac Type Severity Reaction Status Date / Time vitamin E (d-alpha Allergy Intermediate HIVES Verified 01/22/19 18:53 tocopherol) risedronate sodium Allergy Mild SICK Verified 01/22/19 18:53 prednisone AdvReac Intermediate Makes her Verified 01/22/19 18:53 feel very ill. Past Med/Surg History Medical History Tubular adenoma of colon Subcapital fracture of hip Sciatica Osteoporosis Low back pain Interstitial lung disease Hyponatremia Hypertension Hypercholesterolemia Gastroesophageal reflux disease Diverticulosis Difficulty walking Diabetes mellitus Compression fracture of L1 lumbar vertebra Chronic obstructive asthma Carotid artery stenosis, asymptomatic Anemia Allergic rhinitis Social History Preferred Language: [place] 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 Ability: Effective Lot Porter Required: No Beliefs That Will Affect Care: None Current Living Situation: Alone and Long-Term Current Living Situation Comment: currently in [facility] Other Information That Helps Us Care for You: No Feels Safe at Home: Yes Smoking Status: Unknown if ever smoked Hx Alcohol Use: No Hx Substance Use: No Review of Systems Unobtainable due to cognitive status and Other (respiratory status) Patient able to answer only simple questions, she is hypoxic on nonrebreather. Physical Exam Vital Signs Vital Signs - 24 hr 01/22/19 18:17 01/22/19 18:24 01/22/19 18:27 Temperature 36.6 C Temperature Source Rectal Sepsis Recent Fever Within 48 Hours No Sepsis New/Unexplained Change in Mental Status Yes Sepsis Action Taken by Nursing No Action Required Arterial Pulse Rate Pulse Rate 63 63 Pulse Rate [Left Finger] Pulse Rate from SpO2 Sensor 63 63 64 Respiratory Rate 30 H 40 H Respiratory Effort / Characteristics Accessory Muscle Use Respiratory Depth Shallow Respiratory Pattern Blood Pressure 73/48 L Blood Pressure [Right Arm] Blood Pressure Mean 56 46 Blood Pressure Mean [Right Arm] Blood Pressure Position Lying Blood Pressure Position [Right Arm] Pulse Oximetry 98 90 90 Oxygen Delivery Method Room Air Oxygen Flow Rate Fraction of Inspired Oxygen 01/22/19 18:29 01/22/19 18:30 01/22/19 18:33 Temperature 36.6 C Temperature Source Rectal Sepsis Recent Fever Within 48 Hours Sepsis New/Unexplained Change in Mental Status Sepsis Action Taken by Nursing Arterial Pulse Rate Pulse Rate 63 63 Pulse Rate [Left Finger] Pulse Rate from SpO2 Sensor 63 63 Respiratory Rate 29 H 37 H Respiratory Effort / Characteristics Respiratory Depth Respiratory Pattern Blood Pressure 71/32 L Blood Pressure [Right Arm] Blood Pressure Mean 45 Blood Pressure Mean [Right Arm] Blood Pressure Position Blood Pressure Position [Right Arm] Pulse Oximetry 86 L 87 L 80 L Oxygen Delivery Method Non-rebreather Oxygen Flow Rate 15 Fraction of Inspired Oxygen 01/22/19 18:54 01/22/19 19:00 01/22/19 19:10 Temperature Temperature Source Sepsis Recent Fever Within 48 Hours Sepsis New/Unexplained Change in Mental Status Sepsis Action Taken by Nursing Arterial Pulse Rate Pulse Rate 65 59 L 58 L Pulse Rate [Left Finger] Pulse Rate from SpO2 Sensor 60 Respiratory Rate 25 H 26 H 25 H Respiratory Effort / Characteristics Respiratory Depth Respiratory Pattern Blood Pressure Blood Pressure [Right Arm] Blood Pressure Mean Blood Pressure Mean [Right Arm] Blood Pressure Position Blood Pressure Position [Right Arm] Pulse Oximetry 57 L Oxygen Delivery Method Non-rebreather Oxygen Flow Rate Fraction of Inspired Oxygen 01/22/19 19:14 01/22/19 19:16 01/22/19 19:20 Temperature Temperature Source Sepsis Recent Fever Within 48 Hours Sepsis New/Unexplained Change in Mental Status Sepsis Action Taken by Nursing Arterial Pulse Rate Pulse Rate 58 L 58 L 58 L Pulse Rate [Left Finger] Pulse Rate from SpO2 Sensor Respiratory Rate 28 H 28 H 28 H Respiratory Effort / Characteristics Respiratory Depth Respiratory Pattern Blood Pressure 67/35 L Blood Pressure [Right Arm] Blood Pressure Mean 45 Blood Pressure Mean [Right Arm] Blood Pressure Position Blood Pressure Position [Right Arm] Pulse Oximetry Oxygen Delivery Method Oxygen Flow Rate Fraction of Inspired Oxygen 01/22/19 19:21 01/22/19 19:25 01/22/19 19:30 Temperature Temperature Source Sepsis Recent Fever Within 48 Hours Sepsis New/Unexplained Change in Mental Status Sepsis Action Taken by Nursing Arterial Pulse Rate Pulse Rate 58 L 57 L 53 L Pulse Rate [Left Finger] Pulse Rate from SpO2 Sensor Respiratory Rate 30 H 22 25 H Respiratory Effort / Characteristics Respiratory Depth Respiratory Pattern Blood Pressure Blood Pressure [Right Arm] Blood Pressure Mean 21 Blood Pressure Mean [Right Arm] Blood Pressure Position Blood Pressure Position [Right Arm] Pulse Oximetry Oxygen Delivery Method Oxygen Flow Rate Fraction of Inspired Oxygen 01/22/19 19:35 01/22/19 19:40 01/22/19 19:45 Temperature Temperature Source Sepsis Recent Fever Within 48 Hours Sepsis New/Unexplained Change in Mental Status Sepsis Action Taken by Nursing Arterial Pulse Rate Pulse Rate 58 L 60 57 L Pulse Rate [Left Finger] Pulse Rate from SpO2 Sensor Respiratory Rate 17 27 H 26 H Respiratory Effort / Characteristics Respiratory Depth Respiratory Pattern Blood Pressure 157/124 H Blood Pressure [Right Arm] Blood Pressure Mean 135 Blood Pressure Mean [Right Arm] Blood Pressure Position Blood Pressure Position [Right Arm] Pulse Oximetry Oxygen Delivery Method Oxygen Flow Rate Fraction of Inspired Oxygen 01/22/19 19:49 01/22/19 19:50 01/22/19 19:53 Temperature Temperature Source Sepsis Recent Fever Within 48 Hours Sepsis New/Unexplained Change in Mental Status Sepsis Action Taken by Nursing Arterial Pulse Rate Pulse Rate 57 L 60 66 Pulse Rate [Left Finger] Pulse Rate from SpO2 Sensor 68 Respiratory Rate 30 H 24 27 H Respiratory Effort / Characteristics Respiratory Depth Respiratory Pattern Blood Pressure 57/41 L 117/49 L Blood Pressure [Right Arm] Blood Pressure Mean 46 71 Blood Pressure Mean [Right Arm] Blood Pressure Position Blood Pressure Position [Right Arm] Pulse Oximetry 87 L Oxygen Delivery Method Oxygen Flow Rate Fraction of Inspired Oxygen 01/22/19 19:55 01/22/19 19:58 01/22/19 20:00 Temperature Temperature Source Sepsis Recent Fever Within 48 Hours Sepsis New/Unexplained Change in Mental Status Sepsis Action Taken by Nursing Arterial Pulse Rate Pulse Rate 74 70 69 Pulse Rate [Left Finger] Pulse Rate from SpO2 Sensor 74 66 Respiratory Rate 24 23 25 H Respiratory Effort / Characteristics Spontaneous Short of Breath Respiratory Depth Shallow Respiratory Pattern Regular Blood Pressure 122/50 L 128/53 L Blood Pressure [Right Arm] Blood Pressure Mean 74 78 Blood Pressure Mean [Right Arm] Blood Pressure Position Blood Pressure Position [Right Arm] Pulse Oximetry 88 L 91 85 L Oxygen Delivery Method Oxygen Flow Rate Fraction of Inspired Oxygen 60 01/22/19 20:05 01/22/19 20:10 01/22/19 20:15 Temperature Temperature Source Sepsis Recent Fever Within 48 Hours Sepsis New/Unexplained Change in Mental Status Sepsis Action Taken by Nursing Arterial Pulse Rate 0 L 0 L 0 L Pulse Rate 71 73 74 Pulse Rate [Left Finger] Pulse Rate from SpO2 Sensor 73 74 Respiratory Rate 22 22 25 H Respiratory Effort / Characteristics Respiratory Depth Respiratory Pattern Blood Pressure 139/53 L 135/68 Blood Pressure [Right Arm] Blood Pressure Mean 81 90 Blood Pressure Mean [Right Arm] Blood Pressure Position Blood Pressure Position [Right Arm] Pulse Oximetry 94 Oxygen Delivery Method Oxygen Flow Rate Fraction of Inspired Oxygen 01/22/19 20:16 01/22/19 20:20 01/22/19 20:24 Temperature 36.6 C Temperature Source Rectal Sepsis Recent Fever Within 48 Hours Sepsis New/Unexplained Change in Mental Status Sepsis Action Taken by Nursing Arterial Pulse Rate 0 L 0 L Pulse Rate 74 71 Pulse Rate [Left Finger] 70 Pulse Rate from SpO2 Sensor 75 71 Respiratory Rate 23 26 H 22 Respiratory Effort / Characteristics Spontaneous Respiratory Depth Respiratory Pattern Blood Pressure 128/62 135/47 L Blood Pressure [Right Arm] 135/60 Blood Pressure Mean 84 76 Blood Pressure Mean [Right Arm] 85 Blood Pressure Position Blood Pressure Position [Right Arm] Lying Pulse Oximetry 87 L 97 Oxygen Delivery Method BiPAP Oxygen Flow Rate Fraction of Inspired Oxygen 01/22/19 20:25 01/22/19 20:30 01/22/19 20:35 Temperature Temperature Source Sepsis Recent Fever Within 48 Hours Sepsis New/Unexplained Change in Mental Status Sepsis Action Taken by Nursing Arterial Pulse Rate 0 L 0 L 0 L Pulse Rate 71 72 71 Pulse Rate [Left Finger] Pulse Rate from SpO2 Sensor 69 Respiratory Rate 28 H 22 23 Respiratory Effort / Characteristics Respiratory Depth Respiratory Pattern Blood Pressure 136/57 L 135/60 136/57 L Blood Pressure [Right Arm] Blood Pressure Mean 83 85 83 Blood Pressure Mean [Right Arm] Blood Pressure Position Blood Pressure Position [Right Arm] Pulse Oximetry 91 Oxygen Delivery Method Oxygen Flow Rate Fraction of Inspired Oxygen 01/22/19 20:40 01/22/19 20:45 01/22/19 20:50 Temperature Temperature Source Sepsis Recent Fever Within 48 Hours Sepsis New/Unexplained Change in Mental Status Sepsis Action Taken by Nursing Arterial Pulse Rate 0 L 0 L 0 L Pulse Rate 72 73 72 Pulse Rate [Left Finger] Pulse Rate from SpO2 Sensor Respiratory Rate 22 26 H 25 H Respiratory Effort / Characteristics Respiratory Depth Respiratory Pattern Blood Pressure 133/64 136/50 L 125/59 L Blood Pressure [Right Arm] Blood Pressure Mean 87 78 81 Blood Pressure Mean [Right Arm] Blood Pressure Position Blood Pressure Position [Right Arm] Pulse Oximetry Oxygen Delivery Method Oxygen Flow Rate Fraction of Inspired Oxygen 01/22/19 20:55 01/22/19 20:56 01/22/19 20:57 Temperature Temperature Source Sepsis Recent Fever Within 48 Hours Sepsis New/Unexplained Change in Mental Status Sepsis Action Taken by Nursing Arterial Pulse Rate 0 L 0 L 0 L Pulse Rate 71 69 72 Pulse Rate [Left Finger] Pulse Rate from SpO2 Sensor Respiratory Rate 25 H 27 H 23 Respiratory Effort / Characteristics Respiratory Depth Respiratory Pattern Blood Pressure 126/53 L Blood Pressure [Right Arm] Blood Pressure Mean 77 Blood Pressure Mean [Right Arm] Blood Pressure Position Blood Pressure Position [Right Arm] Pulse Oximetry Oxygen Delivery Method Oxygen Flow Rate Fraction of Inspired Oxygen 01/22/19 21:00 01/22/19 21:01 01/22/19 21:02 Temperature Temperature Source Sepsis Recent Fever Within 48 Hours Sepsis New/Unexplained Change in Mental Status Sepsis Action Taken by Nursing Arterial Pulse Rate 0 L 0 L 0 L Pulse Rate 72 70 72 Pulse Rate [Left Finger] Pulse Rate from SpO2 Sensor 74 Respiratory Rate 24 26 H 26 H Respiratory Effort / Characteristics Respiratory Depth Respiratory Pattern Blood Pressure 106/60 Blood Pressure [Right Arm] Blood Pressure Mean 75 Blood Pressure Mean [Right Arm] Blood Pressure Position Blood Pressure Position [Right Arm] Pulse Oximetry 96 95 Oxygen Delivery Method BiPAP Oxygen Flow Rate Fraction of Inspired Oxygen 60 01/22/19 21:05 01/22/19 21:10 Temperature Temperature Source Sepsis Recent Fever Within 48 Hours Sepsis New/Unexplained Change in Mental Status Sepsis Action Taken by Nursing Arterial Pulse Rate 0 L 0 L Pulse Rate 72 71 Pulse Rate [Left Finger] Pulse Rate from SpO2 Sensor 78 77 Respiratory Rate 23 28 H Respiratory Effort / Characteristics Respiratory Depth Respiratory Pattern Blood Pressure 123/62 Blood Pressure [Right Arm] Blood Pressure Mean 82 Blood Pressure Mean [Right Arm] Blood Pressure Position Blood Pressure Position [Right Arm] Pulse Oximetry 86 L 96 Oxygen Delivery Method Oxygen Flow Rate Fraction of Inspired Oxygen Vital signs reviewed. General: Ill appearing female, hypoxic. Answers simple questions. HEENT: No scleral icterus, PERRLA, neck supple. Atraumatic. Dry MM Cardiovascular: Regular rate and rhythm, distant heart tones. Pulmonary: crackles to the lungs bilaterally. Normal work of breathing but noted to be hypoxic. Placed on nonrebreather. Abdomen: Soft, nontender, nondistended, positive bowel sounds. Musculoskeletal: Atraumatic, 2+ pitting edema to the bilateral lower extremities Rectal: Incontinent of a soft brown stool, no gross blood. Neurologic: Patient somnolent but arousable, moves all 4 extremities equally, but diffusely weak. Cranial nerves 2 through 12 grossly intact. Skin: cool to touch. Large bilateral flank hematomas extending through the distal ribs to proximal thighs bilaterally. Small amount of bruising noted to the right arm and right AC. Procedures Central Line Placement Right Femoral: Time Out Performed: Yes Patient Placed on Monitor/Pulse Ox: Yes MD Prep: mask, gown and gloves Central Line Prep: Chlorhexidine scrub Local Anesthetic: lidocaine 1% Ultrasound Used for Placement: Yes Central Line Lumen Inserted: triple Post Procedure: sutured in place, good blood return, all ports aspirated, flushed, capped and sterile dressing applied Patient Tolerated Procedure: well Course 1811: Past medical records reviewed. The patient was evaluated in room B1. A complete history and physical examination was performed. 1857: I reevaluated the patient, her niece is here, pt remains hypertensive. 1729: A central line was placed. 1999: I spoke with Dr. Larkin, [facility] Hospitalist, about the patients case and he agreed to further evaluate the patient. 2014: The intensive care [facility] was contacted and pt was accepted for care. Patient was evaluated in the emergency department. Patient will be admitted to the ICU. Administered Medications Norepinephrine Bitartrate 8 mg (/ Dextrose) 508 mls @ 4.66 mls/hr IV .Q24H [facility]; Protocol Stop: 02/21/19 20:00 Last Titration: 01/22/19 23:45 Dose: 0.02 mcg/kg/min, 4.7 mls/hr Documented by: [id number] Titration: 01/22/19 23:30 Dose: 0.04 mcg/kg/min, 9.3 mls/hr Documented by: [id number] Titration: 01/22/19 23:20 Dose: 0.06 mcg/kg/min, 14 mls/hr Documented by: [id number] Titration: 01/22/19 23:00 Dose: 0.08 mcg/kg/min, 18.7 mls/hr Documented by: [id number] Admin: 01/22/19 22:00 Dose: 0.1 mcg/kg/min, 23.3 mls/hr Documented by: [id number] Cosigned by: [id number] Vancomycin HCl 1,500 mg/ (Sodium Chloride) 530 mls @ 200 mls/hr IV NOW ONE; Protocol Stop: 01/23/19 02:53 Last Admin: 01/23/19 00:29 Dose: 200 mls/hr Documented by: [id number] Ioversol (Optiray 320 100ml) 93 ml IV ONCE PRN PRN Reason: Interaction Checking Stop: 01/26/19 18:45 Last Admin: 01/22/19 18:47 Dose: 93 ml Documented by: [id number] Discontinued Medications Diltiazem HCl (Cardizem) 5 mg IV NOW STA Stop: 01/22/19 20:39 Last Admin: 01/22/19 20:44 Dose: Not Given Documented by: [id number] Dopamine HCl/Dextrose (Dopamine / D5w) Confirm Administered Dose 400 mg IV .STK- MED ONE Stop: 01/22/19 18:59 Last Admin: 01/22/19 20:02 Dose: Not Given Documented by: [id number] Hydrocortisone Sodium Succinate (Solu-Cortef) Confirm Administered Dose 100 mg .ROUTE .STK-MED ONE Stop: 01/22/19 19:00 Last Admin: 01/22/19 19:05 Dose: 100 mg Documented by: [id number] Sodium Chloride (Nss) 500 mls @ 999 mls/hr IV .Q31M SONIDO Stop: 01/22/19 19:00 Last Infusion: 01/22/19 19:15 Dose: 0 mls/hr Documented by: [id number] Admin: 01/22/19 18:35 Dose: 999 mls/hr Documented by: [id number] Piperacillin Sod/Tazobactam Sod (Zosyn) 4.5 gm in 120 mls @ 200 mls/hr IV NOW S TA Stop: 01/22/19 18:52 Last Infusion: 01/22/19 19:15 Dose: 0 mls/hr Documented by: [id number] Admin: 01/22/19 18:32 Dose: 200 mls/hr Documented by: [id number] Dopamine HCl/Dextrose (Dopamine / D5w) 400 mg in 250 mls @ 11.475 mls/hr IV .[id number] STA; Protocol Stop: 01/23/19 17:48 Last Titration: 01/22/19 19:15 Dose: 5 mcg/kg/min, 11.5 mls/hr Documented by: [id number] Admin: 01/22/19 19:00 Dose: 15 mcg/kg/min, 34.4 mls/hr Documented by: [id number] Cosigned by: [id number] Norepinephrine Bitartrate 8 mg (/ Dextrose) 508 mls @ 11.66 mls/hr IV .Q24H STA; Protocol Stop: 01/23/19 20:00 Last Titration: 01/22/19 20:46 Dose: 0.1 mcg/kg/min, 23.3 mls/hr Documented by: [id number] Titration: 01/22/19 20:18 Dose: 0.15 mcg/kg/min, 35 mls/hr Documented by: [id number] Admin: 01/22/19 20:00 Dose: 0.2 mcg/kg/min, 46.6 mls/hr Documented by: [id number] Cosigned by: [id number] Dopamine HCl/Dextrose (Dopamine / D5w) 400 mg in 250 mls @ 0 mls/hr IV .Q0M SONIDO; Protocol Stop: 02/21/19 20:00 Last Titration: 01/22/19 22:30 Dose: 0 mcg/kg/min, 0 mls/hr Documented by: [id number] Titration: 01/22/19 22:15 Dose: 2.5 mcg/kg/min, 5.7 mls/hr Documented by: [id number] Admin: 01/22/19 22:00 Dose: 5 mcg/kg/min, 11.5 mls/hr Documented by: [id number] Cosigned by: [id number] Piperacillin Sod/Tazobactam (Sod 4.5 gm/ Dextrose) 120 mls @ 240 mls/hr IV ONE ONE; Protocol Stop: 01/23/19 00:44 Last Admin: 01/23/19 00:30 Dose: 240 mls/hr Documented by: [id number] Medical Decision Making Differential Diagnosis Differential diagnosis: Etiologies such as metabolic, infection, hypo/hyperglycemia, electrolyte abnormalities, cardiac sources, intracerebral event, toxicologic, neurologic, as well as others were entertained. Medical Records Attestation: I reviewed the patient's medical records. Home Medications Current Medication List: was personally reviewed by me Laboratory Data Attestation: I reviewed the patient's lab results. Result diagrams: 01/22/19 19:41 01/22/19 19:41 Lab Results 01/22/19 01/22/19 01/22/19 Range/Units 18:23 18:28 19:20 WBC (4.8-10.8) K/uL RBC (4.2-5.4) M/uL Hgb (12.0-16.0) g/dL POC Hgb 10.2 L (12.0-16.0) g/dl Hct (37-47) % POC Hct 30 L (37-47) % MCV (80-100) fL MCH (25-34) pg MCHC (32-36) g/dL RDW Std Deviation (36.4-46.3) fL RDW Coeff of Alexa (11.5-14.5) % Plt Count (130-400) K/uL MPV (7.4-10.4) fL Immature Gran % (Auto) % Neut % (Auto) % Lymph % (Auto) % [place] % (Auto) % Eos % (Auto) % Baso % (Auto) % Immature Gran # (Auto) (0.00-0.02) K/uL Neut # (Auto) (1.4-6.5) K/uL Lymph # (Auto) (1.2-3.4) K/uL [place] # (Auto) (0.11-0.59) K/uL Eos # (Auto) (0-0.5) K/uL Baso # (Auto) (0-0.2) K/uL Hypochromasia Anisocytosis Ovalocytes Echinocytes Schistocytes PT (9.0-12.0) Seconds INR (0.9-1.1) APTT (21.0-31.0) Seconds PTT Ratio POC pH (7.35-7.45) POC pCO2 (35-46) mmHg POC pO2 (80-95) mmHg POC HCO3 (19-24) sarah/L POC Base Excess (-9-1.8) sarah/L POC ABG O2 Sat (90-95) % POC Sodium 133 L (135-144) mEq/L Sodium (136-145) mmol/L POC Potassium 5.3 H (3.3-5.0) mEq/L Potassium (3.5-5.1) mmol/L POC Chloride 97 L (101-112) mEq/L Chloride (98-107) mmol/L Carbon Dioxide (21-32) mmol/L POC Total CO2 22 L (24-31) mEq/l Anion Gap (3-11) POC Anion Gap 20.0 (16-25) mmol/L POC BUN 23 H (7-18) mg/dl BUN (7-18) mg/dl Creatinine (0.6-1.2) mg/dl POC Creatinine 1.0 (0.6-1.3) mg/dl Est Cr Clr Drug Dosing Est GFR ( Amer) Est GFR (Non-Af Amer) BUN/Creatinine Ratio (10-20) Glucose (70-99) mg/dl POC Glucose (other) 250 H (70-99) mg/dl POC Lactic Acid Regis 7.11 H (0.90-1.70) mmol/L Lactate (0.4-2.0) mmol/L Calcium (8.5-10.1) mg/dl POC Ioniz Calcium Rakesh 1.00 L (1.12-1.32) mmol/l Total Bilirubin (0.2-1) mg/dl AST (15-37) U/L ALT (12-78) U/L Alkaline Phosphatase (45-117) U/L Lactate Dehydrogenase (84-246) U/L Total Protein (6.4-8.2) gm/dl Albumin (3.4-5.0) gm/dl Globulin (2.5-4.0) gm/dl Albumin/Globulin Ratio (0.9-2) Urine Color Dark Yellow Urine Appearance Clear (Clear) Urine pH 8.5 H (4.5-7.5) Ur Specific [place] 1.019 (1.000-1.030) Urine Protein Trace H (Negative) Urine Glucose (UA) Negative (Negative) Urine Ketones Negative (Negative) Urine Blood Negative (Negative) Urine Nitrite Negative (Negative) Urine Bilirubin Negative (Negative) Urine Urobilinogen Negative (Negative) Ur Leukocyte Esterase Trace H (Negative) Urine WBC (Auto) 1-5 (0-5) /hpf Urine RBC (Auto) 0-4 (0-4) /hpf U Hyaline Cast (Auto) 1-5 (0-5) /lpf U Epithel Cells (Auto) 20-30 H (0-5) /lpf Urine Bacteria (Auto) Negative (Negative) Stl C. diff Tox B Gene (Neg) Blood Type Antibody Screen Crossmatch 01/22/19 01/22/19 01/22/19 Range/Units 19:30 19:41 19:41 WBC 12.71 H (4.8-10.8) K/uL RBC 3.36 L (4.2-5.4) M/uL Hgb 8.8 L (12.0-16.0) g/dL POC Hgb (12.0-16.0) g/dl Hct 29.1 L (37-47) % POC Hct (37-47) % MCV 86.6 (80-100) fL MCH 26.2 (25-34) pg MCHC 30.2 L (32-36) g/dL RDW Std Deviation 63.3 H (36.4-46.3) fL RDW Coeff of Alexa 20.5 H (11.5-14.5) % Plt Count 162 (130-400) K/uL MPV 9.0 (7.4-10.4) fL Immature Gran % (Auto) 1.8 % Neut % (Auto) 84.0 % Lymph % (Auto) 6.2 % [place] % (Auto) 6.9 % Eos % (Auto) 1.1 % Baso % (Auto) 0.0 % Immature Gran # (Auto) 0.23 H (0.00-0.02) K/uL Neut # (Auto) 10.67 H (1.4-6.5) K/uL Lymph # (Auto) 0.79 L (1.2-3.4) K/uL [place] # (Auto) 0.88 H (0.11-0.59) K/uL Eos # (Auto) 0.14 (0-0.5) K/uL Baso # (Auto) 0.00 (0-0.2) K/uL Hypochromasia Present Anisocytosis Present Ovalocytes 1+ Echinocytes 1+ Schistocytes 1+ PT (9.0-12.0) Seconds INR (0.9-1.1) APTT (21.0-31.0) Seconds PTT Ratio POC pH (7.35-7.45) POC pCO2 (35-46) mmHg POC pO2 (80-95) mmHg POC HCO3 (19-24) sarah/L POC Base Excess (-9-1.8) sarah/L POC ABG O2 Sat (90-95) % POC Sodium (135-144) mEq/L Sodium (136-145) mmol/L POC Potassium (3.3-5.0) mEq/L Potassium (3.5-5.1) mmol/L POC Chloride (101-112) mEq/L Chloride (98-107) mmol/L Carbon Dioxide (21-32) mmol/L POC Total CO2 (24-31) mEq/l Anion Gap (3-11) POC Anion Gap (16-25) mmol/L POC BUN (7-18) mg/dl BUN (7-18) mg/dl Creatinine (0.6-1.2) mg/dl POC Creatinine (0.6-1.3) mg/dl Est Cr Clr Drug Dosing Est GFR ( Amer) Est GFR (Non-Af Amer) BUN/Creatinine Ratio (10-20) Glucose (70-99) mg/dl POC Glucose (other) (70-99) mg/dl POC Lactic Acid Regis (0.90-1.70) mmol/L Lactate 3.5 H* (0.4-2.0) mmol/L Calcium (8.5-10.1) mg/dl POC Ioniz Calcium Rakesh (1.12-1.32) mmol/l Total Bilirubin (0.2-1) mg/dl AST (15-37) U/L ALT (12-78) U/L Alkaline Phosphatase (45-117) U/L Lactate Dehydrogenase (84-246) U/L Total Protein (6.4-8.2) gm/dl Albumin (3.4-5.0) gm/dl Globulin (2.5-4.0) gm/dl Albumin/Globulin Ratio (0.9-2) Urine Color Urine Appearance (Clear) Urine pH (4.5-7.5) Ur Specific [place] (1.000-1.030) Urine Protein (Negative) Urine Glucose (UA) (Negative) Urine Ketones (Negative) Urine Blood (Negative) Urine Nitrite (Negative) Urine Bilirubin (Negative) Urine Urobilinogen (Negative) Ur Leukocyte Esterase (Negative) Urine WBC (Auto) (0-5) /hpf Urine RBC (Auto) (0-4) /hpf U Hyaline Cast (Auto) (0-5) /lpf U Epithel Cells (Auto) (0-5) /lpf Urine Bacteria (Auto) (Negative) Stl C. diff Tox B Gene Negative Cdiff Gene (Neg) Blood Type Antibody Screen Crossmatch 01/22/19 01/22/19 01/22/19 Range/Units 19:41 19:41 19:41 WBC (4.8-10.8) K/uL RBC (4.2-5.4) M/uL Hgb (12.0-16.0) g/dL POC Hgb (12.0-16.0) g/dl Hct (37-47) % POC Hct (37-47) % MCV (80-100) fL MCH (25-34) pg MCHC (32-36) g/dL RDW Std Deviation (36.4-46.3) fL RDW Coeff of Alexa (11.5-14.5) % Plt Count (130-400) K/uL MPV (7.4-10.4) fL Immature Gran % (Auto) % Neut % (Auto) % Lymph % (Auto) % [place] % (Auto) % Eos % (Auto) % Baso % (Auto) % Immature Gran # (Auto) (0.00-0.02) K/uL Neut # (Auto) (1.4-6.5) K/uL Lymph # (Auto) (1.2-3.4) K/uL [place] # (Auto) (0.11-0.59) K/uL Eos # (Auto) (0-0.5) K/uL Baso # (Auto) (0-0.2) K/uL Hypochromasia Anisocytosis Ovalocytes Echinocytes Schistocytes PT 12.4 H (9.0-12.0) Seconds INR 1.2 H (0.9-1.1) APTT 21.5 (21.0-31.0) Seconds PTT Ratio 0.8 POC pH (7.35-7.45) POC pCO2 (35-46) mmHg POC pO2 (80-95) mmHg POC HCO3 (19-24) sarah/L POC Base Excess (-9-1.8) sarah/L POC ABG O2 Sat (90-95) % POC Sodium (135-144) mEq/L Sodium 138 (136-145) mmol/L POC Potassium (3.3-5.0) mEq/L Potassium 4.8 (3.5-5.1) mmol/L POC Chloride (101-112) mEq/L Chloride 104 (98-107) mmol/L Carbon Dioxide 27 (21-32) mmol/L POC Total CO2 (24-31) mEq/l Anion Gap 7.0 (3-11) POC Anion Gap (16-25) mmol/L POC BUN (7-18) mg/dl BUN 23 H (7-18) mg/dl Creatinine 1.02 (0.6-1.2) mg/dl POC Creatinine (0.6-1.3) mg/dl Est Cr Clr Drug Dosing Not Reportable Est GFR ( Amer) 58.9 Est GFR (Non-Af Amer) 50.8 BUN/Creatinine Ratio 22.3 H (10-20) Glucose 215 H (70-99) mg/dl POC Glucose (other) (70-99) mg/dl POC Lactic Acid Regis (0.90-1.70) mmol/L Lactate (0.4-2.0) mmol/L Calcium 6.9 L (8.5-10.1) mg/dl POC Ioniz Calcium Rakesh (1.12-1.32) mmol/l Total Bilirubin 1.6 H (0.2-1) mg/dl AST 171 H (15-37) U/L ALT 85 H (12-78) U/L Alkaline Phosphatase 132 H (45-117) U/L Lactate Dehydrogenase (84-246) U/L Total Protein 4.7 L (6.4-8.2) gm/dl Albumin 2.4 L (3.4-5.0) gm/dl Globulin 2.3 L (2.5-4.0) gm/dl Albumin/Globulin Ratio 1.0 (0.9-2) Urine Color Urine Appearance (Clear) Urine pH (4.5-7.5) Ur Specific [place] (1.000-1.030) Urine Protein (Negative) Urine Glucose (UA) (Negative) Urine Ketones (Negative) Urine Blood (Negative) Urine Nitrite (Negative) Urine Bilirubin (Negative) Urine Urobilinogen (Negative) Ur Leukocyte Esterase (Negative) Urine WBC (Auto) (0-5) /hpf Urine RBC (Auto) (0-4) /hpf U Hyaline Cast (Auto) (0-5) /lpf U Epithel Cells (Auto) (0-5) /lpf Urine Bacteria (Auto) (Negative) Stl C. diff Tox B Gene (Neg) Blood Type O Positive Antibody Screen NEGATIVE Crossmatch See Detail 01/22/19 01/22/19 Range/Units 19:41 20:05 WBC (4.8-10.8) K/uL RBC (4.2-5.4) M/uL Hgb (12.0-16.0) g/dL POC Hgb (12.0-16.0) g/dl Hct (37-47) % POC Hct (37-47) % MCV (80-100) fL MCH (25-34) pg MCHC (32-36) g/dL RDW Std Deviation (36.4-46.3) fL RDW Coeff of Alexa (11.5-14.5) % Plt Count (130-400) K/uL MPV (7.4-10.4) fL Immature Gran % (Auto) % Neut % (Auto) % Lymph % (Auto) % [place] % (Auto) % Eos % (Auto) % Baso % (Auto) % Immature Gran # (Auto) (0.00-0.02) K/uL Neut # (Auto) (1.4-6.5) K/uL Lymph # (Auto) (1.2-3.4) K/uL [place] # (Auto) (0.11-0.59) K/uL Eos # (Auto) (0-0.5) K/uL Baso # (Auto) (0-0.2) K/uL Hypochromasia Anisocytosis Ovalocytes Echinocytes Schistocytes PT (9.0-12.0) Seconds INR (0.9-1.1) APTT (21.0-31.0) Seconds PTT Ratio POC pH 7.19 L* (7.35-7.45) POC pCO2 70 H (35-46) mmHg POC pO2 204 H (80-95) mmHg POC HCO3 27 H (19-24) sarah/L POC Base Excess -2.0 (-9-1.8) sarah/L POC ABG O2 Sat 99.0 H (90-95) % POC Sodium (135-144) mEq/L Sodium (136-145) mmol/L POC Potassium (3.3-5.0) mEq/L Potassium (3.5-5.1) mmol/L POC Chloride (101-112) mEq/L Chloride (98-107) mmol/L Carbon Dioxide (21-32) mmol/L POC Total CO2 29 (24-31) mEq/l Anion Gap (3-11) POC Anion Gap (16-25) mmol/L POC BUN (7-18) mg/dl BUN (7-18) mg/dl Creatinine (0.6-1.2) mg/dl POC Creatinine (0.6-1.3) mg/dl Est Cr Clr Drug Dosing Est GFR ( Amer) Est GFR (Non-Af Amer) BUN/Creatinine Ratio (10-20) Glucose (70-99) mg/dl POC Glucose (other) (70-99) mg/dl POC Lactic Acid Regis (0.90-1.70) mmol/L Lactate (0.4-2.0) mmol/L Calcium (8.5-10.1) mg/dl POC Ioniz Calcium Rakesh (1.12-1.32) mmol/l Total Bilirubin (0.2-1) mg/dl AST (15-37) U/L ALT (12-78) U/L Alkaline Phosphatase (45-117) U/L Lactate Dehydrogenase 424 H (84-246) U/L Total Protein (6.4-8.2) gm/dl Albumin (3.4-5.0) gm/dl Globulin (2.5-4.0) gm/dl Albumin/Globulin Ratio (0.9-2) Urine Color Urine Appearance (Clear) Urine pH (4.5-7.5) Ur Specific [place] (1.000-1.030) Urine Protein (Negative) Urine Glucose (UA) (Negative) Urine Ketones (Negative) Urine Blood (Negative) Urine Nitrite (Negative) Urine Bilirubin (Negative) Urine Urobilinogen (Negative) Ur Leukocyte Esterase (Negative) Urine WBC (Auto) (0-5) /hpf Urine RBC (Auto) (0-4) /hpf U Hyaline Cast (Auto) (0-5) /lpf U Epithel Cells (Auto) (0-5) /lpf Urine Bacteria (Auto) (Negative) Stl C. diff Tox B Gene (Neg) Blood Type Antibody Screen Crossmatch Imaging Data Attestation: I personally reviewed and interpreted this imaging study as follows: Radiologist's Impression: Radiology results as stated below per my review and radiologist interpretation: CT SCAN OF THE ABDOMEN AND PELVIS WITH IV CONTRAST CLINICAL HISTORY: Generalized abdominal pain. COMPARISON STUDY: Abdominal CT dated 01/13/2019. TECHNIQUE: Following the IV administration of 93 cc of Optiray 320, CT scan of the abdomen and pelvis is performed from the lung bases to the proximal femora. Images are reviewed in the axial, sagittal, and coronal planes. IV contrast was administered without complication. A dose lowering technique was utilized adhering to the principles of ALARA. The examination is degraded by motion artifact, and by streak artifact from the arms which cannot elevated above the abdomen. CT DOSE: 477.45 mGy.cm FINDINGS: Lung bases: The heart is enlarged and without pericardial effusion. The coronary arteries and mitral annulus are densely calcified. Small foci of intracardiac gas are likely related to IV placement. The pulmonary trunk is dilated, measuring 3.5 cm in diameter. This suggests pulmonary artery hypertension. There are small to moderate right and trace left pleural effusions with bibasilar consolidation. Liver: The contrast-enhanced liver is normal in size, contour, and attenuation. There is moderate intrahepatic biliary ductal dilatation. The hepatic veins and portal veins are patent. Gallbladder: Surgically absent noting clips in the gallbladder fossa. There is mild wall thickening and hyperemia of the common bile duct. The common bile duct is dilated, measuring up to 2 cm in diameter. Intraluminal debris is suggested. Head of the pancreas on image #[id number]. Spleen: Normal in size and attenuation. Pancreas: The pancreas is moderately atrophic and grossly unremarkable. The pancreatic duct is normal in caliber. Adrenal glands: Nodularity adrenal glands is similar to previous.. Kidneys: The contrast enhanced kidneys are atrophic and without hydronephrosis. The kidneys enhance symmetrically. A subcentimeter cortical hypodensity in the left upper pole likely represents a cyst but is too small for definitive characterization. Abdominal vasculature: The abdominal aorta is normal in course and caliber noting advanced atherosclerotic calcification. Bowel: There is rectosigmoid fecal impaction and moderate constipation. No bowel obstruction is seen. There is moderate colonic diverticulosis without CT evidence of acute diverticulitis. There is diffuse wall thickening end edema with associated full thickening involving the colon and small bowel. This may also involve the stomach, and there is associated mucosal hyperemia seen throughout. The appendix is well-visualized and normal. Peritoneum: There is trace abdominopelvic ascites. Mesenteric edema is observed. No intraperitoneal free air is seen. Lymphadenopathy: None. Pelvic viscera: The bladder is partially decompressed and a Kuo catheter and not well evaluated. The uterus is surgically absent. No adnexal lesion is seen. Skeletal structures: The skeletal structures are osteopenic. There is a moderate compression deformity of L1 with retropulsed fragments. Moderate lumbosacral spondylosis and scoliosis are observed. No lytic or blastic lesions are seen. There are bilateral sacral insufficiency fractures. Soft tissues: There is body wall edema. IMPRESSION: 1. Streak and motion compromised examination. 2. Right larger than left pleural effusions with bibasilar consolidation. The appearance is typical for pneumonia/aspiration pneumonitis. Clinical correlation will be required. 3. Cardiomegaly. 4. There is evidence of fluid overload, with body wall edema, a small volume of abdominopelvic ascites, and mesenteric edema. 5. There is intra and extrahepatic biliary ductal dilatation. This is similar to previous and may be related to a history of cholecystectomy. 6. Question intraluminal debris within the distal common bile duct. Choledocholithiasis is not excluded. 7. There is mild wall thickening and hyperemia of the common bile duct. Correlate clinically for evidence of infection/cholangitis. 8. There is diffuse mucosal edema of the small bowel and colon with associated fold thickening. This may also involve the stomach, and there is mucosal hyperemia throughout. This could be related to volume status/fluid overload. Different considerations include a nonspecific infectious/inflammatory enterocolitis or less likely etiologies such as angioedema. Clinical correlation will be essential. 9. Bilateral sacral insufficiency fractures are again noted. 10. There is rectosigmoid fecal impaction and moderate constipation. No bowel obstruction is seen. 11. Additional findings as above. Electronically signed by: Michael Macedo M.D. 01/22/2019 7:[address] SCAN OF THE BRAIN WITHOUT IV CONTRAST CLINICAL HISTORY: Change in mental status. COMPARISON STUDY: CT of the brain dated 02/27/2013. TECHNIQUE: Unenhanced axial CT scan of the brain is performed from the vertex to the skull base. A dose lowering technique was utilized adhering to the principles of ALARA. CT DOSE: 537.48 mGy.cm FINDINGS: Brain parenchyma: There are age-related involutional changes noting [id number] patchy subcortical and periventricular microangiopathic change. 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 There is no hemorrhage, mass effect, or evidence of acute territorial ischemia by CT criteria. Queen- white matter differentiation is preserved. No extra-axial fluid collection is seen. Ventricles, sulci, cisterns: Prominent secondary to involutional change. Intracranial vasculature: There is atherosclerotic calcification of the cavernous carotid and vertebral arteries. Calvarium: Unremarkable. Sinuses and mastoids: The visualized paranasal sinuses are clear. The mastoid air cells are well pneumatized. Orbits: The bony orbits are grossly intact. There are bilateral ocular lens implants. IMPRESSION: There is no hemorrhage, mass effect, or evidence of acute territorial ischemia by CT criteria. Electronically signed by: Michael Macedo M.D. 01/22/2019 6:49 PM SINGLE VIEW CHEST CLINICAL HISTORY: Hypotension. FINDINGS: An AP, portable, semierect chest radiograph is compared to study dated 01/06/2019 and correlated with chest CT dated 01/11/2019. The examination is degraded by portable technique and patient rotation. The heart is enlarged and there is atherosclerotic calcification of the thoracic aorta. There is pulmonary vessel congestion. There are small pleural effusions with bibasilar consolidation. No pneumothorax is seen. The skeletal structures are osteopenic. Degenerative change is seen throughout the thoracic spine. There is chronic posttraumatic deformity of the left proximal humerus. Cholecystectomy clips are seen in the right upper quadrant. An IV catheter is seen in the right neck. IMPRESSION: 1. Cardiomegaly with evidence of congestive failure. 2. Small pleural effusions with bibasilar consolidation. Electronically signed by: Michael Macedo M.D. 01/22/2019 7:47 PM ECG Data Attestation: I personally reviewed and interpreted this ECG as follows: (Poor baseline quality for interpretation. ) Indication: syncope Rate (beats per minute): 63 Rhythm: junctional Findings: + PVC; no nonspecific-ST abn Blood Pressure Blood Pressure Findings: Normal blood pressure MDM Narrative This patient was evaluated and appeared to be acutely and severely ill. Patient was placed on nonrebreather for notable hypoxia. IV fluids had been initiated in route, additional IV fluids were administered. Patient's blood pressure remained low. IV dopamine was running. Blood cultures and a lactate were obtained. IV Zosyn 4.5 g was administered. Hemoglobin is stable according to i-STAT. CT scan of the head is negative for acute process. CT scan of the abdomen pelvis is read as above with most notably fluid overload present. Chest x-ray confirms CHF. Patient's EKG is a poor quality baseline for interpretation however reveals PVC and nonspecific ST abnormalities with a likely junctional rhythm. Upon the patient's return from CT, a triple-lumen catheter was placed in the right femoral vein and IV norepinephrine was initiated. IV fluids were stopped. Patient's blood pressure did respond well to the above treatments. She was placed on BiPAP with improvement in respiratory status. The ICU was consulted, Jagjit Portillo PA-C arrived at the patient's bedside for further management. Dr. Larkin of the hospitalist service was contacted who has agreed to evaluate the patient for admission. Impression & Plan Acute decompensated heart failure, Acute hypotension, Hematoma of left flank, Hematoma of right flank Critical Care Time Critical Care Time: Yes Total Critical Care Time: 60 I have personally spent greater than 60 minutes of critical care time in the direct management of this patient. This includes bedside care, interpretation of diagnostic studies, and testing, discussion with consultants, patient, and family members, and other required patient management activities. This 60 minutes is in excess of all separately billable procedures. Discharge Plan Visit Data *Final* Discharge Date/Time: 01/22/19 21:49 Chief Complaint: Hypotension Stated Complaint: NEAR SYNCOPE, HYPOTENSION, ED Provider: Cristina Casey Discharge Problem: Acute decompensated heart failure, Acute hypotension, Hematoma of left flank, Hematoma of right flank Patient Disposition: Admitted As Inpatient Discharge Instructions Interventions: ED Discharge Assessment Last Done: 01/22/19 21:49 Discharge Problem: Hematoma of left flank Qualifiers: Encounter type: initial encounter Qualified Code(s): S30.1XXA - Contusion of abdominal wall, initial encounter Hematoma of right flank Qualifiers: Encounter type: initial encounter Qualified Code(s): S30.1XXA - Contusion of abdominal wall, initial encounter The scribe's documentation has been prepared under my direction and personally reviewed by me in its entirety. I confirm that the note above accurately reflects all work, treatment, procedures, and medical decision making performed by me.
--- NOTE | 2019-01-22 23:53 | History & Physical Report ---
Date of Service January 22, 2019 Assessment & Plan (1) Respiratory failure with hypoxia: 83-year-old female with past medical history of idiopathic pulmonary fibrosis, hypertension, anemia, type 2 diabetes presents to [facility] from [facility] with acute encephlopathy and hypotension. Her niece is present in the emergency room and states that she was found to be unresponsive today. In the ED, the patient was believed to be in cardiogenic shock and fluids and pressors were initiated and the patient was transferred to the ICU. Workup revealed pneumonia and was started on antibiotics. The patients pressures responded well to fluid resuscitation and pressors. Vascular congestion also complicated respiratory distress, but the patient responded well to BIPAP and was weaned to NC by morning. The patient was recently discharged from [facility] on 01/16/2019at that time she was admitted for an exacerbation of her chronic lung disease, multifocal atrial tachycardia and spontaneous flank hematoma. The patient's niece who is her power of computer security manager states that goals of care were discussed that the hospitalization in the decided that the patient would like to avoid intubation. After discussion with the niece regarding the patient's current status and possible need for ACLS, the patient's niece decided that the patient would prefer to be comfortable and to avoid heroic measures. HCAP in the setting of ILD, septic shock - Transferred to ICU, responding well - Continue Abx, vanc/zosyn - Continue nebs Flank Hematoma - Hgb is stable - Follow counts, type and cross Fecal impaction - Treat constipation DVT ppx - Deferred at admission 2/2 concern for flank hematoma Code status - DNR/DNI (2) Hypotension: (3) Cardiogenic shock: (4) Diabetes mellitus: (5) Interstitial lung disease: (6) Hypertension: (7) Gastroesophageal reflux disease: (8) Hypercapnia: History of Present Illness Primary Care Provider: [facility] sana [place] 83-year-old female with past medical history of idiopathic pulmonary fibrosis, hypertension, anemia, type 2 diabetes presents to [facility] from [facility] with acute encephlopathy and hypotension. Her niece is present in the emergency room and states that she was found to be unresponsive today. In the ED, the patient was believed to be in cardiogenic shock and fluids and pressors were initiated. The patient also developed respiratory distress likely secondary to pulmonary vascular congestion on chronic lung disease and was subsequently started on BiPAP. The patient was recently discharged from [facility] on 01/16/2019at that time she was admitted for an exacerbation of her chronic lung disease, multifocal atrial tachycardia and spontaneous flank hematoma. The patient's niece who is her power of computer security manager states that goals of care were discussed that the hospitalization in the decided that the patient would like to avoid intubation. After discussion with the niece regarding the patient's current status and possible need for ACLS, the patient's niece decided that the patient would prefer to be comfortable and to avoid heroic measures. Allergies Allergy/AdvReac Type Severity Reaction Status Date / Time vitamin E (d-alpha Allergy Intermediate HIVES Verified 01/22/19 18:53 tocopherol) risedronate sodium Allergy Mild SICK Verified 01/22/19 18:53 prednisone AdvReac Intermediate Makes her Verified 01/22/19 18:53 feel very ill. Home Medications Home Medications Medication Instructions Recorded Confirmed Type atorvastatin 20 mg tablet 20 mg PO HS #30 tab 11/14/18 01/22/19 History calcium carbonate 600 mg calcium 600 mg PO BID tab 11/15/18 01/22/19 History (1,500 mg) tablet pantoprazole 40 mg tablet,delayed 40 mg PO DAILY #30 tab 11/15/18 01/22/19 History release Januvia 100 mg PO DAILY 01/06/19 01/22/19 History Systane (propylene glycol) 1 drp OPB BID PRN 01/06/19 01/22/19 History cyanocobalamin (vitamin B-12) 1,000 mcg PO DAILY 01/06/19 01/22/19 History metformin 1,000 mg PO BIDM 01/06/19 01/22/19 History sodium chloride 1 g PO TID #90 tab 01/16/19 01/22/19 Rx verapamil 120 mg PO BID 30 Days #30 tab 01/16/19 01/22/19 Rx acetaminophen [Tylenol] 650 mg PO Q12H PRN 01/22/19 01/22/19 History aspirin [Aspir-81] 81 mg PO DAILY 01/22/19 01/22/19 History budesonide 0.5 mg NEB BID 01/22/19 01/22/19 History ipratropium bromide 0.5 mg INHALATION Q6H 01/22/19 01/22/19 History levalbuterol HCl 0.63 mg NEB Q6H 01/22/19 01/22/19 History polyethylene glycol 3350 [Miralax] 17 g PO QAM 01/22/19 01/22/19 History sucralfate 10 ml PO AC 01/22/19 01/22/19 History Past Med/Surg History Medical History Tubular adenoma of colon Subcapital fracture of hip Sciatica Osteoporosis Low back pain Interstitial lung disease Hyponatremia Hypertension Hypercholesterolemia Gastroesophageal reflux disease Diverticulosis Difficulty walking Diabetes mellitus Compression fracture of L1 lumbar vertebra Chronic obstructive asthma Carotid artery stenosis, asymptomatic Anemia Allergic rhinitis Social History Preferred Language: Croatian 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 Ability: Effective 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: No Beliefs That Will Affect Care: None Current Living Situation: Alone and Residential Current Living Situation Comment: currently in [facility] Other Information That Helps Us Care for You: No Feels Safe at Home: Yes Smoking Status: Unknown if ever smoked Hx Alcohol Use: No Hx Substance Use: No Review of Systems Review of Systems: Unobtainable due to cognitive status Physical Exam Constitutional: + acute distress and + ill appearing On BiPAP Eyes: PERRL, conjunctivae normal, anicteric sclerae ENMT: external ear and nose normal, oropharynx normal Neck: trachea midline, no thyromegaly Respiratory: Auscultation: + rales (Bilaterally) and + rhonchi (Bilaterally) On BiPAP Cardiovascular: Rate/Rhythm: regular rate and regular rhythm Extremities: + edema (+2, bilateral lower extremity) Gastrointestinal (Abdomen): normal bowel sounds, soft, nontender, no hepatosplenomegaly Results & Data Vital Signs (Past 12 Hours) Vital Signs Temp Pulse Pulse Resp BP BP Pulse Ox 01/22/19 22:12 72 33 H 91 01/22/19 21:25 70 25 H 121/83 94 01/22/19 21:20 74 29 H 126/58 L 95 01/22/19 21:15 71 25 H 137/51 L 96 01/22/19 21:10 71 28 H 96 01/22/19 21:05 72 23 123/62 86 L 01/22/19 21:02 72 26 H 95 01/22/19 21:01 70 26 H 106/60 96 01/22/19 21:00 72 24 01/22/19 20:57 72 23 01/22/19 20:56 69 27 H 126/53 L 01/22/19 20:55 71 25 H 01/22/19 20:50 72 25 H 125/59 L 01/22/19 20:45 73 26 H 136/50 L 01/22/19 20:40 72 22 133/64 01/22/19 20:35 71 23 136/57 L 01/22/19 20:30 72 22 135/60 01/22/19 20:25 71 28 H 136/57 L 91 01/22/19 20:24 36.6 C 70 22 135/60 97 01/22/19 20:20 71 26 H 135/47 L 01/22/19 20:16 74 23 128/62 87 L 01/22/19 20:15 74 25 H 01/22/19 20:10 73 22 135/68 01/22/19 20:05 71 22 139/53 L 94 01/22/19 20:00 69 25 H 128/53 L 85 L 01/22/19 19:58 70 23 91 01/22/19 19:55 74 24 122/50 L 88 L 01/22/19 19:53 66 27 H 117/49 L 87 L 01/22/19 19:50 60 24 01/22/19 19:49 57 L 30 H 57/41 L 01/22/19 19:45 57 L 26 H 157/124 H 01/22/19 19:40 60 27 H 01/22/19 19:35 58 L 17 01/22/19 19:30 53 L 25 H 01/22/19 19:25 57 L 22 01/22/19 19:21 58 L 30 H 01/22/19 19:20 58 L 28 H 01/22/19 19:16 58 L 28 H 01/22/19 19:14 58 L 28 H 67/35 L 01/22/19 19:10 58 L 25 H 01/22/19 19:00 59 L 26 H 57 L 01/22/19 18:54 65 25 H 01/22/19 18:33 36.6 C 80 L 01/22/19 18:30 63 37 H 87 L 01/22/19 18:29 63 29 H 71/32 L 86 L 01/22/19 18:27 90 01/22/19 18:24 63 40 H 90 01/22/19 18:17 36.6 C 63 30 H 73/48 L 98 Diagnostic Findings [place], [place] [phone] CT Scan Report Patient: DAYTON CORADO Date: 01/22/19 MR#: [id number]: 1950 [address] Acct ID:[id number]: MALINI MAYO Date: 6City Zip: [place] [address] Age: 83Location: ED Sex: F Room/Bed: Att Phy: Diagnosis: NEAR SYNCOPE, HYPOTENSION, Nhi Phy: Malini Mayo at [facility] Date: 01/22/19 Fam Phy: Interpreting Phy: Michael Macedo MD Admit Phy: Ordering Phy: Cristina Casey M.D. cc: ~ CT SCAN OF THE ABDOMEN AND PELVIS WITH IV CONTRAST CLINICAL HISTORY: Generalized abdominal pain. COMPARISON STUDY: Abdominal CT dated 01/13/2019. TECHNIQUE: Following the IV administration of 93 cc of Optiray 320, CT scan of the abdomen and pelvis is performed from the lung bases to the proximal femora. Images are reviewed in the axial, sagittal, and coronal planes. IV contrast was administered without complication. A dose lowering technique was utilized adhering to the principles of ALARA. The examination is degraded by motion artifact, and by streak artifact from the arms which cannot elevated above the abdomen. CT DOSE: 477.45 mGy.cm FINDINGS: Lung bases: The heart is enlarged and without pericardial effusion. The coronary arteries and mitral annulus are densely calcified. Small foci of intracardiac gas are likely related to IV placement. The pulmonary trunk is dilated, measuring 3.5 cm in diameter. This suggests pulmonary artery hypertension. There are small to moderate right and trace left pleural effusions with bibasilar consolidation. Liver: The contrast-enhanced liver is normal in size, contour, and attenuation. There is moderate intrahepatic biliary ductal dilatation. The hepatic veins and portal veins are patent. Gallbladder: Surgically absent noting clips in the gallbladder fossa. There is mild wall thickening and hyperemia of the common bile duct. The common bile duct is dilated, measuring up to 2 cm in diameter. Intraluminal debris is suggested. Head of the pancreas on image #205. Spleen: Normal in size and attenuation. Pancreas: The pancreas is moderately atrophic and grossly unremarkable. The pancreatic duct is normal in caliber. Adrenal glands: Nodularity adrenal glands is similar to previous.. Kidneys: The contrast enhanced kidneys are atrophic and without hydronephrosis. The kidneys enhance symmetrically. A subcentimeter cortical hypodensity in the left upper pole likely represents a cyst but is too small for definitive characterization. Abdominal vasculature: The abdominal aorta is normal in course and caliber not ing advanced atherosclerotic calcification. Bowel: There is rectosigmoid fecal impaction and moderate constipation. No bowel obstruction is seen. There is moderate colonic diverticulosis without CT e vidence of acute diverticulitis. There is diffuse wall thickening end edema with associated full thickening involving the colon and small bowel. This may also involve the stomach, and there is associated mucosal hyperemia seen throughout. The appendix is well-visualized and normal. Peritoneum: There is trace abdominopelvic ascites. Mesenteric edema is observed. No intraperitoneal free air is seen. Lymphadenopathy: None. Pelvic viscera: The bladder is partially decompressed and a Kuo catheter and not well evaluated. The uterus is surgically absent. No adnexal lesion is seen. Skeletal structures: The skeletal structures are osteopenic. There is a moderate compression deformity of L1 with retropulsed fragments. Moderate lumbosacral spondylosis and scoliosis are observed. No lytic or blastic lesions are seen. There are bilateral sacral insufficiency fractures. Soft tissues: There is body wall edema. IMPRESSION: 1. Streak and motion compromised examination. 2. Right larger than left pleural effusions with bibasilar consolidation. The appearance is typical for pneumonia/aspiration pneumonitis. Clinical correlation will be required. 3. Cardiomegaly. 4. There is evidence of fluid overload, with body wall edema, a small volume of abdominopelvic ascites, and mesenteric edema. 5. There is intra and extrahepatic biliary ductal dilatation. This is similar to previous and may be related to a history of cholecystectomy. 6. Question intraluminal debris within the distal common bile duct. Choledocholithiasis is not excluded. 7. There is mild wall thickening and hyperemia of the common bile duct. Correlate clinically for evidence of infection/cholangitis. 8. There is diffuse mucosal edema of the small bowel and colon with associated fold thickening. This may also involve the stomach, and there is mucosal hyperemia throughout. This could be related to volume status/fluid overload. Different considerations include a nonspecific infectious/inflammatory enterocolitis or less likely etiologies such as angioedema. Clinical correlation will be essential. 9. Bilateral sacral insufficiency fractures are again noted. 10. There is rectosigmoid fecal impaction and moderate constipation. No bowel obstruction is seen. 11. Additional findings as above. [place], [place] [phone] XRay Report Patient: DAYTON CORADO Date: 01/22/19 MR#: [id number]: [address] [place] [address] Acct ID:[id number]: [facility]IN[facility] [place] [address] Age: 83Location: ED Sex: F Room/Bed: Att Phy: Diagnosis: NEAR SYNCOPE, HYPOTENSION, Nhi Phy: Malini [facility] Date: 01/22/19 Fam Phy: Interpreting Phy: Michael Macedo MD Admit Phy: Ordering Phy: Cristina Casey M.D. cc: ~ SINGLE VIEW CHEST CLINICAL HISTORY: Hypotension. FINDINGS: An AP, portable, semierect chest radiograph is compared to study dated 01/06/2019 and correlated with chest CT dated 01/11/2019. The examination is degraded by portable technique and patient rotation. The heart is enlarged and there is atherosclerotic calcification of the thoracic aorta. There is pulmonary vessel congestion. There are small pleural effusions with bibasilar consolidation. No pneumothorax is seen. The skeletal structures are osteopenic. Degenerative change is seen throughout the thoracic spine. There is chronic posttraumatic deformity of the left proximal humerus. Cholecystectomy clips are seen in the right upper quadrant. An IV catheter is seen in the right neck. IMPRESSION: 1. Cardiomegaly with evidence of congestive failure. 2. Small pleural effusions with bibasilar consolidation. Electronically signed by: Michael Macedo M.D. 01/22/2019 7:47 PM Dictated: 01/22/191944 Transcribed: 01/22/191944 [place], [place] [phone] CT Scan Report Patient: DAYTON CORADO Date: 01/22/19 MR#: [id number]: 1950 [address] [facility] [address] Sharp ID:[id number]: MALINI MAYO Date: 6City Zip: [place] [address] Age: 83Location: ED Sex: F Room/Bed: Att Phy: Diagnosis: NEAR SYNCOPE, HYPOTENSION, Nhi Phy: Malini Mayo at [facility] Date: 01/22/19 Fam Phy: Interpreting Phy: Michael Macedo MD Admit Phy: Ordering Phy: Cristina Casey M.D. cc: ~ CT SCAN OF THE BRAIN WITHOUT IV CONTRAST CLINICAL HISTORY: Change in mental status. COMPARISON STUDY: CT of the brain dated 02/27/2013. TECHNIQUE: Unenhanced axial CT scan of the brain is performed from the vertex to the skull base. A dose lowering technique was utilized adhering to the principles of ALARA. CT DOSE: 537.48 mGy.cm FINDINGS: Brain parenchyma: There are age-related involutional changes noting [id number] patchy subcortical and periventricular microangiopathic change. 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 There is no hemorrhage, mass effect, or evidence of acute territorial ischemia by CT criteria. Queen-w sisi matter differentiation is preserved. No extra-axial fluid collection is seen. Ventricles, sulci, cisterns: Prominent secondary to involutional change. Intracranial vasculature: There is atherosclerotic calcification of the cavernous carotid and vertebral arteries. Calvarium: Unremarkable. Sinuses and mastoids: The visualized paranasal sinuses are clear. The mastoid air cells are well pneumatized. Orbits: The bony orbits are grossly intact. There are bilateral ocular lens implants. IMPRESSION: There is no hemorrhage, mass effect, or evidence of acute territorial ischemia by CT criteria. Electronically signed by: Michael Macedo M.D. 01/22/2019 6:49 PM Dictated: 01/22/191846 Transcribed: 01/22/191846 Supervising Physician Co-Signing Physician Notes Pt was seen examined in conjunction with the resident MD an glassblower on arrival to the ER. Orders and plan of admission discussed with resident and glassblower. 83 y/o F Hx IPF, HTN, anemia, DM II. Presented with hypoxia and profound hypotension. Initially thought to be cardiogenic shock. She required IVF and pressors although she quickly developed volume overload. Following a CT she was diagnosed with HCAP. An echo also demonstrated R systolic CHF. OE: The pt was responsive on admission JVD is apparent S1, 2 faint R BL crackles NT. ND Minimal edema P: Assigned to ICU Central line for fluid management Treat for HCAP Pressors DCd shortly after arrival to ICU A Palliative consult is pending although she does appear to be stabilizing family/POA present at time of admission to revise code status to DNR/DNI PG Care Time/CCT Total # of Minutes Spent Total Time Spent with Patient: Total time spent is greater than 50% in coordination of care (as documented) at patient's floor/unit and/or counseling patient: Resident Activity Tracking Resident Involvement: Resident Care Provided Care Provided: Adult Hospital Medicine (1) Respiratory failure with hypoxia Chronicity: acute Qualified Code(s): J96.01 - Acute respiratory failure with hypoxia
[2019-01-23] MEDS ORDERED: PIPERACILL/TAZOBAC CONSULT ACTIVE PRN (00:07)
[2019-01-23] MEDS ORDERED: ICU PROTOCOL FOR HYPERGLYCEMIA PRN (00:07)
[2019-01-23] MEDS ORDERED: VANCOMYCIN CONSULT ACTIVE PRN (00:07)
[2019-01-23] MEDS ORDERED: VANCOMYCIN HCL 1,500 MG in SODIUM CHLORIDE 0.9% 500 ML IV ONE (00:15)
[2019-01-23] MEDS ORDERED: PIPERACILLIN/TAZOBACTAM 4.5 GM in DEXTROSE 5% 100 ML IV ONE (00:15)
[2019-01-23] MEDS ORDERED: CARBOHYDRATES FOR HYPOGLYCEMIA PO PRN (00:56)
[2019-01-23] MEDS ORDERED: GLUCOSE 10 TABS/TUBE PO PRN (00:56)
[2019-01-23] MEDS ORDERED: GLUCOSE 40% GEL 15 GM TUBE PO PRN (00:56)
[2019-01-23] MEDS ORDERED: DEXTROSE 50% 50 ML SYRINGE IV PRN (00:56)
[2019-01-23] MEDS ORDERED: GLUCAGON FOR INJ 1 MG VIAL SQ PRN (00:56)
[2019-01-23] MEDS: INSULIN ASPART 100 UNITS/ML 3 ML PEN SC SCH ×5 (01:14→21:25)
[2019-01-23] MEDS ORDERED: ARTIFICIAL TEARS OPB PRN (04:00)
[2019-01-23 05:15] LABS: Basophils # (auto) 0.02 K/uL (0-0.2); Basophils % (auto) 0.1 %; Hematocrit (blood only) 33.9 % (37-47); Hemoglobin 10.1 g/dL (12.0-16.0); Immature Granulocytes # (auto) 0.11 K/uL (0.00-0.02); Immature Granulocytes % (auto) 0.8 %; Lymphocytes % (auto) 3.6 %; Mean Corpuscular Hgb Conc 29.8 g/dL (32-36); Mean Corpuscular Volume 85.4 fL (80-100); Mean Platelet Volume 9.9 fL (7.4-10.4); Monocytes # (auto) 0.85 K/uL (0.11-0.59); Monocytes % (auto) 6.1 %; Neutrophils % (auto) 89.4 %; Platelet Count 168 K/uL (130-400); RDW Coefficient of Variation 20.4 % (11.5-14.5); RDW Standard Deviation 61.9 fL (36.4-46.3); Red Blood Count 3.97 M/uL (4.2-5.4); White Blood Count 13.88 K/uL (4.8-10.8)
[2019-01-23 05:57] LABS: Anisocytosis Present; Echinocytes 1+; Hypochromasia Present; Ovalocytes 1+; Poikilocytosis Present; Schistocytes 1+
[2019-01-23] MEDS: PIPERACILLIN/TAZOBACTAM 4.5 GM in DEXTROSE 5% 100 ML IV SCH ×3 (06:06→21:23)
[2019-01-23] MEDS: methylPREDNISolone 40 MG in SYRINGE 0 ML IV SCH ×3 (06:06→21:27)
[2019-01-23] MEDS ORDERED: NORMOSOL-R 1,000 ML IV SCH (06:30)
--- NOTE | 2019-01-23 06:50 | Critical Care Progress Note ---
Date of Service January 23, 2019 Assessment & Plan (1) Admitted to intensive care unit: Reason Critically Ill: 83-year-old female presenting with profound hypotension and acute respiratory failure requiring noninvasive ventilatory support in the setting of respiratory failure with hypoxia and hypercapnia. NEURO - CAM ICU: Positive Frequent neurological assessments in the setting of hypotension and undifferentiated slight confusion. Symptoms improved with resolved hypotension. No focal neurological deficits on exam. CT the head unremarkable. CARDIAC/VASCULAR - Past Medical Hx of Multifocal atrial tachycardia Profound hypotension:In the setting of likely sepsis w/ septic shock; had agg ressive resuscitation with IV fluids approx 3.5L. Was requiring levophed, currently off. All pressors D/C'd Echocardiogram this AM Hold home hypertensive medications. Monitor on telemetry. Hold atorvastatin in setting of elevated LFTs. Hemodynamically stable, restart pt's home Verapamil 120mg BID Restart ASA 81mg RESPIRATORY - Acute respiratory failure with hypoxia and hypercapnia: In setting of restrictive lung dz - idiopathic pulmonary fibrosis. Previously had stopped her home steroids. Trialed BiPAP this morning for increase work of breathing, but patient did not tolerate, currently on NC 3L. Currently on Solumedrol 40mg q8h Continue with Vanc Zosyn. Concerns for empyema in the RIGHT lower lobe area but bedside ultrasound demonstrated no significant effusion for diagnostic thoracentesis. Procal 1.44 consideration for local infection Treating with antibiotics with concerns for possible intrathoracic infection, i.e. empyema. will give one dose of Lasix this AM since hemodynamically stable GI/NUTRITION - Elevated liver enzymes, possibly from choledocholithiasis? GI consulted for opinion on possible pathology Will trend. Prophylaxis: Protonix Thiamine 100mg qday ordered RENAL/LYTES - No significant electrolyte derangements. Will trend. Received IV fluids in the emergency department for a total of 3.5 L. Will hold IVF at this time. - Strickland in place - Strict I&Os. ENDO - Diabetes, will restart home meds Januiva, hold Metformin for 48 hrs. BSGs per unit protocol. ISS --> gtt per unit policy. HEME - On presentation there was concerns for possible risk of blood loss anemia with exam findings consistent with flank hematomas. But Hgb improved this AM to 10.1 from 8.8. Leukocytosis of 13.88 this AM ID - Presented with concerns for severe sepsis with septic shock now hemodynamically stable, suspect hemodynamics are more from Multifocal atrial tachycardia Possible pulmonary source. Vancomycin and Zosyn with recent hospital admission. Trend lactate. Procal 1.44 Endurance IV placed as wasn't candidate for PICC from bedside US LINES/IV ACCESS - PIVs x2 Strickland DVT PROPHYLAXIS - Heparin 5,000 units BID SCDs Code status - DNR/DNI (2) Respiratory failure with hypoxia: (3) Hypotension: (4) Cardiogenic shock: (5) Diabetes mellitus: (6) Interstitial lung disease: (7) Hypertension: (8) Gastroesophageal reflux disease: (9) Hypercapnia: Supervising Physician Co-Signing Physician Notes Dr. Munoz was resident physician during care of patient. I separately evaluated patient for kincaid portions of the history and the exam. I was present during the critical portion of medical decision making, and I discussed the case with the resident. I generally agree with the findings and plan. Patient significantly improved today, lactic acid improving, I do believe there is a degree of hepatic insufficiency, this may be represented as shock liver versus some on other underlying pathology. Of note the edema in the abdomen does appear to be more localized around the liver and there is a right-sided pleural effusion. I was going to attempt a thoracentesis of this fluid however I did not have a safe margin to introduce a needle. There does appear to be some evidence of loculation around there and I am concerned for an empyema. Patient's pro Klever is elevated which is more consistent with localized infection. She does have a dilated common bile duct, she has not seen a intake nurse we will consult GI for choledocholithiasis. Patient was acutely hypotensive, this could have been secondary to an underlying cardiac arrhythmia it was noted she had multifocal atrial tachycardia on her previous admission. She has not shown signs of this during this hospitalization. Her mental status is certainly proved. This point I will continue the antibiotics we have started thiamine supplementation. She would be stable for downgrade out of the ICU to telemetry versus remote telemetry. Shraddha Hargrove is able to answer questions appropriately but was confused about what happened to led her to hospitalization. She currently doesn't have any acute complaints, no chest pain. She notes she felt urge for BM and to pee, reminded she has strickland. Review of Systems Review of Systems: Unobtainable due to cognitive status (confused) Physical Exam Constitutional: + ill appearing, + frail appearing, cooperative and comfortable Eyes: EOM intact bilaterally Neck: normal visual inspection and trachea midline Respiratory: + labored breathing; no respiratory distress Auscultation: + diminished lung sounds Cardiovascular: Rate/Rhythm: regular rate and regular rhythm Extremities: no pedal edema Gastrointestinal (Abdomen): Percussion/Palpation: abdomen nontender and no guarding Musculoskeletal: Head/Neck/Chest: normocephalic and head atraumatic Neurologic: moves all extremities and awake; no focal motor deficits Psychiatric: Orientation: alert, oriented to person and cooperative Results & Data Vital Signs (Past 12 Hours) Vital Signs Temp Pulse Pulse Resp BP BP Pulse Ox 01/23/19 04:30 36.3 C L 61 107/49 L 95 01/23/19 04:15 59 L 108/58 L 96 01/23/19 04:01 58 L 94/55 L 91 01/23/19 04:00 61 89 L 01/23/19 03:45 62 90/48 L 91 01/23/19 03:30 57 L 112/55 L 95 01/23/19 03:15 56 L 101/48 L 93 01/23/19 03:00 57 L 105/49 L 92 01/23/19 02:45 56 L 120/58 L 93 01/23/19 02:30 58 L 29 H 102/65 98 01/23/19 02:15 58 L 117/60 100 01/23/19 02:00 62 124/56 L 01/23/19 01:45 63 123/55 L 100 01/23/19 01:30 64 121/58 L 100 01/23/19 01:15 56 L 125/56 L 98 01/23/19 01:00 62 105/62 98 01/23/19 00:45 71 125/60 100 01/23/19 00:34 61 136/81 01/23/19 00:30 62 01/23/19 00:15 61 131/59 L 100 01/23/19 00:00 70 108/73 01/22/19 23:45 73 113/61 100 01/22/19 23:42 85 01/22/19 23:34 73 114/67 100 01/22/19 23:01 84 154/67 H 99 01/22/19 22:21 75 116/60 99 01/22/19 22:19 36.4 C L 77 01/22/19 22:12 72 33 H 91 01/22/19 21:25 70 25 H 121/83 94 01/22/19 21:20 74 29 H 126/58 L 95 01/22/19 21:15 71 25 H 137/51 L 96 01/22/19 21:10 71 28 H 96 01/22/19 21:05 72 23 123/62 86 L 01/22/19 21:02 72 26 H 95 01/22/19 21:01 70 26 H 106/60 96 01/22/19 21:00 72 24 01/22/19 20:57 72 23 01/22/19 20:56 69 27 H 126/53 L 01/22/19 20:55 71 25 H 01/22/19 20:50 72 25 H 125/59 L 01/22/19 20:45 73 26 H 136/50 L 01/22/19 20:40 72 22 133/64 01/22/19 20:35 71 23 136/57 L 01/22/19 20:30 72 22 135/60 01/22/19 20:25 71 28 H 136/57 L 91 01/22/19 20:24 36.6 C 70 22 135/60 97 01/22/19 20:20 71 26 H 135/47 L 01/22/19 20:16 74 23 128/62 87 L 01/22/19 20:15 74 25 H 01/22/19 20:10 73 22 135/68 01/22/19 20:05 71 22 139/53 L 94 01/22/19 20:00 69 25 H 128/53 L 85 L 01/22/19 19:58 70 23 91 01/22/19 19:55 74 24 122/50 L 88 L 01/22/19 19:53 66 27 H 117/49 L 87 L 01/22/19 19:50 60 24 01/22/19 19:49 57 L 30 H 57/41 L 01/22/19 19:45 57 L 26 H 157/124 H 01/22/19 19:40 60 27 H 01/22/19 19:35 58 L 17 01/22/19 19:30 53 L 25 H 01/22/19 19:25 57 L 22 01/22/19 19:21 58 L 30 H 01/22/19 19:20 58 L 28 H 01/22/19 19:16 58 L 28 H 01/22/19 19:14 58 L 28 H 67/35 L 01/22/19 19:10 58 L 25 H 01/22/19 19:00 59 L 26 H 57 L 01/22/19 18:54 65 25 H PG Care Time/CCT Total # of Minutes Spent Total Time Spent with Patient: Total time spent is greater than 50% in coordination of care (as documented) at patient's floor/unit and/or counseling patient: Resident Activity Tracking Resident Involvement: Resident Care Provided Care Provided: Adult Hospital Medicine (ICU) (1) Respiratory failure with hypoxia Chronicity: acute Qualified Code(s): J96.01 - Acute respiratory failure with hypoxia
--- NOTE | 2019-01-23 07:10 | XRay Report ---
XR chest 1V portable CLINICAL HISTORY: f/u dyspnea COMPARISON STUDY: 01/22/2019 FINDINGS: Moderate cardiomegaly. Slightly progressive component of congestive failure chronic elevati on right hemidiaphragm. IMPRESSION: Mildly progressive components of congestive heart failure The above report was generated using voice recognition software. It may contain grammatical, syntax or spelling errors. Electronically signed by: Blas Carey M.D. 01/23/2019 7:09 AM
[2019-01-23] MEDS: IPRATROPIUM BROMIDE NEB SOLN 0.02% 2.5 ML VIAL INH SCH ×3 (07:30→19:43)
[2019-01-23] MEDS: BUDESONIDE 0.5 MG/2 ML VIAL (PULMICORT) NEB SCH ×2 (07:31→19:43)
[2019-01-23] MEDS: LEVALBUTEROL HCL 0.63 MG/3 ML NEB NEB SCH ×3 (07:31→19:42)
[2019-01-23 07:49] LABS: Albumin Level 2.9 gm/dl (3.4-5.0); BUN Creatinine Ratio 23.6 (10-20); Bilirubin Direct 0.5 mg/dl (0-0.2); Calcium 7.8 mg/dl (8.5-10.1); Creatinine Clr Calc Pharmacy 25.1 ml/min; Est GFR (African American) 52.6; Est GFR (Non-African American) 45.4; Magnesium 2.1 mg/dl (1.8-2.4); Potassium 5.2 mmol/L (3.5-5.1)
[2019-01-23 07:51] LABS: Bilirubin,Total 1.3 mg/dl (0.2-1); Phosphorus 3.4 mg/dl (2.5-4.9); Total Protein 5.5 gm/dl (6.4-8.2)
[2019-01-23 07:56] LABS: Estimated Average Glucose 174 mg/dl; Hemoglobin A1C 7.7 % (4.5-5.6)
[2019-01-23] MEDS: SUCRALFATE 1 GM/10 ML UDC PO SCH ×3 (08:40→18:14)
[2019-01-23] MEDS: CALCIUM CARBONATE 1250MG TAB PO SCH ×2 (08:40→21:24)
[2019-01-23] MEDS: ASPIRIN 81 MG ECTAB PO SCH (08:41)
[2019-01-23] MEDS: DOCUSATE SODIUM 100 MG CAP PO SCH ×2 (08:41→21:24)
[2019-01-23] MEDS: PANTOprazole 40 MG TAB PO SCH (08:41)
[2019-01-23] MEDS: CYANOCOBALAMIN 500 MCG TABLET (VITAMIN B-12) PO SCH (08:41)
[2019-01-23] MEDS: SODIUM CHLORIDE 1 GM TABLET PO SCH ×3 (08:41→21:24)
[2019-01-23] MEDS: POLYETHYLENE (MIRALAX) 17 GM PACK PO SCH (08:43)
[2019-01-23] MEDS: HEPARIN SOD 5,000 UNIT/0.5 ML VIAL SQ SCH ×2 (08:44→21:25)
[2019-01-23] MEDS ORDERED: THIAMINE HCL 100 MG TAB PO ONE (10:30)
[2019-01-23] MEDS ORDERED: FUROSEMIDE 40 MG/4 ML VIAL IV SCH (10:30)
--- NOTE | 2019-01-23 10:43 | Pharmacy Report ---
Pharmacy Abx Dose Short Note - Date of Service January 23, 2019 - Assessment & Plan Assessment * 83 year old F admitted for acute hypoxemic, hypercapnic resp failure as well as hypotension and concern for sepsis (pulm vs intra-abd source) * Empiric broad spectrum abx therapy ordered: VANCOMYCIN + ZOSYN; pharmacy to dose * Now off vasopressor support (norepi), MAPs > 65 * Patient's body habitus makes it very difficult to truly estimate her GFR (height 4'6", 57.1kg); estimated GFR 20-40cc/min * +MRSA nares; concern for possible empyema per Stranner * Blood cx's pending * Procal 1.44 Plan Vancomycin * Loading dose: 1500mg (~25mg/kg) x 1 given at 0029 today * Given inability to estimate her GFR correctly, will obtain random level ~ one estimated half-life after load was given * If random level this afternoon is < 20, will redose pt with 1000mg (~17.5mg/kg) x 1 and repeat random level in approx one half-life * Goal trough level for pulm infxn / sepsis : 15 to 20 mcg/mL * Random level ordered for 1700 today * P'kinetic estimates: half-life ~16-21 hours; Vd 0.7L/kg Zosyn * eCrCl > 20 * BMI < 35 * given location of infxn and admission w/ possible septic shock, will continue the 4.5gm ext-infusion Q 8 hrs Pharmacy will continue to follow and will adjust dose/frequency as necessary. Thank you.
--- NOTE | 2019-01-23 10:59 | Procedure Note ---
Procedure Note Date of Service January 23, 2019 Note ENDURANCE CATHETER PROCEDURE NOTE: Procedure: Polisher Brass Indwelling Peripherally Inserted IV Catheter Placement Attending: Dr. Saad Padron Provider: AURA Torres Indication: Need for IV Access, Poor Vascular Access Anesthesia: None Verbal consent was obtained from patient prior to performing the procedure. A time-out was completed verifying correct patient, procedure, site, positioning, and implant(s) or special equipment if applicable. Utilizing bedside ultrasound, vascularity of the right upper extremity was assessed. Vessel size was noted for appropriate catheter selection and skin was marked with gentle pressure. Patients right upper extremity was prepped and draped in the usual sterile fashion utilizing chlorhexidine. Ultrasound guidance was used to aid needle placement. A 20 g Endurance Catheter was introduced into the brachiocephalic vein under direct ultrasound guidance. Guide wire was easily deployed without resistance. Catheter was threaded over the guide wire without resistance and the entire apparatus was removed intact. Good venous blood return was noted in the catheter. The IV catheter was easily flushed with sterile saline flush. Sterile clave was attached to the end of the catheter and good blood return was again noted. Tourniquet was released. StatLock device and sterile dressing were applied. The patient tolerated the procedure well. Guidewire was visualized in longitudinal view with ultrasound verifying placement in the lumen. Blood Loss: Minimal Complications: None Procedural Ultrasound Guidance: Procedure Date: 01/23/2019 Indication: Poor Vascular Access Attending: Dr. Saad Padron Povider: AURA Torres Artery/Veins Identified: YES Access confirmed in Vein with ultrasound: YES Complications: NONE Patient tolerated procedure: WELL Arrow 20-gauge 8 cm catheter placed, lot #[id number] expiration date: 2020-07-25 Coding
--- NOTE | 2019-01-23 13:41 | Palliative Care Consultation ---
Date of Consultation January 23, 2019 Assessment & Plan (1) Goals of care, counseling/discussion: -83 year old female patient with PMH idiopathic pulmonary fibrosis, htn, anemia, DM type 2, compression fractures, and others, presented to the hospital last evening [facility] with unresponsiveness and hypotension. Patient was in hospital earlier this month because she had stopped her pulmonary medications and had an exacerbation. She improved during hospitalization and went to rehab. Per patient's niece, Sara, patient was doing quite well at rehab and walking with walker. Concern for cardiogenic shock in the ED, patient was placed on bipap and given fluids and pressors. She was admitted to the ICU. Also concern of multifocal atrial tachycardia, as patient was having issues during previous admission. LFTs noted to be elevated. CT abd/pelvis showed volume overload, body wall edema, ascites, mesenteric edema and biliary ductal dilatation. GI has been consulted. Also concern of possible empyema. Patient is somewhat improved today. Pressors off, BP improved, received IV lasix today for volume overload. Palliative care was consulted on last admission to discuss goals of care, reconsulted now for continuity. -Met with patient, her niece/POA, Sara Srivastava, and a family friend. Sara states again that patient was doing quite well at rehab. The family did make patient a DNR/DNI, which is a change from last admission. Patient is oriented at this time but is so drowsy, it is difficult to hold a conversation. -Goal will be for patient to get back to rehab and eventually back home. Sara plans to stay with patient for an extended period of time if she is able to get back home. -Hoping that if patient is able to improve some more, we can include her in on the goals of care conversation. For now, continue with current treatment plan. -Palliative care will follow along during hospitalization to continue discussion and assist with medical decision making. (2) Acute hypotension: (3) Acute on chronic respiratory failure with hypoxia: (4) Pleural effusion: Supervising Physician Co-Signing Physician Notes Chart reviewed, patient seen and examined-patient's niece and friend at bedside. Patient transferred from ICU to the second floor. Collaborated with AURA Abdul PE: Patient awake, more alert, able to answer simple questions by nodding yes or no HEENT: EOMI, mild [place] Respiratory: Increased respiratory rate, no distress, on O2 at 3 L nasal cannula CV: Regular rate, no edema Abdomen: Soft, nontender Neuro: Alert, drowsy, able to answer simple questions Agree with above note, assessment and plan as per AURA Abdul-will continue to follow and assist family with medical decision making. History of Present Illness Reason for Consultation: Goals of care Requesting Physician: Dr. Padron Attending Physician: Kristina Muñoz MD History of Present Illness This 83 year old female patient with PMH idiopathic pulmonary fibrosis, htn, anemia, DM type 2, compression fractures, and others, presented to the hospital last evening from [facility] with unresponsiveness and hypotension. Patient was in hospital earlier this month because she had stopped her pulmonary medications and had an exacerbation. She improved during hospitalization and went to rehab. Per patient's niece, Sara, patient was doing quite well at rehab and walking with walker. Concern for cardiogenic shock in the ED, patient was placed on bipap and given fluids and pressors. She was admitted to the ICU. Also concern of multifocal atrial tachycardia, as patient was having issues during previous admission. LFTs noted to be elevated. CT abd/pelvis showed volume overload, body wall edema, ascites, mesenteric edema and biliary ductal dilatation. GI has been consulted. Also concern of possible empyema. Patient is somewhat improved today. Pressors off, BP improved, received IV lasix today for volume overload. Palliative care was consulted on last admission to discuss goals of care, reconsulted now for continuity. Thank you kindly for this consult. I will follow as needed. Allergies Allergy/AdvReac Type Severity Reaction Status Date / Time vitamin E (d-alpha Allergy Intermediate HIVES Verified 01/22/19 18:53 tocopherol) risedronate sodium Allergy Mild SICK Verified 01/22/19 18:53 prednisone AdvReac Intermediate Makes her Verified 01/22/19 18:53 feel very ill. Home Medications Home Medications Medication Instructions Recorded Confirmed Type atorvastatin 20 mg tablet 20 mg PO HS #30 tab 11/14/18 01/22/19 History calcium carbonate 600 mg calcium 600 mg PO BID tab 11/15/18 01/22/19 History (1,500 mg) tablet pantoprazole 40 mg tablet,delayed 40 mg PO DAILY #30 tab 11/15/18 01/22/19 History release Januvia 100 mg PO DAILY 01/06/19 01/22/19 History Systane (propylene glycol) 1 drp OPB BID PRN 01/06/19 01/22/19 History cyanocobalamin (vitamin B-12) 1,000 mcg PO DAILY 01/06/19 01/22/19 History metformin 1,000 mg PO BIDM 01/06/19 01/22/19 History sodium chloride 1 g PO TID #90 tab 01/16/19 01/22/19 Rx verapamil 120 mg PO BID 30 Days #30 tab 01/16/19 01/22/19 Rx acetaminophen [Tylenol] 650 mg PO Q12H PRN 01/22/19 01/22/19 History aspirin [Aspir-81] 81 mg PO DAILY 01/22/19 01/22/19 History budesonide 0.5 mg NEB BID 01/22/19 01/22/19 History ipratropium bromide 0.5 mg INHALATION Q6H 01/22/19 01/22/19 History levalbuterol HCl 0.63 mg NEB Q6H 01/22/19 01/22/19 History polyethylene glycol 3350 [Miralax] 17 g PO QAM 01/22/19 01/22/19 History sucralfate 10 ml PO AC 01/22/19 01/22/19 History Patient History Medical History Tubular adenoma of colon Subcapital fracture of hip Sciatica Osteoporosis Low back pain Interstitial lung disease Hyponatremia Hypertension Hypercholesterolemia Gastroesophageal reflux disease Diverticulosis Difficulty walking Diabetes mellitus Compression fracture of L1 lumbar vertebra Chronic obstructive asthma Carotid artery stenosis, asymptomatic Anemia Allergic rhinitis Social History Preferred Language: Armenian 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 Ability: Effective Bias Binding Cutter Required: No Beliefs That Will Affect Care: None Current Living Situation: Alone and Custodial Current Living Situation Comment: currently in [facility] Other Information That Helps Us Care for You: No Feels Safe at Home: Yes Smoking Status: Unknown if ever smoked Hx Alcohol Use: No Hx Substance Use: No Review of Systems Review of Systems: Denies pain, N/V. Does c/o SOB at times. Physical Exam 2 Constitutional: + overweight; no acute distress ENMT: external ear and nose normal, oropharynx normal Neck: + thick neck Respiratory: no labored breathing Auscultation: + diminished lung sounds Cardiovascular: Rate/Rhythm: regular rate and regular rhythm Vessels: normal peripheral pulses Gastrointestinal (Abdomen): Inspection/Auscultation: abdomen normal to inspection and normal bowel sounds Neurologic: moves all extremities and awake (does wake, but very drowsy) Psychiatric: Orientation: oriented x 3 Results & Data Vital Signs (Past 12 Hours) Vital Signs Temp Pulse Pulse Resp BP Pulse Ox Pulse Ox 01/23/19 11:42 84 95 01/23/19 11:30 36.8 C 82 97 01/23/19 11:00 81 108/57 L 94 01/23/19 10:30 79 97 01/23/19 10:00 79 129/70 99 01/23/19 09:30 77 93 01/23/19 09:00 78 126/68 97 01/23/19 08:30 74 123/63 99 01/23/19 08:01 100 01/23/19 08:00 72 124/62 99 01/23/19 07:58 73 01/23/19 07:41 71 28 H 100 01/23/19 07:38 71 28 H 100 01/23/19 07:30 36.7 C 72 128/72 100 01/23/19 07:11 75 113/63 100 01/23/19 07:00 70 99 01/23/19 06:30 68 100 01/23/19 06:00 68 98 01/23/19 05:30 64 97/52 L 99 01/23/19 05:00 62 98/67 L 92 01/23/19 04:45 62 101/57 L 93 01/23/19 04:30 36.3 C L 61 107/49 L 95 01/23/19 04:15 59 L 108/58 L 96 01/23/19 04:01 58 L 94/55 L 91 01/23/19 04:00 61 89 L 01/23/19 03:45 62 90/48 L 91 01/23/19 03:30 57 L 112/55 L 95 01/23/19 03:15 56 L 101/48 L 93 01/23/19 03:00 57 L 105/49 L 92 01/23/19 02:45 56 L 120/58 L 93 01/23/19 02:30 58 L 29 H 102/65 98 01/23/19 02:15 58 L 117/60 100 01/23/19 02:00 62 124/56 L 01/23/19 01:45 63 123/55 L 100 PG Care Time/CCT Total # of Minutes Spent Total Time Spent with Patient: Total time spent is greater than 50% in coordination of care (as documented) at patient's floor/unit and/or counseling patient: Time Spent Midlevel 70 minutes with >50% of the time spent at bedside with patient and family discussing condition and GOC.
--- NOTE | 2019-01-23 15:22 | Gastrointestinal Consultation ---
Date of Consultation January 23, 2019 Assessment & Plan (1) Septic shock: (2) Acute decompensated heart failure: (3) Hypotension: (4) Elevated liver enzymes: 83 yo female with pulmonary fibrosis admitted with acute respiratory failure, sepsis with on-going hypotension. I do not feel that the source of her sepsis is biliary in origin. Mild LFT elevation likely cardiac/sepsis related. The CBD dilation is chronic. If concern remains can consider repeat US vs MRCP, though would not pursue at this time. History of Present Illness Reason for Consultation: elevated liver enzymes; dilated CBD Requesting Physician: Dr. Munoz Attending Physician: Kristina Muñoz MD History of Present Illness 83 yo female with multiple medical problems including pulmonary fibrosis, DM, HTN, GERD recently hospitalized with an exacerbation of her chronic lung disease after she stopped all of her meds. She did well and was discharged to rehab. She was re-admitted yesterday with significant hypotension (requiring pressors for a period of time), acute on chronic respiratory failure requiring transient BiPAP (did not tolerate) now on supplemental O2. Being treated for sepsis with ?of RLL empyema. She remains hypotensive. SBP in the 60-90 range. TB 1.3-1.6, AST 80's- 170, ALT 80'90's, and AP 130. No abd pain. US (01/07) shows CBD dilation of 15mm which is chronic since at least 2012. CT 01/22 showed dilated CBD and question of intraluminal debris. Allergies Allergy/AdvReac Type Severity Reaction Status Date / Time vitamin E (d-alpha Allergy Intermediate HIVES Verified 01/22/19 18:53 tocopherol) risedronate sodium Allergy Mild SICK Verified 01/22/19 18:53 prednisone AdvReac Intermediate Makes her Verified 01/22/19 18:53 feel very ill. Home Medications Home Medications Medication Instructions Recorded Confirmed Type atorvastatin 20 mg tablet 20 mg PO HS #30 tab 11/14/18 01/22/19 History calcium carbonate 600 mg calcium 600 mg PO BID tab 11/15/18 01/22/19 History (1,500 mg) tablet pantoprazole 40 mg tablet,delayed 40 mg PO DAILY #30 tab 11/15/18 01/22/19 History release Januvia 100 mg PO DAILY 01/06/19 01/22/19 History Systane (propylene glycol) 1 drp OPB BID PRN 01/06/19 01/22/19 History cyanocobalamin (vitamin B-12) 1,000 mcg PO DAILY 01/06/19 01/22/19 History metformin 1,000 mg PO BIDM 01/06/19 01/22/19 History sodium chloride 1 g PO TID #90 tab 01/16/19 01/22/19 Rx verapamil 120 mg PO BID 30 Days #30 tab 01/16/19 01/22/19 Rx acetaminophen [Tylenol] 650 mg PO Q12H PRN 01/22/19 01/22/19 History aspirin [Aspir-81] 81 mg PO DAILY 01/22/19 01/22/19 History budesonide 0.5 mg NEB BID 01/22/19 01/22/19 History ipratropium bromide 0.5 mg INHALATION Q6H 01/22/19 01/22/19 History levalbuterol HCl 0.63 mg NEB Q6H 01/22/19 01/22/19 History polyethylene glycol 3350 [Miralax] 17 g PO QAM 01/22/19 01/22/19 History sucralfate 10 ml PO AC 01/22/19 01/22/19 History Patient History Medical History Tubular adenoma of colon Subcapital fracture of hip Sciatica Osteoporosis Low back pain Interstitial lung disease Hyponatremia Hypertension Hypercholesterolemia Gastroesophageal reflux disease Diverticulosis Difficulty walking Diabetes mellitus Compression fracture of L1 lumbar vertebra Chronic obstructive asthma Carotid artery stenosis, asymptomatic Anemia Allergic rhinitis Social History Preferred Language: Uzbek 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 Ability: Effective Lead Nuclear Medicine Technologist Required: No Beliefs That Will Affect Care: None Current Living Situation: Alone and Custodial Current Living Situation Comment: currently in [facility] Other Information That Helps Us Care for You: No Feels Safe at Home: Yes Smoking Status: Unknown if ever smoked Hx Alcohol Use: No Hx Substance Use: No Review of Systems Review of Systems: 12 systems reviewed and negative except as noted Physical Exam Constitutional: + ill appearing Respiratory: tachypneic decreased breath sounds Cardiovascular: Rate/Rhythm: + tachycardic Gastrointestinal (Abdomen): normal bowel sounds, soft, nontender, no hepatosplenomegaly Results & Data Vital Signs (Past 12 Hours) Vital Signs Temp Pulse Pulse Resp BP Pulse Ox Pulse Ox 01/23/19 13:45 81 20 98 01/23/19 11:42 84 95 01/23/19 11:30 36.8 C 82 97 01/23/19 11:00 81 108/57 L 94 01/23/19 10:30 79 97 01/23/19 10:00 79 129/70 99 01/23/19 09:30 77 93 01/23/19 09:00 78 126/68 97 01/23/19 08:30 74 123/63 99 01/23/19 08:01 100 01/23/19 08:00 72 124/62 99 01/23/19 07:58 73 01/23/19 07:41 71 28 H 100 01/23/19 07:38 71 28 H 100 01/23/19 07:30 36.7 C 72 128/72 100 01/23/19 07:11 75 113/63 100 01/23/19 07:00 70 99 01/23/19 06:30 68 100 01/23/19 06:00 68 98 01/23/19 05:30 64 97/52 L 99 01/23/19 05:00 62 98/67 L 92 01/23/19 04:45 62 101/57 L 93 01/23/19 04:30 36.3 C L 61 107/49 L 95 01/23/19 04:15 59 L 108/58 L 96 01/23/19 04:01 58 L 94/55 L 91 01/23/19 04:00 61 89 L 01/23/19 03:45 62 90/48 L 91 01/23/19 03:30 57 L 112/55 L 95 01/23/19 03:15 56 L 101/48 L 93 01/23/19 03:00 57 L 105/49 L 92 01/23/19 02:45 56 L 120/58 L 93
[2019-01-23] MEDS ORDERED: VANCOMYCIN HCL 1,000 MG in SODIUM CHLORIDE 0.9% 250 ML IV ONE (17:45)
--- NOTE | 2019-01-23 18:09 | Family Medicine Progress Note ---
Date of Service January 23, 2019 Assessment & Plan (1) Respiratory failure with hypoxia: 83-year-old female with past medical history of idiopathic pulmonary fibrosis, hypertension, anemia, type 2 diabetes presented from [facility] with acute encephlopathy and hypotension. On the ED, believed to be in cardiogenic shock - received fluids and pressors and was transferred to ICU. Workup concerning for septic shock likely in the setting of pneumonia, on vanc and zosyn. Pt required bipap and is now on NC likely from volume overload in the setting of R sided heart failure and pre-existing pulmonary disease (pt requires 2L NC at [facility]). Recent admission and discharged on 01/16/2019 - exacerbation of her chronic lung disease, multifocal atrial tachycardia and spontaneous flank hematoma Septic Shock Likely in the Setting of HCAP - WBC 13.8, procal 1.4 and lactate 3.1 down from 3.5 initially - Bibasilar consoliation and pleural effusion R > L on CT - Received levophed - stopped - Continue Abx, vanc/zosyn pending cultures - Blood and sputum cultures pending - Continue nebs Acute respiratory distress likely from fluid overload/worsening HF vs. HCAP in the setting of baseline Idiopathic Pulmonary Fibrosis - Initial ABG 7.19 PH, Co2 70, HCO2 27, O2 204 - Required Bipap transitioned to NC as pt did not tolerate bipap well - On 3L (baseline O2 requirement of 2L) - Started on methylpred 40mg Q8H - Continue to monitor - r/o aspiration Fluid overload - sec to IV hydration. - s/p one dose IV lasix 40mgs. Hypotension - sec to underlying infection. - after dose of lasix. monitor fluid balance. Transaminitis: likely in the setting of septic shock vs. choledocholithiasis/cholangitis/Right heart failure - CT abdomen: question of choledocholithiasis/cholangitis, fluid overload - body wall edema, ascites, mesenteric edema - GI consulted: - likely cardiac/sepsis related. CBD dilation is chronic. If concern remains consider repeat US vs MRCP - Follow LFT. Flank Hematoma - improving - Hgb is stable Fecal impaction - Miralax and colace noemi HTN/HLD - Continue aspirin, atorvastatin, Hx of SIADH - Continue NaCl 1g TID. May need to cut the dose to avoid fluid overload. DM2 - SSI and Lantus 10u BID - Continue home Januvia and [place], hold metformin GERD - Continue carafate and protonix DVT ppx - Heparin FEN/GI: HH diet, no IVF, replete electrolytes as needed Code status - DNR/DNI Dispo: PCU, plan to return to rehab [facility] then home where niece will help take care of her per palliative note (2) Hypotension: (3) Diabetes mellitus: (4) Interstitial lung disease: (5) Hypertension: (6) Gastroesophageal reflux disease: (7) Hypercapnia: Supervising Physician Co-Signing Physician Notes Resident Physician Supervision Note: I independently interviewed and examined the patient and verified the kincaid history and physical, reviewed labs and image studies, discussed the case with the resident Dr. Russell and agree with the findings and care plan. Subjective Pt reported feeling better today. Reports passed out yesterday and had headache/dizziness. Has chronic occasional cough and sob. RUQ pain improved from previous admission (pt has RUQ hematoma). Denies any f/c, cp, n/v, diarrhea. Cannot remember when her last BM was. Review of Systems Review of Systems: As per subjective hx Physical Exam Physical Exam: General: In NAD, able to provide history and cooperates with exam CV: RRR, no m/r/g PULM: Bibasilar and mid posterior lung field crackles appreciated bilaterally, equal breath sounds bilaterally Abdomen: +BS, mildly TTP in RUQ region (improved from my exam on 01/12), spreadi ng ecchymosis from RUQ region to almost R groin region (likely from hematoma), non-distended LE: no calf TTP Results & Data Vital Signs (Past 12 Hours) Vital Signs Temp Pulse Pulse Resp BP BP BP 01/23/19 17:00 88 28 H 86/46 L 01/23/19 16:30 89 25 H 90/57 L 01/23/19 16:19 88 84/47 L 01/23/19 15:36 81 87/56 L 102/66 01/23/19 15:35 83 01/23/19 13:45 81 20 01/23/19 11:42 84 01/23/19 11:30 36.8 C 82 01/23/19 11:00 81 108/57 L 01/23/19 10:30 79 08/01/19 10:00 79 129/70 01/23/19 09:30 77 01/23/19 09:00 78 126/68 01/23/19 08:30 74 123/63 01/23/19 08:01 01/23/19 08:00 72 124/62 01/23/19 07:58 73 01/23/19 07:41 71 28 H 01/23/19 07:38 71 28 H 01/23/19 07:30 36.7 C 72 128/72 01/23/19 07:11 75 113/63 01/23/19 07:00 70 01/23/19 06:30 68 Pulse Ox Pulse Ox 01/23/19 17:00 01/23/19 16:30 01/23/19 16:19 01/23/19 15:36 91 01/23/19 15:35 01/23/19 13:45 98 01/23/19 11:42 95 01/23/19 11:30 97 01/23/19 11:00 94 01/23/19 10:30 97 01/23/19 10:00 99 01/23/19 09:30 93 01/23/19 09:00 97 01/23/19 08:30 99 01/23/19 08:01 100 01/23/19 08:00 99 01/23/19 07:58 01/23/19 07:41 100 01/23/19 07:38 100 01/23/19 07:30 100 01/23/19 07:11 100 01/23/19 07:00 99 01/23/19 06:30 100 Laboratory Results Abnormal lab results 01/22/19 01/22/19 01/22/19 Range/Units 18:23 18:28 19:20 WBC (4.8-10.8) K/uL RBC (4.2-5.4) M/uL Hgb (12.0-16.0) g/dL POC Hgb 10.2 L (12.0-16.0) g/dl Hct (37-47) % POC Hct 30 L (37-47) % MCHC (32-36) g/dL RDW Std Deviation (36.4-46.3) fL RDW Coeff of Aelxa (11.5-14.5) % Immature Gran # (Auto) (0.00-0.02) K/uL Neut # (Auto) (1.4-6.5) K/uL Lymph # (Auto) (1.2-3.4) K/uL Haskell # (Auto) (0.11-0.59) K/uL PT (9.0-12.0) Seconds INR (0.9-1.1) POC pH (7.35-7.45) POC pCO2 (35-46) mmHg POC pO2 (80-95) mmHg POC HCO3 (19-24) sarah/L POC ABG O2 Sat (90-95) % POC Sodium 133 L (135-144) mEq/L POC Potassium 5.3 H (3.3-5.0) mEq/L Potassium (3.5-5.1) mmol/L POC Chloride 97 L (101-112) mEq/L POC Total CO2 22 L (24-31) mEq/l POC BUN 23 H (7-18) mg/dl BUN (7-18) mg/dl BUN/Creatinine Ratio (10-20) Glucose (70-99) mg/dl POC Glucose (70-99) POC Glucose (other) 250 H (70-99) mg/dl Hemoglobin A1c (4.5-5.6) % POC Lactic Acid Regis 7.11 H (0.90-1.70) mmol/L Lactate (0.4-2.0) mmol/L Calcium (8.5-10.1) mg/dl POC Ioniz Calcium Rakesh 1.00 L (1.12-1.32) mmol/l Total Bilirubin (0.2-1) mg/dl Direct Bilirubin (0-0.2) mg/dl AST (15-37) U/L ALT (12-78) U/L Alkaline Phosphatase (45-117) U/L Lactate Dehydrogenase (84-246) U/L Total Protein (6.4-8.2) gm/dl Albumin (3.4-5.0) gm/dl Globulin (2.5-4.0) gm/dl Procalcitonin (0-0.5) ng/ml Urine pH 8.5 H (4.5-7.5) Urine Protein Trace H (Negative) Ur Leukocyte Esterase Trace H (Negative) U Epithel Cells (Auto) 20-30 H (0-5) /lpf Nasal Screen MRSA (PCR) (Negative) Crossmatch 01/22/19 01/22/19 01/22/19 Range/Units 19:41 19:41 19:41 WBC 12.71 H (4.8-10.8) K/uL RBC 3.36 L (4.2-5.4) M/uL Hgb 8.8 L (12.0-16.0) g/dL POC Hgb (12.0-16.0) g/dl Hct 29.1 L (37-47) % POC Hct (37-47) % MCHC 30.2 L (32-36) g/dL RDW Std Deviation 63.3 H (36.4-46.3) fL RDW Coeff of Alexa 20.5 H (11.5-14.5) % Immature Gran # (Auto) 0.23 H (0.00-0.02) K/uL Neut # (Auto) 10.67 H (1.4-6.5) K/uL Lymph # (Auto) 0.79 L (1.2-3.4) K/uL Haskell # (Auto) 0.88 H (0.11-0.59) K/uL PT (9.0-12.0) Seconds INR (0.9-1.1) POC pH (7.35-7.45) POC pCO2 (35-46) mmHg POC pO2 (80-95) mmHg POC HCO3 (19-24) sarah/L POC ABG O2 Sat (90-95) % POC Sodium (135-144) mEq/L POC Potassium (3.3-5.0) mEq/L Potassium (3.5-5.1) mmol/L POC Chloride (101-112) mEq/L POC Total CO2 (24-31) mEq/l POC BUN (7-18) mg/dl BUN 23 H (7-18) mg/dl BUN/Creatinine Ratio 22.3 H (10-20) Glucose 215 H (70-99) mg/dl POC Glucose (70-99) POC Glucose (other) (70-99) mg/dl Hemoglobin A1c (4.5-5.6) % POC Lactic Acid Regis (0.90-1.70) mmol/L Lactate 3.5 H* (0.4-2.0) mmol/L Calcium 6.9 L (8.5-10.1) mg/dl POC Ioniz Calcium Rakesh (1.12-1.32) mmol/l Total Bilirubin 1.6 H (0.2-1) mg/dl Direct Bilirubin (0-0.2) mg/dl AST 171 H (15-37) U/L ALT 85 H (12-78) U/L Alkaline Phosphatase 132 H (45-117) U/L Lactate Dehydrogenase (84-246) U/L Total Protein 4.7 L (6.4-8.2) gm/dl Albumin 2.4 L (3.4-5.0) gm/dl Globulin 2.3 L (2.5-4.0) gm/dl Procalcitonin (0-0.5) ng/ml Urine pH (4.5-7.5) Urine Protein (Negative) Ur Leukocyte Esterase (Negative) U Epithel Cells (Auto) (0-5) /lpf Nasal Screen MRSA (PCR) (Negative) Crossmatch 01/22/19 01/22/19 01/22/19 Range/Units 19:41 19:41 19:41 WBC (4.8-10.8) K/uL RBC (4.2-5.4) M/uL Hgb (12.0-16.0) g/dL POC Hgb (12.0-16.0) g/dl Hct (37-47) % POC Hct (37-47) % MCHC (32-36) g/dL RDW Std Deviation (36.4-46.3) fL RDW Coeff of Alexa (11.5-14.5) % Immature Gran # (Auto) (0.00-0.02) K/uL Neut # (Auto) (1.4-6.5) K/uL Lymph # (Auto) (1.2-3.4) K/uL Haskell # (Auto) (0.11-0.59) K/uL PT 12.4 H (9.0-12.0) Seconds INR 1.2 H (0.9-1.1) POC pH (7.35-7.45) POC pCO2 (35-46) mmHg POC pO2 (80-95) mmHg POC HCO3 (19-24) sarah/L POC ABG O2 Sat (90-95) % POC Sodium (135-144) mEq/L POC Potassium (3.3-5.0) mEq/L Potassium (3.5-5.1) mmol/L POC Chloride (101-112) mEq/L POC Total CO2 (24-31) mEq/l POC BUN (7-18) mg/dl BUN (7-18) mg/dl BUN/Creatinine Ratio (10-20) Glucose (70-99) mg/dl POC Glucose (70-99) POC Glucose (other) (70-99) mg/dl Hemoglobin A1c (4.5-5.6) % POC Lactic Acid Regis (0.90-1.70) mmol/L Lactate (0.4-2.0) mmol/L Calcium (8.5-10.1) mg/dl POC Ioniz Calcium Rakesh (1.12-1.32) mmol/l Total Bilirubin (0.2-1) mg/dl Direct Bilirubin (0-0.2) mg/dl AST (15-37) U/L ALT (12-78) U/L Alkaline Phosphatase (45-117) U/L Lactate Dehydrogenase 424 H (84-246) U/L Total Protein (6.4-8.2) gm/dl Albumin (3.4-5.0) gm/dl Globulin (2.5-4.0) gm/dl Procalcitonin (0-0.5) ng/ml Urine pH (4.5-7.5) Urine Protein (Negative) Ur Leukocyte Esterase (Negative) U Epithel Cells (Auto) (0-5) /lpf Nasal Screen MRSA (PCR) (Negative) Crossmatch See Detail 01/22/19 01/22/19 01/23/19 Range/Units 20:05 22:30 00:04 WBC (4.8-10.8) K/uL RBC (4.2-5.4) M/uL Hgb (12.0-16.0) g/dL POC Hgb (12.0-16.0) g/dl Hct (37-47) % POC Hct (37-47) % MCHC (32-36) g/dL RDW Std Deviation (36.4-46.3) fL RDW Coeff of Alexa (11.5-14.5) % Immature Gran # (Auto) (0.00-0.02) K/uL Neut # (Auto) (1.4-6.5) K/uL Lymph # (Auto) (1.2-3.4) K/uL Haskell # (Auto) (0.11-0.59) K/uL PT (9.0-12.0) Seconds INR (0.9-1.1) POC pH 7.19 L* (7.35-7.45) POC pCO2 70 H (35-46) mmHg POC pO2 204 H (80-95) mmHg POC HCO3 27 H (19-24) sarah/L POC ABG O2 Sat 99.0 H (90-95) % POC Sodium (135-144) mEq/L POC Potassium (3.3-5.0) mEq/L Potassium (3.5-5.1) mmol/L POC Chloride (101-112) mEq/L POC Total CO2 (24-31) mEq/l POC BUN (7-18) mg/dl BUN (7-18) mg/dl BUN/Creatinine Ratio (10-20) Glucose (70-99) mg/dl POC Glucose 248 H (70-99) POC Glucose (other) (70-99) mg/dl Hemoglobin A1c (4.5-5.6) % POC Lactic Acid Regis (0.90-1.70) mmol/L Lactate (0.4-2.0) mmol/L Calcium (8.5-10.1) mg/dl POC Ioniz Calcium Rakesh (1.12-1.32) mmol/l Total Bilirubin (0.2-1) mg/dl Direct Bilirubin (0-0.2) mg/dl AST (15-37) U/L ALT (12-78) U/L Alkaline Phosphatase (45-117) U/L Lactate Dehydrogenase (84-246) U/L Total Protein (6.4-8.2) gm/dl Albumin (3.4-5.0) gm/dl Globulin (2.5-4.0) gm/dl Procalcitonin (0-0.5) ng/ml Urine pH (4.5-7.5) Urine Protein (Negative) Ur Leukocyte Esterase (Negative) U Epithel Cells (Auto) (0-5) /lpf Nasal Screen MRSA (PCR) Positive A (Negative) Crossmatch 01/23/19 01/23/19 01/23/19 Range/Units 04:50 04:50 04:50 WBC 13.88 H (4.8-10.8) K/uL RBC 3.97 L (4.2-5.4) M/uL Hgb 10.1 L (12.0-16.0) g/dL POC Hgb (12.0-16.0) g/dl Hct 33.9 L (37-47) % POC Hct (37-47) % MCHC 29.8 L (32-36) g/dL RDW Std Deviation 61.9 H (36.4-46.3) fL RDW Coeff of Alexa 20.4 H (11.5-14.5) % Immature Gran # (Auto) 0.11 H (0.00-0.02) K/uL Neut # (Auto) 12.40 H (1.4-6.5) K/uL Lymph # (Auto) 0.50 L (1.2-3.4) K/uL Haskell # (Auto) 0.85 H (0.11-0.59) K/uL PT (9.0-12.0) Seconds INR (0.9-1.1) POC pH (7.35-7.45) POC pCO2 (35-46) mmHg POC pO2 (80-95) mmHg POC HCO3 (19-24) sarah/L POC ABG O2 Sat (90-95) % POC Sodium (135-144) mEq/L POC Potassium (3.3-5.0) mEq/L Potassium (3.5-5.1) mmol/L POC Chloride (101-112) mEq/L POC Total CO2 (24-31) mEq/l POC BUN (7-18) mg/dl BUN (7-18) mg/dl BUN/Creatinine Ratio (10-20) Glucose (70-99) mg/dl POC Glucose (70-99) POC Glucose (other) (70-99) mg/dl Hemoglobin A1c 7.7 H (4.5-5.6) % POC Lactic Acid Regis (0.90-1.70) mmol/L Lactate 3.1 H* (0.4-2.0) mmol/L Calcium (8.5-10.1) mg/dl POC Ioniz Calcium Rakesh (1.12-1.32) mmol/l Total Bilirubin (0.2-1) mg/dl Direct Bilirubin (0-0.2) mg/dl AST (15-37) U/L ALT (12-78) U/L Alkaline Phosphatase (45-117) U/L Lactate Dehydrogenase (84-246) U/L Total Protein (6.4-8.2) gm/dl Albumin (3.4-5.0) gm/dl Globulin (2.5-4.0) gm/dl Procalcitonin (0-0.5) ng/ml Urine pH (4.5-7.5) Urine Protein (Negative) Ur Leukocyte Esterase (Negative) U Epithel Cells (Auto) (0-5) /lpf Nasal Screen MRSA (PCR) (Negative) Crossmatch 01/23/19 01/23/19 01/23/19 Range/Units 04:50 06:51 07:33 WBC (4.8-10.8) K/uL RBC (4.2-5.4) M/uL Hgb (12.0-16.0) g/dL POC Hgb (12.0-16.0) g/dl Hct (37-47) % POC Hct (37-47) % MCHC (32-36) g/dL RDW Std Deviation (36.4-46.3) fL RDW Coeff of Alexa (11.5-14.5) % Immature Gran # (Auto) (0.00-0.02) K/uL Neut # (Auto) (1.4-6.5) K/uL Lymph # (Auto) (1.2-3.4) K/uL Haskell # (Auto) (0.11-0.59) K/uL PT (9.0-12.0) Seconds INR (0.9-1.1) POC pH (7.35-7.45) POC pCO2 (35-46) mmHg POC pO2 (80-95) mmHg POC HCO3 (19-24) sarah/L POC ABG O2 Sat (90-95) % POC Sodium (135-144) mEq/L POC Potassium (3.3-5.0) mEq/L Potassium 5.2 H (3.5-5.1) mmol/L POC Chloride (101-112) mEq/L POC Total CO2 (24-31) mEq/l POC BUN (7-18) mg/dl BUN 26 H (7-18) mg/dl BUN/Creatinine Ratio 23.6 H (10-20) Glucose 147 H (70-99) mg/dl POC Glucose 155 H (70-99) POC Glucose (other) (70-99) mg/dl Hemoglobin A1c (4.5-5.6) % POC Lactic Acid Regis (0.90-1.70) mmol/L Lactate (0.4-2.0) mmol/L Calcium 7.8 L (8.5-10.1) mg/dl POC Ioniz Calcium Rakesh (1.12-1.32) mmol/l Total Bilirubin 1.3 H (0.2-1) mg/dl Direct Bilirubin 0.5 H (0-0.2) mg/dl AST 85 H (15-37) U/L ALT 99 H (12-78) U/L Alkaline Phosphatase 131 H (45-117) U/L Lactate Dehydrogenase (84-246) U/L Total Protein 5.5 L (6.4-8.2) gm/dl Albumin 2.9 L (3.4-5.0) gm/dl Globulin (2.5-4.0) gm/dl Procalcitonin 1.44 H (0-0.5) ng/ml Urine pH (4.5-7.5) Urine Protein (Negative) Ur Leukocyte Esterase (Negative) U Epithel Cells (Auto) (0-5) /lpf Nasal Screen MRSA (PCR) (Negative) Crossmatch 01/23/19 01/23/19 Range/Units 11:31 17:03 WBC (4.8-10.8) K/uL RBC (4.2-5.4) M/uL Hgb (12.0-16.0) g/dL POC Hgb (12.0-16.0) g/dl Hct (37-47) % POC Hct (37-47) % MCHC (32-36) g/dL RDW Std Deviation (36.4-46.3) fL RDW Coeff of Alexa (11.5-14.5) % Immature Gran # (Auto) (0.00-0.02) K/uL Neut # (Auto) (1.4-6.5) K/uL Lymph # (Auto) (1.2-3.4) K/uL Haskell # (Auto) (0.11-0.59) K/uL PT (9.0-12.0) Seconds INR (0.9-1.1) POC pH (7.35-7.45) POC pCO2 (35-46) mmHg POC pO2 (80-95) mmHg POC HCO3 (19-24) sarah/L POC ABG O2 Sat (90-95) % POC Sodium (135-144) mEq/L POC Potassium (3.3-5.0) mEq/L Potassium (3.5-5.1) mmol/L POC Chloride (101-112) mEq/L POC Total CO2 (24-31) mEq/l POC BUN (7-18) mg/dl BUN (7-18) mg/dl BUN/Creatinine Ratio (10-20) Glucose (70-99) mg/dl POC Glucose 165 H 177 H (70-99) POC Glucose (other) (70-99) mg/dl Hemoglobin A1c (4.5-5.6) % POC Lactic Acid Regis (0.90-1.70) mmol/L Lactate (0.4-2.0) mmol/L Calcium (8.5-10.1) mg/dl POC Ioniz Calcium Rakesh (1.12-1.32) mmol/l Total Bilirubin (0.2-1) mg/dl Direct Bilirubin (0-0.2) mg/dl AST (15-37) U/L ALT (12-78) U/L Alkaline Phosphatase (45-117) U/L Lactate Dehydrogenase (84-246) U/L Total Protein (6.4-8.2) gm/dl Albumin (3.4-5.0) gm/dl Globulin (2.5-4.0) gm/dl Procalcitonin (0-0.5) ng/ml Urine pH (4.5-7.5) Urine Protein (Negative) Ur Leukocyte Esterase (Negative) U Epithel Cells (Auto) (0-5) /lpf Nasal Screen MRSA (PCR) (Negative) Crossmatch Medications Administered Current Inpatient Medications Acetaminophen (Tylenol) 650 mg PO Q12H PRN PRN Reason: Fever Or Pain Artificial Tears (Artificial Tears) 1 drops OPB BID PRN PRN Reason: Dry Eye(S) Stop: 02/22/19 03:59 Aspirin (Ecotrin Ectab) 81 mg PO DAILY NOEMI Stop: 02/22/19 08:59 Last Admin: 01/23/19 08:41 Dose: 81 mg Documented by: Atorvastatin Calcium (Lipitor) 20 mg PO HS NOEMI Stop: 02/22/19 20:59 Budesonide (Pulmicort Respules) 0.5 mg NEB BIDR NOEMI Stop: 02/22/19 07:59 Last Admin: 01/23/19 07:31 Dose: 0.5 mg Documented by: Calcium Carbonate (Os-Klever 500) 1,250 mg PO BID NOEMI Stop: 02/22/19 08:59 Last Admin: 01/23/19 08:40 Dose: 1,250 mg Documented by: Cyanocobalamin (Vitamin B-12) 1,000 mcg PO DAILY NOEMI Stop: 02/22/19 08:59 Last Admin: 01/23/19 08:41 Dose: 1,000 mcg Documented by: Dextrose (Dextrose 50%) 25 - 50 ml IV UD PRN; Protocol PRN Reason: Hypoglycemia Protocol Stop: 02/22/19 00:55 Docusate Sodium (Colace) 100 mg PO BID NOEMI Stop: 02/22/19 08:59 Last Admin: 01/23/19 08:41 Dose: 100 mg Documented by: Glucagon (Glucagen) 1 mg SQ UD PRN; Protocol PRN Reason: Hypoglycemia Protocol Stop: 02/22/19 00:55 Glucose (Glucose 40%) 15 - 30 gm PO UD PRN; Protocol PRN Reason: Hypoglycemia Protocol Stop: 02/22/19 00:55 Glucose (Dex4 Glucose) 4 - 8 tabs PO UD PRN; Protocol PRN Reason: Hypoglycemia Protocol Stop: 02/22/19 00:55 Heparin Sodium (Porcine) (Heparin Sodium (Porcine)) 5,000 units SQ Q12 NOEMI Stop: 02/22/19 08:59 Last Admin: 01/23/19 08:44 Dose: 5,000 units Documented by: Sodium Chloride (Nss) 250 mls @ 15 mls/hr IV .[id number] PRN PRN Reason: For Transfusion Stop: 02/21/19 18:21 Piperacillin Sod/Tazobactam (Sod 4.5 gm/ Dextrose) 120 mls @ 30 mls/hr IV Q8H [facility]; Protocol Stop: 01/30/19 05:59 Last Admin: 01/23/19 14:15 Dose: 30 mls/hr Documented by: Methylprednisolone 40 mg/ (Syringe) 0.64 mls @ 1.5 mls/min IV Q8H [facility] Stop: 02/22/19 05:59 Last Admin: 01/23/19 14:14 Dose: 1.5 mls/min Documented by: Vancomycin HCl 1,000 mg/ (Sodium Chloride) 270 mls @ 125 mls/hr IV ONE ONE Stop: 01/23/19 19:54 Last Admin: 01/23/19 18:14 Dose: 125 mls/hr Documented by: Insulin Aspart (Novolog Flexpen) 0 units SC ACHS [facility] Stop: 02/22/19 01:14 Last Admin: 01/23/19 12:10 Dose: 6 units Documented by: Insulin Glargine (Lantus Solostar Pen) 10 units SC BID [facility] Stop: 02/22/19 20:59 Ioversol (Optiray 320 100ml) 93 ml IV ONCE PRN PRN Reason: Interaction Checking Stop: 01/26/19 18:45 Last Admin: 01/22/19 18:47 Dose: 93 ml Documented by: Ipratropium [place] (Atrovent 0.02% 0.5mg/2.5ml) 0.5 mg INH Q6R [facility] Stop: 02/22/19 07:59 Last Admin: 01/23/19 13:45 Dose: 0.5 mg Documented by: Levalbuterol HCl (Xopenex 0.63 Mg/3 Ml Neb) 0.63 mg NEB Q6R [facility] Stop: 02/22/19 07:59 Last Admin: 01/23/19 13:45 Dose: 0.63 mg Documented by: Miscellaneous (Carbohydrates For Hypoglycemia) 15 - 30 gm PO UD PRN PRN Reason: Hypoglycemia Treatment Stop: 02/22/19 00:55 Miscellaneous Information (Consult) 1 ea N/A UD PRN PRN Reason: Consult Stop: 02/22/19 00:06 Miscellaneous Information (Consult) 1 ea N/A UD PRN PRN Reason: Consult Stop: 02/22/19 00:06 Pantoprazole Sodium (Protonix) 40 mg PO DAILY NOEMI Stop: 02/22/19 08:59 Last Admin: 01/23/19 08:41 Dose: 40 mg Documented by: Polyethylene Glycol (Miralax Powder Packet) 17 gm PO QAM NOEMI Stop: 02/22/19 08:59 Last Admin: 01/23/19 08:43 Dose: Not Given Documented by: Sitagliptin Phosphate (Januvia) 25 mg PO DAILY NOEMI Stop: 02/23/19 08:59 Sodium Chloride (Sodium Chloride) 1 gm PO TID NOEMI Stop: 02/22/19 08:59 Last Admin: 01/23/19 14:14 Dose: 1 gm Documented by: Sucralfate (Carafate) 1 gm PO AC NOEMI Stop: 02/22/19 07:29 Last Admin: 01/23/19 18:14 Dose: 1 gm Documented by: Thiamine HCl (Vitamin B-1) 100 mg PO DAILY NOEMI Stop: 02/23/19 08:59 Verapamil HCl (Calan Sr) 120 mg PO BID NOEMI Stop: 02/22/19 20:59 PG Care Time/CCT Total # of Minutes Spent Total Time Spent with Patient: Total time spent is greater than 50% in coordination of care (as documented) at patient's floor/unit and/or counseling patient: Resident Activity Tracking Resident Involvement: Resident Care Provided Care Provided: Adult Hospital Medicine (1) Respiratory failure with hypoxia Chronicity: acute Qualified Code(s): J96.01 - Acute respiratory failure with hypoxia
--- NOTE | 2019-01-23 20:41 | Pharmacy Report ---
Pharmacy Abx Dose Short Note - Date of Service January 23, 2019 - Assessment & Plan Assessment 83 year old F receiving Vancomycin and zosyn for treatment of pneumonia. Day # 1 of antimicrobial therapy. Plan Vancomycin * Random level of 14.8 mcg/mL is subtherapeutic * Ordered 1000mg x 1 (17mg/kg) * Goal trough level: ~20 mcg/mL * Random level ordered for ~16 hrs after dose given: 01/24/19 @1000. Zosyn * Continue 4.5gm iv q8h Pharmacy will continue to follow and will adjust dose/frequency as necessary. Thank you.
--- NOTE | 2019-01-23 20:59 | Family Medicine Progress Note ---
Date of Service January 23, 2019 Assessment & Plan (1) Acute on chronic respiratory failure with hypoxia: (2) Acute hypotension: (3) Hypercapnia: (4) Hypotension: (5) Septic shock: Supervising Physician Co-Signing Physician Notes See other note from today. This added for billing.
[2019-01-23] MEDS ORDERED: ATORVASTATIN 20 MG TAB PO SCH (21:00)
[2019-01-23] MEDS: INSULIN GLARGINE SOLOSTAR 100 UNITS/ML 3 ML PEN SC SCH (22:35)
[2019-01-24] MEDS: LEVALBUTEROL HCL 0.63 MG/3 ML NEB NEB SCH ×4 (02:15→18:48)
[2019-01-24] MEDS: IPRATROPIUM BROMIDE NEB SOLN 0.02% 2.5 ML VIAL INH SCH ×4 (02:15→18:48)
[2019-01-24 05:31] LABS: Hematocrit (blood only) 28.1 % (37-47); Hemoglobin 8.5 g/dL (12.0-16.0); Immature Granulocytes # (auto) 0.11 K/uL (0.00-0.02); Immature Granulocytes % (auto) 1.2 %; Lymphocytes # (auto) 0.11 K/uL (1.2-3.4); Lymphocytes % (auto) 1.2 %; Mean Corpuscular Hgb Conc 30.2 g/dL (32-36); Mean Corpuscular Volume 83.9 fL (80-100); Monocytes # (auto) 0.18 K/uL (0.11-0.59); Neutrophils # (auto) 8.78 K/uL (1.4-6.5); Neutrophils % (auto) 95.6 %; Platelet Count 145 K/uL (130-400); RDW Coefficient of Variation 20.4 % (11.5-14.5); RDW Standard Deviation 60.1 fL (36.4-46.3); Red Blood Count 3.35 M/uL (4.2-5.4); White Blood Count 9.18 K/uL (4.8-10.8)
[2019-01-24 05:58] LABS: Albumin Level 2.8 gm/dl (3.4-5.0); BUN Creatinine Ratio 27.3 (10-20); Bilirubin Direct 0.4 mg/dl (0-0.2); Calcium 7.2 mg/dl (8.5-10.1); Creatinine Clr Calc Pharmacy 28.4 ml/min; Est GFR (African American) 60.3; Est GFR (Non-African American) 52.1; Magnesium 1.9 mg/dl (1.8-2.4); Potassium 3.8 mmol/L (3.5-5.1)
[2019-01-24 05:59] LABS: Echinocytes 1+; Hypochromasia Present; Phosphorus 3.9 mg/dl (2.5-4.9); Poikilocytosis Present; Total Protein 5.5 gm/dl (6.4-8.2)
[2019-01-24] MEDS: PIPERACILLIN/TAZOBACTAM 4.5 GM in DEXTROSE 5% 100 ML IV SCH (06:29)
[2019-01-24] MEDS: methylPREDNISolone 40 MG in SYRINGE 0 ML IV SCH ×3 (06:29→22:24)
[2019-01-24] MEDS: BUDESONIDE 0.5 MG/2 ML VIAL (PULMICORT) NEB SCH ×2 (07:01→18:48)
[2019-01-24 09:20] LABS: iSTAT Allen Test Pass; iSTAT Art Bld Gas pCO2 Correct 50 mmHg (35-46); iSTAT Art Bld Gas pH Corrected 7.353 (7.35-7.45); iSTAT Arterial Blood Gas HCO3 28 meg/L (19-24); iSTAT Arterial Blood Gas pCO2 52 mmHg (35-46); iSTAT Arterial Blood Gas pH 7.35 (7.35-7.45); iSTAT Carbon Dioxide 30 mEq/l (24-31); iSTAT FiO2 60 %; iSTAT Site L Radial
[2019-01-24 09:20] LABS: iSTAT Allen Test Pass; iSTAT Art Bld Gas pCO2 Correct 46 mmHg (35-46); iSTAT Art Bld Gas pH Corrected 7.373 (7.35-7.45); iSTAT Arterial Blood Gas HCO3 27 meg/L (19-24); iSTAT Arterial Blood Gas pCO2 48 mmHg (35-46); iSTAT Arterial Blood Gas pH 7.37 (7.35-7.45); iSTAT Carbon Dioxide 29 mEq/l (24-31); iSTAT Site R Radial
[2019-01-24] MEDS: ASPIRIN 81 MG ECTAB PO SCH (10:10)
--- NOTE | 2019-01-24 10:18 | Palliative Care Progress Note ---
Date of Service January 24, 2019 Assessment & Plan (1) Goals of care, counseling/discussion: -Patient in PCU. Tolerating 4LNC okay. Oriented but remains drowsy. -VS stable. Continuing treatment for now. As discussed with patient's niece yesterday, goal is for patient to go to rehab and eventually go back home. -When patient is more awake and able to discuss goals of care, can engage in conversation. -For now, palliative will follow along. (2) Acute hypotension: (3) Acute on chronic respiratory failure with hypoxia: (4) Pleural effusion: Subjective Patient in PCU. Tolerating 4LNC okay. Oriented but remains drowsy. Review of Systems Review of Systems: Denies pain, N/V. Does c/o SOB at times. Physical Exam Constitutional: + overweight; no acute distress ENMT: external ear and nose normal, oropharynx normal Neck: + thick neck Respiratory: no labored breathing Auscultation: + diminished lung sounds Cardiovascular: Rate/Rhythm: regular rate and regular rhythm Vessels: normal peripheral pulses Gastrointestinal (Abdomen): Inspection/Auscultation: abdomen normal to inspection and normal bowel sounds Neurologic: moves all extremities and awake (does wake, but very drowsy) Psychiatric: Orientation: oriented x 3 Results & Data Vital Signs (Past 12 Hours) Vital Signs Temp Pulse Pulse Pulse Resp BP BP 01/24/19 07:08 37.3 C 74 20 157/84 H 01/24/19 07:03 82 18 01/24/19 03:00 36.6 C 83 23 132/72 01/24/19 02:18 78 22 01/24/19 00:00 37.0 C 88 78 23 113/58 L 01/23/19 22:19 Pulse Ox Pulse Ox 01/24/19 07:08 100 01/24/19 07:03 97 01/24/19 03:00 97 01/24/19 02:18 95 01/24/19 00:00 97 01/23/19 22:19 97 PG Care Time/CCT Total # of Minutes Spent Total Time Spent with Patient: Total time spent is greater than 50% in coordination of care (as documented) at patient's floor/unit and/or counseling patient: Time Spent Midlevel 25 minutes with >50% of the time spent at bedside with patient and family discussing condition and GOC.
[2019-01-24] MEDS: SODIUM CHLORIDE 1 GM TABLET PO SCH ×3 (10:27→20:25)
[2019-01-24] MEDS: CALCIUM CARBONATE 1250MG TAB PO SCH ×2 (10:27→20:26)
[2019-01-24] MEDS: THIAMINE HCL 100 MG TAB PO SCH (10:27)
[2019-01-24] MEDS: CYANOCOBALAMIN 500 MCG TABLET (VITAMIN B-12) PO SCH (10:27)
[2019-01-24] MEDS: SITAGLIPTIN PHOSPHATE 25 MG TAB PO SCH (10:27)
[2019-01-24] MEDS: DOCUSATE SODIUM 100 MG CAP PO SCH ×2 (10:28→20:41)
[2019-01-24] MEDS: PANTOprazole 40 MG TAB PO SCH (10:28)
[2019-01-24] MEDS: INSULIN ASPART 100 UNITS/ML 3 ML PEN SC SCH ×4 (10:28→20:44)
[2019-01-24] MEDS: INSULIN GLARGINE SOLOSTAR 100 UNITS/ML 3 ML PEN SC SCH ×2 (10:28→20:42)
[2019-01-24] MEDS: SUCRALFATE 1 GM/10 ML UDC PO SCH ×3 (10:28→16:32)
[2019-01-24] MEDS: HEPARIN SOD 5,000 UNIT/0.5 ML VIAL SQ SCH ×2 (10:30→20:25)
--- NOTE | 2019-01-24 11:13 | Pharmacy Report ---
Pharmacy Abx Dose Short Note - Date of Service January 24, 2019 - Assessment & Plan Assessment * 83 year old F receiving VANCOMYCIN + ZOSYN for treatment of PNA * Day # 2 of antimicrobial therapy. * Patient's body habitus makes it very difficult to truly estimate her GFR (height 4'6", 57.1kg); estimated GFR 20-40cc/min. Therefore, pharmacy has been dosing with one time doses followed by random levels at her estimated half life. * +MRSA nares; concern for possible empyema per Spray Stainer * Blood cx's NGTD * Procal 1.44 on 01/23/19 (not trending) Plan Vancomycin * Random level of 18 mcg/mL is therapeutic indicating adequate time to redose * Calculated T1/2 is 15-18 hrs but these calculations may be slightly inaccurate since vancomycin is not at steady state * Will start with 1,000 mg IV every 18 hours and check a trough level prior to the 3rd dose. Most likely interval will need changed to Q24hrs once steady state is reached. * Goal trough level for PNA : 15 to 20 mcg/mL * Trough or random level ordered for: 01/25/19 @ 2330 Zosyn * Patient no longer critically ill, will reduce Zosyn dosing to 3.375g IV Q8hrs (was 4.5g) Pharmacy will continue to follow and will adjust dose/frequency as necessary. Thank you.
[2019-01-24] MEDS ORDERED: VANCOMYCIN HCL 1,000 MG in SODIUM CHLORIDE 0.9% 250 ML IV ONE (12:00)
[2019-01-24] MEDS: POLYETHYLENE (MIRALAX) 17 GM PACK PO SCH (12:34)
[2019-01-24] MEDS: PIPERACILLIN/TAZOBACTAM 3.375 GM in DEXTROSE 5% 100 ML IV SCH ×2 (15:05→22:24)
--- NOTE | 2019-01-24 19:28 | Family Medicine Progress Note ---
Date of Service January 24, 2019 Assessment & Plan (1) Respiratory failure with hypoxia: 83-year-old female with past medical history of idiopathic pulmonary fibrosis, hypertension, anemia, type 2 diabetes presented from [facility] with acute encephlopathy and hypotension. On the ED, believed to be in cardiogenic shock - received fluids and pressors and was transferred to ICU. Workup concerning for septic shock likely in the setting of pneumonia, on vanc and zosyn. Pt required bipap and is now on NC likely from volume overload in the setting of R sided heart failure and pre-existing pulmonary disease ([facility] Recent [facility] and discharged on 01/16/2019 - exacerbation of her chronic lung disease, multifocal atrial tachycardia and spontaneous flank hematoma Septic Shock Likely in the Setting of HCAP - WBC 9.18 - Bibasilar consolidation and pleural effusion R > L on CT - Continue Abx, vanc/zosyn pending cultures - Blood and sputum cultures pending - Continue nebs - AM labs ordered - Pt had 17 beats of V-Tach at 5:11AM, however, it did not wake the patient - Ordered for PT/OT evaluations. Acute hypoxic respiratory failure likely from fluid overload/worsening HF vs. HCAP in the setting of baseline Idiopathic Pulmonary Fibrosis - Initial ABG 7.19 PH, Co2 70, HCO2 27, O2 204 - Required Bipap transitioned to NC as pt did not tolerate bipap well - On 4L (baseline O2 requirement of 2L) - 94% O2 - Started on methylpred 40mg Q8H - Continue to monitor Transaminitis: likely in the setting of septic shock vs. choledocholithiasis/cholangitis - CT abdomen: question of choledocholithiasis/cholangitis, fluid overload - body wall edema, ascites, mesenteric edema - GI consulted: - likely cardiac/sepsis related. CBD dilation is chronic. If concern remains consider repeat US vs MRCP - Values normal today AST 29, ALT 67, Alk Phos 98 Flank Hematoma - improving - Hgb is stable 8.5 today. Fecal impaction - Miralax and colace noemi HTN/HLD - Continue aspirin, atorvastatin, Hx of SIADH - Continue NaCl 1g TID DM2 - SSI and Lantus 10u BID - Continue home Januvia and [place], hold metformin GERD - Continue carafate and protonix DVT ppx - Heparin FEN/GI: HH diet, no IVF, replete electrolytes as needed Code status - DNR/DNI Dispo: PCU, plan to return to rehab [facility] then home where niece will help take care of her per palliative note (2) Hypotension: (3) Diabetes mellitus: (4) Interstitial lung disease: (5) Hypertension: (6) Gastroesophageal reflux disease: (7) Hypercapnia: Supervising Physician Co-Signing Physician Notes Resident Physician Supervision Note: I independently interviewed and examined the patient and verified the kincaid history and physical, reviewed labs and image studies, discussed the case with the resident Dr. Grey and agree with the findings and care plan. Subjective Patient seen this AM in the bedside. Her niece is also present in the room. Patient notes this morning that she feels her breathing has improved slightly, but that it is still not back to 100%. She also notes abdominal tenderness, however, continues to have a strong appetite and is eating appropriately. When asked about her sleep, patient noted that she slept soundly throughout the night. Patient notes that she wants to get better herself and is staying positive about her situation. Review of Systems Constitutional: + fatigue and + weakness; no fever and no chills Ear, Nose, Mouth, Throat: + hearing loss; no ear pain and no dizziness Respiratory: + cough and + dyspnea; no hemoptysis and no pain on inspiration Cardiovascular: + dyspnea; no chest pain and no palpitations Gastrointestinal: + abdominal pain and + diarrhea/loose stools; no early satiety, no nausea, no vomiting, no pain with swallowing, no dysphagia and no blood in stools Physical Exam Constitutional: + disheveled Eyes: normal visual mitchell by confrontation and + anicteric sclerae ENMT: Ears: + hearing impairment Neck: trachea midline, no thyromegaly normal visual inspection and trachea midline Respiratory: normal respiratory effort (on 4L of O2) and + cough; no respiratory distress, no labored breathing and does not use accessory muscles Auscultation: + diminished lung sounds; no crackles and no wheezes Cardiovascular: Rate/Rhythm: regular rate and regular rhythm Vessels: normal peripheral pulses Extremities: + edema (+1, bilateral lower extremity) Gastrointestinal (Abdomen): Inspection/Auscultation: normal bowel sounds; no high-pitched sounds Percussion/Palpation: + abdomen tender (Diffuse tenderness throughout to palpation. ) and + abdominal mass (small cyst like mass noted in RUQ towards the midline. ); no guarding, abdomen not rigid and no pulsatile mass Musculoskeletal: Head/Neck/Chest: normocephalic and head atraumatic Skin: Trauma: + hematoma Neurologic: moves all extremities and awake (does wake, but very drowsy); no focal motor deficits Results & Data Vital Signs (Past 12 Hours) Vital Signs Temp Pulse Pulse Resp BP Pulse Ox 01/24/19 18:52 101 H 24 94 01/24/19 15:31 36.6 C 101 H 20 98/69 L 99 01/24/19 13:55 91 H 18 94 01/24/19 11:25 36.6 C 86 17 126/69 97 Laboratory Results Abnormal lab results 01/23/19 01/23/19 01/23/19 Range/Units 00:33 06:17 20:18 RBC (4.2-5.4) M/uL Hgb (12.0-16.0) g/dL Hct (37-47) % MCHC (32-36) g/dL RDW Std Deviation (36.4-46.3) fL RDW Coeff of Alexa (11.5-14.5) % Immature Gran # (Auto) (0.00-0.02) K/uL Neut # (Auto) (1.4-6.5) K/uL Lymph # (Auto) (1.2-3.4) K/uL POC pCO2 52 H 48 H (35-46) mmHg POC pO2 134 H 73 L (80-95) mmHg POC HCO3 28 H 27 H (19-24) sarah/L POC Base Excess 3.0 H 2.0 H (-9-1.8) sarah/L ABG pCO2 (Temp Corrct 50 H (35-46) mmHg POC ABG O2 Sat 99.0 H (90-95) % Chloride (98-107) mmol/L BUN (7-18) mg/dl BUN/Creatinine Ratio (10-20) Glucose (70-99) mg/dl POC Glucose 260 H (70-99) Calcium (8.5-10.1) mg/dl Direct Bilirubin (0-0.2) mg/dl Total Protein (6.4-8.2) gm/dl Albumin (3.4-5.0) gm/dl 01/24/19 01/24/19 01/24/19 Range/Units 05:08 05:08 07:19 RBC 3.35 L (4.2-5.4) M/uL Hgb 8.5 L (12.0-16.0) g/dL Hct 28.1 L (37-47) % MCHC 30.2 L (32-36) g/dL RDW Std Deviation 60.1 H (36.4-46.3) fL RDW Coeff of Alexa 20.4 H (11.5-14.5) % Immature Gran # (Auto) 0.11 H (0.00-0.02) K/uL Neut # (Auto) 8.78 H (1.4-6.5) K/uL Lymph # (Auto) 0.11 L (1.2-3.4) K/uL POC pCO2 (35-46) mmHg POC pO2 (80-95) mmHg POC HCO3 (19-24) sarah/L POC Base Excess (-9-1.8) sarah/L ABG pCO2 (Temp Corrct (35-46) mmHg POC ABG O2 Sat (90-95) % Chloride 96 L (98-107) mmol/L BUN 27 H (7-18) mg/dl BUN/Creatinine Ratio 27.3 H (10-20) Glucose 183 H (70-99) mg/dl POC Glucose 181 H (70-99) Calcium 7.2 L (8.5-10.1) mg/dl Direct Bilirubin 0.4 H (0-0.2) mg/dl Total Protein 5.5 L (6.4-8.2) gm/dl Albumin 2.8 L (3.4-5.0) gm/dl 01/24/19 01/24/19 Range/Units 11:24 16:29 RBC (4.2-5.4) M/uL Hgb (12.0-16.0) g/dL Hct (37-47) % MCHC (32-36) g/dL RDW Std Deviation (36.4-46.3) fL RDW Coeff of Alexa (11.5-14.5) % Immature Gran # (Auto) (0.00-0.02) K/uL Neut # (Auto) (1.4-6.5) K/uL Lymph # (Auto) (1.2-3.4) K/uL POC pCO2 (35-46) mmHg POC pO2 (80-95) mmHg POC HCO3 (19-24) sarah/L POC Base Excess (-9-1.8) sarah/L ABG pCO2 (Temp Corrct (35-46) mmHg POC ABG O2 Sat (90-95) % Chloride (98-107) mmol/L BUN (7-18) mg/dl BUN/Creatinine Ratio (10-20) Glucose (70-99) mg/dl POC Glucose 195 H 288 H (70-99) Calcium (8.5-10.1) mg/dl Direct Bilirubin (0-0.2) mg/dl Total Protein (6.4-8.2) gm/dl Albumin (3.4-5.0) gm/dl Medications Administered Current Inpatient Medications Acetaminophen (Tylenol) 650 mg PO Q12H PRN PRN Reason: Fever Or Pain Artificial Tears (Artificial Tears) 1 drops OPB BID PRN PRN Reason: Dry Eye(S) Stop: 02/22/19 03:59 Aspirin (Ecotrin Ectab) 81 mg PO DAILY [facility] Stop: 02/22/19 08:59 Last Admin: 01/24/19 10:10 Dose: 81 mg Documented by: Atorvastatin Calcium (Lipitor) 20 mg PO HS [facility] Stop: 02/22/19 20:59 Budesonide (Pulmicort Respules) 0.5 mg NEB BIDR NOEMI Stop: 02/22/19 07:59 Last Admin: 01/24/19 18:48 Dose: 0.5 mg Documented by: Calcium Carbonate (Os-Klever 500) 1,250 mg PO BID [facility] Stop: 02/22/19 08:59 Last Admin: 01/24/19 10:27 Dose: 1,250 mg Documented by: Cyanocobalamin (Vitamin B-12) 1,000 mcg PO DAILY NOEMI Stop: 02/22/19 08:59 Last Admin: 01/24/19 10:27 Dose: 1,000 mcg Documented by: Dextrose (Dextrose 50%) 25 - 50 ml IV UD PRN; Protocol PRN Reason: Hypoglycemia Protocol Stop: 02/22/19 00:55 Docusate Sodium (Colace) 100 mg PO BID NOEMI Stop: 02/22/19 08:59 Last Admin: 01/24/19 10:28 Dose: 100 mg Documented by: Glucagon (Glucagen) 1 mg SQ UD PRN; Protocol PRN Reason: Hypoglycemia Protocol Stop: 02/22/19 00:55 Glucose (Glucose 40%) 15 - 30 gm PO UD PRN; Protocol PRN Reason: Hypoglycemia Protocol Stop: 02/22/19 00:55 Glucose (Dex4 Glucose) 4 - 8 tabs PO UD PRN; Protocol PRN Reason: Hypoglycemia Protocol Stop: 02/22/19 00:55 Heparin Sodium (Porcine) (Heparin Sodium (Porcine)) 5,000 units SQ Q12 NOEMI Stop: 02/22/19 08:59 Last Admin: 01/24/19 10:30 Dose: 5,000 units Documented by: Sodium Chloride (Nss) 250 mls @ 15 mls/hr IV .[id number] PRN PRN Reason: For Transfusion Stop: 02/21/19 18:21 Methylprednisolone 40 mg/ (Syringe) 0.64 mls @ 1.5 mls/min IV Q8H [facility] Stop: 02/22/19 05:59 Last Admin: 01/24/19 15:05 Dose: 1.5 mls/min Documented by: Piperacillin Sod/Tazobactam (Sod 3.375 gm/ Dextrose) 115 mls @ 28.75 mls/hr IV Q8H [facility]; Protocol Stop: 01/31/19 13:59 Last Admin: 01/24/19 15:05 Dose: 28.8 mls/hr Documented by: Vancomycin HCl 1,000 mg/ (Sodium Chloride) 270 mls @ 125 mls/hr IV Q18H [facility] Stop: 02/01/19 05:59 Insulin Aspart (Novolog Flexpen) 0 units SC ACHS NOEMI Stop: 02/22/19 01:14 Last Admin: 01/24/19 16:34 Dose: 14 units Documented by: Insulin Glargine (Lantus Solostar Pen) 10 units SC BID NOEMI Stop: 02/22/19 20:59 Last Admin: 01/24/19 10:28 Dose: 10 units Documented by: Ioversol (Optiray 320 100ml) 93 ml IV ONCE PRN PRN Reason: Interaction Checking Stop: 01/26/19 18:45 Last Admin: 01/22/19 18:47 Dose: 93 ml Documented by: Ipratropium [place] (Atrovent 0.02% 0.5mg/2.5ml) 0.5 mg INH Q6R NOEMI Stop: 02/22/19 07:59 Last Admin: 01/24/19 18:48 Dose: 0.5 mg Documented by: Levalbuterol HCl (Xopenex 0.63 Mg/3 Ml Neb) 0.63 mg NEB Q6R NOEMI Stop: 02/22/19 07:59 Last Admin: 01/24/19 18:48 Dose: 0.63 mg Documented by: Miscellaneous (Carbohydrates For Hypoglycemia) 15 - 30 gm PO UD PRN PRN Reason: Hypoglycemia Treatment Stop: 02/22/19 00:55 Miscellaneous Information (Consult) 1 ea N/A UD PRN PRN Reason: Consult Stop: 02/22/19 00:06 Miscellaneous Information (Consult) 1 ea N/A UD PRN PRN Reason: Consult Stop: 02/22/19 00:06 Pantoprazole Sodium (Protonix) 40 mg PO DAILY NOEMI Stop: 02/22/19 08:59 Last Admin: 01/24/19 10:28 Dose: 40 mg Documented by: Polyethylene Glycol (Miralax Powder Packet) 17 gm PO QAM NOEMI Stop: 02/22/19 08:59 Last Admin: 01/24/19 12:34 Dose: Not Given Documented by: Sitagliptin Phosphate (Januvia) 25 mg PO DAILY NOEMI Stop: 02/23/19 08:59 Last Admin: 01/24/19 10:27 Dose: 25 mg Documented by: Sodium Chloride (Sodium Chloride) 1 gm PO TID NOEMI Stop: 02/22/19 08:59 Last Admin: 01/24/19 15:05 Dose: 1 gm Documented by: Sucralfate (Carafate) 1 gm PO AC NOEMI Stop: 02/22/19 07:29 Last Admin: 01/24/19 16:32 Dose: 1 gm Documented by: Thiamine HCl (Vitamin B-1) 100 mg PO DAILY NOEMI Stop: 02/23/19 08:59 Last Admin: 01/24/19 10:27 Dose: 100 mg Documented by: Verapamil HCl (Calan Sr) 120 mg PO BID NOEMI Stop: 02/22/19 20:59 PG Care Time/CCT Total # of Minutes Spent Total Time Spent with Patient: Total time spent is greater than 50% in coordination of care (as documented) at patient's floor/unit and/or counseling patient: Resident Activity Tracking Resident Involvement: Resident Care Provided Care Provided: Adult Hospital Medicine (1) Respiratory failure with hypoxia Chronicity: acute Qualified Code(s): J96.01 - Acute respiratory failure with hypoxia
[2019-01-25] MEDS: IPRATROPIUM BROMIDE NEB SOLN 0.02% 2.5 ML VIAL INH SCH ×4 (02:09→18:53)
[2019-01-25] MEDS: LEVALBUTEROL HCL 0.63 MG/3 ML NEB NEB SCH ×4 (02:09→18:54)
[2019-01-25] MEDS: PIPERACILLIN/TAZOBACTAM 3.375 GM in DEXTROSE 5% 100 ML IV SCH ×3 (05:08→21:41)
[2019-01-25] MEDS: methylPREDNISolone 40 MG in SYRINGE 0 ML IV SCH ×2 (05:09→17:29)
[2019-01-25] MEDS: VANCOMYCIN HCL 1,000 MG in SODIUM CHLORIDE 0.9% 250 ML IV SCH (05:09)
[2019-01-25] MEDS: ACETAMINOPHEN 325 MG TAB PO PRN (05:09)
[2019-01-25 06:30] LABS: Basophils # (auto) 0.01 K/uL (0-0.2); Basophils % (auto) 0.1 %; Hematocrit (blood only) 28.1 % (37-47); Hemoglobin 8.4 g/dL (12.0-16.0); Immature Granulocytes # (auto) 0.09 K/uL (0.00-0.02); Lymphocytes # (auto) 0.19 K/uL (1.2-3.4); Lymphocytes % (auto) 2.1 %; Mean Corpuscular Hgb Conc 29.9 g/dL (32-36); Mean Corpuscular Volume 85.2 fL (80-100); Mean Platelet Volume 9.4 fL (7.4-10.4); Monocytes # (auto) 0.29 K/uL (0.11-0.59); Monocytes % (auto) 3.2 %; Neutrophils # (auto) 8.59 K/uL (1.4-6.5); Neutrophils % (auto) 93.6 %; Platelet Count 129 K/uL (130-400); RDW Coefficient of Variation 20.6 % (11.5-14.5); RDW Standard Deviation 61.9 fL (36.4-46.3); White Blood Count 9.17 K/uL (4.8-10.8)
[2019-01-25 06:59] LABS: Anisocytosis Present; Basophilic Stippling 1+; Hypochromasia Present; Schistocytes 1+
[2019-01-25] MEDS: BUDESONIDE 0.5 MG/2 ML VIAL (PULMICORT) NEB SCH ×2 (06:59→18:54)
[2019-01-25 07:06] LABS: Albumin Level 2.7 gm/dl (3.4-5.0); BUN Creatinine Ratio 34.2 (10-20); Bilirubin Direct 0.4 mg/dl (0-0.2); Calcium 7.6 mg/dl (8.5-10.1); Creatinine Clr Calc Pharmacy 35.4 ml/min; Est GFR (African American) 77.8; Est GFR (Non-African American) 67.2; Magnesium 1.8 mg/dl (1.8-2.4); Potassium 3.9 mmol/L (3.5-5.1)
[2019-01-25 07:09] LABS: Albumin Globulin Ratio 1.1 (0.9-2); Bilirubin,Total 0.8 mg/dl (0.2-1); Globulin 2.6 gm/dl (2.5-4.0); Phosphorus 3.4 mg/dl (2.5-4.9); Total Protein 5.3 gm/dl (6.4-8.2)
[2019-01-25] MEDS: PANTOprazole 40 MG TAB PO SCH (08:57)
[2019-01-25] MEDS: SODIUM CHLORIDE 1 GM TABLET PO SCH ×3 (08:57→20:58)
[2019-01-25] MEDS: CYANOCOBALAMIN 500 MCG TABLET (VITAMIN B-12) PO SCH (08:57)
[2019-01-25] MEDS: CALCIUM CARBONATE 1250MG TAB PO SCH ×2 (08:57→20:58)
[2019-01-25] MEDS: SITAGLIPTIN PHOSPHATE 25 MG TAB PO SCH (08:58)
[2019-01-25] MEDS: THIAMINE HCL 100 MG TAB PO SCH (08:58)
[2019-01-25] MEDS: POLYETHYLENE (MIRALAX) 17 GM PACK PO SCH (08:58)
[2019-01-25] MEDS: ASPIRIN 81 MG ECTAB PO SCH (08:58)
[2019-01-25] MEDS: SUCRALFATE 1 GM/10 ML UDC PO SCH ×3 (08:58→17:30)
[2019-01-25] MEDS: DOCUSATE SODIUM 100 MG CAP PO SCH (08:58)
[2019-01-25] MEDS: INSULIN GLARGINE SOLOSTAR 100 UNITS/ML 3 ML PEN SC SCH ×2 (08:59→21:00)
[2019-01-25] MEDS: INSULIN ASPART 100 UNITS/ML 3 ML PEN SC SCH ×4 (09:01→21:01)
[2019-01-25] MEDS: HEPARIN SOD 5,000 UNIT/0.5 ML VIAL SQ SCH ×2 (09:02→20:59)
--- NOTE | 2019-01-25 10:38 | Family Medicine Progress Note ---
Date of Service January 25, 2019 Assessment & Plan (1) Respiratory failure with hypoxia: 83-year-old female with past medical history of idiopathic pulmonary fibrosis, hypertension, anemia, type 2 diabetes presented from [facility] with acute encephlopathy and hypotension. On the ED, believed to be in cardiogenic shock - received fluids and pressors and was transferred to ICU. Workup concerning for septic shock likely in the setting of pneumonia, on vanc and zosyn. Pt required bipap and is now on NC likely from volume overload in the setting of R sided heart failure and pre-existing pulmonary disease (pt requires 2L NC at [facility]). Recent admission and discharged on 01/16/2019 - exacerbation of her chronic lung disease, multifocal atrial tachycardia and spontaneous flank hematoma Septic Shock Likely in the Setting of HCAP - WBC 9.17 today. - BP 133/88 - Wean Methylprednisone to 40mg Q12H - Bibasilar consolidation and pleural effusion R > L on CT - Continue Abx, vanc/zosyn pending cultures - Blood and sputum cultures pending - Continue nebs - AM labs ordered - Ordered for PT/OT evaluations. -OT - completed, plan on seeing patient 5x this coming week - continued skilled OT services while inpatient and after d/c recommended. Acute respiratory failure - Initial ABG 7.19 PH, Co2 70, HCO2 27, O2 204 - Required Bipap transitioned to NC as pt did not tolerate bipap well - Currently on 4L (baseline O2 requirement of 2L) - 99% O2, continue attempt weaning from O2 - Continue to monitor Idiopathic Pulmonary Fibrosis - Wean steroids Arrhythmia -Patient had 17 beats of an arrhythmia at 5:11AM on 01/23/19 which did not wake the patient. -Overnight had several recordings of similar arrhythmias. -Morning K 3.9, Mag 1.8 -Cardiology consult placed -Metoprolol 12.5mg PO BID -Recommend increasing K >4 and Mag >2 -Abnormal beats noted were likely due to Aberrancy -Klor-Con 40meq ordered -1gm Mag ordered Fecal Incontinence -D/C Metamucil and Colace -Psyllium Husk 1tsp mixed with applesauce -KUB ordered - Impression: No evidence for bowel obstruction. Small to moderate well-formed stool within the colon. -Stool Sample for C-Diff screen ordered - Negative for C-Diff Gene -Consider rectal tube if patient continues to be incontinent Hematuria -?UTI vs Trauma -Patient is noted by nursing to move often causing significant displacement of urinary catheter. -UA ordered - Urine RBC >30, Urine Epithelial Cell >30, Urine WBC 10-30, Urine Nitrate (-), Urine Esterase +1 -Urine Culture sent -Will continue to monitor patient for symptoms of UTI or Pyelonephritis -Hgb 8.4 this AM, will continue to monitor Transaminitis - CT abdomen: question of choledocholithiasis/cholangitis, fluid overload - body wall edema, ascites, mesenteric edema - GI consulted: - likely cardiac/sepsis related. CBD dilation is chronic. If concern remains consider repeat US vs MRCP - Values normal today AST 20, ALT 54, Alk Phos 95 Flank Hematoma - improving - Hgb is stable 8.4 today. Fecal impaction - Patient currently having Fecal Incontinence - D/C Miralax and Colace HTN/HLD - Continue aspirin, atorvastatin Hx of SIADH - Continue NaCl 1g TID DM2 - SSI and Lantus 12u BID - Continue home Januvia and [place], hold metformin GERD - Continue carafate and protonix DVT ppx - Heparin FEN/GI: HH diet and Diabetic diet, no IVF, replete electrolytes as needed Code status - DNR/DNI Dispo: PCU, plan to return to rehab [facility] then home where niece will help take care of her per palliative note (2) Hypotension: (3) Diabetes mellitus: (4) Interstitial lung disease: (5) Hypertension: (6) Gastroesophageal reflux disease: (7) Hypercapnia: (8) Hematuria: (9) Fecal incontinence: (10) Arrhythmia: Supervising Physician Co-Signing Physician Notes Resident Physician Supervision Note: I independently interviewed and examined the patient and verified the kincaid history and physical, reviewed labs and image studies, discussed the case with the resident Dr. Grey and agree with the findings and care plan. Subjective Patient examined at the bedside this AM. She notes that she slept for the better portion of the night, but woke up [employer] professional and was unable to go back to sleep for a few hours. She states that this in addition to her generalized weakness is why she continues to feel sleepy throughout the day. She also notes continued lower abdominal pain that worsens with bowel movements and rescinds upon completion. After discussion about needing to move more so that her general health and wellbeing can be improved, patient agreed to work with PT/OT today more in order to get herself out of bed. She continues to note a strong appetite and enjoys her tea quite a bit. Review of Systems Constitutional: + fatigue, + weakness and + daytime sleepiness; no fever and no chills Eyes: no eye pain Ear, Nose, Mouth, Throat: + hearing loss; no ear pain and no dizziness Respiratory: + cough, + dyspnea and + dyspnea on exertion; no hemoptysis and no pain on inspiration Cardiovascular: + dyspnea and + dyspnea on exertion; no chest pain, no chest pain at rest and no radiating jaw, neck or arm pain Gastrointestinal: + abdominal pain, + diarrhea/loose stools and + fecal incontinence; no early satiety, no nausea, no vomiting, no pain with swallowing, no dysphagia and no blood in stools Genitourinary: Patient has a Kuo. Unspecified whether pain with urination is secondary to UTI symptoms or trauma of Kuo. Physical Exam Constitutional: + disheveled Eyes: normal visual mitchell by confrontation and + anicteric sclerae ENMT: Ears: + hearing impairment Neck: trachea midline, no thyromegaly normal visual inspection and trachea midline Respiratory: normal respiratory effort, + cough and able to speak in complete sentences; no retractions and does not use accessory muscles Auscultation: + wheezes (B/L) Cardiovascular: Rate/Rhythm: regular rate and regular rhythm Heart Sounds: + abnormal opening sounds (S2 louder than S1); no gallop and no cardiac rub Vessels: dorsalis pedis pulses present Extremities: + edema (+1) Gastrointestinal (Abdomen): Inspection/Auscultation: normal bowel sounds; abdomen not distended and no high-pitched sounds Percussion/Palpation: + abdomen tender (Diffuse tenderness throughout to palpation. ) and + abdominal mass (small cyst like mass noted in RUQ towards the midline. ); no guarding, abdomen not rigid and no pulsatile mass Continues to have a good appetite Musculoskeletal: Head/Neck/Chest: normocephalic and head atraumatic Skin: Trauma: + hematoma Neurologic: moves all extremities and awake (does wake and is drowsy, but improving since previous day); no focal motor deficits Psychiatric: Orientation: alert, oriented to person and cooperative Results & Data Vital Signs (Past 12 Hours) Vital Signs Temp Pulse Pulse Resp BP Pulse Ox 01/25/19 07:09 36.6 C 92 H 22 141/89 H 100 01/25/19 07:00 96 H 20 100 01/25/19 03:13 36.7 C 88 17 133/88 99 01/24/19 23:09 37.0 C 104 H 20 111/76 96 Laboratory Results Abnormal lab results 01/24/19 01/24/19 01/25/19 Range/Units 20:39 20:39 05:52 RBC (4.2-5.4) M/uL Hgb (12.0-16.0) g/dL Hct (37-47) % MCHC (32-36) g/dL RDW Std Deviation (36.4-46.3) fL RDW Coeff of Alexa (11.5-14.5) % Plt Count (130-400) K/uL Immature Gran # (Auto) (0.00-0.02) K/uL Neut # (Auto) (1.4-6.5) K/uL Lymph # (Auto) (1.2-3.4) K/uL Sodium 135 L (136-145) mmol/L Chloride 96 L (98-107) mmol/L Carbon Dioxide 34 H (21-32) mmol/L BUN 28 H (7-18) mg/dl BUN/Creatinine Ratio 34.2 H (10-20) Glucose 142 H (70-99) mg/dl POC Glucose 310 H* 261 H (70-99) Calcium 7.6 L (8.5-10.1) mg/dl Direct Bilirubin 0.4 H (0-0.2) mg/dl Total Protein 5.3 L (6.4-8.2) gm/dl Albumin 2.7 L (3.4-5.0) gm/dl Urine Appearance (Clear) Ur Specific [place] (1.000-1.030) Urine Protein (Negative) Urine Glucose (UA) (Negative) Urine Blood (Negative) Ur Leukocyte Esterase (Negative) Urine WBC (Auto) (0-5) /hpf Urine RBC (Auto) (0-4) /hpf U Epithel Cells (Auto) (0-5) /lpf Urine Bacteria (Auto) (Negative) 01/25/19 01/25/19 01/25/19 Range/Units 05:52 07:07 11:19 RBC 3.30 L (4.2-5.4) M/uL Hgb 8.4 L (12.0-16.0) g/dL Hct 28.1 L (37-47) % MCHC 29.9 L (32-36) g/dL RDW Std Deviation 61.9 H (36.4-46.3) fL RDW Coeff of Alexa 20.6 H (11.5-14.5) % Plt Count 129 L (130-400) K/uL Immature Gran # (Auto) 0.09 H (0.00-0.02) K/uL Neut # (Auto) 8.59 H (1.4-6.5) K/uL Lymph # (Auto) 0.19 L (1.2-3.4) K/uL Sodium (136-145) mmol/L Chloride (98-107) mmol/L Carbon Dioxide (21-32) mmol/L BUN (7-18) mg/dl BUN/Creatinine Ratio (10-20) Glucose (70-99) mg/dl POC Glucose 163 H 358 H* (70-99) Calcium (8.5-10.1) mg/dl Direct Bilirubin (0-0.2) mg/dl Total Protein (6.4-8.2) gm/dl Albumin (3.4-5.0) gm/dl Urine Appearance (Clear) Ur Specific [place] (1.000-1.030) Urine Protein (Negative) Urine Glucose (UA) (Negative) Urine Blood (Negative) Ur Leukocyte Esterase (Negative) Urine WBC (Auto) (0-5) /hpf Urine RBC (Auto) (0-4) /hpf U Epithel Cells (Auto) (0-5) /lpf Urine Bacteria (Auto) (Negative) 01/25/19 01/25/19 01/25/19 Range/Units 11:20 13:20 14:41 RBC (4.2-5.4) M/uL Hgb (12.0-16.0) g/dL Hct (37-47) % MCHC (32-36) g/dL RDW Std Deviation (36.4-46.3) fL RDW Coeff of Alexa (11.5-14.5) % Plt Count (130-400) K/uL Immature Gran # (Auto) (0.00-0.02) K/uL Neut # (Auto) (1.4-6.5) K/uL Lymph # (Auto) (1.2-3.4) K/uL Sodium (136-145) mmol/L Chloride (98-107) mmol/L Carbon Dioxide (21-32) mmol/L BUN (7-18) mg/dl BUN/Creatinine Ratio (10-20) Glucose (70-99) mg/dl POC Glucose 339 H* 307 H* (70-99) Calcium (8.5-10.1) mg/dl Direct Bilirubin (0-0.2) mg/dl Total Protein (6.4-8.2) gm/dl Albumin (3.4-5.0) gm/dl Urine Appearance Cloudy A (Clear) Ur Specific [place] 1.031 H (1.000-1.030) Urine Protein 1+ H (Negative) Urine Glucose (UA) 3+ H (Negative) Urine Blood 3+ H (Negative) Ur Leukocyte Esterase 1+ H (Negative) Urine WBC (Auto) 10-30 H (0-5) /hpf Urine RBC (Auto) >30 H (0-4) /hpf U Epithel Cells (Auto) >30 H (0-5) /lpf Urine Bacteria (Auto) 1+ H (Negative) 01/25/19 01/25/19 Range/Units 14:42 16:19 RBC (4.2-5.4) M/uL Hgb (12.0-16.0) g/dL Hct (37-47) % MCHC (32-36) g/dL RDW Std Deviation (36.4-46.3) fL RDW Coeff of Alexa (11.5-14.5) % Plt Count (130-400) K/uL Immature Gran # (Auto) (0.00-0.02) K/uL Neut # (Auto) (1.4-6.5) K/uL Lymph # (Auto) (1.2-3.4) K/uL Sodium (136-145) mmol/L Chloride (98-107) mmol/L Carbon Dioxide (21-32) mmol/L BUN (7-18) mg/dl BUN/Creatinine Ratio (10-20) Glucose (70-99) mg/dl POC Glucose 304 H* 332 H* (70-99) Calcium (8.5-10.1) mg/dl Direct Bilirubin (0-0.2) mg/dl Total Protein (6.4-8.2) gm/dl Albumin (3.4-5.0) gm/dl Urine Appearance (Clear) Ur Specific [place] (1.000-1.030) Urine Protein (Negative) Urine Glucose (UA) (Negative) Urine Blood (Negative) Ur Leukocyte Esterase (Negative) Urine WBC (Auto) (0-5) /hpf Urine RBC (Auto) (0-4) /hpf U Epithel Cells (Auto) (0-5) /lpf Urine Bacteria (Auto) (Negative) Medications Administered Current Inpatient Medications Acetaminophen (Tylenol) 650 mg PO Q12H PRN PRN Reason: Fever Or Pain Last Admin: 01/25/19 05:09 Dose: 650 mg Documented by: Artificial Tears (Artificial Tears) 1 drops OPB BID PRN PRN Reason: Dry Eye(S) Stop: 02/22/19 03:59 Aspirin (Ecotrin Ectab) 81 mg PO DAILY [facility] Stop: 02/22/19 08:59 Last Admin: 01/25/19 08:58 Dose: 81 mg Documented by: Atorvastatin Calcium (Lipitor) 20 mg PO HS [facility] Stop: 02/22/19 20:59 Budesonide (Pulmicort Respules) 0.5 mg NEB BIDR [facility] Stop: 02/22/19 07:59 Last Admin: 01/25/19 06:59 Dose: 0.5 mg Documented by: Calcium Carbonate (Os-Klever 500) 1,250 mg PO BID [facility] Stop: 02/22/19 08:59 Last Admin: 01/25/19 08:57 Dose: 1,250 mg Documented by: Cyanocobalamin (Vitamin B-12) 1,000 mcg PO DAILY [facility] Stop: 02/22/19 08:59 Last Admin: 01/25/19 08:57 Dose: 1,000 mcg Documented by: Dextrose (Dextrose 50%) 25 - 50 ml IV UD PRN; Protocol PRN Reason: Hypoglycemia Protocol Stop: 02/22/19 00:55 Glucagon (Glucagen) 1 mg SQ UD PRN; Protocol PRN Reason: Hypoglycemia Protocol Stop: 02/22/19 00:55 Glucose (Glucose 40%) 15 - 30 gm PO UD PRN; Protocol PRN Reason: Hypoglycemia Protocol Stop: 02/22/19 00:55 Glucose (Dex4 Glucose) 4 - 8 tabs PO UD PRN; Protocol PRN Reason: Hypoglycemia Protocol Stop: 02/22/19 00:55 Heparin Sodium (Porcine) (Heparin Sodium (Porcine)) 5,000 units SQ Q12 [facility] Stop: 02/22/19 08:59 Last Admin: 01/25/19 09:02 Dose: 5,000 units Documented by: Sodium Chloride (Nss) 250 mls @ 15 mls/hr IV .[id number] PRN PRN Reason: For Transfusion Stop: 02/21/19 18:21 Piperacillin Sod/Tazobactam (Sod 3.375 gm/ Dextrose) 115 mls @ 28.75 mls/hr IV Q8H [facility]; Protocol Stop: 01/31/19 13:59 Last Admin: 01/25/19 14:52 Dose: 28.8 mls/hr Documented by: Vancomycin HCl 1,000 mg/ (Sodium Chloride) 270 mls @ 125 mls/hr IV Q18H [facility] Stop: 02/01/19 05:59 Last Infusion: 01/25/19 08:13 Dose: Infused Documented by: Methylprednisolone 40 mg/ (Syringe) 0.64 mls @ 1.5 mls/min IV Q12H [facility] Stop: 02/24/19 16:59 Last Admin: 01/25/19 17:29 Dose: 1.5 mls/min Documented by: Insulin Aspart (Novolog Flexpen) 0 units SC ACHS [facility] Stop: 02/22/19 01:14 Last Admin: 01/25/19 17:28 Dose: 17 units Documented by: Insulin Glargine (Lantus Solostar Pen) 12 units SC BID [facility] Stop: 02/24/19 20:59 Ioversol (Optiray 320 100ml) 93 ml IV ONCE PRN PRN Reason: Interaction Checking Stop: 01/26/19 18:45 Last Admin: 01/22/19 18:47 Dose: 93 ml Documented by: Ipratropium Ong (Atrovent 0.02% 0.5mg/2.5ml) 0.5 mg INH Q6R [facility] Stop: 02/22/19 07:59 Last Admin: 01/25/19 14:03 Dose: 0.5 mg Documented by: Levalbuterol HCl (Xopenex 0.63 Mg/3 Ml Neb) 0.63 mg NEB Q6R [facility] Stop: 02/22/19 07:59 Last Admin: 01/25/19 14:03 Dose: 0.63 mg Documented by: Metoprolol Succinate (Toprol Xl) 12.5 mg PO BID [facility] Stop: 02/24/19 10:29 Last Admin: 01/25/19 11:31 Dose: 12.5 mg Documented by: Miscellaneous (Carbohydrates For Hypoglycemia) 15 - 30 gm PO UD PRN PRN Reason: Hypoglycemia Treatment Stop: 02/22/19 00:55 Miscellaneous Information (Consult) 1 ea N/A UD PRN PRN Reason: Consult Stop: 02/22/19 00:06 Miscellaneous Information (Consult) 1 ea N/A UD PRN PRN Reason: Consult Stop: 02/22/19 00:06 Pantoprazole Sodium (Protonix) 40 mg PO DAILY [facility] Stop: 02/22/19 08:59 Last Admin: 01/25/19 08:57 Dose: 40 mg Documented by: Psyllium Hydrophilic Mucilloid (Metamucil) 1 pkt PO QAM [facility] Stop: 02/25/19 08:59 Sitagliptin Phosphate (Januvia) 25 mg PO DAILY [facility] Stop: 02/23/19 08:59 Last Admin: 01/25/19 08:58 Dose: 25 mg Documented by: Sodium Chloride (Sodium Chloride) 1 gm PO TID [facility] Stop: 02/22/19 08:59 Last Admin: 01/25/19 14:47 Dose: 1 gm Documented by: Sucralfate (Carafate) 1 gm PO AC [facility] Stop: 02/22/19 07:29 Last Admin: 01/25/19 17:30 Dose: 1 gm Documented by: Thiamine HCl (Vitamin B-1) 100 mg PO DAILY [facility] Stop: 02/23/19 08:59 Last Admin: 01/25/19 08:58 Dose: 100 mg Documented by: Verapamil HCl (Calan Sr) 120 mg PO BID [facility] Stop: 02/22/19 20:59 PG Care Time/CCT Total # of Minutes Spent Total Time Spent with Patient: Total time spent is greater than 50% in coordination of care (as documented) at patient's floor/unit and/or counseling patient: (1) Respiratory failure with hypoxia Chronicity: acute Qualified Code(s): J96.01 - Acute respiratory failure with hypoxia
--- NOTE | 2019-01-25 10:56 | XRay Report ---
KUB HISTORY: Fecal Incontinence COMPARISON: None. FINDINGS: The bowel gas pattern is unremarkable. There are no dilated loops of small bowel to suggest an obstruction. No renal calculi. No ureteral calculi. No pneumoperitoneum or pneumatosis. Mass or calcifications are noted. Dorsal scoliosis and degenerative changes are seen within the lumbar spine. There is also severe osteoarthritis within the right hip which is partially visualized. Prior cholec ystectomy. Slight elevation of the right hemidiaphragm. The heart is mildly enlarged. Interstitial th ickening is noted at the lung bases. Small to moderate amount of well-formed stool within the colon. IMPRESSION: No evidence for bowel obstruction. Small to moderate well-formed stool within the colon. Electronically signed by: Rafy Topete M.D. 01/25/2019 10:55 AM
[2019-01-25] MEDS: METOPROLOL SUCC 25MG EXT REL TAB PO SCH ×2 (11:31→21:41)
[2019-01-25 13:44] LABS: Appearance Urine Cloudy (Clear); Bilirubin Urine Negative (Negative); Blood Urine 3+ (Negative); Color Urine Red; Epithelial Cell Urine Auto >30 /lpf (0-5); Glucose Urine UA 3+ (Negative); Ketones Urine Negative (Negative); Leukocyte Esterase Urine 1+ (Negative); Nitrite Urine Negative (Negative); Protein Urine 1+ (Negative); RBC Urine Automated >30 /hpf (0-4); Specific Gravity Urine 1.031 (1.000-1.030); Urobilinogen Urine Negative (Negative)
[2019-01-25 14:10] LABS: Bacteria Urine Automated 1+ (Negative)
[2019-01-25] MEDS ORDERED: MAGNESIUM SULFATE / D5W 1 GM/100 ML BAG IV ONE (19:00)
--- NOTE | 2019-01-25 19:21 | Consultation Report ---
DATE OF CONSULTATION: 01/25/2019 REQUESTING: Kristina Muñoz MD. BATH MIX OPERATOR: Jonathan Velasquez DO, [facility]. REASON FOR CONSULTATION: Aberrant arrhythmia, multifocal atrial tachycardia, severe pulmonary hypertension secondary to pulmonary fibrosis. Dear Kristina: Thank you for requesting cardiology consultation with regards to Beena's arrhythmias. She is an unfortunate 83-year-old female who is known to have pulmonary fibrosis. She had significant hypoxemia and confusion. She was admitted to the ICU for antibiotics. She is known to have multifocal atrial tachycardia. She has had some wide complex arrhythmias on the monitor. They were reviewed in detail and it looks like she has a long R-R interval that leads to a short R-R interval that then leads to aberrancy. As best I can tell, it does appear that there are P waves before some of the episodes. She may have palpitations with these but she is a very poor historian. She looks short of breath just talking to her on 4 liters. She denies any lightheadedness or dizziness. She has lower extremity edema. She denies any chest pain or chest pressure. Obtaining a history from her is challenging. The rest of the history is obtained from the chart. PAST MEDICAL HISTORY: 1. Pulmonary fibrosis. 2. Multifocal atrial tachycardia, likely with aberrancy. 3. Severe pulmonary hypertension by exam. 4. Flattening of the intraventricular septum consistent with RV pressure overload. 5. Normal left ventricular size and function. 6. History of spontaneous flank hematoma. 7. Diabetes. 8. Hypertension. 9. GERD. 10. History of hypercapnic respiratory failure. SOCIAL HISTORY: She is at [facility] for rehabilitation. She denies any tobacco or alcohol. FAMILY HISTORY: Noncontributory. MEDICATIONS: Reviewed in electronic medical record. ALLERGIES: VITAMIN E, PREDNISONE AND RISEDRONATE SODIUM. PHYSICAL EXAMINATION: GENERAL: She is awake. She is short of breath, talking in short sentences. VITAL SIGNS: Her pulse is 92, blood pressure 141/89, respirations 22, sat 100% on 4 liters. HEENT: 2+ carotid upstrokes. Her jugular venous pressure appeared elevated to the angle of the jaw. Her sclerae are anicteric. Her hearing is diminished. LUNGS: Crackles bilaterally with Velcro like sounds. HEART: Irregularly irregular rhythm which is rate controlled. Her second heart sound is accentuated. She does have a soft holosystolic murmur at the left sternal border. ABDOMEN: Soft, nontender, nondistended. Positive bowel sounds. EXTREMITIES: Moderate pitting edema to the knees bilaterally. DIAGNOSTIC STUDIES: Her echocardiogram was reviewed. EKG multifocal atrial tachycardia. LABORATORY DATA: On 01/25/2019, sodium 135, bicarbonate 34, BUN 28, creatinine 0.81. Her albumin is 2.7. IMPRESSION: 1. Multifocal atrial tachycardia. 2. Likely aberrancy with a long R-R interval followed by a short R-R interval within a left bundle appearing aberrant conduction less likely nonsustained ventricular tachycardia. 3. Normal left ventricular size and function. 4. Right ventricular dysfunction. 5. Severe pulmonary hypertension by examination. She is already on verapamil 120 mg b.i.d. I would try to add low dose beta blockers to her medical regimen starting with 1200 mg of metoprolol b.i.d. We will have to watch for any hypotension as she did have significant hypotension when she was admitted. Additionally, I will try to keep her potassium greater than 4 and her magnesium greater than 2. Palliative care has been consulted. At this point, I would not recommend anything aggressive in nature. Additionally, she may be better served by going home with hospice given her respiratory status, We will continue to follow on her with you. This was all discussed with Dr. Muñoz at the bedside.
[2019-01-25] MEDS: POTASSIUM CHLORIDE 20 MEQ TABCR PO SCH (20:57)
[2019-01-25] MEDS ORDERED: METOPROLOL SUCC 25MG EXT REL TAB PO SCH (21:00)
[2019-01-25] MEDS ORDERED: VANCOMYCIN TROUGH ONE (23:30)
[2019-01-26] MEDS: VANCOMYCIN HCL 1,000 MG in SODIUM CHLORIDE 0.9% 250 ML IV SCH ×2 (01:07→17:38)
[2019-01-26] MEDS: LEVALBUTEROL HCL 0.63 MG/3 ML NEB NEB SCH ×4 (01:23→19:01)
[2019-01-26] MEDS: IPRATROPIUM BROMIDE NEB SOLN 0.02% 2.5 ML VIAL INH SCH ×4 (01:23→19:01)
[2019-01-26] MEDS: PIPERACILLIN/TAZOBACTAM 3.375 GM in DEXTROSE 5% 100 ML IV SCH ×3 (05:25→21:11)
[2019-01-26] MEDS: methylPREDNISolone 40 MG in SYRINGE 0 ML IV SCH (05:26)
[2019-01-26] MEDS: BUDESONIDE 0.5 MG/2 ML VIAL (PULMICORT) NEB SCH ×2 (06:58→19:01)
[2019-01-26 07:50] LABS: Creatinine Clr Calc Pharmacy 46.3 ml/min; Est GFR (African American) 96.6; Est GFR (Non-African American) 83.4
[2019-01-26] MEDS: SUCRALFATE 1 GM/10 ML UDC PO SCH ×3 (08:18→15:50)
[2019-01-26] MEDS: ASPIRIN 81 MG ECTAB PO SCH (08:18)
[2019-01-26] MEDS: PSYLLIUM 58.6% POWDER PACKET PO SCH (08:19)
[2019-01-26] MEDS: SITAGLIPTIN PHOSPHATE 25 MG TAB PO SCH (08:19)
[2019-01-26] MEDS: HEPARIN SOD 5,000 UNIT/0.5 ML VIAL SQ SCH ×2 (08:19→21:15)
[2019-01-26] MEDS: POTASSIUM CHLORIDE 20 MEQ TABCR PO SCH (08:19)
[2019-01-26] MEDS: PANTOprazole 40 MG TAB PO SCH (08:19)
[2019-01-26] MEDS: CALCIUM CARBONATE 1250MG TAB PO SCH ×2 (08:19→21:16)
--- NOTE | 2019-01-26 08:19 | Pharmacy Report ---
Pharmacy Abx Dose Short Note - Date of Service January 26, 2019 - Assessment & Plan Assessment 83 year old F receiving Vancomycin 1,000mg q18H + Zosyn 3.375gm q8H for treatment of pneumonia. Day # 4 of antimicrobial therapy. Laboratory Tests 01/25/19 23:39 Vancomycin Trough 18.8 Plan Vancomycin * Trough level of 18.8 mcg/mL is therapeutic. * Continue dose of 1000 mg IV every 18 hours * Goal trough level : 15 to 20 mcg/mL Pharmacy will continue to follow and will adjust dose/frequency as necessary. Thank you.
[2019-01-26] MEDS: METOPROLOL SUCC 25MG EXT REL TAB PO SCH ×2 (08:20→21:20)
[2019-01-26] MEDS: INSULIN GLARGINE SOLOSTAR 100 UNITS/ML 3 ML PEN SC SCH ×2 (08:20→21:13)
[2019-01-26] MEDS: THIAMINE HCL 100 MG TAB PO SCH (08:20)
[2019-01-26] MEDS: SODIUM CHLORIDE 1 GM TABLET PO SCH ×3 (08:20→21:16)
[2019-01-26] MEDS: CYANOCOBALAMIN 500 MCG TABLET (VITAMIN B-12) PO SCH (08:20)
[2019-01-26] MEDS: INSULIN ASPART 100 UNITS/ML 3 ML PEN SC SCH ×4 (08:22→21:14)
--- NOTE | 2019-01-26 09:49 | Cardiology Progress Note ---
Date of Service January 26, 2019 Subjective She is had less arrhythmias overnight on the monitor. She has had periods of PVCs with trigeminy. But she has not had any episodes of aberrancy or nonsustained VT. She still appears short of breath talking in sentences although she looks dramatically better than yesterday. She denies any chest pain chest pressure chest heaviness. She does describe feeling weak. She denies any lightheadedness though. She is unaware of any palpitations or fluttering Results & Data Vital Signs (Past 12 Hours) Vital Signs Temp Pulse Pulse Resp BP Pulse Ox 01/26/19 07:26 36.6 C 73 24 144/80 H 100 01/26/19 07:00 67 100 01/26/19 03:34 36.8 C 89 24 125/83 96 01/26/19 01:23 77 24 95 01/25/19 23:30 36.8 C 93 H 20 139/89 98 GENERAL: She is awake. She is less short of breath, talking in short sentences. HEENT: 2+ carotid upstrokes. Her jugular venous pressure appeared elevated to the angle of the jaw. Her sclerae are anicteric. Her hearing is diminished. LUNGS: Crackles bilaterally with Velcro like sounds. HEART: Regular rate and rhythm with occasional ectopy her second heart sound is accentuated. She does have a soft holosystolic murmur at the left sternal border. ABDOMEN: Soft, nontender, nondistended. Positive bowel sounds. EXTREMITIES: Moderate pitting edema to the knees bilaterally. IMPRESSION: 1. Multifocal atrial tachycardia. 2. Likely aberrancy with a long R-R interval followed by a short R-R interval within a left bundle appearing aberrant conduction less likely nonsustained ventricular tachycardia. 3. Normal left ventricular size and function. 4. Right ventricular dysfunction. 5. Severe pulmonary hypertension by examination. She is had much improvement with low-dose beta-blockers. Her vital signs are stable with heart rate in the 70s to low 90s. If you need additional blood pressure control her Toprol can be increased to 25 mg twice daily. It would appear that beta-blockers seem to her suppress her arrhythmias better than verapamil if in the future her blood pressures on the low side her verapamil can be changed 220 mg daily rather than 120 mg D with the idea of continuing to use beta-blockers. Given her lower extremity edema I will give her 40 mg of IV Lasix this morning. Left to watch her BUN and creatinine as she was previously prerenal. Next From my standpoint she can be sent to the floor without telemetry monitoring. Please let us know if we can be of any further assistance in the future
[2019-01-26] MEDS ORDERED: FUROSEMIDE 20 MG in SYRINGE 0 ML IV ONE (10:00)
--- NOTE | 2019-01-26 10:37 | Family Medicine Progress Note ---
Date of Service January 26, 2019 Assessment & Plan (1) Respiratory failure with hypoxia: 83-year-old female with past medical history of idiopathic pulmonary fibrosis, hypertension, anemia, type 2 diabetes presented from [facility] with acute encephalopathy and hypotension. On the ED, believed to be in cardiogenic shock - received fluids and pressors and was transferred to ICU. Workup concerning for septic shock likely in the setting of pneumonia, on vanc and zosyn. Pt required bipap and is now on NC likely from volume overload in the setting of R sided heart failure and pre-existing pulmonary disease (pt requires 2L NC at baseline). Recent admission and discharged on 01/16/2019 - exacerbation of her chronic lung disease, multifocal atrial tachycardia and spontaneous flank hematoma Septic Shock Likely in the Setting of HCAP - WBC 10.51 today. - BP 144/80, stable throughout the night. - Wean Methylprednisone to 40mg QD. - Bibasilar consolidation and pleural effusion R > L on CT - Continue Abx, vanc/zosyn pending cultures - Blood and sputum cultures pending - Continue nebs - AM labs ordered - Ordered for PT/OT evaluations. -OT - completed, plan on seeing patient 5x this coming week - continued skilled OT services while inpatient and after d/c recommended. -Patient has begun to sit up in chair more often -- improvement from her only laying in bed all day. -Will transfer patient to [facility] on Cardiac's recommendation and improving, stable, BP and oxygenation. Acute respiratory failure - Initial ABG 7.19 PH, Co2 70, HCO2 27, O2 204 - Required Bipap transitioned to NC as pt did not tolerate bipap well - Currently on 4L NC (baseline O2 requirement of 2L) - 98% O2, continue attempt weaning from O2 - Continue to monitor Idiopathic Pulmonary Fibrosis - Continue to wean steroids Arrhythmia -Improvement noted with low-dose beta-blockers. -Cardiology consult placed -Abnormal beats seen on telemetry 2 nights ago likely due to aberrancy. Last night she had no aberrancy but had some PVC's and Trigeminy. -Metoprolol 12.5mg PO BID -40mg IV Lasix this AM for LE edema, monitor BUN and creatinine -Can increase Metoprolol to 25mg BID if additional BP control required -In future can consider increasing Verapamil to 220mg QD with intent to continue beta-blockers for arrhythmia suppression. -Recommend increasing K >4 and Mag >2 -Morning K 4.6, Mag 1.9 today -Klor-Con 40meq ordered - K 4.6 today, no further replenishment needed at this time. -1gm Mag ordered - Mag 1.9 today, will wait 24 hours before determining need for further supplementation. -From Cardiology standpoint patient can be sent to a floor without telemetry monitoring. Fecal Incontinence -Patient continues to be incontinent this AM, order for rectal tube PRN placed. -D/C Metamucil and Colace -Psyllium Husk 1tsp mixed with applesauce -KUB ordered - Impression: No evidence for bowel obstruction. Small to moderate well-formed stool within the colon. -Stool Sample for C-Diff screen ordered - Negative for C-Diff Gene Hematuria -?UTI vs Trauma -Patient is noted by nursing to move often causing significant displacement of urinary catheter. -UA ordered - Urine RBC >30, Urine Epithelial Cell >30, Urine WBC 10-30, Urine Nitrate (-), Urine Esterase +1 -Urine Culture sent - Pending -Will continue to monitor patient for symptoms of UTI or Pyelonephritis -Hgb 8.8 this AM, will continue to monitor Transaminitis - CT abdomen: question of choledocholithiasis/cholangitis, fluid overload - body wall edema, ascites, mesenteric edema - GI consulted: - likely cardiac/sepsis related. CBD dilation is chronic. If concern remains consider repeat US vs MRCP - Values normal today AST 17, ALT 44, Alk Phos 82 Flank Hematoma - improving - Hgb is stable 8.8 today. Fecal impaction - Patient currently having Fecal Incontinence - D/C Miralax and Colace HTN -Continue home Verapamil. -Metoprolol 12.5mg BID, consider increasing to 25mg BID if further BP control required. HLD - Continue aspirin, atorvastatin. Hx of SIADH - Continue NaCl 1g TID DM2 - SSI and Lantus 12u BID - Continue home Januvia and [place], hold metformin - Blood Sugar 85 this AM GERD - Continue carafate and protonix DVT ppx - Heparin FEN/GI: HH diet and Diabetic diet, no IVF, replete electrolytes as needed Code status - DNR/DNI Dispo: Med-Surg, plan to return to rehab [facility] then home where niece will help take care of her per palliative note (2) Diabetes mellitus: (3) Interstitial lung disease: (4) Hypertension: (5) Gastroesophageal reflux disease: (6) Hypercapnia: (7) Hematuria: (8) Fecal incontinence: (9) Arrhythmia: Supervising Physician Co-Signing Physician Notes Resident Physician Supervision Note: I independently interviewed and examined the patient and verified the kincaid history and physical, reviewed labs and image studies, discussed the case with the resident Dr. Grey and agree with the findings and care plan. Subjective Patient was seen this AM while seated in her chair. Just prior to my arrival patient was noted to be having bowel incontinence. While speaking with the patient, she noted improvement in her breathing today and that she feels she has more energy than she's had recently. She continues to show a strong appetite to eat, recounting the foods on her tray that she had to me. She also notes improvement in her dysuria, stating that it has gotten much less painful. She has no other complaints this morning. Review of Systems Constitutional: + weakness, + increased appetite (Patient continues to note a strong appetite) and + daytime sleepiness; no fever and no chills Eyes: no eye pain Ear, Nose, Mouth, Throat: no ear pain, no tinnitus and no dizziness Respiratory: + cough, + chest congestion and + dyspnea on exertion; no hemoptysis and no pain on inspiration Cardiovascular: + dyspnea and + dyspnea on exertion; no chest pain, no chest pain at rest and no radiating jaw, neck or arm pain Gastrointestinal: + abdominal pain, + diarrhea/loose stools and + fecal incontinence; no vomiting and no constipation Genitourinary: + dysuria and + hematuria; no urinary frequency and no flank pain Integumentary: + rash; no yellowing of the skin Neurologic: + unsteadiness Physical Exam Constitutional: + disheveled Eyes: normal visual mitchell by confrontation and + anicteric sclerae ENMT: Ears: + hearing impairment Neck: trachea midline, no thyromegaly normal visual inspection and trachea midline Respiratory: normal respiratory effort, + cough and able to speak in complete sentences; no respiratory distress, no labored breathing, no retractions and does not use accessory muscles Auscultation: + diminished lung sounds and + wheezes (B/L); no crackles Cardiovascular: Rate/Rhythm: regular rate and + irregularly irregular Heart Sounds: + abnormal opening sounds (S2 louder than S1); no gallop and no cardiac rub Vessels: normal peripheral pulses and dorsalis pedis pulses present Extremities: + edema (+2) Gastrointestinal (Abdomen): Inspection/Auscultation: normal bowel sounds; abdomen not distended and no high-pitched sounds Percussion/Palpation: + abdomen tender (Diffuse tenderness throughout to palpation. ) and + abdominal mass (small cyst like mass noted in RUQ towards the midline. ); no guarding, abdomen not rigid and no pulsatile mass Musculoskeletal: Head/Neck/Chest: normocephalic and head atraumatic Skin: Trauma: + hematoma Neurologic: moves all extremities and awake (still improving from day prior. Patient now sits in her chair as well.); no focal motor deficits Psychiatric: Orientation: alert, oriented to person and cooperative Results & Data Vital Signs (Past 12 Hours) Vital Signs Temp Pulse Pulse Resp BP Pulse Ox 01/26/19 10:23 95 01/26/19 07:26 36.6 C 73 24 144/80 H 100 01/26/19 07:00 67 100 01/26/19 03:34 36.8 C 89 24 125/83 96 01/26/19 01:23 77 24 95 01/25/19 23:30 36.8 C 93 H 20 139/89 98 Laboratory Results Abnormal lab results 01/22/19 01/25/19 01/25/19 Range/Units 19:41 20:00 20:03 RBC (4.2-5.4) M/uL Hgb (12.0-16.0) g/dL Hct (37-47) % MCHC (32-36) g/dL RDW Std Deviation (36.4-46.3) fL RDW Coeff of Alexa (11.5-14.5) % Immature Gran # (Auto) (0.00-0.02) K/uL Neut # (Auto) (1.4-6.5) K/uL Lymph # (Auto) (1.2-3.4) K/uL Garrard # (Auto) (0.11-0.59) K/uL Sodium (136-145) mmol/L Chloride (98-107) mmol/L Carbon Dioxide (21-32) mmol/L Anion Gap (3-11) BUN (7-18) mg/dl Creatinine (0.6-1.2) mg/dl BUN/Creatinine Ratio (10-20) POC Glucose 315 H* 319 H* (70-99) Calcium (8.5-10.1) mg/dl Total Protein (6.4-8.2) gm/dl Albumin (3.4-5.0) gm/dl Globulin (2.5-4.0) gm/dl Crossmatch See Detail 01/26/19 01/26/19 01/26/19 Range/Units 06:43 06:43 11:09 RBC 3.49 L (4.2-5.4) M/uL Hgb 8.8 L (12.0-16.0) g/dL Hct 29.4 L (37-47) % MCHC 29.9 L (32-36) g/dL RDW Std Deviation 61.4 H (36.4-46.3) fL RDW Coeff of Alexa 20.6 H (11.5-14.5) % Immature Gran # (Auto) 0.07 H (0.00-0.02) K/uL Neut # (Auto) 9.33 H (1.4-6.5) K/uL Lymph # (Auto) 0.27 L (1.2-3.4) K/uL Garrard # (Auto) 0.84 H (0.11-0.59) K/uL Sodium 135 L (136-145) mmol/L Chloride 97 L (98-107) mmol/L Carbon Dioxide 36 H (21-32) mmol/L Anion Gap 2.0 L (3-11) BUN 26 H (7-18) mg/dl Creatinine 0.59 L (0.6-1.2) mg/dl BUN/Creatinine Ratio 43.7 H (10-20) POC Glucose 190 H (70-99) Calcium 7.8 L (8.5-10.1) mg/dl Total Protein 5.0 L (6.4-8.2) gm/dl Albumin 2.6 L (3.4-5.0) gm/dl Globulin 2.4 L (2.5-4.0) gm/dl Crossmatch 01/26/19 Range/Units 17:09 RBC (4.2-5.4) M/uL Hgb (12.0-16.0) g/dL Hct (37-47) % MCHC (32-36) g/dL RDW Std Deviation (36.4-46.3) fL RDW Coeff of Alexa (11.5-14.5) % Immature Gran # (Auto) (0.00-0.02) K/uL Neut # (Auto) (1.4-6.5) K/uL Lymph # (Auto) (1.2-3.4) K/uL Garrard # (Auto) (0.11-0.59) K/uL Sodium (136-145) mmol/L Chloride (98-107) mmol/L Carbon Dioxide (21-32) mmol/L Anion Gap (3-11) BUN (7-18) mg/dl Creatinine (0.6-1.2) mg/dl BUN/Creatinine Ratio (10-20) POC Glucose 192 H (70-99) Calcium (8.5-10.1) mg/dl Total Protein (6.4-8.2) gm/dl Albumin (3.4-5.0) gm/dl Globulin (2.5-4.0) gm/dl Crossmatch Medications Administered Current Inpatient Medications Acetaminophen (Tylenol) 650 mg PO Q12H PRN PRN Reason: Fever Or Pain Last Admin: 01/25/19 05:09 Dose: 650 mg Documented by: Artificial Tears (Artificial Tears) 1 drops OPB BID PRN PRN Reason: Dry Eye(S) Stop: 02/22/19 03:59 Aspirin (Ecotrin Ectab) 81 mg PO DAILY SONIDO Stop: 02/22/19 08:59 Last Admin: 01/26/19 08:18 Dose: 81 mg Documented by: Atorvastatin Calcium (Lipitor) 20 mg PO HS [facility] Stop: 02/22/19 20:59 Budesonide (Pulmicort Respules) 0.5 mg NEB BIDR SONIDO Stop: 02/22/19 07:59 Last Admin: 01/26/19 06:58 Dose: 0.5 mg Documented by: Calcium Carbonate (Os-Klever 500) 1,250 mg PO BID SONIDO Stop: 02/22/19 08:59 Last Admin: 01/26/19 08:19 Dose: 1,250 mg Documented by: Cyanocobalamin (Vitamin B-12) 1,000 mcg PO DAILY SONIDO Stop: 02/22/19 08:59 Last Admin: 01/26/19 08:20 Dose: 1,000 mcg Documented by: Dextrose (Dextrose 50%) 25 - 50 ml IV UD PRN; Protocol PRN Reason: Hypoglycemia Protocol Stop: 02/22/19 00:55 Glucagon (Glucagen) 1 mg SQ UD PRN; Protocol PRN Reason: Hypoglycemia Protocol Stop: 02/22/19 00:55 Glucose (Glucose 40%) 15 - 30 gm PO UD PRN; Protocol PRN Reason: Hypoglycemia Protocol Stop: 02/22/19 00:55 Glucose (Dex4 Glucose) 4 - 8 tabs PO UD PRN; Protocol PRN Reason: Hypoglycemia Protocol Stop: 02/22/19 00:55 Heparin Sodium (Porcine) (Heparin Sodium (Porcine)) 5,000 units SQ Q12 SONIDO Stop: 02/22/19 08:59 Last Admin: 01/26/19 08:19 Dose: 5,000 units Documented by: Sodium Chloride (Nss) 250 mls @ 15 mls/hr IV .[id number] PRN PRN Reason: For Transfusion Stop: 02/21/19 18:21 Piperacillin Sod/Tazobactam (Sod 3.375 gm/ Dextrose) 115 mls @ 28.75 mls/hr IV Q8H [facility]; Protocol Stop: 01/31/19 13:59 Last Admin: 01/26/19 14:34 Dose: 28.8 mls/hr Documented by: Vancomycin HCl 1,000 mg/ (Sodium Chloride) 270 mls @ 125 mls/hr IV Q18H SONIDO Stop: 02/01/19 05:59 Last Admin: 01/26/19 17:38 Dose: 125 mls/hr Documented by: Methylprednisolone 40 mg/ (Syringe) 0.64 mls @ 1.5 mls/min IV DAILY SONIDO Stop: 02/26/19 08:59 Insulin Aspart (Novolog Flexpen) 0 units SC ACHS SONIDO Stop: 02/22/19 01:14 Last Admin: 01/26/19 17:39 Dose: 4 units Documented by: Insulin Glargine (Lantus Solostar Pen) 12 units SC BID SONIDO Stop: 02/24/19 20:59 Last Admin: 01/26/19 08:20 Dose: 12 units Documented by: Ioversol (Optiray 320 100ml) 93 ml IV ONCE PRN PRN Reason: Interaction Checking Stop: 01/26/19 18:45 Last Admin: 01/22/19 18:47 Dose: 93 ml Documented by: Ipratropium [place] (Atrovent 0.02% 0.5mg/2.5ml) 0.5 mg INH Q6R SONIDO Stop: 02/22/19 07:59 Last Admin: 01/26/19 14:17 Dose: 0.5 mg Documented by: Levalbuterol HCl (Xopenex 0.63 Mg/3 Ml Neb) 0.63 mg NEB Q6R SONIDO Stop: 02/22/19 07:59 Last Admin: 01/26/19 14:17 Dose: 0.63 mg Documented by: Metoprolol Succinate (Toprol Xl) 12.5 mg PO BID [facility] Stop: 02/24/19 10:29 Last Admin: 01/26/19 08:20 Dose: 12.5 mg Documented by: Miscellaneous (Carbohydrates For Hypoglycemia) 15 - 30 gm PO UD PRN PRN Reason: Hypoglycemia Treatment Stop: 02/22/19 00:55 Miscellaneous Information (Consult) 1 ea N/A UD PRN PRN Reason: Consult Stop: 02/22/19 00:06 Miscellaneous Information (Consult) 1 ea N/A UD PRN PRN Reason: Consult Stop: 02/22/19 00:06 Pantoprazole Sodium (Protonix) 40 mg PO DAILY [facility] Stop: 02/22/19 08:59 Last Admin: 01/26/19 08:19 Dose: 40 mg Documented by: Potassium Chloride (Klor-Con M20) 40 meq PO QAM SONIDO Stop: 02/24/19 18:59 Last Admin: 01/26/19 08:19 Dose: 40 meq Documented by: Psyllium Hydrophilic Mucilloid (Metamucil) 1 pkt PO QAM SONIDO Stop: 02/25/19 08:59 Last Admin: 01/26/19 08:19 Dose: 1 pkt Documented by: Sitagliptin Phosphate (Januvia) 25 mg PO DAILY [facility] Stop: 02/23/19 08:59 Last Admin: 01/26/19 08:19 Dose: 25 mg Documented by: Sodium Chloride (Sodium Chloride) 1 gm PO TID SONIDO Stop: 02/22/19 08:59 Last Admin: 01/26/19 15:50 Dose: 1 gm Documented by: Sucralfate (Carafate) 1 gm PO AC SONIDO Stop: 02/22/19 07:29 Last Admin: 01/26/19 15:50 Dose: 1 gm Documented by: Thiamine HCl (Vitamin B-1) 100 mg PO DAILY SONIDO Stop: 02/23/19 08:59 Last Admin: 01/26/19 08:20 Dose: 100 mg Documented by: Verapamil HCl (Calan Sr) 120 mg PO BID SONIDO Stop: 02/22/19 20:59 PG Care Time/CCT Total # of Minutes Spent Total Time Spent with Patient: Total time spent is greater than 50% in coordination of care (as documented) at patient's floor/unit and/or counseling patient: Resident Activity Tracking Resident Involvement: Resident Care Provided Care Provided: Adult Hospital Medicine (1) Respiratory failure with hypoxia Chronicity: acute Qualified Code(s): J96.01 - Acute respiratory failure with hypoxia
[2019-01-26 11:22] LABS: Hematocrit (blood only) 29.4 % (37-47); Hemoglobin 8.8 g/dL (12.0-16.0); Immature Granulocytes # (auto) 0.07 K/uL (0.00-0.02); Immature Granulocytes % (auto) 0.7 %; Lymphocytes # (auto) 0.27 K/uL (1.2-3.4); Lymphocytes % (auto) 2.6 %; Mean Corpuscular Hgb Conc 29.9 g/dL (32-36); Mean Corpuscular Volume 84.2 fL (80-100); Mean Platelet Volume 9.5 fL (7.4-10.4); Monocytes # (auto) 0.84 K/uL (0.11-0.59); Neutrophils # (auto) 9.33 K/uL (1.4-6.5); Neutrophils % (auto) 88.7 %; Platelet Count 141 K/uL (130-400); RDW Coefficient of Variation 20.6 % (11.5-14.5); RDW Standard Deviation 61.4 fL (36.4-46.3); Red Blood Count 3.49 M/uL (4.2-5.4); White Blood Count 10.51 K/uL (4.8-10.8)
[2019-01-26 11:23] LABS: Albumin Globulin Ratio 1.1 (0.9-2); Albumin Level 2.6 gm/dl (3.4-5.0); BUN Creatinine Ratio 43.7 (10-20); Bilirubin,Total 0.8 mg/dl (0.2-1); Calcium 7.8 mg/dl (8.5-10.1); Creatinine Clr Calc Pharmacy 48.7 ml/min; Est GFR (African American) 98.2; Est GFR (Non-African American) 84.8; Globulin 2.4 gm/dl (2.5-4.0); Potassium 4.6 mmol/L (3.5-5.1)
[2019-01-26 11:41] LABS: Anisocytosis Present; Hypochromasia Present; Schistocytes 1+
[2019-01-26 12:26] LABS: Magnesium 1.9 mg/dl (1.8-2.4)
[2019-01-26] MEDS: ACETAMINOPHEN 325 MG TAB PO PRN (19:12)
[2019-01-26] MEDS: VERAPAMIL HCL 120 MG TABCR PO SCH (21:19)
[2019-01-27] MEDS: IPRATROPIUM BROMIDE NEB SOLN 0.02% 2.5 ML VIAL INH SCH ×4 (01:50→19:13)
[2019-01-27] MEDS: LEVALBUTEROL HCL 0.63 MG/3 ML NEB NEB SCH ×4 (01:50→19:13)
[2019-01-27] MEDS: PIPERACILLIN/TAZOBACTAM 3.375 GM in DEXTROSE 5% 100 ML IV SCH ×3 (05:10→21:34)
[2019-01-27 06:15] LABS: Hematocrit (blood only) 32.7 % (37-47); Mean Corpuscular Hgb Conc 30.6 g/dL (32-36); Mean Corpuscular Volume 84.7 fL (80-100); Mean Platelet Volume 9.6 fL (7.4-10.4); Platelet Count 131 K/uL (130-400); RDW Coefficient of Variation 20.5 % (11.5-14.5); RDW Standard Deviation 62.6 fL (36.4-46.3); Red Blood Count 3.86 M/uL (4.2-5.4); White Blood Count 13.82 K/uL (4.8-10.8)
[2019-01-27 06:48] LABS: Calcium 7.6 mg/dl (8.5-10.1); Creatinine Clr Calc Pharmacy 37.3 ml/min; Est GFR (African American) 82.8; Est GFR (Non-African American) 71.4; Magnesium 1.7 mg/dl (1.8-2.4); Potassium 4.3 mmol/L (3.5-5.1)
[2019-01-27] MEDS: BUDESONIDE 0.5 MG/2 ML VIAL (PULMICORT) NEB SCH ×2 (07:12→19:13)
[2019-01-27] MEDS: THIAMINE HCL 100 MG TAB PO SCH (08:22)
[2019-01-27] MEDS: SUCRALFATE 1 GM/10 ML UDC PO SCH ×3 (08:22→17:27)
[2019-01-27] MEDS: ASPIRIN 81 MG ECTAB PO SCH (08:23)
[2019-01-27] MEDS: SITAGLIPTIN PHOSPHATE 25 MG TAB PO SCH (08:23)
[2019-01-27] MEDS: PANTOprazole 40 MG TAB PO SCH (08:23)
[2019-01-27] MEDS: PSYLLIUM 58.6% POWDER PACKET PO SCH (08:25)
[2019-01-27] MEDS: METOPROLOL SUCC 25MG EXT REL TAB PO SCH ×2 (08:25→21:36)
[2019-01-27] MEDS: POTASSIUM CHLORIDE 20 MEQ TABCR PO SCH (08:25)
[2019-01-27] MEDS: SODIUM CHLORIDE 1 GM TABLET PO SCH ×3 (08:26→21:37)
[2019-01-27] MEDS: CYANOCOBALAMIN 500 MCG TABLET (VITAMIN B-12) PO SCH (08:27)
[2019-01-27] MEDS: HEPARIN SOD 5,000 UNIT/0.5 ML VIAL SQ SCH ×2 (08:27→21:38)
[2019-01-27] MEDS: CALCIUM CARBONATE 1250MG TAB PO SCH ×2 (08:27→21:36)
[2019-01-27] MEDS ORDERED: methylPREDNISolone 40 MG in SYRINGE 0 ML IV SCH (09:00)
[2019-01-27] MEDS: INSULIN ASPART 100 UNITS/ML 3 ML PEN SC SCH ×4 (09:12→21:46)
[2019-01-27] MEDS: VERAPAMIL HCL 120 MG TABCR PO SCH ×2 (09:12→21:38)
[2019-01-27] MEDS: ACETAMINOPHEN 325 MG TAB PO PRN ×2 (11:07→15:17)
[2019-01-27] MEDS: MAGNESIUM SULFATE / D5W 1 GM/100 ML BAG IV SCH ×2 (11:08→12:26)
--- NOTE | 2019-01-27 11:41 | Palliative Care Progress Note ---
Date of Service January 27, 2019 Assessment & Plan (1) Goals of care, counseling/discussion: 83 year old female patient with PMH idiopathic pulmonary fibrosis, htn, anemia, DM type 2, compression fractures, and others, [facility] with unresponsiveness and hypotension. Patient was in hospital earlier this month because she had stopped her pulmonary medications and had an exacerbation. She improved during hospitalization and went to rehab. Per patient's niece, Sara, patient was doing quite well at rehab and walking with walker. Concern for cardiogenic shock in the ED, patient was placed on bipap and given fluids and pressors. She was admitted to the ICU and was on IV inotropic support, which has been weaned. CT abd/pelvis showed volume overload, body wall edema, ascites, mesenteric edema and biliary ductal dilatation. Pressors off, BP improved, received IV lasix today for volume overload. Palliative care was consulted on last admission to discuss goals of care, reconsulted this admission for continuity. -I met with patient in her room with her nurse. -Patient was able to participate in meaningful conversation and able to express details about where she lived prior to this admission and details about her niece, Sraa. -I do not feel patient is able to understand the complexity of her illness. -Patient is showing overall decline, which was discussed in detail with her niece, who arrived in the middle of my evaluation. -Patient did receive an extra dose of Lasix over the weekend and did not show response. -Patient legs, bilaterally, are now third spacing with some blisters noted on her thigh and both of her feet. -Her feet are now cool, which, per nursing is a change. She does continue to have + pedal pulses -During my interview, the patient did become more winded during conversation. She is on 2LNC. -Overnight, the patient had an indwelling rectal strickland placed, with a small amount of liquid brown stool. Per nursing, no signs of skin irritation, or breakdown. Would suggest discontinuing the rectal strickland for comfort. -In talking with Sara, she understands the likelihood of her inability to return to her baseline of living independently. We talked about SNF and Hospice and she would like to trial skilled services, with a likely transition. I do forsee her declining rather rapidly; however, since she is able to follow commands, I am comfortable with her trialing PT/OT and transitioning to Hospice therafter. -The niece did confirm that she would NOT want her to return to the hospital post discharge. I started to complete a POLST form but she had to leave as her granddaughter and her mother were with her. Will complete prior to DC. -We talked about facilities and she was at [facility] prior; however, the patient and niece are requesting [facility]. Will relay to the complex case manager. -I did talk and discuss this case at length with the hospitalist. -PPS: 20% (2) Septic shock: (3) Acute decompensated heart failure: (4) Respiratory failure with hypoxia: Subjective Patient sitting up in bed on 2LNC. Patient states that she has pain in her upper abdomen, appears to be GERD related. Patient on 2LNC and winded with conversation, comfortable at rest. Patient Sara mandujano POA at the bedside mid interview. Please see A/P for further details. Review of Systems Review of Systems: All systems reviewed & are unremarkable except as noted in HPI & below (pt reports pain in her upper abdomen when swallowing and eating) Physical Exam Constitutional: + ill appearing, comfortable, + lethargic and + edematous Eyes: PERRL, conjunctivae normal, anicteric sclerae ENMT: external ear and nose normal, oropharynx normal Neck: trachea midline, no thyromegaly Respiratory: + labored breathing (FIORE, when speaking in complete sentences patient breathing became dyspnic. ) Auscultation: + wheezes (expiratory) On 2LNC Cardiovascular: Heart Sounds: normal S1, normal S2 and + murmur Vessels: dorsalis pedis pulses present Extremities: + pedal edema and + edema (generalized bilateral lower extremity +4 pitting edema) feet cool to touch, some mottling noted on bottom of toes, bilateral feet Gastrointestinal (Abdomen): normal bowel sounds, soft, nontender, no hepatosplenomegaly rectiseal indwelling rectal tube draining small amount of brown liquid stool Skin: + skin tightening (small fluid-filled blisters noted right thigh/top of feet.dime-quarter size), + ecchymosis (on both arms ) and + mottling (on the bottom of bilateral feet ) Psychiatric: A+Ox3, euthymic affect (may not understand full complexity. increasingly lethargic ) Orientation: cooperative Insight: + limited insight Judgement: + limited judgement Genitourinary: strickland catheter draining dark jose urine Lymphatic: no cervical or axillary lymphadenopathy Results & Data Vital Signs (Past 12 Hours) Vital Signs Temp Pulse Pulse Resp BP Pulse Ox 01/27/19 07:16 36.7 C 73 22 109/75 99 01/27/19 07:14 87 20 99 01/27/19 04:45 36.5 C 74 18 145/62 H 98 01/27/19 01:56 101 H 32 H 97 PG Care Time/CCT Total # of Minutes Spent Total Time Spent: 45 Total Time Spent with Patient: Total time spent is greater than 50% in coordination of care (as documented) at patient's floor/unit and/or counseling patient: 45 Prolonged Care Time Prolonged Care Time: Yes Total Prolonged Care Time: 45 Time Spent Midlevel Total time spent 45 minutes with > 50% of that time spent assessing the patient and discussing goals of care with the patient and her POA. (1) Respiratory failure with hypoxia Chronicity: acute Qualified Code(s): J96.01 - Acute respiratory failure with hypoxia
[2019-01-27] MEDS: VANCOMYCIN HCL 1,000 MG in SODIUM CHLORIDE 0.9% 250 ML IV SCH (12:41)
--- NOTE | 2019-01-27 15:14 | Family Medicine Progress Note ---
Date of Service January 27, 2019 Assessment & Plan (1) Respiratory failure with hypoxia: 83-year-old female with past medical history of idiopathic pulmonary fibrosis, hypertension, anemia, type 2 diabetes presented from [facility] with acute encephalopathy and hypotension. On the ED, believed to be in cardiogenic shock - received fluids and pressors and was transferred to ICU. Workup concerning for septic shock likely in the setting of pneumonia, on vanc and zosyn. Pt required bipap and is now on NC likely from volume overload in the setting of R sided heart failure and pre-existing pulmonary disease (pt requires 2L NC at baseline). Recent admission and discharged on 01/16/2019 - exacerbation of her chronic lung disease, multifocal atrial tachycardia and spontaneous flank hematoma Septic Shock Likely in the Setting of HCAP -Discussion held about future disposition of patient today with Palliative and Case Management. -Niece who is POA to patient would like to have patient continue rehab and go to [facility] before transitioning to long-term Hospice. -She noted that she did not want the patient to return to the hospital after leaving this stay. -She planned on signing a POLST with Palliative medicine today. - WBC 13.82 today - increase likely due to corticosteroid use. Will continue to monitor. - BP 144/80, stable throughout the night. -Pressures lower this evening (108/54) with continued +2 edema, will trial Albumin 25%. - D/C Methylprednisone 40mg. - Bibasilar consolidation and pleural effusion R > L on CT - Continue Abx, vanc/zosyn IV - Blood and sputum cultures -- Negative - Spoke with pharmacy about possible oral treatment options - Consider Doxy 100mg BID and Cefdinir 300mg BID x 10-14 days - Continue nebs - AM labs ordered - Ordered for PT/OT evaluations. -OT - completed, plan on seeing patient 5x this coming week - continued skilled OT services while inpatient and after d/c recommended. -Patient has begun to sit up in chair more often -- improvement from her only laying in bed all day. -Currently on MedSurg on Cardiac's recommendation and improved, stable, BP and oxygenation. Acute respiratory failure - Initial ABG 7.19 PH, Co2 70, HCO2 27, O2 204 - Required Bipap transitioned to NC as pt did not tolerate bipap well - Currently on 2L NC at 92%, improvement from 4L the day before. Patient is 2L requirement at baseline. - Continue to monitor Idiopathic Pulmonary Fibrosis - Steroids DC'd today. Arrhythmia -Improvement noted with low-dose beta-blockers. -Cardiology consult placed -Abnormal beats seen on telemetry 2 nights ago likely due to aberrancy. Last night she had no aberrancy but had some PVC's and Trigeminy. -Metoprolol 12.5mg PO BID -Received 40mg IV Lasix yesterday for LE edema, continue to monitor BUN and creatinine -Can increase Metoprolol to 25mg BID if additional BP control required -In future can consider increasing Verapamil to 220mg QD with intent to continue beta-blockers for arrhythmia suppression. -Recommend increasing K >4 and Mag >2 -Morning K 4.3, Mag 1.7 today -K 4.3 today, no further replenishment needed at this time. -2 Mag ordered - Mag 1.7 today, will re-check in the morning. Fecal Incontinence -Nursing noting that patient's rectal tube had minimal stool today. -Will leave Rectal Tube PRN, but will remove from patient at this point in time. -D/C Metamucil and Colace -Psyllium Husk 1tsp mixed with applesauce -KUB ordered - Impression: No evidence for bowel obstruction. Small to moderate well-formed stool within the colon. -Stool Sample for C-Diff screen ordered - Negative for C-Diff Gene Hematuria -Trauma -Patient is noted by nursing to move often causing significant displacement of urinary catheter. -Urine Culture sent - Negative -Hgb 10 this AM, will continue to monitor Transaminitis - likely from fluid overload - body wall edema, ascites, mesenteric edema - GI consulted: - likely cardiac/sepsis related. CBD dilation is chronic. If concern remains consider repeat US vs MRCP - Resolved. Flank Hematoma - improving - Hgb is stable 10 today. Fecal impaction - D/C Miralax and Colace HTN -Continue home Verapamil. -Metoprolol 12.5mg BID, consider increasing to 25mg BID if further BP control required. HLD - Continue aspirin, atorvastatin. Hx of SIADH - Continue NaCl 1g TID DM2 - SSI and Lantus 12u BID - Continue home Januvia and [place], hold metformin - Blood Sugar 33 this AM, 110 on repeat. GERD - Continue carafate and protonix DVT ppx - Heparin FEN/GI: HH diet and Diabetic diet, no IVF, replete electrolytes as needed Code status - DNR/DNI Dispo: Med-Surg, Plan for Rehab with [facility] with transition to [facility] hospice. (2) Diabetes mellitus: (3) Interstitial lung disease: (4) Hypertension: (5) Gastroesophageal reflux disease: (6) Hypercapnia: (7) Hematuria: (8) Fecal incontinence: (9) Arrhythmia: Supervising Physician Co-Signing Physician Notes Resident Physician Supervision Note: I independently interviewed and examined the patient and verified the kincaid hist ory and physical, reviewed labs and image studies, discussed the case with the resident Dr. Grey and agree with the findings and care plan. Subjective Patient seen and examined this AM while in bed. Patient was currently eating her breakfast at the time, and noted she enjoyed the tea that she was brought. She notes that she feels relatively well, but a bit more tired due to being moved to a new room recently. She also states that the "lump" on her abdomen was tender, but that it was unchanged from initial evaluation. She states wanting to cont inue to improve so that she can return home. Review of Systems Constitutional: + weakness, + increased appetite (Patient continues to note a strong appetite) and + daytime sleepiness; no fever and no chills Respiratory: + cough, + chest congestion and + dyspnea on exertion; no hemoptysis and no pain on inspiration Cardiovascular: + dyspnea and + dyspnea on exertion; no chest pain, no chest pain at rest and no radiating jaw, neck or arm pain Gastrointestinal: + abdominal pain; no heartburn, no nausea, no vomiting, no constipation and no blood in stools Patient unsure of whether or not they feel constipated or have diarrhea, however, minimal stool was noted in rectal tube. Patient continues to show a strong appetite to eat. Genitourinary: + dysuria and + hematuria; no urinary frequency and no flank pain Integumentary: + rash; no yellowing of the skin Neurologic: + unsteadiness Physical Exam Constitutional: + disheveled Eyes: normal visual mitchell by confrontation and + anicteric sclerae ENMT: Ears: + hearing impairment Neck: trachea midline, no thyromegaly normal visual inspection and trachea midline Respiratory: normal respiratory effort, + cough and able to speak in complete sentences; no respiratory distress, no labored breathing, no retractions and does not use accessory muscles Auscultation: + diminished lung sounds and + wheezes (B/L); no crackles Patient was tachypneic during second evaluation with attending physician. Possibly due to neck discomfort patient was experiencing due to positioning. Cardiovascular: Rate/Rhythm: regular rate and + irregularly irregular Heart Sounds: + abnormal opening sounds (S2 louder than S1); no gallop and no cardiac rub Vessels: normal peripheral pulses and dorsalis pedis pulses present Extremities: + edema (+2) Gastrointestinal (Abdomen): Inspection/Auscultation: normal bowel sounds; abdomen not distended and no high-pitched sounds Percussion/Palpation: + abdomen tender (Diffuse tenderness throughout to palpation. ) and + abdominal mass (small cyst like mass noted in RUQ towards the midline. ); no guarding, abdomen not rigid and no pulsatile mass Musculoskeletal: Head/Neck/Chest: normocephalic and head atraumatic Skin: Trauma: + hematoma Neurologic: moves all extremities and awake (still improving from day prior. Patient now sits in her chair as well.); no focal motor deficits Psychiatric: Orientation: alert, oriented to person and cooperative Results & Data Vital Signs (Past 12 Hours) Vital Signs Temp Pulse Pulse Resp BP Pulse Ox 01/27/19 15:11 36.7 C 67 22 79/48 L 92 01/27/19 14:06 67 20 93 01/27/19 07:16 36.7 C 73 22 109/75 99 01/27/19 07:14 87 20 99 01/27/19 04:45 36.5 C 74 18 145/62 H 98 Laboratory Results Abnormal lab results 01/26/19 01/26/19 01/27/19 Range/Units 17:09 20:28 04:39 WBC (4.8-10.8) K/uL RBC (4.2-5.4) M/uL Hgb (12.0-16.0) g/dL Hct (37-47) % MCHC (32-36) g/dL RDW Std Deviation (36.4-46.3) fL RDW Coeff of Alexa (11.5-14.5) % Sodium (136-145) mmol/L Chloride (98-107) mmol/L Carbon Dioxide (21-32) mmol/L BUN (7-18) mg/dl BUN/Creatinine Ratio (10-20) Glucose (70-99) mg/dl POC Glucose 192 H 171 H 35 L* (70-99) Calcium (8.5-10.1) mg/dl Magnesium (1.8-2.4) mg/dl 01/27/19 01/27/19 01/27/19 Range/Units 04:42 05:00 05:47 WBC (4.8-10.8) K/uL RBC (4.2-5.4) M/uL Hgb (12.0-16.0) g/dL Hct (37-47) % MCHC (32-36) g/dL RDW Std Deviation (36.4-46.3) fL RDW Coeff of Alexa (11.5-14.5) % Sodium 133 L (136-145) mmol/L Chloride 92 L (98-107) mmol/L Carbon Dioxide 37 H (21-32) mmol/L BUN 27 H (7-18) mg/dl BUN/Creatinine Ratio 35.0 H (10-20) Glucose 135 H (70-99) mg/dl POC Glucose 32 L* 110 H (70-99) Calcium 7.6 L (8.5-10.1) mg/dl Magnesium 1.7 L (1.8-2.4) mg/dl 01/27/19 01/27/19 01/27/19 Range/Units 05:47 07:53 12:07 WBC 13.82 H (4.8-10.8) K/uL RBC 3.86 L (4.2-5.4) M/uL Hgb 10.0 L (12.0-16.0) g/dL Hct 32.7 L (37-47) % MCHC 30.6 L (32-36) g/dL RDW Std Deviation 62.6 H (36.4-46.3) fL RDW Coeff of Alexa 20.5 H (11.5-14.5) % Sodium (136-145) mmol/L Chloride (98-107) mmol/L Carbon Dioxide (21-32) mmol/L BUN (7-18) mg/dl BUN/Creatinine Ratio (10-20) Glucose (70-99) mg/dl POC Glucose 113 H 262 H (70-99) Calcium (8.5-10.1) mg/dl Magnesium (1.8-2.4) mg/dl 01/27/19 01/27/19 Range/Units 16:55 16:56 WBC (4.8-10.8) K/uL RBC (4.2-5.4) M/uL Hgb (12.0-16.0) g/dL Hct (37-47) % MCHC (32-36) g/dL RDW Std Deviation (36.4-46.3) fL RDW Coeff of Alexa (11.5-14.5) % Sodium (136-145) mmol/L Chloride (98-107) mmol/L Carbon Dioxide (21-32) mmol/L BUN (7-18) mg/dl BUN/Creatinine Ratio (10-20) Glucose (70-99) mg/dl POC Glucose 344 H* 333 H* (70-99) Calcium (8.5-10.1) mg/dl Magnesium (1.8-2.4) mg/dl Medications Administered Current Inpatient Medications Acetaminophen (Tylenol) 650 mg PO Q12H PRN PRN Reason: Fever Or Pain Last Admin: 01/27/19 15:17 Dose: 650 mg Documented by: Artificial Tears (Artificial Tears) 1 drops OPB BID PRN PRN Reason: Dry Eye(S) Stop: 02/22/19 03:59 Aspirin (Ecotrin Ectab) 81 mg PO DAILY [facility] Stop: 02/22/19 08:59 Last Admin: 01/27/19 08:23 Dose: 81 mg Documented by: Atorvastatin Calcium (Lipitor) 20 mg PO HS [facility] Stop: 02/22/19 20:59 Budesonide (Pulmicort Respules) 0.5 mg NEB BIDR [facility] Stop: 02/22/19 07:59 Last Admin: 01/27/19 07:12 Dose: 0.5 mg Documented by: Calcium Carbonate (Os-Klever 500) 1,250 mg PO BID [facility] Stop: 02/22/19 08:59 Last Admin: 01/27/19 08:27 Dose: 1,250 mg Documented by: Cyanocobalamin (Vitamin B-12) 1,000 mcg PO DAILY [facility] Stop: 02/22/19 08:59 Last Admin: 01/27/19 08:27 Dose: 1,000 mcg Documented by: Dextrose (Dextrose 50%) 25 - 50 ml IV UD PRN; Protocol PRN Reason: Hypoglycemia Protocol Stop: 02/22/19 00:55 Last Admin: 01/27/19 04:44 Dose: 50 ml Documented by: Glucagon (Glucagen) 1 mg SQ UD PRN; Protocol PRN Reason: Hypoglycemia Protocol Stop: 02/22/19 00:55 Glucose (Glucose 40%) 15 - 30 gm PO UD PRN; Protocol PRN Reason: Hypoglycemia Protocol Stop: 02/22/19 00:55 Glucose (Dex4 Glucose) 4 - 8 tabs PO UD PRN; Protocol PRN Reason: Hypoglycemia Protocol Stop: 02/22/19 00:55 Heparin Sodium (Porcine) (Heparin Sodium (Porcine)) 5,000 units SQ Q12 [facility] Stop: 02/22/19 08:59 Last Admin: 01/27/19 08:27 Dose: 5,000 units Documented by: Sodium Chloride (Nss) 250 mls @ 15 mls/hr IV .[id number] PRN PRN Reason: For Transfusion Stop: 02/21/19 18:21 Piperacillin Sod/Tazobactam (Sod 3.375 gm/ Dextrose) 115 mls @ 28.75 mls/hr IV Q8H [facility]; Protocol Stop: 01/31/19 13:59 Last Admin: 01/27/19 13:33 Dose: 28.8 mls/hr Documented by: Vancomycin HCl 1,000 mg/ (Sodium Chloride) 270 mls @ 125 mls/hr IV Q18H [facility] Stop: 02/01/19 05:59 Last Infusion: 01/27/19 15:40 Dose: Infused Documented by: Albumin Human (Albumin 25%) 50 mls @ 50 mls/hr IV ONE ONE Stop: 01/27/19 17:50 Insulin Aspart (Novolog Flexpen) 0 units SC ACHS [facility] Stop: 02/22/19 01:14 Last Admin: 01/27/19 12:42 Dose: 13 units Documented by: Insulin Glargine (Lantus Solostar Pen) 12 units SC BID [facility] Stop: 02/24/19 20:59 Last Admin: 01/26/19 21:13 Dose: 12 units Documented by: Ipratropium [place] (Atrovent 0.02% 0.5mg/2.5ml) 0.5 mg INH Q6R [facility] Stop: 02/22/19 07:59 Last Admin: 01/27/19 14:05 Dose: 0.5 mg Documented by: Levalbuterol HCl (Xopenex 0.63 Mg/3 Ml Neb) 0.63 mg NEB Q6R [facility] Stop: 02/22/19 07:59 Last Admin: 01/27/19 14:05 Dose: 0.63 mg Documented by: Metoprolol Succinate (Toprol Xl) 12.5 mg PO BID [facility] Stop: 02/24/19 10:29 Last Admin: 01/27/19 08:25 Dose: 12.5 mg Documented by: Miscellaneous (Carbohydrates For Hypoglycemia) 15 - 30 gm PO UD PRN PRN Reason: Hypoglycemia Treatment Stop: 02/22/19 00:55 Miscellaneous Information (Consult) 1 ea N/A UD PRN PRN Reason: Consult Stop: 02/22/19 00:06 Miscellaneous Information (Consult) 1 ea N/A UD PRN PRN Reason: Consult Stop: 02/22/19 00:06 Pantoprazole Sodium (Protonix) 40 mg PO DAILY [facility] Stop: 02/22/19 08:59 Last Admin: 01/27/19 08:23 Dose: 40 mg Documented by: Potassium Chloride (Klor-Con M20) 40 meq PO QAM [facility] Stop: 02/24/19 18:59 Last Admin: 01/27/19 08:25 Dose: 40 meq Documented by: Psyllium Hydrophilic Mucilloid (Metamucil) 1 pkt PO QAM [facility] Stop: 02/25/19 08:59 Last Admin: 01/27/19 08:25 Dose: 1 pkt Documented by: Sitagliptin Phosphate (Januvia) 25 mg PO DAILY [facility] Stop: 02/23/19 08:59 Last Admin: 01/27/19 08:23 Dose: 25 mg Documented by: Sodium Chloride (Sodium Chloride) 1 gm PO TID [facility] Stop: 02/22/19 08:59 Last Admin: 01/27/19 13:33 Dose: 1 gm Documented by: Sucralfate (Carafate) 1 gm PO AC [facility] Stop: 02/22/19 07:29 Last Admin: 01/27/19 11:08 Dose: 1 gm Documented by: Thiamine HCl (Vitamin B-1) 100 mg PO DAILY [facility] Stop: 02/23/19 08:59 Last Admin: 01/27/19 08:22 Dose: 100 mg Documented by: Verapamil HCl (Calan Sr) 120 mg PO BID [facility] Stop: 02/22/19 20:59 Last Admin: 01/27/19 09:12 Dose: 120 mg Documented by: PG Care Time/CCT Total # of Minutes Spent Total Time Spent with Patient: Total time spent is greater than 50% in coordination of care (as documented) at patient's floor/unit and/or counseling patient: (1) Respiratory failure with hypoxia Chronicity: acute Qualified Code(s): J96.01 - Acute respiratory failure with hypoxia
[2019-01-27] MEDS ORDERED: ALBUMIN 25% 50 ML IV ONE (16:51)
[2019-01-27] MEDS ORDERED: PHARMACY GLYCEMIC MGMT CONSULT PRN (21:16)
[2019-01-27] MEDS ORDERED: INSULIN GLARGINE SOLOSTAR 100 UNITS/ML 3 ML PEN SC ONE (21:45)
[2019-01-28] MEDS ORDERED: INSULIN ASPART 100 UNITS/ML 3 ML PEN SC SCH (02:00)
[2019-01-28] MEDS: IPRATROPIUM BROMIDE NEB SOLN 0.02% 2.5 ML VIAL INH SCH ×3 (02:14→14:01)
[2019-01-28] MEDS: LEVALBUTEROL HCL 0.63 MG/3 ML NEB NEB SCH ×3 (02:14→14:01)
--- NOTE | 2019-01-28 04:14 | Pharmacy Report ---
Pharmacy Glycemic Short Note 2 - Date of Service January 28, 2019 - Glycemic Short BSG Results (Last 24 hours): 01/27/19 01/27/19 01/27/19 04:39 04:42 05:00 Glucose POC Glucose 35 L* 32 L* 110 H 01/27/19 01/27/19 01/27/19 05:47 07:53 12:07 Glucose 135 H POC Glucose 113 H 262 H 01/27/19 01/27/19 01/27/19 16:55 16:56 20:44 Glucose POC Glucose 344 H* 333 H* 379 H* 01/27/19 01/28/19 20:46 01:02 Glucose POC Glucose 367 H* 177 H Laboratory Tests 01/28/19 01/28/19 03:39 04:02 POC Glucose 68 L* 74 OUTPATIENT ANTIDIABETIC REGIMEN: * metformin 1g po BID * Januvia 100mg po daily * HbA1c from 01/23/19 = 7.7% ASSESSMENT: * Pharmacy glycemic service consulted for labile BSGs with this ADM. Pt has been hyperglycemic while on IV methylprednisolone (last dose 01/27 AM) & infection/antibiotics. 2 hypoglycemic events ~24 hours apart thought related to the use of sitagliptan (home dose 100mg daily, pt ordered only 25mg daily IN ADDITION to insulin). * Discussed plan of care with Dr. Valentine. I prefer NOT to continue an oral diabetes agent while an in-pt and on insulin (even at a lowered dose). Will monitor basal insulin needs closely and continue to make adjustments. 01/25/19: Pt needed 66 units of insulin (also Januvia 25mg po daily) 01/26/19: Pt needed 39 units of insulin (also Januvia 25mg po daily) 01/27/19: Pt needed 53 units of insulin (also Januvia 25mg po daily). Had hypoglycemic event in AM. 01/28/19: Hypoglycemic event noted @ 0330. PLAN FOR INPATIENT GLYCEMIC CONTROL: * Hold outpatient oral diabetes medications. D/C Januvia. * Basal insulin * Lantus 10 units x 1 given 01/27/19 PM. * Bolus insulin * NovoLog per scale ACHS or Q6hrs while NPO * Changed Goal Range: Low 120 mg/dL - High 160 mg/dL * Correction Factor: 30 mg/dL/unit * Nutritional / Prandial insulin per carb ratio of 1 unit per 12 grams CHO consumed PLAN FOR DISCHARGE: * D/C insulin, resume home metformin & Januvia
[2019-01-28] MEDS ORDERED: VANCOMYCIN TROUGH ONE (05:30)
[2019-01-28 05:59] LABS: Hematocrit (blood only) 28.2 % (37-47); Hemoglobin 8.6 g/dL (12.0-16.0); Mean Corpuscular Hgb Conc 30.5 g/dL (32-36); Mean Platelet Volume 9.6 fL (7.4-10.4); Nucleated RBC # (auto) 0.04 K/uL (0-0); Nucleated RBC % (auto) 0.4 %; Platelet Count 152 K/uL (130-400); RDW Coefficient of Variation 20.6 % (11.5-14.5); RDW Standard Deviation 60.2 fL (36.4-46.3); Red Blood Count 3.44 M/uL (4.2-5.4); White Blood Count 10.02 K/uL (4.8-10.8)
[2019-01-28] MEDS: PIPERACILLIN/TAZOBACTAM 3.375 GM in DEXTROSE 5% 100 ML IV SCH ×2 (06:15→14:41)
[2019-01-28] MEDS: VANCOMYCIN HCL 1,000 MG in SODIUM CHLORIDE 0.9% 250 ML IV SCH (06:15)
[2019-01-28 06:27] LABS: Albumin Level 2.8 gm/dl (3.4-5.0); BUN Creatinine Ratio 37.5 (10-20); Creatinine Clr Calc Pharmacy 35.9 ml/min; Est GFR (Non-African American) 68.2; Potassium 5.2 mmol/L (3.5-5.1)
[2019-01-28 06:29] LABS: Albumin Globulin Ratio 1.2 (0.9-2); Globulin 2.3 gm/dl (2.5-4.0); Total Protein 5.1 gm/dl (6.4-8.2)
[2019-01-28] MEDS: BUDESONIDE 0.5 MG/2 ML VIAL (PULMICORT) NEB SCH (07:18)
--- NOTE | 2019-01-28 08:25 | Pharmacy Report ---
Pharmacy Abx Dose Short Note - Date of Service January 28, 2019 - Assessment & Plan Assessment 83 year old F receiving vancomycin for treatment of pneumonia Day # 6 of antimicrobial therapy. Plan Vancomycin * Trough level came back supratherapeutic today at ~24 mcg/ml (goal 15-20 mcg/ml for pneumonia) * Will decrease from vancomycin 1000 mg iv q 18 hrs to 1000 mg iv q 24 hrs to achieve a lower trough level * Estimated kinetics based upon level: t1/2~18 hrs, ke~0.038, CrCl ~35 ml/min * Palliative care consulted, likely plan is for patient to go to rehab before transitioning to hospice care * Likely will transition to oral agents on discharge Zosyn: * 3.375 iv q 8 hrs - no change (CrCl >20 ml/min) Pharmacy will continue to follow and will adjust dose/frequency as necessary. Thank you.
[2019-01-28] MEDS: VERAPAMIL HCL 120 MG TABCR PO SCH (08:29)
[2019-01-28] MEDS: METOPROLOL SUCC 25MG EXT REL TAB PO SCH (08:30)
[2019-01-28] MEDS: PANTOprazole 40 MG TAB PO SCH (08:30)
[2019-01-28] MEDS: POTASSIUM CHLORIDE 20 MEQ TABCR PO SCH (08:30)
[2019-01-28] MEDS: SODIUM CHLORIDE 1 GM TABLET PO SCH ×2 (08:30→14:41)
[2019-01-28] MEDS: CYANOCOBALAMIN 500 MCG TABLET (VITAMIN B-12) PO SCH (08:31)
[2019-01-28] MEDS: THIAMINE HCL 100 MG TAB PO SCH (08:31)
[2019-01-28] MEDS: ASPIRIN 81 MG ECTAB PO SCH (08:31)
[2019-01-28] MEDS: CALCIUM CARBONATE 1250MG TAB PO SCH (08:31)
[2019-01-28] MEDS: SUCRALFATE 1 GM/10 ML UDC PO SCH ×3 (08:32→18:13)
[2019-01-28] MEDS: HEPARIN SOD 5,000 UNIT/0.5 ML VIAL SQ SCH (08:32)
[2019-01-28] MEDS: PSYLLIUM 58.6% POWDER PACKET PO SCH (08:32)
[2019-01-28] MEDS: INSULIN ASPART 100 UNITS/ML 3 ML PEN SC SCH ×3 (08:35→17:42)
[2019-01-28] MEDS ORDERED: INSULIN GLARGINE SOLOSTAR 100 UNITS/ML 3 ML PEN SC SCH ×2 (09:00→16:30)
--- NOTE | 2019-01-28 11:37 | Family Medicine Progress Note ---
Date of Service January 28, 2019 Assessment & Plan (1) Respiratory failure with hypoxia: Patient made comfort measures this evening after discussion with family. Started on morphine 2mg Q1H PRN and Ativan 0.5mg Q2H PRN. Remaining medications DC'd. 83-year-old female with past medical history of idiopathic pulmonary fibrosis, hypertension, anemia, type 2 diabetes presented from [facility] with acute encephalopathy and hypotension. On the ED, believed to be in cardiogenic shock - received fluids and pressors and was transferred to ICU. Workup concerning for septic shock likely in the setting of pneumonia, on vanc and zosyn. Pt required bipap and is now on NC likely from volume overload in the setting of R sided heart failure and pre-existing pulmonary disease (pt requires 2L NC at baseline). Recent admission and discharged on 01/16/2019 - exacerbation of her chronic lung disease, multifocal atrial tachycardia and spontaneous flank hematoma Septic Shock Likely in the Setting of HCAP Acute respiratory failure Idiopathic Pulmonary Fibrosis Arrhythmia Fecal Incontinence Hematuria Transaminitis Flank Hematoma - improving Fecal impaction HTN HLD Hx of SIADH DM2 GERD (2) Diabetes mellitus: (3) Interstitial lung disease: (4) Hypertension: (5) Gastroesophageal reflux disease: (6) Hypercapnia: (7) Hematuria: (8) Fecal incontinence: (9) Arrhythmia: Supervising Physician Co-Signing Physician Notes Resident Physician Supervision Note: I independently interviewed and examined the patient and verified the kincaid history and physical, reviewed labs and image studies, discussed the case with the resident Dr. Grey and agree with the findings and care plan. Subjective Patient seen this AM while in bed. She notes that she recently had a bowel movement and has had some difficulty catching her breath since. Nursing notes that she had desaturated to the high 70's and low 80's when she was being moved and cleaned this morning. The patient notes that her breathing is increasing in difficulty this AM. She notes slight improvement in her bowel movements, but that they are still uncomfortable when she has them. Review of Systems Constitutional: + fatigue, + weakness and + daytime sleepiness; no fever and no chills Eyes: no eye pain Ear, Nose, Mouth, Throat: + dizziness; no ear pain Respiratory: + cough, + chest congestion and + dyspnea on exertion; no hemoptysis and no pain on inspiration Cardiovascular: + dyspnea, + dyspnea at rest and + dyspnea on exertion; no chest pain, no chest pain at rest and no radiating jaw, neck or arm pain Gastrointestinal: + abdominal pain, + diarrhea/loose stools and + constant urge to pass stools; no heartburn, no nausea, no vomiting, no constipation and no blood in stools Patient unsure of whether or not they feel constipated or have diarrhea, however, minimal stool was noted in rectal tube. Patient continues to show a strong appetite to eat. Genitourinary: + dysuria and + hematuria; no urinary frequency and no flank pain Musculoskeletal: + muscle weakness Integumentary: + rash; no yellowing of the skin Neurologic: + unsteadiness Physical Exam Constitutional: + disheveled Eyes: normal visual mitchell by confrontation and + anicteric sclerae ENMT: Ears: + hearing impairment Neck: trachea midline, no thyromegaly normal visual inspection and trachea midline Respiratory: + respiratory distress (on 2L), + labored breathing, + uses accessory muscles, + cough, able to speak in complete sentences and + tach ypneic; no retractions Auscultation: + diminished lung sounds and + wheezes (B/L); no crackles Cardiovascular: Rate/Rhythm: regular rate and + irregularly irregular Heart Sounds: + abnormal opening sounds (S2 louder than S1); no gallop and no cardiac rub Vessels: normal peripheral pulses and dorsalis pedis pulses present Extremities: + edema (+2) Gastrointestinal (Abdomen): Inspection/Auscultation: normal bowel sounds; abdomen not distended and no high-pitched sounds Percussion/Palpation: + abdomen tender (Diffuse tenderness throughout to palpation. ) and + abdominal mass (small cyst like mass noted in RUQ towards the midline. ); no guarding, abdomen not rigid and no pulsatile mass Musculoskeletal: Head/Neck/Chest: normocephalic and head atraumatic Skin: Trauma: + hematoma Psychiatric: Orientation: oriented to person and cooperative Apperance: + disheveled Eye Contact: + fair eye contact Results & Data Vital Signs (Past 12 Hours) Vital Signs Temp Pulse Pulse Resp BP Pulse Ox Pulse Ox 01/28/19 09:53 95 01/28/19 07:23 65 16 95 01/28/19 07:13 36.4 C L 66 16 82/50 L 91 01/28/19 02:15 58 L 18 94 Laboratory Results Abnormal lab results 01/27/19 01/27/19 01/28/19 Range/Units 20:44 20:46 01:02 RBC (4.2-5.4) M/uL Hgb (12.0-16.0) g/dL Hct (37-47) % MCHC (32-36) g/dL RDW Std Deviation (36.4-46.3) fL RDW Coeff of Alexa (11.5-14.5) % Absolute Nucleated RBC (0-0) K/uL Sodium (136-145) mmol/L Potassium (3.5-5.1) mmol/L Chloride (98-107) mmol/L Carbon Dioxide (21-32) mmol/L BUN (7-18) mg/dl BUN/Creatinine Ratio (10-20) POC Glucose 379 H* 367 H* 177 H (70-99) Calcium (8.5-10.1) mg/dl AST (15-37) U/L Total Protein (6.4-8.2) gm/dl Albumin (3.4-5.0) gm/dl Globulin (2.5-4.0) gm/dl 01/28/19 01/28/19 01/28/19 Range/Units 03:39 05:34 05:34 RBC 3.44 L (4.2-5.4) M/uL Hgb 8.6 L (12.0-16.0) g/dL Hct 28.2 L (37-47) % MCHC 30.5 L (32-36) g/dL RDW Std Deviation 60.2 H (36.4-46.3) fL RDW Coeff of Alexa 20.6 H (11.5-14.5) % Absolute Nucleated RBC 0.04 H (0-0) K/uL Sodium 130 L (136-145) mmol/L Potassium 5.2 H D (3.5-5.1) mmol/L Chloride 91 L (98-107) mmol/L Carbon Dioxide 34 H (21-32) mmol/L BUN 30 H (7-18) mg/dl BUN/Creatinine Ratio 37.5 H (10-20) POC Glucose 68 L* (70-99) Calcium 8.0 L (8.5-10.1) mg/dl AST 14 L (15-37) U/L Total Protein 5.1 L (6.4-8.2) gm/dl Albumin 2.8 L (3.4-5.0) gm/dl Globulin 2.3 L (2.5-4.0) gm/dl 01/28/19 01/28/19 01/28/19 Range/Units 05:56 08:14 11:35 RBC (4.2-5.4) M/uL Hgb (12.0-16.0) g/dL Hct (37-47) % MCHC (32-36) g/dL RDW Std Deviation (36.4-46.3) fL RDW Coeff of Alexa (11.5-14.5) % Absolute Nucleated RBC (0-0) K/uL Sodium (136-145) mmol/L Potassium (3.5-5.1) mmol/L Chloride (98-107) mmol/L Carbon Dioxide (21-32) mmol/L BUN (7-18) mg/dl BUN/Creatinine Ratio (10-20) POC Glucose 105 H 112 H 166 H (70-99) Calcium (8.5-10.1) mg/dl AST (15-37) U/L Total Protein (6.4-8.2) gm/dl Albumin (3.4-5.0) gm/dl Globulin (2.5-4.0) gm/dl 01/28/19 Range/Units 16:45 RBC (4.2-5.4) M/uL Hgb (12.0-16.0) g/dL Hct (37-47) % MCHC (32-36) g/dL RDW Std Deviation (36.4-46.3) fL RDW Coeff of Alexa (11.5-14.5) % Absolute Nucleated RBC (0-0) K/uL Sodium (136-145) mmol/L Potassium (3.5-5.1) mmol/L Chloride (98-107) mmol/L Carbon Dioxide (21-32) mmol/L BUN (7-18) mg/dl BUN/Creatinine Ratio (10-20) POC Glucose 171 H (70-99) Calcium (8.5-10.1) mg/dl AST (15-37) U/L Total Protein (6.4-8.2) gm/dl Albumin (3.4-5.0) gm/dl Globulin (2.5-4.0) gm/dl Medications Administered Current Inpatient Medications Artificial Tears (Artificial Tears) 1 drops OPB BID PRN PRN Reason: Dry Eye(S) Stop: 02/22/19 03:59 Lorazepam (Ativan) 0.5 mg in 1 mls @ 0.5 mls/min IV Q2H PRN PRN Reason: Anxiety Stop: 02/27/19 19:25 Morphine Sulfate (Morphine Sulfate) 2 mg IV Q1H PRN PRN Reason: discomfort Stop: 02/11/19 19:14 Last Admin: 01/28/19 19:15 Dose: 2 mg Documented by: Resident Activity Tracking Resident Involvement: Resident Care Provided Care Provided: Adult Hospital Medicine (1) Respiratory failure with hypoxia Chronicity: acute Qualified Code(s): J96.01 - Acute respiratory failure with hypoxia
--- NOTE | 2019-01-28 15:19 | Palliative Care Progress Note ---
Date of Service January 28, 2019 Subjective Went by patient's room to see if niece was there to complete POLST form-no family at bedside. Patient niece have already had a discussion regarding the POLST form-plan is for transfer to [facility] skilled with transition to hospice if she does not improve. Results & Data Vital Signs (Past 12 Hours) Vital Signs Temp Pulse Pulse Resp BP BP Pulse Ox 01/28/19 15:06 98.1 F 70 40 H 83/48 L 87 L 01/28/19 14:04 66 24 100 01/28/19 09:53 01/28/19 07:23 65 16 95 01/28/19 07:13 97.5 F L 66 16 82/50 L 91 Pulse Ox 01/28/19 15:06 01/28/19 14:04 01/28/19 09:53 95 01/28/19 07:23 01/28/19 07:13 PG Care Time/CCT Total # of Minutes Spent Total Time Spent with Patient: Total time spent is greater than 50% in coordination of care (as documented) at patient's floor/unit and/or counseling patient:
[2019-01-28] MEDS: ACETAMINOPHEN 325 MG TAB PO PRN (15:55)
[2019-01-28] MEDS ORDERED: SODIUM CHLORIDE 0.9% 1000ML 250 ML IV ONE ×2 (16:00→16:23)
[2019-01-28] MEDS ORDERED: MoRPHine SULFATE 2 MG/ML CARP IV PRN (19:06)
[2019-01-28] MEDS ORDERED: LORazepam 0.5 MG/1 ML VIAL IV PRN ×2 (19:22→19:26)
--- NOTE | 2019-01-28 21:04 | Death Summary ---
Date of Service January 28, 2019 Pronouncement Note Date and Time of Date of : 01/28/19 Time of : 21:03 PCOD Preliminary cause of : Respiratory failure Contributing Factors (1) Respiratory failure with hypoxia: (2) Diabetes mellitus: (3) Interstitial lung disease: (4) Hypertension: (5) Gastroesophageal reflux disease: (6) Hypercapnia: (7) Hematuria: (8) Fecal incontinence: (9) Arrhythmia: Summary Additional details: Patient was an 83 year old female with PMHx interstitial lung disease, diabetes mellitus type 2, and hypertension that presented to the ED with acute encephalopathy and hypotension. She spent some time in the ICU where her pressures recovered well enough that she could be transferred to the regular medical floor. She continued to have issues with her oxygenation even while on 4L and while rehabilitation was attempted, was minimally effective. After discussions with the family, it was decided to seek comfort care only. The patient passed shortly after that evening. Additional Data Confirmation of : no pulse, no respirations, no heart sounds, pupils fixed and dilated and other (unresponsive to sternal rub) Family: contacted (contacted via phone - family had stepped out for the evening. ) Additional persons at bedside: other (nurse) Attending/PCP notified?: Yes Attending physician: Kristina Muñoz MD Was code activated?: No Resident Activity Tracking Resident Involvement: Resident Care Provided Care Provided: Adult Hospital Medicine
[2019-01-29] MEDS ORDERED: VANCOMYCIN HCL 1,000 MG in SODIUM CHLORIDE 0.9% 250 ML IV SCH (06:00)
--- NOTE | 2019-01-29 11:46 | Family Medicine Progress Note ---
Date of Service January 28, 2019 Assessment & Plan (1) Respiratory failure with hypoxia: (2) Diabetes mellitus: (3) Interstitial lung disease: (4) Hypertension: (5) Gastroesophageal reflux disease: (6) Hypercapnia: (7) Hematuria: (8) Fecal incontinence: (9) Arrhythmia: (1) Respiratory failure with hypoxia Chronicity: acute Qualified Code(s): J96.01 - Acute respiratory failure with hypoxia
== END 2019-01-28 20:47 | disposition expired | DRG 871 ==
LOC: ED 18:09 → 1E 21:14 → SUATTDRO 21:14 → 1E 21:49 → 2W 01-23 14:21 → 2E 01-23 14:58 → 4W 01-26 14:46
DX: A41.9 Sepsis, unspecified organism; M81.0 Age-related osteoporosis without current pathological fracture; I50.810 Right heart failure, unspecified; I27.20 Pulmonary hypertension, unspecified; K21.9 Gastro-esophageal reflux disease without esophagitis; E11.9 Type 2 diabetes mellitus without complications; I47.1 Supraventricular tachycardia; Z79.84 Long term (current) use of oral hypoglycemic drugs; R57.0 Cardiogenic shock; R65.21 Severe sepsis with septic shock; J96.01 Acute respiratory failure with hypoxia; I11.0 Hypertensive heart disease with heart failure; Z66 Do not resuscitate; J18.9 Pneumonia, unspecified organism; E22.2 Syndrome of inappropriate secretion of antidiuretic hormone; M48.56XA Collapsed vertebra, not elsewhere classified, lumbar region, initial encounter for fracture; I50.9 Heart failure, unspecified; M79.81 Nontraumatic hematoma of soft tissue; R15.9 Full incontinence of feces; J96.02 Acute respiratory failure with hypercapnia; J84.112 Idiopathic pulmonary fibrosis; R31.9 Hematuria, unspecified